=== PATIENT | male | born 1950 | race Caucasian/White ===

== ENCOUNTER 2017-05-09 08:28 | Day surgery (SDC) | payer MEDICARE, SELFPAY | END 2017-05-09 09:08 | disposition home or self-care (01) | PROVIDERS: Family Provider Family Medicine; Visit Provider Nurse Anesthetist, Certified Registered | DX: M51.16 Intervertebral disc disorders with radiculopathy, lumbar region (principal); M70.61 Trochanteric bursitis, right hip | CPT/HCPCS: 20610; 62323; J1040 ==

== ENCOUNTER → 2017-07-01 09:19 | Outpatient (POV) | payer MEDICARE, SELFPAY ==
[2017-07-01 09:31] VITALS: BP 148/84; PULSE 75; RESP 16; TEMP 36.5; O2SAT 97; BMI 28.5
--- NOTE | 2017-07-01 09:40 | HMH.PAINSOAP ---
[facility] Pain Management SOAP Note Subjective:: Pleasant 67-year-old white male who presents today to discuss his recent lumbar epidural steroid injection and a right trochanteric bursa injection. Patient is doing 60% better in regards to back pain for over 6 weeks. Patient is still having some right hip pain. 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 Patient has tried heat and ice is also tried muscle relaxants and anti-inflammatories. He has gotten the most relief from this lumbar epidural injection. Patient is also asking about potential medications to help with pain he only wants to take something as needed while he is at the [employer]. We discussed bracing he has tried this in the past with not a lot of success. ROS General: no recent weight change, no fever, no sleep disturbances Respiratory: no cough, no shortness of air, no recurring pulmonary infections Cardiovascular/Peripheral Vascular: No chest pain, No palpitations, no edema, no shortness of breath. Gastrointestinal: no incontinence, normal bowel movements reported Genitourinary: no incontinence Musculoskeletal: Back pain, right leg pain Psychiatric: normal mood/ affect Neurological: [denies weakness in extremities], [denies balance issues] Objective:: Physical Exam General: Alert and oriented x3, no acute distress, pleasant and cooperative, [on room air] Lungs: Resps E/U, Symmetrical chest expansion, Musculoskeletal: Flexion and extension of lumbar spine somewhat guarded secondary to pain, deep tendon reflexes normal, strength in upper and lower extremities [5/5], slightly antalgic gait Neurological: speech clear, welcome desk agent equal, no gross sensory deficits Assessment:: Degenerative disc disease lumbar spine with lumbar radiculopathy, right trochanteric bursitis Plan:: Patient and I had a long discussion about potential make pain medication. I discussed that we should probably do an additional 2 lumbar epidural steroid injection since he did so well with the last one. I also discussed starting tramadol with him 50 mg 1 p.o. twice daily. I spoke with Dr. Smith regarding this and he has reviewed the chart and agrees. Patient is also on gabapentin and meloxicam. Patient Kaspar #[id number] reviewed and appropriate. We will do a UDS on him at his next visit if he determines the tramadol works for him. It has tried and failed physical therapy, anti-inflammatories, chiropractic therapy. Note was dictated using voice recognition software and may contain errors or omissions
--- NOTE | 2017-07-01 09:43 | P.CONS_ITS ---
[facility] Pain Management SOAP Note Subjective:: Pleasant 67-year-old white male who presents today to discuss his recent lumbar epidural steroid injection and a right trochanteric bursa injection. Patient is doing 60% better in regards to back pain for over 6 weeks. Patient is still having some right hip pain. 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 Patient has tried heat and ice is also tried muscle relaxants and anti-inflammatories. He has gotten the most relief from this lumbar epidural injection. Patient is also asking about potential medications to help with pain he only wants to take something as needed while he is at the [employer]. We discussed bracing he has tried this in the past with not a lot of success. ROS General: no recent weight change, no fever, no sleep disturbances Respiratory: no cough, no shortness of air, no recurring pulmonary infections Cardiovascular/Peripheral Vascular: No chest pain, No palpitations, no edema, no shortness of breath. Gastrointestinal: no incontinence, normal bowel movements reported Genitourinary: no incontinence Musculoskeletal: Back pain, right leg pain Psychiatric: normal mood/ affect Neurological: [denies weakness in extremities], [denies balance issues] Objective:: Physical Exam General: Alert and oriented x3, no acute distress, pleasant and cooperative, [ on room air] Lungs: Resps E/U, Symmetrical chest expansion, Musculoskeletal: Flexion and extension of lumbar spine somewhat guarded secondary to pain, deep tendon reflexes normal, strength in upper and lower extremities [5/5], slightly antalgic gait Neurological: speech clear, lever miller equal, no gross sensory deficits Assessment:: Degenerative disc disease lumbar spine with lumbar radiculopathy, right trochanteric bursitis Plan:: Patient and I had a long discussion about potential make pain medication. I discussed that we should probably do an additional 2 lumbar epidural steroid injection since he did so well with the last one. I also discussed starting tramadol with him 50 mg 1 p.o. twice daily. I spoke with Dr. Smith regarding this and he has reviewed the chart and agrees. Patient is also on gabapentin and meloxicam. Patient Kaspar #[id number] reviewed and appropriate. We will do a UDS on him at his next visit if he determines the tramadol works for him. It has tried and failed physical therapy, anti-inflammatories, chiropractic therapy. Note was dictated using voice recognition software and may contain errors or omissions
--- NOTE | 2017-07-02 09:31 | PC.PHONENOTE ---
Called in Rx for Tramadol 50mg BID with 2 refills pt pharmacy per provider order
== END ==
PROVIDERS: Family Provider Family Medicine; PCP Family Medicine; Visit Provider Clinical Nurse Specialist Family Health
DX: M70.60 Trochanteric bursitis, unspecified hip (principal)
CPT/HCPCS: 99212

== ENCOUNTER 2017-08-15 14:50 | Day surgery (SDC) | payer MEDICARE, SELFPAY ==
[2017-08-15 14:56] VITALS: BP 156/81; PULSE 60; RESP 18; TEMP 36.7; O2SAT 95; BMI 41.3
[2017-08-15 15:15] VITALS: BP 142/72; PULSE 61; RESP 18; TEMP 36.6; O2SAT 96; BMI 29.8
--- NOTE | 2017-08-15 15:19 | PC.NURSE ---
PATIENT ALERT, ORIENTED AT ASSESSMENT. NO RESPIRATORY DISTRESS NOTED, RATE/RHYTHM/DEPTH NORMAL.
--- NOTE | 2017-08-15 15:21 | HMH.PMPROC ---
- Procedure Date: 08/15/17 Time: 15:21 Anesthesiologist:: Mingo Smith MD Complications:: None Pre-procedure Diagnosis:: Degenerative disc disease of lumbar spine with lumbar radiculopathy symptoms Post-procedure Diagnosis:: Same Indications for Procedure:: This patient is a pleasant 67-year-old white male who we are treating for low back pain and right hip pain. He did well after his last lumbar epidural steroid injection. He is having some increasing pain in his low back radiating down his leg. We will do repeat lumbar epidural steroid injection today. Procedure Details:: Lumbar epidural steroid injection under fluoroscopy Informed consent was obtained and the risk and benefits of the procedure was explained to the patient. The patient was taken to the procedure room. The patient was placed prone on the procedure table. The patient was prepped and draped in sterile fashion. C-arm fluoroscopy was used to view the lumbar spine. Skin and subcutaneous tissues were anesthetized using lidocaine. I placed an 18-gauge epidural needle and advanced into the L4-L5 interspace using fluoroscopic guidance and [id number] to air. After confirmation of needle placement in the epidural space with dye I injected 2 mL of lidocaine 1.5% with Depo-Medrol 80 mg. Patient tolerated the procedure well with no complications. Plan and Disposition:: We will follow-up with him in 2 weeks. We will reevaluate his symptoms at that time.
[2017-08-15 15:22] VITALS: BP 151/83; PULSE 69; RESP 18
[2017-08-15 15:24] VITALS: BP 156/84; PULSE 67; RESP 18
--- NOTE | 2017-08-15 15:26 | P.PCN_ITS ---
- Procedure Date: 08/15/17 Time: 15:21 Anesthesiologist:: Mingo Smith MD Complications:: None Pre-procedure Diagnosis:: Degenerative disc disease of lumbar spine with lumbar radiculopathy symptoms Post-procedure Diagnosis:: Same Indications for Procedure:: This patient is a pleasant 67-year-old white male who we are treating for low back pain and right hip pain. He did well after his last lumbar epidural steroid injection. He is having some increasing pain in his low back radiating down his leg. We will do repeat lumbar epidural steroid injection today. Procedure Details:: Lumbar epidural steroid injection under fluoroscopy Informed consent was obtained and the risk and benefits of the procedure was explained to the patient. The patient was taken to the procedure room. The patient was placed prone on the procedure table. The patient was prepped and draped in sterile fashion. C-arm fluoroscopy was used to view the lumbar spine. Skin and subcutaneous tissues were anesthetized using lidocaine. I placed an 18-gauge epidural needle and advanced into the L4-L5 interspace using fluoroscopic guidance and [id number] to air. After confirmation of needle placement in the epidural space with dye I injected 2 mL of lidocaine 1.5 % with Depo-Medrol 80 mg. Patient tolerated the procedure well with no complications. Plan and Disposition:: We will follow-up with him in 2 weeks. We will reevaluate his symptoms at that time.
[2017-08-15 15:30] VITALS: BP 117/96; PULSE 80; RESP 18; O2SAT 95
[2017-08-15 15:37] VITALS: BP 154/64; PULSE 66; RESP 18; TEMP 36.7; O2SAT 95
--- NOTE | 2017-08-18 08:37 | PC.PHONENOTE ---
08/15/17-called in Rx for Gabapentin 600mg TID with 2 refills to [facility] pharmacy in [place]
--- NOTE | 2017-08-19 13:57 | PC.PHONENOTE ---
08/15/17-called in Rx for Gabapentin 600mg TID with 2 refills to pt's pharmacy
== END 2017-08-15 15:39 | disposition home or self-care (01) ==
LOC: SC.PAINP 14:52
PROVIDERS: Family Provider Family Medicine; PCP Family Medicine; Visit Provider Anesthesiology
DX: M51.16 Intervertebral disc disorders with radiculopathy, lumbar region (principal)
CPT/HCPCS: 62323; J1040; Q9966

== ENCOUNTER → 2017-09-01 13:39 | Outpatient (POV) | payer MEDICARE, SELFPAY ==
[2017-09-01 13:49] VITALS: BP 112/67; PULSE 74; RESP 20; BMI 29.8
--- NOTE | 2017-09-01 14:09 | HMH.PAINSOAP ---
[facility] Pain Management SOAP Note Subjective:: Patient is a pleasant 67-year-old white male who presents today to discuss his second lumbar epidural steroid injection. Patient states he is doing extremely well. He states that all of the radicular leg symptoms have subsided. Patient only complaint today is hip pain and burning in his feet. Patient states that the burning in his feet is intermittent and only comes and goes. Patient states that he gets no relief from the lumbar epidural injections with the burning of his feet. Patient rates his pain a 3 out of 10 today. Patient states that most of it is in his bilateral hips. Patient does have imaging showing osteoarthritis of the hips. We will do an intra-articular injection of the bilateral hip, given the efficacy of his lumbar epidural steroid injections. Patient becomes more active during the summer. ROS General: no recent weight change, no fever, no sleep disturbances Respiratory: no cough, no shortness of air, no recurring pulmonary infections Cardiovascular/Peripheral Vascular: No chest pain, No palpitations, no edema, no shortness of breath. Gastrointestinal: no incontinence, normal bowel movements reported Genitourinary: no incontinence Musculoskeletal: Bilateral hip pain, bilateral foot pain Psychiatric: normal mood/ affect, Neurological: [denies weakness in extremities], [denies balance issues] Objective:: Physical Exam General: Alert and oriented x3, no acute distress, pleasant and cooperative, [on room air] Lungs: Resps E/U, Symmetrical chest expansion, Eyes: PERRL Musculoskeletal: Flexion and extension of lumbar spine somewhat guarded secondary to pain, deep tendon reflexes normal, strength in upper and lower extremities [5/5], [abnormal gait noted], extreme point tenderness over the posterior aspect of the hip laterally. Neurological: speech clear, power driven brush maker equal, no gross sensory deficits Assessment:: Osteoarthritis of bilateral hips, neuropathy, degenerative disc disease of the lumbar spine with lumbar radiculopathy Plan:: We will schedule bilateral intra-articular hip joint injections. Given the efficacy of his last lumbar epidural steroid injections will hold off on the third 1. Patient's tried and failed physical therapy, anti-inflammatories, medications. Patient continues to do home stretching regimen. Patient will continue gabapentin 600 mg p.o. twice daily. We will also order compounded cream to help with the burning in his feet. This note was dictated using voice recognition software and may contain errors or omissions
--- NOTE | 2017-09-01 14:13 | P.CONS_ITS ---
[facility] Pain Management SOAP Note Subjective:: Patient is a pleasant 67-year-old white male who presents today to discuss his second lumbar epidural steroid injection. Patient states he is doing extremely well. He states that all of the radicular leg symptoms have subsided. Patient only complaint today is hip pain and burning in his feet. Patient states that the burning in his feet is intermittent and only comes and goes. Patient states that he gets no relief from the lumbar epidural injections with the burning of his feet. Patient rates his pain a 3 out of 10 today. Patient states that most of it is in his bilateral hips. Patient does have imaging showing osteoarthritis of the hips. We will do an intra-articular injection of the bilateral hip, given the efficacy of his lumbar epidural steroid injections. Patient becomes more active during the summer. ROS General: no recent weight change, no fever, no sleep disturbances Respiratory: no cough, no shortness of air, no recurring pulmonary infections Cardiovascular/Peripheral Vascular: No chest pain, No palpitations, no edema, no shortness of breath. Gastrointestinal: no incontinence, normal bowel movements reported Genitourinary: no incontinence Musculoskeletal: Bilateral hip pain, bilateral foot pain Psychiatric: normal mood/ affect, Neurological: [denies weakness in extremities], [denies balance issues] Objective:: Physical Exam General: Alert and oriented x3, no acute distress, pleasant and cooperative, [ on room air] Lungs: Resps E/U, Symmetrical chest expansion, Eyes: PERRL Musculoskeletal: Flexion and extension of lumbar spine somewhat guarded secondary to pain, deep tendon reflexes normal, strength in upper and lower extremities [5/5], [abnormal gait noted], extreme point tenderness over the posterior aspect of the hip laterally. 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 Given the efficacy of his last lumbar epidural steroid injections will hold off on the third 1. Patient's tried and failed physical therapy, anti-inflammatories, medications. Patient continues to do home stretching regimen. Patient will continue gabapentin 600 mg p.o. twice daily. We will also order compounded cream to help with the burning in his feet. This note was dictated using voice recognition software and may contain errors or omissions
== END ==
PROVIDERS: Family Provider Family Medicine; PCP Family Medicine; Visit Provider Clinical Nurse Specialist Family Health
DX: M16.0 Bilateral primary osteoarthritis of hip (principal); M54.16 Radiculopathy, lumbar region
CPT/HCPCS: 99212

== ENCOUNTER → 2017-10-14 11:05 | Outpatient (POV) | payer MEDICARE, SELFPAY ==
[2017-10-14 11:26] VITALS: BP 109/71; PULSE 63; RESP 18; O2SAT 98; BMI 29.8
--- NOTE | 2017-10-14 12:09 | HMH.PAINSOAP ---
[facility] Pain Management SOAP Note Subjective:: Patient is a pleasant 59-year-old white male who presents today for follow-up after bilateral intra-articular hip injections. Patient states he is 100% better. He states that his pain today is a 0 out of 10. Patient states he is much more active and able to go to work every day. ROS General: no recent weight change, no fever, no sleep disturbances Respiratory: no cough, no shortness of air, no recurring pulmonary infections Cardiovascular/Peripheral Vascular: No chest pain, No palpitations, no edema, no shortness of breath. Gastrointestinal: no incontinence, normal bowel movements reported Genitourinary: no incontinence Musculoskeletal: Bilateral hip pain Psychiatric: normal mood/ affect Neurological: [denies weakness in extremities], [denies balance issues] Objective:: Physical Exam General: Alert and oriented x3, no acute distress, pleasant and cooperative, [on room air] Lungs: Resps E/U, Symmetrical chest expansion, Eyes: PERRL Musculoskeletal: Flexion and extension of lumbar spine somewhat guarded secondary to pain, deep tendon reflexes normal, strength in upper and lower extremities [5/5], slightly antalgic gait noted Neurological: speech clear, chainman equal, no gross sensory deficits Assessment:: Degenerative disc disease of lumbar spine with lumbar radiculopathy and osteoarthritis of bilateral hips Plan:: We will follow-up with this patient on an as-needed basis. Patient has done extremely well with injective therapies. This note was dictated using voice recognition software and may contain errors or omissions
--- NOTE | 2017-10-14 12:15 | P.CONS_ITS ---
[facility] Pain Management SOAP Note Subjective:: Patient is a pleasant 59-year-old white male who presents today for follow-up after bilateral intra-articular hip injections. Patient states he is 100% better. He states that his pain today is a 0 out of 10. Patient states he is much more active and able to go to work every day. ROS General: no recent weight change, no fever, no sleep disturbances Respiratory: no cough, no shortness of air, no recurring pulmonary infections Cardiovascular/Peripheral Vascular: No chest pain, No palpitations, no edema, no shortness of breath. Gastrointestinal: no incontinence, normal bowel movements reported Genitourinary: no incontinence Musculoskeletal: Bilateral hip pain Psychiatric: normal mood/ affect Neurological: [denies weakness in extremities], [denies balance issues] Objective:: Physical Exam General: Alert and oriented x3, no acute distress, pleasant and cooperative, [ on room air] Lungs: Resps E/U, Symmetrical chest expansion, Eyes: PERRL Musculoskeletal: Flexion and extension of lumbar spine somewhat guarded secondary to pain, deep tendon reflexes normal, strength in upper and lower extremities [5/5], slightly antalgic gait noted Neurological: speech clear, assessment rn equal, no gross sensory deficits Assessment:: Degenerative disc disease of lumbar spine with lumbar radiculopathy and osteoarthritis of bilateral hips Plan:: We will follow-up with this patient on an as-needed basis. Patient has done extremely well with injective therapies. This note was dictated using voice recognition software and may contain errors or omissions
== END ==
PROVIDERS: Family Provider Family Medicine; PCP Family Medicine; Visit Provider Clinical Nurse Specialist Family Health
DX: M16.0 Bilateral primary osteoarthritis of hip (principal); M54.16 Radiculopathy, lumbar region
CPT/HCPCS: 99212

== ENCOUNTER → 2017-11-05 14:49 | Outpatient (CLI) | payer MEDICARE, SELFPAY ==
[2017-11-05 17:20] LABS: Alanine Aminotransferase 47 U/L (12-78); Albumin Level 3.7 gm/dL (3.4-5.0); Albumin/Globulin Ratio 1.3 (1.1-1.8); Alkaline Phosphatase 83 U/L (46-116); Anion Gap 12.9 mEq/L (5-15); Aspartate Amino Transferase 25 U/L (15-37); Bilirubin,Total 1.3 mg/dL (0.2-1.0); Blood Urea Nitrogen 23 mg/dL (7-18); Calcium 8.7 mg/dL (8.5-10.1); Carbon Dioxide 27 mmol/L (21.0-32.0); Chloride 108 mmol/L (98-107); Chol/HDL Ratio 2.3 (1-3.5); Cholesterol 140 mg/dL (140-200); Creatinine,Serum 1.11 mg/dL (0.70-1.30); Estimated Glomerular Filt Rate 66 ml/min (>60); GFR (African American) 80 ML/MIN (>60); Globulin 2.8 gm/dl (1.3-3.2); Glucose 82 mg/dL (74-106); HDL Cholesterol 60 mg/dL (27-67); LDL Cholesterol 63 mg/dL (0-130); Potassium 4.9 mmoL/L (3.5-5.1); Sodium 143 mmol/L (136-145); Thyroid Stimulating Hormone 1.14 uIU/ml (0.358-3.740); Total Protein,Serum 6.5 gm/dL (6.4-8.2); Triglycerides 83 mg/dL (30-200); VLDL Cholesterol 17 mg/dL (0-40)
== END ==
PROVIDERS: Visit Provider Physician Assistant
DX: I25.10 Atherosclerotic heart disease of native coronary artery without angina pectoris (principal); I10 Essential (primary) hypertension; E78.5 Hyperlipidemia, unspecified
CPT/HCPCS: 36415; 80053; 80061; 84443; 93005

== ENCOUNTER → 2017-11-11 11:17 | Outpatient (CLI) | payer MEDICARE, SELFPAY ==
--- NOTE | 2017-11-11 11:22 | NM_ITS ---
History and Indications: Coronary artery disease, but possibility, hypertension, tobacco use, family history. Procedure: Patient received a 0.4 mg of Lexiscan, resting heart rate was 68 beats prominent, resting blood pressure 168/81, with Lexiscan maximum heart rate achieved is 81 bpm which is less than 85% of the maximum predicted heart rate and a blood pressure was 139/73. Electrocardiogram: Resting electrocardiogram shows sinus rhythm, first degree AV block, with Lexiscan there is less than 1.[address] segment depression noted from the baseline EKG. The EKG portion of the Lexiscan Myoview is nondiagnostic. Cardiac stress and resting SPECT images: Cardiac stress and rest SPECT images were obtained using technetium 99 Myoview 31.3 mCi at stress and 9.8 mCi at rest. Gated SPECT further analysis of segmental wall motion and calculation of the ejection fraction also done. Cardiac stress and the suspect images show decreased tracer activity in the inferior apical, apex and anteroseptal wall which improves on the resting images suggestive of reversible ischemia in that area. There are ejection fraction is 56% with no obvious regional wall motion abnormality, right ventricle is normal size and contractility. Conclusion: 1. The EKG portion of the Lexiscan Myoview is nondiagnostic. 2. Scintigraphic evidence of reversible ischemia involving the apex, anteroseptal and inferior apical wall, computer derived ejection fraction is 56% with no obvious regional wall motion abnormality, right ventricle is normal size and contractility. 3. Abnormal Lexiscan Myoview study.
--- NOTE | 2017-11-11 12:16 | HMH.ITSHM ---
METOPROLOL LOSARTAN TAMSULOSIN ATORVASTATIN GABAPENTIN MELOXICAM ASA
== END ==
PROVIDERS: Family Provider Family Medicine; PCP Family Medicine; Visit Provider Physician Assistant
DX: Z01.818 Encounter for other preprocedural examination (principal); I25.10 Atherosclerotic heart disease of native coronary artery without angina pectoris; I10 Essential (primary) hypertension
CPT/HCPCS: 78452; 93017; A9502; J2785

== ENCOUNTER → 2018-02-03 09:45 | Outpatient (CLI) | payer MEDICARE, SELFPAY ==
[2018-02-03 09:49] LABS: Microscopic, Urine URINE MICROSCOPIC (MICROSCOPIC)
[2018-02-03 10:17] LABS: Appearance,Urine CLEAR (Clear); Bilirubin,Urine Negative (Negative); Blood, Urine TRACE-L (Negative); Color,Urine YELLOW (Yellow); Glucose,Urine (UA) Negative (Negative); Ketones,Urine Negative (Negative); Leukocyte Esterase,Urine Negative (Negative); Nitrate,Urine Negative (Negative); PH,Urine 6.5 (5.0-8.5); Protein,Urine Negative (Negative); Specific Gravity, Urine <= 1.005 (1.005-1.030); Urobilinogen,Urine 0.2 EU/dl (0.2)
[2018-02-03 10:27] LABS: Bacteria,Urine 1+ /lpf; RBC,Urine Occasional #/hpf (0-3)
[2018-02-03 10:47] LABS: Basophils # 0.1 K/mm3 (0-0.2); Basophils % 0.8 % (0.1-2.0); Eosinophils # 0.2 K/mm3 (0.0-0.4); Eosinophils % 2.1 % (0.1-12.0); Hematocrit 49.2 % (42.0-52.0); Hemoglobin 16.3 g/dL (14.1-18.0); Lymphocytes # 1.7 K/mm3 (0.7-4.5); Lymphocytes % 21.4 K/mm3 (10-50); Mean Corpuscular HGB Conc 33.2 g/dL (31.8-35.4); Mean Corpuscular Volume 93.5 fl (80-94); Mean Platelet Volume 8.2 fl (7.4-10.4); Monocytes # 0.6 K/mm3 (0.1-1.0); Monocytes % 7.4 % (1.7-9.3); Neutrophils # 5.5 K/mm3 (1.8-7.8); Neutrophils % 68.4 % (37.0-80.0); Platelet Count 197 K/mm3 (142-424); Red Blood Count 5.26 M/mm3 (4.60-6.20); Red Cell Distribution Width 13.2 % (11.5-17.5)
[2018-02-03 13:20] LABS: Anion Gap 11.1 mEq/L (5-15); Blood Urea Nitrogen 18 mg/dL (7-18); Calcium 8.8 mg/dL (8.5-10.1); Carbon Dioxide 29 mmol/L (21.0-32.0); Chloride 106 mmol/L (98-107); Creatinine,Serum 1.14 mg/dL (0.70-1.30); Estimated Glomerular Filt Rate 64 ml/min (>60); GFR (African American) 77 ML/MIN (>60); Glucose 111 mg/dL (74-106); Potassium 4.1 mmoL/L (3.5-5.1); Sodium 142 mmol/L (136-145)
== END ==
PROVIDERS: Family Provider Family Medicine; PCP Family Medicine; Visit Provider Surgery
DX: K46.9 Unspecified abdominal hernia without obstruction or gangrene (principal)
CPT/HCPCS: 36415; 80048; 81001; 85025

== ENCOUNTER → 2020-03-22 08:48 | Outpatient (CLI) | payer MEDICARE, SELFPAY ==
--- NOTE | 2020-03-22 09:03 | US_ITS ---
APPROVED REPORT Exam Type: Lower Extremity Segmental Pressures Client Success Specialist: Esperanza Horn RVT Indications Claudication: Bilaterally Rest Pain: Bilaterally Numbness/Tingling Current Smoker CAD Claudication and burning top of bilateral feet Risk Factors Hypertension CAD Hyperlipidemia Cardiac Disease Current Smoker Pressures/Indices Right Indices Left Indices Brachial 131.00 mmHg Brachial 133.00 mmHg Low Thigh 131.00 mmHg 0.98 Low Thigh 145.00 mmHg 1.09 Calf 121.00 mmHg 0.91 Calf 160.00 mmHg 1.20 Ankle(PT) 127.00 mmHg 0.95 Ankle(PT) 156.00 mmHg 1.17 Ankle(DP) 119.00 mmHg 0.89 Ankle(DP) 149.00 mmHg 1.12 Digit 90.00 mmHg 0.68 Digit 88.00 mmHg 0.66 Findings RT MICHELLE:0.95 LT MICHELLE:1.17 RT TBI:0.68 LT TBI:0.66 NORMAL PULSES BILATERAL NOMAL WAVEFORMS BILATERAL Conclusion RT MICHELLE:0.95 LT MICHELLE:1.17 RT TBI:0.68 LT TBI:0.66 NORMAL PULSES BILATERAL NOMAL WAVEFORMS BILATERAL Normal appearing resting noninvasive lower extremity arterial study. Electronically signed by : Feliberto Murry MD 03/22/2020 16:52:43
== END ==
PROVIDERS: PCP Family Medicine; Visit Provider Family Medicine
DX: I70.211 Atherosclerosis of native arteries of extremities with intermittent claudication, right leg (principal); R22.43 Localized swelling, mass and lump, lower limb, bilateral
CPT/HCPCS: 93923

== ENCOUNTER → 2020-03-28 13:41 | Outpatient (CLI) | payer MEDICARE, SELFPAY | PROVIDERS: PCP Family Medicine; Visit Provider Family Medicine | DX: G47.33 Obstructive sleep apnea (adult) (pediatric) (principal); R06.83 Snoring | CPT/HCPCS: G0399 ==

== ENCOUNTER → 2020-08-28 11:07 | Outpatient (POV) | payer MEDICARE, SELFPAY ==
[2020-08-28 12:06] VITALS: BP 128/88; PULSE 74; RESP 18; TEMP 36.8; O2SAT 98; BMI 29.8
--- NOTE | 2020-08-28 12:16 | HMH.PAINSOAP ---
[facility] Pain Management SOAP Note Subjective:: Patient is a pleasant 70-year-old white male who presents today for follow-up. Patient has had epidural steroid injections in the past got over 80% relief of his symptomology for over a year. His pain is beginning to return. He rates his pain a 6 out of 10 mostly in his low back and down his left leg. Patient is interested in repeating his epidural injection. He is not on any anticoagulation therapy. ROS General: no recent weight change, no fever, no sleep disturbances Respiratory: no cough, no shortness of air, no recurring pulmonary infections Cardiovascular/Peripheral Vascular: No chest pain, No palpitations, no edema, no shortness of breath. Gastrointestinal: no new onset incontinence, normal bowel movements reported Genitourinary: no new onset incontinence Musculoskeletal: Back pain, leg pain Psychiatric: normal mood/ affect Neurological: [denies new onset weakness in extremities], [denies new onset balance issues] Objective:: Physical Exam General: Alert and oriented x3, no acute distress, pleasant and cooperative, [on room air] Lungs: Resps E/U, Symmetrical chest expansion, Eyes: PERRL Musculoskeletal: Flexion and extension of lumbar spine somewhat guarded secondary to pain, deep tendon reflexes normal, strength in upper and lower extremities [5/5], [abnormal gait noted] Neurological: speech clear, wood calker equal, no gross sensory deficits Assessment:: Degenerative disc disease lumbar spine lumbar radiculopathy, back pain Plan:: We will schedule patient for an L4-L5 lumbar epidural steroid injection we will also give him tramadol 50 mg 1 p.o. 3 times daily in the interim. Patient's been instructed to call the office if he has any issues prior to his next appointment. Dr. Smith has reviewed this note and agrees with this plan of care. This note was dictated using voice recognition software and may contain errors or omissions [facility] History I have reviewed the patient's past medical history: Yes Medical History: Reports:: Hyperlipidemia, Hypertension Denies:: Cancer, Diabetes Mellitus Type 1, Diabetes Mellitus Type 2, Internal Pacemaker, MRSA, Seizures *Have you ever received a pneumonia vaccine?: Yes *Have you received a flu vaccine this season?: Yes Other Medical History: Reports: Arthritis. Denies: Blood Transfusion Reaction Other Surgeries: Yes: Hernia Repair, Sinus Surgery. No: Pacemaker Amputation: No Fractures: No - *Social History Smoking Status: Current every day smoker Tobacco Type: cigarettes # Packs/Day (cigarettes): 1 Alcohol Intake: never Substance Use Type: denies use *Occupational Status:: other Housing: house Household Members: spouse *Travel in the last 8 weeks: None Family Hx:: Anemia, Cancer, Diabetes, Hyperlipidemia, Hypertension
== END ==
PROVIDERS: Visit Provider Clinical Nurse Specialist Family Health
DX: M51.16 Intervertebral disc disorders with radiculopathy, lumbar region (principal)
CPT/HCPCS: 99212; G0463

== ENCOUNTER 2020-09-08 10:19 | Day surgery (SDC) | payer MEDICARE, SELFPAY ==
[2020-09-08 10:33] VITALS: BP 141/79; PULSE 79; RESP 18; TEMP 36.6; O2SAT 18; BMI 29.8
--- NOTE | 2020-09-08 10:47 | HMH.PMPROC ---
- Procedure Date: 09/08/20 Time: 10:47 Anesthesiologist:: Mingo Smith MD Complications:: None Pre-procedure Diagnosis:: Degenerative disc disease of lumbar spine with lumbar radiculopathy symptoms Post-procedure Diagnosis:: Same Indications for Procedure:: Patient is a pleasant 70-year-old white male who we are treating for low back pain with lumbar radiculopathy symptoms. He is done well with previous epidural steroid injections. He was 80 to 90% better. His pain is now starting to come back. Will do repeat lumbar epidural steroid injection under fluoroscopy today. Procedure Details:: Lumbar epidural steroid injection under fluoroscopy Informed consent was obtained and the risk and benefits of the procedure was explained to the patient. The patient was taken to the procedure room. The patient was placed prone on the procedure table. The patient was prepped and draped in sterile fashion. C-arm fluoroscopy was used to view the lumbar spine. Skin and subcutaneous tissues were anesthetized using lidocaine. I placed an 18-gauge epidural needle and advanced into the L4-L5 interspace using fluoroscopic guidance and [id number] to air. After confirmation of needle placement in the epidural space with dye I injected 2 mL of lidocaine 1.5% with Depo-Medrol 80 mg. Patient tolerated the procedure well with no complications. Plan and Disposition:: We will follow-up with him in 2 weeks. Will reevaluate symptoms at that time.
[2020-09-08 10:49] VITALS: BP 138/82; PULSE 80; RESP 18
[2020-09-08 10:50] VITALS: BP 140/85; PULSE 82; RESP 18; O2SAT 98
[2020-09-08 11:00] VITALS: BP 147/85; PULSE 75; RESP 20; O2SAT 98
== END 2020-09-08 11:00 | disposition home or self-care (01) ==
LOC: SC.PAINP 10:21
PROVIDERS: PCP Family Medicine; Visit Provider Anesthesiology
DX: M51.16 Intervertebral disc disorders with radiculopathy, lumbar region (principal); I10 Essential (primary) hypertension; E78.5 Hyperlipidemia, unspecified; M19.90 Unspecified osteoarthritis, unspecified site; G47.33 Obstructive sleep apnea (adult) (pediatric)
CPT/HCPCS: 62323; J1040; Q9966

== ENCOUNTER → 2020-09-28 10:50 | Outpatient (CLI) | payer MEDICARE, SELFPAY ==
[2020-09-28 11:12] LABS: Basophils # 0.1 K/mm3 (0-0.2); Basophils % 0.6 % (0.1-2.0); Eosinophils # 0.2 K/mm3 (0.0-0.4); Eosinophils % 1.4 % (0.1-12.0); Hematocrit 48.4 % (42.0-52.0); Hemoglobin 16.7 g/dL (14.1-18.0); Lymphocytes # 1.7 K/mm3 (0.7-4.5); Lymphocytes % 15.6 % (10-50); Mean Corpuscular HGB Conc 34.4 g/dL (31.8-35.4); Mean Corpuscular Hemoglobin 31.6 pg (27.0-31.2); Mean Corpuscular Volume 91.7 fl (80-94); Mean Platelet Volume 8.2 fl (7.4-10.4); Monocytes # 0.6 K/mm3 (0.1-1.0); Monocytes % 5.4 % (1.7-9.3); Neutrophils # 8.3 K/mm3 (1.8-7.8); Platelet Count 196 K/mm3 (142-424); Red Blood Count 5.28 M/mm3 (4.60-6.20); Red Cell Distribution Width 13.8 % (11.5-17.5); White Blood Count 10.8 K/mm3 (4.8-10.8)
[2020-09-28 12:09] LABS: Chloride 103 mmol/L (98-107); Sodium 138 mmol/L (136-145)
[2020-09-28 12:10] LABS: Potassium 4.3 mmoL/L (3.5-5.1)
[2020-09-28 12:12] LABS: Anion Gap 11.3 mEq/L (5-15); Blood Urea Nitrogen 25 mg/dl (9-20); Carbon Dioxide 28 mmol/L (22.0-30.0); Estimated Glomerular Filt Rate 60 ml/min (>60); GFR (African American) 72 ML/MIN (>60)
[2020-09-28 12:13] LABS: Calcium 9.5 mg/dl (8.4-10.2); Glucose 120 mg/dl (74-100)
== END ==
PROVIDERS: Visit Provider Anesthesiology
DX: Z01.812 Encounter for preprocedural laboratory examination (principal); Z20.822 Contact with and (suspected) exposure to COVID-19; M51.36 Other intervertebral disc degeneration, lumbar region
CPT/HCPCS: 36415; 80048; 85025; U0003

== ENCOUNTER 2020-09-29 07:24 | Day surgery (SDC) | payer MEDICARE, SELFPAY ==
[2020-09-26 09:07] VITALS: BMI 29.1
[2020-09-29 07:52] VITALS: BP 104/63; PULSE 74; RESP 18; TEMP 36.2; O2SAT 96
--- NOTE | 2020-09-29 09:30 | P.PN_ITS ---
[facility] Anesthesia Checklist - Patient Identification Patient Identification: Arm Band - Structural Data Admitted From: Home Planned Operative Procedure/s: MILD Procedure at L3/4, L4/5 Consent for Planned Operative Procedure(s) Verified: Yes Verified Documents: Surgical Consent, History and Physical - NPO Status Verified Time NPO: 00:00 - Additional verifications Anesthesia Reactions: No Hx Blood Transfusions: No Blood Transfusion Reaction: No - Airway Assessment C-Spine Mobility Assessed: Yes (mp2) TMJ Mobility Assessed: Yes Dentition: Good Dentition - Neurological Assessment Level of Consciousness: Awake, Alert - Anesthesia Plan Anesthesia Risk discussed: Yes Anesthesia Plan: Verified ASA Class: III Anesthesia Type: MAC [facility] History I have reviewed the patient's past medical history: Yes Medical History: Reports:: Coronary Artery Disease, Heart Murmur, Hyperlipidemia, Hypertension Denies:: Cancer, Diabetes Mellitus Type 1, Diabetes Mellitus Type 2, Internal Pacemaker, MRSA, Seizures *Have you ever received a pneumonia vaccine?: Yes *Have you received a flu vaccine this season?: Yes Other Medical History: Reports: Arthritis. Denies: Blood Transfusion Reaction Anesthesia experience/problems:: nac Other Surgeries: Yes: CABG, Hernia Repair, Sinus Surgery. No: Pacemaker Amputation: No Fractures: No - *Social History Last grade of school completed: High school graduate Smoking Status: Current every day smoker Tobacco Type: cigarettes # Packs/Day (cigarettes): 1 Alcohol Intake: never Substance Use Type: denies use *Occupational Status:: retired Housing: house Household Members: other *Travel in the last 8 weeks: Inside the [facility] Family Hx:: Anemia, Cancer, Diabetes, Hyperlipidemia, Hypertension
[2020-09-29 10:20] VITALS: BP 109/64; PULSE 81; RESP 22; TEMP 36.1; O2SAT 96
[2020-09-29 10:35] VITALS: BP 109/52; PULSE 60; RESP 18; O2SAT 96
--- NOTE | 2020-09-29 10:41 | SUR.OPER ---
10:12 depo-medrol administered via lumbar decompression
[2020-09-29 10:50] VITALS: BP 97/50; PULSE 69; RESP 18; O2SAT 96
--- NOTE | 2020-09-29 10:50 | P.OP_ITS ---
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 MRI and epidurogram do indicate significant stenosis at L3-L4 and L4-L5. He has significant pain while standing and walking. He has significant neurogenic claudication symptoms when active. We will plan on minimally invasive lumbar decompression bilateral L3-L4 and L4-L5 today to help with his pain symptoms. Operative findings:: None Operative note:: Informed consent was obtained and the risk and benefits of the procedure was explained to the patient. The patient was taken to the operating room and placed prone on the procedure table. The patient was prepped and draped in sterile fashion. C-arm fluoroscopy was used to view the lumbar spine. The skin and subcutaneous tissues were anesthetized using lidocaine. A epidural needle was inserted and advanced into the L3-L4 interspace. After confirmation of needle placement in the epidural space, dye was injected in a contralateral oblique view. There was an epidurogram seen at L3-L4 and L4-L5. Significant stenosis was seen at L3-L4 and L4-L5. The skin and subcutaneous tissues again were anesthetized using lidocaine. An incision was made and a access trocar was inserted and advanced to contact at the superior aspect of the L4 lamina on the left side. And a contralateral oblique view the side was viewed. Using a bone rongeur and tissue sculptor we debulked bone from the L3-L4 and L4-L5 interspace on the left side. We then used the tissue sculptor to debulk ligament at the L3-L4 and L4-L5 interspace on the left side. We then moved over to the right side and debulked bone and ligament from L3-L4 and L4-L5 on the right side. There is opening of the stenosis at L3-L4 and L4-L5 bilaterally. The access trocar was removed. A total of 3 mL's of dye was used. There is good spread of dye above and below this level as well. We injected 80 mg Depo-Medrol through the epidural needle. The epidural needle was removed and dressings were placed. This encounter for exam is for normal comparison and control in a clinical research program Patient was taken to recovery in stable condition. Patient was discharged home neurologically intact and with good relief of pain symptoms. Plan and disposition: We will follow-up with this patient in 2 weeks. Will reevaluate symptoms at that time. Condition: stable Disposition: PACU Complications:: None
[2020-09-29 11:05] VITALS: BP 108/64; PULSE 69; RESP 16; O2SAT 96
[2020-09-29 11:20] VITALS: BP 110/68; PULSE 64; RESP 18; O2SAT 96
== END 2020-09-29 11:43 | disposition home or self-care (01) ==
PROVIDERS: PCP Family Medicine; Visit Provider Anesthesiology
DX: M48.062 Spinal stenosis, lumbar region with neurogenic claudication (principal); M51.36 Other intervertebral disc degeneration, lumbar region; Z00.6 Encounter for examination for normal comparison and control in clinical research program; I25.10 Atherosclerotic heart disease of native coronary artery without angina pectoris; R01.1 Cardiac murmur, unspecified; E78.5 Hyperlipidemia, unspecified; I10 Essential (primary) hypertension; M19.90 Unspecified osteoarthritis, unspecified site; Z95.1 Presence of aortocoronary bypass graft; Z72.0 Tobacco use; Z83.3 Family history of diabetes mellitus; Z83.438 Family history of other disorder of lipoprotein metabolism and other lipidemia
CPT/HCPCS: 0275T; 96374; C1889; J1040; J2704; J3370

== ENCOUNTER → 2020-10-19 11:36 | Outpatient (POV) | payer MEDICARE, SELFPAY ==
[2020-10-19 11:41] VITALS: BP 112/70; PULSE 68; RESP 18; O2SAT 96; BMI 29.8
--- NOTE | 2020-10-19 12:02 | HMH.PAINSOAP ---
[facility] Pain Management SOAP Note Subjective:: Patient is a 70-year-old white male who presents today for follow-up after a mild procedure. Patient is being treated for degenerative disc disease lumbar spine with lumbar radiculopathy symptoms with neurogenic claudication symptoms. Patient says that he does have relief of his bilateral lower extremity heaviness and weakness, however, he has continued to have significant. Patient rates his pain a 3 out of 10 today. He says his pain is worse with standing and walking and does not improve much with sitting. He is 2 weeks postoperative and is continuing to have pain in his low back. He does report that he has tried bilateral SI joint injections in the past and has gotten significant relief. He says he feels these injections gave him more relief than any other injections injections he has had in the past. Patient has been prescribed tramadol, however, due to his insurance he was not able to get the medication. We discussed attempting to order the medication once more for his chronic pain to his low back area. We also discussed possible muscle relaxer to give him some relief of his low back pain. He would like to try pain medication over the next 2 weeks to see if this helps. He reports to be having extreme fatigue and soreness to his low back. Review of Systems General: No recent weight changes, no fever, no sleep disturbances Respiratory: No cough, no shortness of air, no recurring pulmonary infections Cardiovascular/peripheral vascular: No chest pain, no palpitations, no edema, no shortness of breath Gastrointestinal: No new onset incontinence, normal bowel movements reported Genitourinary: No new onset incontinence Musculoskeletal: Low back pain Psychiatric: Normal mood/affect Neurological: [Denies weakness in extremities], [denies balance issues] Objective:: Physical exam General: Alert and oriented x3, no acute distress, pleasant and cooperative, [on room air] Lungs: Respirations even and unlabored, symmetrical chest expansion Eyes: PERRL Musculoskeletal: Flexion and extension of lumbar spine somewhat guarded secondary to pain, deep tendon reflexes normal, strength in upper and lower extremities [5/5], [abnormal gait noted] Neurological: Speech clear, bridge attacher equal, no gross sensory deficit Assessment:: Degenerative disc disease lumbar spine with lumbar radiculopathy symptoms, spinal stenosis Plan:: We will order the patient tramadol 50 mg 1 tablet p.o. 3 times daily for chronic pain to his low back. We will also order him baclofen 10 mg 1 tablet p.o. twice daily. He understands this can cause sedation. He will need to use caution. He has taken tramadol in the past that was prescribed by his primary care provider and has done well with medication in the past. If the patient is continuing to have low back pain at his 2-week follow-up, we will schedule him for bilateral SI joint injections. He is tender to bilateral SI joints and does have a positive Elissa's, compression, distraction test today. We will follow-up with him in 2 weeks. Risks and benefits of the medication have been explained in detail to the patient. The patient has been advised to consult with his/her primary care provider and pharmacist regarding drug-drug interaction of medications currently prescribed. Patient has been prescribed a controlled substance after being counseled on the medication, medication safety, and possible side effects. [place] report has been obtained and reviewed prior to prescription and found to be appropriate. Opioid contract was reviewed and signed by the patient, and that they have agreed to all of the terms set forth by our compliance program. Patient has been instructed to contact the clinic with any concerns before the next appointment. Dr. Smith has reviewed this note and agrees with this plan of care. This note was dictated using voice recognition software and make contain errors
== END ==
PROVIDERS: PCP Family Medicine; Visit Provider Clinical Nurse Specialist Family Health
DX: M51.16 Intervertebral disc disorders with radiculopathy, lumbar region (principal); M48.00 Spinal stenosis, site unspecified
CPT/HCPCS: 99212; G0463

== ENCOUNTER → 2020-11-09 14:47 | Outpatient (POV) | payer MEDICARE, SELFPAY ==
[2020-11-09 15:24] VITALS: BP 114/66; PULSE 78; RESP 18; O2SAT 97; BMI 29.8
--- NOTE | 2020-11-12 14:23 | HMH.PAINSOAP ---
[facility] Pain Management SOAP Note Subjective:: Patient is a 70-year-old white male who presents today for follow-up after mild procedure. He has been treated for degenerative disc disease lumbar spine with lumbar radiculopathy symptoms as well as spinal stenosis. Today, he is having low back pain with radiation into bilateral buttock, hips, and groin. Patient has had bilateral SI injections and did get close to 2 years of relief. He has had a mild procedure in the past as well which to has given him significant relief of his neurogenic claudication type symptoms. Patient says that sitting, he has no pain. He says he has soreness into his bilateral buttock, worse to the left. Standing and walking worsen his pain. Patient currently has swelling in his right lower extremity and is on Keflex. He does rate his pain a 5 out of 10 today. Review of Systems General: No recent weight changes, no fever, no sleep disturbances Respiratory: No cough, no shortness of air, no recurring pulmonary infections Cardiovascular/peripheral vascular: No chest pain, no palpitations, no edema, no shortness of breath Gastrointestinal: No new onset incontinence, normal bowel movements reported Genitourinary: No new onset incontinence Musculoskeletal: Low back pain with radiation into bilateral buttocks, hips, and left leg Psychiatric: Normal mood/affect Neurological: [Denies weakness in extremities], [denies balance issues] Objective:: Physical exam General: Alert and oriented x3, no acute distress, pleasant and cooperative, [on room air] Lungs: Respirations even and unlabored, symmetrical chest expansion Eyes: PERRL Musculoskeletal: Flexion and extension of lumbar spine somewhat guarded secondary to pain, deep tendon reflexes normal, strength in upper and lower extremities [5/5], [abnormal gait noted], positive Elissa's test, positive distraction test, positive compression test Neurological: Speech clear, bank advisor equal, no gross sensory deficit Plan:: We will schedule the patient for bilateral SI joint injections. He has had bilateral SI injections in the past and got 80% relief for up to 2 years. Patient is having acute onset pain in his low back and buttock as well as his hips and left leg. He has no pain when sitting and does have worsening pain with standing and walking. We will schedule him for the injections and see him back afterwards for reevaluation of symptoms. Risks and benefits of the procedure have been explained to the patient. Patient would like to proceed with the procedure. Possible side effects of corticosteroids have been discussed with the patient. Patient has been instructed to contact the clinic with any concerns before the next appointment. Dr. Smith has reviewed this note and agrees with this plan of care. This note was dictated using voice recognition software and make contain errors or omissions. [facility] History I have reviewed the patient's past medical history: Yes Medical History: Reports:: Coronary Artery Disease, Heart Murmur, Hyperlipidemia, Hypertension Denies:: Cancer, Diabetes Mellitus Type 1, Diabetes Mellitus Type 2, Internal Pacemaker, MRSA, Seizures *Have you ever received a pneumonia vaccine?: No *Have you received a flu vaccine this season?: No Other Medical History: Reports: Arthritis. Denies: Blood Transfusion Reaction Other Surgeries: Yes: CABG, Hernia Repair, Sinus Surgery. No: Pacemaker Amputation: No Fractures: No - *Social History Smoking Status: Current every day smoker Tobacco Type: cigarettes # Packs/Day (cigarettes): 1 Alcohol Intake: never Substance Use Type: denies use *Occupational Status:: unemployed Housing: house Household Members: other *Travel in the last 8 weeks: None Family Hx:: Anemia, Cancer, Diabetes, Hyperlipidemia, Hypertension
== END ==
PROVIDERS: PCP Family Medicine; Visit Provider Clinical Nurse Specialist Family Health
DX: M46.1 Sacroiliitis, not elsewhere classified (principal); M54.5 Low back pain
CPT/HCPCS: 99212; G0463

== ENCOUNTER 2020-11-17 09:13 | Day surgery (SDC) | payer MEDICARE, SELFPAY ==
[2020-11-17 09:21] VITALS: BP 112/62; PULSE 74; RESP 17; TEMP 36.4; O2SAT 98; BMI 29.8
[2020-11-17 09:48] VITALS: BP 124/77; PULSE 70; RESP 18; O2SAT 96
[2020-11-17 09:50] VITALS: BP 134/69; PULSE 80; RESP 18; O2SAT 97
[2020-11-17 10:10] VITALS: BP 113/63; PULSE 74; RESP 18; O2SAT 98
--- NOTE | 2020-11-17 10:11 | P.PCN_ITS ---
- Procedure Date: 11/17/20 Time: 10:11 Anesthesiologist:: Jacinta Watson MD Complications:: None Pre-procedure Diagnosis:: Bilateral sacroiliitis, chronic low back pain, chronic hip pain Post-procedure Diagnosis:: Same Indications for Procedure:: Patient is a very pleasant 70-year-old white male who presents today with chronic low back pain and chronic hip pain related to the above diagnosis. He has trialed and failed conservative treatment including oral pain medication as well as home stretching program for greater than 6 weeks. He has previously undergone bilateral SI joint injections in the past and notes significant pain relief approximately 80% for 2 years. Of note, he has undergone a mild procedure which has significantly helped his chronic low back pain radiating int o his legs. The plan for today is for the patient to undergo repeat bilateral SI joint injections. Procedure Details:: B/L SI joint injection under fluoroscopy Informed consent was obtained and the risks and benefits of the procedure was explained to the patient. The patient was taken to the procedure room and placed prone on the procedure table. The patient was prepped using ChloraPrep. The skin and subcutaneous tissues overlying the SI joints were anesthetized using lidocaine. I placed a 22-gauge needle first in the left SI joint and second in the right SI joint. Needle placement was confirmed with dye. After this we injected 5 mL bupivacaine 0.25% and Depo-Medrol 40 mg into each SI joint. Patient tolerated the procedure well with no complications. Plan and Disposition:: We will follow-up with this patient in 2 weeks. Will reevaluate pain symptoms at that time.
== END 2020-11-17 10:10 | disposition home or self-care (01) ==
LOC: SC.PAINP 09:15
PROVIDERS: PCP Family Medicine; Visit Provider Anesthesiology Pain Medicine
DX: M46.1 Sacroiliitis, not elsewhere classified (principal); M54.5 Low back pain; M25.559 Pain in unspecified hip; I25.10 Atherosclerotic heart disease of native coronary artery without angina pectoris; E78.5 Hyperlipidemia, unspecified; I10 Essential (primary) hypertension; G47.33 Obstructive sleep apnea (adult) (pediatric); M19.90 Unspecified osteoarthritis, unspecified site; R01.1 Cardiac murmur, unspecified; I25.2 Old myocardial infarction; K21.9 Gastro-esophageal reflux disease without esophagitis; Z95.1 Presence of aortocoronary bypass graft; Z72.0 Tobacco use
CPT/HCPCS: 27096; G0260; J1030; Q9966

== ENCOUNTER → 2020-12-11 10:34 | Outpatient (POV) | payer MEDICARE, SELFPAY ==
[2020-12-11 10:49] VITALS: BP 112/62; PULSE 77; RESP 18; O2SAT 96; BMI 29.8
--- NOTE | 2020-12-11 10:56 | HMH.PAINSOAP ---
[facility] Pain Management SOAP Note Subjective:: Patient is a pleasant white female who presents today for follow-up. He had bilateral sacroiliac joint injections on November 17, 2020. He is rating his pain today a 2 out of 10. He feels as though his pain was greatly improved with his injections. He is 80 to 90% relieved in his symptoms today. He does occasionally have twinges of discomfort in the low back especially on the left side. This is lessened since the injection. The patient has tried and failed conservative therapies in the past such as physical therapy, home stretching program for greater than 6 weeks as well as oral pain medications they were not providing lasting relief in his symptoms. He is interested in receiving a second bilateral SI joint injection today. The patient has been given tramadol 50 mg 3 times a day from our office in the past. He is not requesting refills on this medication today. His Kale number is [phone]. Review of Systems General: No recent weight changes, no fever, no sleep disturbances Respiratory: No cough, no shortness of air, no recurring pulmonary infections Cardiovascular/peripheral vascular: No chest pain, no palpitations, no edema, no shortness of breath Gastrointestinal: No new onset incontinence, normal bowel movements reported Genitourinary: No new onset incontinence Musculoskeletal: Low back pain Psychiatric: [Normal mood/affect] Neurological: [Denies weakness in extremities], [denies balance issues] Objective:: Physical exam General: Alert and oriented x3 no acute distress, pleasant and cooperative, [on room air] Lungs: Respirations even and unlabored, symmetrical chest expansion Eyes: PERRL Musculoskeletal: Flexion and extension of the lumbar spine nonguarded, deep tendon reflexes normal, strength in upper and lower extremities 5 out of 5 normal gait noted, positive Elissa's, compression instruction exam bilaterally left worse than right Neurological: Speech clear, landfill gas technician equal, no gross sensory deficit Assessment:: Bilateral sacroiliitis, chronic low back pain, chronic hip pain Plan:: The patient did receive adequate relief from his injections. We will schedule the patient for repeat bilateral SI joint injections. We did discuss corner lock procedure today in further detail. At this time he is unsure if he would like to proceed with any type of stabilization procedure. He is welcome to contact the clinic that he needs injection today if he has any questions or concerns. Dr. Smith has reviewed this note and agrees with this plan of care. This note was dictated using voice recognition software and make contain errors or omissions. [facility] History Medical History: Reports:: Coronary Artery Disease, Heart Murmur, Hyperlipidemia, Hypertension, Myocardial Infarction Denies:: Cancer, Diabetes Mellitus Type 1, Diabetes Mellitus Type 2, Internal Pacemaker, MRSA, Seizures *Have you ever received a pneumonia vaccine?: Yes *Have you received a flu vaccine this season?: Yes Other Medical History: Reports: Arthritis. Denies: Blood Transfusion Reaction Other Surgeries: Yes: CABG, Hernia Repair, Sinus Surgery. No: Pacemaker Amputation: No Fractures: No - *Social History Smoking Status: Current every day smoker Tobacco Type: cigarettes # Packs/Day (cigarettes): 1 Alcohol Intake: never Substance Use Type: denies use *Occupational Status:: employed Housing: house Household Members: significant other *Travel in the last 8 weeks: None Family Hx:: Anemia, Cancer, Diabetes, Hyperlipidemia, Hypertension
== END ==
PROVIDERS: PCP Family Medicine; Visit Provider Family Medicine
DX: M46.1 Sacroiliitis, not elsewhere classified (principal); M54.6 Pain in thoracic spine; M25.559 Pain in unspecified hip; G89.29 Other chronic pain
CPT/HCPCS: 99212; G0463

== ENCOUNTER 2020-12-22 13:31 | Day surgery (SDC) | payer MEDICARE, SELFPAY ==
[2020-12-22 13:33] VITALS: BP 96/60; PULSE 70; RESP 18; TEMP 36.6; O2SAT 97; BMI 29.8
[2020-12-22 14:34] VITALS: BP 120/69; PULSE 71; RESP 18; O2SAT 95
[2020-12-22 14:36] VITALS: BP 133/85; PULSE 67; RESP 18; O2SAT 96
--- NOTE | 2020-12-22 14:41 | P.PCN_ITS ---
- Procedure Date: 12/22/20 Time: 14:41 Anesthesiologist:: Mingo Smith MD Complications:: None Pre-procedure Diagnosis:: Sacroiliitis Post-procedure Diagnosis:: Same Indications for Procedure:: Patient is a pleasant 70-year-old white male who we are treating for bilateral hip pain. He has done very well with previous SI joint injections. He does return of his pain over both hips. He is tender over both SI joints. He has positive Elissa's test bilaterally. He has a positive Reyes test bilaterally. He has a positive SI joint compression test bilaterally. We will do bilateral S I joint injections under fluoroscopy today to help with his pain symptoms. Procedure Details:: B/L SI joint injection under fluoroscopy Informed consent was obtained and the risks and benefits of the procedure was explained to the patient. The patient was taken to the procedure room and placed prone on the procedure table. The patient was prepped using ChloraPrep. The skin and subcutaneous tissues overlying the SI joints were anesthetized using lidocaine. I placed a 22-gauge needle first in the left SI joint and second in the right SI joint. Needle placement was confirmed with dye. After this we injected 5 mL bupivacaine 0.25% and Depo-Medrol 40 mg into each SI joint. Patient tolerated the procedure well with no complication. Plan and Disposition:: We will follow-up with him in 2 weeks. Will reevaluate symptoms at that time.
[2020-12-22 14:48] VITALS: BP 116/62; PULSE 73; RESP 18; O2SAT 97
== END 2020-12-22 14:49 | disposition home or self-care (01) ==
LOC: SC.PAINP 13:33
PROVIDERS: PCP Family Medicine; Visit Provider Anesthesiology
DX: M46.1 Sacroiliitis, not elsewhere classified (principal); I25.2 Old myocardial infarction; I25.10 Atherosclerotic heart disease of native coronary artery without angina pectoris; E78.5 Hyperlipidemia, unspecified; I10 Essential (primary) hypertension; G47.33 Obstructive sleep apnea (adult) (pediatric); M19.90 Unspecified osteoarthritis, unspecified site; Z72.0 Tobacco use; N40.0 Benign prostatic hyperplasia without lower urinary tract symptoms
CPT/HCPCS: 27096; G0260; J1030; Q9966

== ENCOUNTER → 2021-02-06 13:20 | Outpatient (POV) | payer MEDICARE, SELFPAY ==
[2021-02-06 13:29] VITALS: BP 112/68; PULSE 84; RESP 18; O2SAT 96; BMI 29.8
--- NOTE | 2021-02-06 13:47 | HMH.PAINSOAP ---
[facility] Pain Management SOAP Note Subjective:: Patient is a 70-year-old white male who presents today for follow-up after bilateral SI joint injections. Patient rates his pain a 2 out of 10 at this time. Patient says he has significant pain when he is standing and is unable to walk. He does complain, however, also pain with sitting in a car for prolonged periods. The patient's pain is in his low back bilaterally, bilateral hips and left leg. He reports the pain to be dull ache in nature. The SI injections did not give him any relief. He does report he had a series of injections in our clinic, epidural steroid injections that gave him better relief. He did follow-up with the neurosurgeon in the past who did tell him he was a surgical candidate, however, he did not want to have 6 weeks of downtime. He did defer on surgery as result. Patient would like to undergo injective therapy. He is not on any anticoagulation therapy. He has tried and failed conservative therapies of physical therapy in the past along with continued home stretching. He has also tried anti-inflammatories. Ice and heat therapy do not give the patient relief. Review of Systems General: No recent weight changes, no fever, no sleep disturbances Respiratory: No cough, no shortness of air, no recurring pulmonary infections Cardiovascular/peripheral vascular: No chest pain, no palpitations, no edema, no shortness of breath Gastrointestinal: No new onset incontinence, normal bowel movements reported Genitourinary: No new onset incontinence Musculoskeletal: Low back pain with radiation into bilateral hips and left leg Psychiatric: [Normal mood/affect] Neurological: [Denies weakness in extremities], [denies balance issues] Objective:: Physical exam General: Alert and oriented x3, no acute distress, pleasant and cooperative, [on room air] Lungs: Respirations even and unlabored, symmetrical chest expansion Eyes: PERRL Musculoskeletal: Flexion and extension of [] lumbar [spine] somewhat guarded secondary to pain, strength in upper and lower extremities [5/5], [antalgic gait noted] Neurological: Speech clear, [broke handler equal], no gross sensory deficit Assessment:: Degenerative disc disease lumbar spine with lumbar radiculopathy symptoms Plan:: We will schedule the patient for lumbar epidural steroid injection at L4-L5. This will be the patient's # 1 Lesi this year. he is not on any anticoagulation therapy. We will see him back after his injection for reevaluation of symptoms. Possible side effects of corticosteroids have been discussed with the patient. Risks and benefits of the procedure have been explained to the patient. Patient would like to proceed with the procedure. Patient has been instructed to contact the clinic with any concerns before the next appointment. Dr. Smith has reviewed this note and agrees with this plan of care. This note was dictated using voice recognition software and make contain errors or omissions. [facility] History I have reviewed the patient's past medical history: Yes Medical History: Reports:: Coronary Artery Disease, Heart Murmur, Hyperlipidemia, Hypertension, Myocardial Infarction Denies:: Cancer, Diabetes Mellitus Type 1, Diabetes Mellitus Type 2, Internal Pacemaker, MRSA, Seizures *Have you ever received a pneumonia vaccine?: Yes *Have you received a flu vaccine this season?: No Other Medical History: Reports: Arthritis. Denies: Blood Transfusion Reaction Other Surgeries: Yes: CABG, Hernia Repair, Sinus Surgery. No: Pacemaker Amputation: No Fractures: No - *Social History Smoking Status: Current every day smoker Tobacco Type: cigarettes # Packs/Day (cigarettes): 1 Alcohol Intake: never Substance Use Type: denies use *Occupational Status:: unemployed Housing: house Household Members: spouse *Travel in the last 8 weeks: None Family Hx:: Anemia, Cancer, Diabetes, Hyperlipidemia, Hypertension
== END ==
PROVIDERS: PCP Family Medicine; Visit Provider Clinical Nurse Specialist Family Health
DX: M51.16 Intervertebral disc disorders with radiculopathy, lumbar region (principal)
CPT/HCPCS: 99212; G0463

== ENCOUNTER 2021-02-23 13:41 | Day surgery (SDC) | payer MEDICARE, SELFPAY ==
[2021-02-23 13:48] VITALS: BP 104/58; PULSE 81; RESP 20; TEMP 36.6; O2SAT 99; BMI 29.8
--- NOTE | 2021-02-23 14:05 | HMH.PMPROC ---
- Procedure Date: 02/23/21 Time: 14:10 Anesthesiologist:: Mingo Smith MD Complications:: None Pre-procedure Diagnosis:: Degenerative disc disease of lumbar spine with lumbar radiculopathy symptoms Post-procedure Diagnosis:: Same Indications for Procedure:: Patient is a pleasant 70-year-old white male who we are treating for low back pain with lumbar radiculopathy symptoms. He did have bilateral SI joint injections which did not give him any relief. He presents for a lumbar epidural steroid injection under fluoroscopy today. Procedure Details:: Informed consent was obtained and the risk and benefits of the procedure was explained to the patient. The patient was taken to the procedure room. The patient was placed prone on the procedure table. The patient was prepped and draped in sterile fashion. C-arm fluoroscopy was used to view the lumbar spine. Skin and subcutaneous tissues were anesthetized using lidocaine. I placed an 18-gauge epidural needle and advanced into the L4-L5 interspace using fluoroscopic guidance and [id number] to air. After confirmation of needle placement in the epidural space with dye I injected 2 mL of lidocaine 1.5% with Depo-Medrol 80 mg. Patient tolerated the procedure well with no complications. Plan and Disposition:: We will follow-up with him in 2 weeks. Will reevaluate symptoms at that time.
[2021-02-23 14:08] VITALS: BP 113/62; PULSE 83; RESP 18; O2SAT 95
[2021-02-23 14:10] VITALS: BP 115/64; PULSE 86; RESP 18; O2SAT 96
[2021-02-23 14:20] VITALS: BP 108/56; PULSE 78; RESP 18; O2SAT 97
== END 2021-02-23 14:20 | disposition home or self-care (01) ==
LOC: SC.PAINP 13:41
PROVIDERS: PCP Family Medicine; Visit Provider Anesthesiology
DX: M51.16 Intervertebral disc disorders with radiculopathy, lumbar region (principal); I25.2 Old myocardial infarction; I25.10 Atherosclerotic heart disease of native coronary artery without angina pectoris; E78.5 Hyperlipidemia, unspecified; I10 Essential (primary) hypertension; G47.33 Obstructive sleep apnea (adult) (pediatric); M19.90 Unspecified osteoarthritis, unspecified site; N40.0 Benign prostatic hyperplasia without lower urinary tract symptoms; Z95.5 Presence of coronary angioplasty implant and graft
CPT/HCPCS: 62323; J1040; Q9966

== ENCOUNTER → 2021-03-15 10:39 | Outpatient (POV) | payer MEDICARE, SELFPAY ==
[2021-03-15 10:57] VITALS: BP 95/48; PULSE 69; RESP 18; O2SAT 96; BMI 29.8
--- NOTE | 2021-03-15 12:26 | HMH.PAINSOAP ---
[facility] Pain Management SOAP Note Subjective:: Patient is a 70-year-old white male who presents today for follow-up after lumbar epidural steroid injection on 02/23/2021. He underwent a lumbar epidural steroid injection at L4-L5 area. This was the patient's number 2 injection to the area. Patient reports that he got significant relief with the injection. The patient's pain has returned. He has undergone 2 rounds of SI injections with limited relief. He feels the epidural steroid injections have given him the most relief. Patient initial epidural steroid injection was performed in August 2020. Patient says that he has had significant relief of numbness and tingling as well as burning in his bilateral feet since the injections. He also feels he can stand and walk with less pain since his last injection. He did get up to 80% relief for 1 week. Patient says that the back pain is much better as well. His pain at this time is worse to the left leg. He says that he did have [place] 7.5' milligrams from a previous prescription that he tried taking after the injection when the pain returned. He says it did help somewhat with his pain. We have ordered the patient tramadol which did not give the patient any significant relief. The patient says that he is having difficulty sleeping due to the pain in his left leg. It is a throbbing sensation along with achiness into the leg. It is worse with standing and walking as well as when lying down. Patient would like to undergo a third lumbar epidural steroid injection. Patient says he is not diabetic and is not on anticoagulation therapy. He continues with home stretching, ice and heat therapies as well as oral anti-inflammatories. Review of Systems General: No recent weight changes, no fever, no sleep disturbances Respiratory: No cough, no shortness of air, no recurring pulmonary infections Cardiovascular/peripheral vascular: No chest pain, no palpitations, no edema, no shortness of breath Gastrointestinal: No new onset incontinence, normal bowel movements reported Genitourinary: No new onset incontinence Musculoskeletal: Low back pain intermittent, left leg pain constant worse with standing walking and lying flat Psychiatric: [Normal mood/affect] Neurological: [Denies weakness in extremities], [denies balance issues] Objective:: Physical exam General: Alert and oriented x3, no acute distress, pleasant and cooperative Lungs: Respirations even and unlabored, symmetrical chest expansion Eyes: PERRL Musculoskeletal: Flexion and extension of lumbar [spine] and left lower extremity somewhat guarded secondary to pain, [antalgic gait noted] Neurological: Speech clear, no gross sensory deficit Assessment:: Degenerative disc disease lumbar spine with lumbar radiculopathy symptoms Plan:: Patient was given tramadol which did not give him any significant relief. He would like to continue injective therapy and is open to implanted devices as well. We discussed his options if the injection does not give him significant relief. He was also given educational information today regarding both devices. Patient has had 2 lumbar epidural steroid injections at the L4-L5 area we will proceed with 1/3 injection. We will order the patient [place] 5 mg 1 tablet p.o. twice daily 1 month only. Following the injection, if he does not get relief we will proceed with spinal cord stimulation versus intrathecal therapy. He understands we will only do 1 month of [place]. He has been advised not to take [place] with tramadol or with his leftover medication from previous prescriptions. He is in agreement. Dr. Smith will discuss intrathecal therapy versus spinal cord stimulation with the patient at the next visit. Patient does not have neck pain. His pain is primarily low back and left leg. He is not diabetic and is not on any anticoagulation therapy. We will see him back after his injection. Possible side effects of c
== END ==
PROVIDERS: Visit Provider Clinical Nurse Specialist Family Health
DX: M51.16 Intervertebral disc disorders with radiculopathy, lumbar region (principal)
CPT/HCPCS: 99212; G0463

== ENCOUNTER 2021-03-30 13:05 | Day surgery (SDC) | payer MEDICARE, SELFPAY ==
[2021-03-30 13:23] VITALS: BP 139/74; PULSE 74; RESP 18; TEMP 36.5; O2SAT 100; BMI 29.8
[2021-03-30 13:55] VITALS: BP 128/79; PULSE 75; RESP 18; O2SAT 99
[2021-03-30 13:57] VITALS: PULSE 71; RESP 18; O2SAT 100
--- NOTE | 2021-03-30 14:01 | P.PCN_ITS ---
- Procedure Date: 03/30/21 Time: 14:01 Anesthesiologist:: Jacinta Watson MD Complications:: None Pre-procedure Diagnosis:: Degenerative disc disease of the lumbar spine with lumbar radiculopathy Post-procedure Diagnosis:: Same Indications for Procedure:: This patient is a very pleasant 70-year-old white male who presents today with chronic low back pain radiating into his legs related to the above diagnosis. He has tried and failed conservative treatment including oral pain medications and home stretching program for greater than 6 weeks. He previously underwent a lumbar epidural steroid injection at L4-L5 to on February 23, 2021 and he notes significant pain relief, approximately 80% for 1 week but he states the pain has since returned. He also has previously undergone 2 rounds of SI joint injections with limited pain relief. He thinks that the epidural steroid injections have been the most helpful to relieve his pain. He was previously prescribed tramadol from our clinic but he states it did not provide much relief. The patient is requesting a repeat injection today. The plan for today is for the patient to undergo a lumbar epidural steroid injection under fluor oscopy at L5-S1 #30. Procedure Details:: Informed consent was obtained and the risk and benefits of the procedure was explained to the patient. The patient was taken to the procedure room. The patient was placed prone on the procedure table. The patient was prepped and draped in sterile fashion. C-arm fluoroscopy was used to view the lumbar spine. Skin and subcutaneous tissues were anesthetized using lidocaine. I placed an 18-gauge epidural needle and advanced into the L5-S1 interspace using fluoroscopic guidance and [id number] to air and saline. After confirmation of needle placement in the epidural space with dye I injected 1 mL of lidocaine 1.0% with Depo-Medrol 80 mg. Patient tolerated the procedure well with no complications. Plan and Disposition:: We will follow-up with this patient in 2 weeks. Will reevaluate pain symptoms at that time.
[2021-03-30 14:10] VITALS: BP 122/66; PULSE 70; RESP 20; O2SAT 97
== END 2021-03-30 14:10 | disposition home or self-care (01) ==
LOC: SC.PAINP 13:06
PROVIDERS: PCP Family Medicine; Visit Provider Anesthesiology Pain Medicine
DX: M51.16 Intervertebral disc disorders with radiculopathy, lumbar region (principal); I25.2 Old myocardial infarction; E78.5 Hyperlipidemia, unspecified; I10 Essential (primary) hypertension; G47.33 Obstructive sleep apnea (adult) (pediatric); M19.90 Unspecified osteoarthritis, unspecified site; R56.9 Unspecified convulsions; Z72.0 Tobacco use; F32.A Depression, unspecified; F41.9 Anxiety disorder, unspecified; N40.0 Benign prostatic hyperplasia without lower urinary tract symptoms; K21.9 Gastro-esophageal reflux disease without esophagitis; Z95.1 Presence of aortocoronary bypass graft
CPT/HCPCS: 62323; J1040; Q9966

== ENCOUNTER → 2021-04-19 13:47 | Outpatient (POV) | payer MEDICARE, SELFPAY ==
[2021-04-19 13:55] VITALS: BP 109/70; PULSE 85; RESP 18; O2SAT 97; BMI 31.1
--- NOTE | 2021-04-19 14:30 | HMH.PAINSOAP ---
[facility] Pain Management SOAP Note Subjective:: Patient is a pleasant 70-year-old male who comes in here today for follow-up after a lumbar epidural steroid injection under fluoroscopy at L5-S1 #3. Patient is currently being treated for degenerative disc disease of the lumbar spine with lumbar radiculopathy. After the procedure, patient says that he had tremendous relief of about 80%. He rates his pain today as 2 out of 10. Patient would like to get another lumbar epidural steroid injection. However, patient states that a couple of years ago he had a series of 3 injections that gave him relief for 1-1/2 years. I discussed with him that the practice has changed a little bit and it is not recommended to do a series of steroid injections. Patient denies any side effects from this procedure. Patient denies any changes to the location and type of pain. Patient is also taking [place] 5 mg / 325 mg twice a day. Patient says that he has been taking this as as needed. He would like some refills for this medication. His [facility] number is [id number] with an active morphine equivalent of 10. Review of Systems General: No recent weight changes, no fever, no sleep disturbances Respiratory: No cough, no shortness of air, no recurring pulmonary infections Cardiovascular/peripheral vascular: No chest pain, no palpitations, no edema, no shortness of breath Gastrointestinal: No new onset incontinence, normal bowel movements reported Genitourinary: No new onset incontinence Musculoskeletal: Low back pain Psychiatric: [Normal mood/affect] Neurological: [Denies weakness in extremities], [denies balance issues] Objective:: Physical exam General: Alert and oriented x3, no acute distress, pleasant and cooperative Lungs: Respirations even and unlabored, symmetrical chest expansion Eyes: PERRL Musculoskeletal: Flexion and extension of lumbar [spine] somewhat guarded secondary to pain, [antalgic gait noted] Neurological: Speech clear, no gross sensory deficit Assessment:: Degenerative disc disease of the lumbar spine with lumbar radiculopathy Plan:: We will schedule the patient for another lumbar epidural steroid injection. Patient has had these before would like to schedule it for in May. Risks and benefits of the procedure have been explained to the patient. Patient would like to proceed with the procedure. Patient is also taking [place] 5/325 mg twice a day. We will refill this medication for him today. We will give him 1 month order medication refill. Patient has been instructed to contact the clinic with any concerns before the next appointment. Dr. Smith has reviewed this note and agrees with this plan of care. This note was dictated using voice recognition software and make contain errors or omissions. [facility] History Medical History: Reports:: Coronary Artery Disease, Heart Murmur, Hyperlipidemia, Hypertension, Myocardial Infarction Denies:: Cancer, Diabetes Mellitus Type 1, Diabetes Mellitus Type 2, Internal Pacemaker, MRSA, Seizures *Have you ever received a pneumonia vaccine?: No *Have you received a flu vaccine this season?: Yes Other Medical History: Reports: Arthritis. Denies: Blood Transfusion Reaction Other Surgeries: Yes: CABG, Cardiac Catheterization, Hernia Repair, Sinus Surgery. No: Pacemaker Amputation: No Fractures: No - *Social History Smoking Status: Current every day smoker Tobacco Type: cigarettes # Packs/Day (cigarettes): 1 Alcohol Intake: never Substance Use Type: denies use *Occupational Status:: unemployed Housing: house Household Members: spouse *Travel in the last 8 weeks: None Family Hx:: Anemia, Cancer, Diabetes, Hyperlipidemia, Hypertension
== END ==
PROVIDERS: Visit Provider Clinical Nurse Specialist Family Health
DX: M51.16 Intervertebral disc disorders with radiculopathy, lumbar region (principal)
CPT/HCPCS: 99212; G0463

== ENCOUNTER 2021-05-16 10:22 | Day surgery (SDC) | payer MEDICARE, SELFPAY ==
[2021-05-16 10:34] VITALS: BP 123/80; PULSE 95; RESP 18; TEMP 36.4; O2SAT 97; BMI 35.5
[2021-05-16 11:05] VITALS: BP 135/76; PULSE 83; RESP 18; O2SAT 96
[2021-05-16 11:07] VITALS: PULSE 86; RESP 18; O2SAT 98
--- NOTE | 2021-05-16 11:09 | HMH.PMPROC ---
- Procedure Date: 05/16/21 Time: 11:09 Anesthesiologist:: Mingo Smith MD Complications:: None Pre-procedure Diagnosis:: Degenerative disc disease of lumbar spine with lumbar radiculopathy symptoms Post-procedure Diagnosis:: Same Indications for Procedure:: This patient is a pleasant 70-year-old white male who we are treating for low back pain with lumbar radiculopathy symptoms. He has increasing pain in his back rating down his legs. He is done well with 2 previous lumbar epidural steroid injections. He gets 80% relief with these injections. He presents for a third lumbar pleural steroid injection today for some residual pain. Procedure Details:: Informed consent was obtained and the risk and benefits of the procedure was explained to the patient. The patient was taken to the procedure room. The patient was placed prone on the procedure table. The patient was prepped and draped in sterile fashion. C-arm fluoroscopy was used to view the lumbar spine. Skin and subcutaneous tissues were anesthetized using lidocaine. I placed an 18-gauge epidural needle and advanced into the L4-L5 interspace using fluoroscopic guidance and [id number] to air. After confirmation of needle placement in the epidural space with dye I injected 2 mL of lidocaine 1.5% with Depo-Medrol 80 mg. Patient tolerated the procedure well with no complications. Plan and Disposition:: We will follow-up with him in 2 weeks. Will reevaluate his symptoms at that time.
[2021-05-16 11:15] VITALS: PULSE 77; RESP 18; O2SAT 99
[2021-05-16 11:17] VITALS: BP 110/68; PULSE 84; RESP 20; O2SAT 96
== END 2021-05-16 11:18 | disposition home or self-care (01) ==
LOC: SC.PAINP 10:24
PROVIDERS: PCP Family Medicine; Visit Provider Anesthesiology
DX: M51.16 Intervertebral disc disorders with radiculopathy, lumbar region (principal); I25.2 Old myocardial infarction; I25.10 Atherosclerotic heart disease of native coronary artery without angina pectoris; E78.5 Hyperlipidemia, unspecified; I10 Essential (primary) hypertension; G47.33 Obstructive sleep apnea (adult) (pediatric); M19.90 Unspecified osteoarthritis, unspecified site; Z72.0 Tobacco use; Z95.1 Presence of aortocoronary bypass graft
CPT/HCPCS: 62323; J1040; Q9966

== ENCOUNTER → 2021-06-07 11:05 | Outpatient (POV) | payer MEDICARE, SELFPAY ==
[2021-06-07 11:41] VITALS: BP 109/69; PULSE 91; RESP 18; O2SAT 95; BMI 29.8
--- NOTE | 2021-06-07 12:10 | HMH.PAINSOAP ---
[facility] Pain Management SOAP Note Subjective:: Patient is a 71-year-old white male who presents today for follow-up after a lumbar epidural steroid injection, third injection. He reports that his pain is a 1 out of 10 at this time. He got significant relief of his low back pain. He is also managed with [place] 5 mg 1 tablet p.o. twice daily and is doing well with the medication. He is having pain left inner knee area. He says that the pain is worse with movement. He does have a history of polio right leg. He says that his left leg has developed a knot-like sensation on the left medial aspect of knee. Review of Systems General: No recent weight changes, no fever, no sleep disturbances Respiratory: No cough, no shortness of air, no recurring pulmonary infections Cardiovascular/peripheral vascular: No chest pain, no palpitations, no edema, no shortness of breath Gastrointestinal: No new onset incontinence, normal bowel movements reported Genitourinary: No new onset incontinence Musculoskeletal: Intermittent low back pain, left inner knee pain Psychiatric: [Normal mood/affect] Neurological: [Denies weakness in extremities], [denies balance issues] Objective:: Physical exam General: Alert and oriented x3, no acute distress, pleasant and cooperative Lungs: Respirations even and unlabored, symmetrical chest expansion Eyes: PERRL Musculoskeletal: Flexion and extension of lumbar [spine] and left lower extremity somewhat guarded secondary to pain, [antalgic gait noted] Neurological: Speech clear, no gross sensory deficit Assessment:: Degenerative disc disease lumbar spine with lumbar radiculopathy symptoms, left knee pain Plan:: We will continue patient's [place] 5 mg 1 tablet p.o. twice daily. He will get a month medication. He will continue to follow up in the clinic for possible injective therapy. [facility] #[id number] has been reviewed and is appropriate. 0. ORT is minimal risk. Patient has signed and completed a pain management agreement/contract today. Risks and benefits of the medication have been explained in detail to the patient. The patient does understand the risk of dependence on the medication when given over a prolonged period. Patient has been advised of risks of oversedation with the prescribed medication. Narcan has been offered to the paitent in the event of oversedation. Patient has been advised that a family member should also be educated regarding administration of Narcan. The patient has been advised to consult with his/her primary care provider and pharmacist regarding drug-drug interaction of medications currently prescribed. Patient has been prescribed a controlled substance after being counseled on the medication, medication safety, and possible side effects. [place] report has been obtained and reviewed prior to prescription and found to be appropriate. Opioid contract was reviewed and signed by the patient, and that they have agreed to all of the terms set forth by our compliance program. Patient has been instructed to contact the clinic with any concerns before the next appointment. Dr. Smith has reviewed this note and agrees with this plan of care. This note was dictated using voice recognition software and make contain errors or omissions. [facility] History I have reviewed the patient's past medical history: Yes Medical History: Reports:: Coronary Artery Disease, Heart Murmur, Hyperlipidemia, Hypertension, Myocardial Infarction Denies:: Cancer, Diabetes Mellitus Type 1, Diabetes Mellitus Type 2, Internal Pacemaker, MRSA, Seizures *Have you ever received a pneumonia vaccine?: Yes *Have you received a flu vaccine this season?: Yes Other Medical History: Reports: Arthritis. Denies: Blood Transfusion Reaction Other Surgeries: Yes: CABG, Cardiac Catheterization, Hernia Repair, Sinus Surgery. No: Pacemaker Amputation: No Fractures: No - *Social History Smoking Status: Current every day smoke
== END ==
PROVIDERS: Visit Provider Clinical Nurse Specialist Family Health
DX: M51.16 Intervertebral disc disorders with radiculopathy, lumbar region (principal); M25.562 Pain in left knee
CPT/HCPCS: 99212; G0463

== ENCOUNTER → 2021-06-27 10:33 | Outpatient (CLI) | payer MEDICARE, SELFPAY ==
--- NOTE | 2021-06-27 10:39 | XR_ITS ---
FINAL REPORT CLINICAL HISTORY: LEFT MEDIAL KNEE PAIN, KNOT ON ANTERIOR SIDE OF LT KNEE FINDINGS: Three views of the left knee reveal no evidence of fracture or dislocation. The bony alignment is normal. There are mild to severe degenerative changes greatest in the medial compartment. There is mild prepatellar soft tissue swelling. There is postoperative change in the medial lower leg. Vascular calcifications are present. IMPRESSION: Degenerative changes ranging from mild to severe. Reviewed, Interpreted and Dictated by Duncan Aguilar III, MD Transcribed by Pedrito Sewell Authenticated by Duncan Aguilar III, MD on 06/27/2021 11:39:32 [facility]
== END ==
PROVIDERS: PCP Family Medicine; Visit Provider Clinical Nurse Specialist Family Health
DX: M25.562 Pain in left knee (principal)
CPT/HCPCS: 73562

== ENCOUNTER → 2021-07-05 13:28 | Outpatient (POV) | payer MEDICARE, SELFPAY ==
[2021-07-05 13:39] VITALS: BP 153/86; PULSE 96; RESP 18; O2SAT 96; BMI 29.8
--- NOTE | 2021-07-05 14:00 | P.CONS_ITS ---
[facility] Pain Management SOAP Note Subjective:: Patient is a very pleasant 71-year-old white male who presents today for follow- up and medication refills. 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 He is currently prescribed [place] 5 mg 1 tablet p.o. twice daily which she states helps with his chronic low back pain. He has also undergone injection therapy including epidural steroid injections with the last injection in May. He states that these injections along with the oral pain medications adequately manage his chronic low back pain symptoms. He also has been having left knee pain recently had x-rays which showed medial joint space narrowing in the left knee. He rates his pain as a 7 out of 10. Objective:: General: Alert and oriented x3, no acute distress, pleasant and cooperative Lungs: Resps E/U, symmetric chest expansion Eyes: PERRL Musculoskeletal: limited flexion and extension of the lumbar spine secondary to pain. Deep tendon reflexes were normal in bilateral lower extremities. Motor exam was grossly intact in the bilateral lower extremities, antalgic gait noted. 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 I will also refill [place] 5 mg 1 tablet p.o. twice daily #60 for 1 month supply. [facility] #[id number] and prior drug screens reviewed and appropriate. We will also follow-up with this patient in 1 month for reassessment of his chronic pain symptoms and medication refills. ORT was performed on this patient and the patient was deemed low risk. [facility] History Medical History: Reports:: Coronary Artery Disease, Heart Murmur, Hyperlipidemia, Hypertension, Myocardial Infarction Denies:: Cancer, Diabetes Mellitus Type 1, Diabetes Mellitus Type 2, Internal Pacemaker, MRSA, Seizures *Have you ever received a pneumonia vaccine?: Yes *Have you received a flu vaccine this season?: Yes Other Medical History: Reports: Arthritis. Denies: Blood Transfusion Reaction Other Surgeries: Yes: CABG, Cardiac Catheterization, Colonoscopy, Hernia Repair, Sinus Surgery. No: Pacemaker Amputation: No Fractures: No - *Social History Smoking Status: Current every day smoker Tobacco Type: cigarettes # Packs/Day (cigarettes): 1 Alcohol Intake: never Substance Use Type: denies use *Occupational Status:: unemployed Housing: house Household Members: spouse *Travel in the last 8 weeks: None Family Hx:: Other, Heart Attack, Hypertension, Hyperlipidemia
== END ==
PROVIDERS: Visit Provider Anesthesiology Pain Medicine
DX: M17.12 Unilateral primary osteoarthritis, left knee (principal); M51.16 Intervertebral disc disorders with radiculopathy, lumbar region
CPT/HCPCS: 99212; G0463

== ENCOUNTER 2021-07-20 13:22 | Day surgery (SDC) | payer MEDICARE, SELFPAY ==
[2021-07-20 13:32] VITALS: BP 128/76; BP 130/75; BP 132/74; PULSE 82; PULSE 84; PULSE 87; RESP 20; TEMP 36.8; O2SAT 97; BMI 29.8
--- NOTE | 2021-07-20 13:56 | HMH.PMPROC ---
- Procedure Date: 07/20/21 Time: 13:56 Anesthesiologist:: Mingo Smith MD Complications:: None Pre-procedure Diagnosis:: Left knee pain with degenerative osteoarthritis Post-procedure Diagnosis:: Same Indications for Procedure:: Patient is a pleasant 71-year-old white male who we are treating for low back pain and knee pain. He has increasing left-sided knee pain primarily on the medial aspect. We will plan a left knee intra-articular injection today to see if this helps with his pain symptoms. Procedure Details:: Left knee intra-articular injection Informed consent was obtained risk and benefits of the procedure were explained to the patient. Patient was taken the procedure room. Left knee was prepped using ChloraPrep. A 25-gauge needle was used to inject 10 mL bupivacaine 0.25% and Depo-Medrol milligrams into the left knee. Patient tolerated procedure well with no complications. Plan and Disposition:: We will follow-up with this patient in 2 weeks. Will reevaluate symptoms at that time.
[2021-07-20 14:05] VITALS: BP 117/78; PULSE 85; RESP 20; O2SAT 97
== END 2021-07-20 14:05 | disposition home or self-care (01) ==
LOC: SC.PAINP 13:23
PROVIDERS: PCP Family Medicine; Visit Provider Anesthesiology
DX: M17.12 Unilateral primary osteoarthritis, left knee (principal); E78.5 Hyperlipidemia, unspecified; I10 Essential (primary) hypertension; Z95.1 Presence of aortocoronary bypass graft
CPT/HCPCS: 20610; J1040

== ENCOUNTER → 2021-08-02 13:28 | Outpatient (POV) | payer MEDICARE, SELFPAY ==
[2021-08-02 13:52] VITALS: BP 120/72; PULSE 86; RESP 18; TEMP 36.7; O2SAT 97; BMI 29.8
--- NOTE | 2021-08-02 15:39 | HMH.PAINSOAP ---
[facility] Pain Management SOAP Note Subjective:: Patient is a pleasant 71-year-old male who is here for a follow up after left knee intra-articular injection on July 20, 2021. Patient is currently being treated for osteoarthritis of bilateral knees. After the procedure, patients reports 90 to 100% relief relief and rates pain today at 2 out of 10. Patient denies any issues after the procedure. Patient continues to have significant relief after the intra-articular knee injections. He states that he also had a genicular RFA on his right knee that is still working well. For pain management, he is also taking [place] 5 mg twice a day as needed. He states that he does not take this medication every day but only when he gets breakthrough pain. He does say that he sometimes has to take 2 5 mg tablets to help with the pain. Reports no side effects from these medications. [facility] number [id number] with an active morphine equivalent 10. Drug screens have been reviewed and appropriate. Review of Systems: General: No recent weight changes, no fever, no sleep disturbances Respiratory: No cough, no shortness of air, no recurring pulmonary infections Cardiovascular/peripheral vascular: No chest pain, no palpitations, no edema, no shortness of breath Gastrointestinal: No new onset incontinence, normal bowel movements reported Genitourinary: No new onset incontinence Musculoskeletal: Bilateral knee pain Psychiatric: [Normal mood/affect] Neurological: [Denies weakness in extremities], [denies balance issues] Objective:: Physical Exam: General: Alert and oriented x3, no acute distress, pleasant and cooperative, [on room air] Lungs: Respirations even and unlabored, symmetrical chest expansion Eyes: PERRL Musculoskeletal: Increased range of motion of bilateral knees Neurological: Speech clear, no gross sensory deficit Assessment:: Osteoarthritis of bilateral knees Degenerative disc disease of the lumbar spine Plan:: Patient continues to have relief after his left knee intra-articular injection. I will also start the patient on diclofenac 75 mg twice a day to help with some of his breakthrough pain so he does not have to double up on his [place] medication. Patient is currently not on any blood thinners. Patient has no history of GERD. Follow-up in 2 months Patient has been instructed to contact the clinic with any concerns before the next appointment. Dr. Smith has reviewed this note and agrees with this plan of care. This note was dictated using voice recognition software and make contain errors or omissions. [facility] History Medical History: Reports:: Coronary Artery Disease, Heart Murmur, Hyperlipidemia, Hypertension, Myocardial Infarction Denies:: Cancer, Diabetes Mellitus Type 1, Diabetes Mellitus Type 2, Internal Pacemaker, MRSA, Seizures *Have you ever received a pneumonia vaccine?: Yes *Have you received a flu vaccine this season?: Yes Other Medical History: Reports: Arthritis. Denies: Blood Transfusion Reaction Other Surgeries: Yes: CABG, Cardiac Catheterization, Colonoscopy, Hernia Repair, Sinus Surgery. No: Pacemaker Amputation: No Fractures: No - *Social History Smoking Status: Never smoker Tobacco Type: cigarettes # Packs/Day (cigarettes): 1 Alcohol Intake: never Substance Use Type: denies use *Occupational Status:: other Housing: house Household Members: spouse *Travel in the last 8 weeks: None Family Hx:: No significant family history
[2021-08-02 22:00] LABS: Amphetamine/Metha Screen,Urine Negative ng/ml (<1000)
[2021-08-02 22:01] LABS: Barbiturates Screen,Urine Negative ng/ml (<200); Benzodiazepines Screen,Urine Negative ng/ml (<200)
[2021-08-02 22:02] LABS: Cannabinoid Screen,Urine Negative ng/ml (<50); Cocaine Screen,Urine Negative ng/ml (<300)
[2021-08-02 22:03] LABS: Methadone Screen,Urine Negative ng/ml (<300)
[2021-08-02 22:04] LABS: Opiate Screen,Urine Positive ng/ml (<300); Phencyclidine Screen,Urine Negative ng/ml (<25)
[2021-08-11 16:17] LABS: Codeine Negative (Cutoff=100); Hydrocodone Positive (.); Hydromorphone Negative (Cutoff=100); Morphine Negative (Cutoff=100); Opiates Positive (.)
== END ==
PROVIDERS: Visit Provider Student in an Organized Health Care Education/Training Program
DX: M17.0 Bilateral primary osteoarthritis of knee (principal); M51.16 Intervertebral disc disorders with radiculopathy, lumbar region; Z79.891 Long term (current) use of opiate analgesic
CPT/HCPCS: 80305; 80361; 80365; 99212; G0463; G0480

== ENCOUNTER → 2021-09-27 13:00 | Outpatient (POV) | payer MEDICARE, SELFPAY ==
[2021-09-27 13:22] VITALS: BP 97/56; PULSE 94; RESP 18; TEMP 36.9; O2SAT 95; BMI 29.8
--- NOTE | 2021-09-27 15:04 | HMH.PAINSOAP ---
[facility] Pain Management SOAP Note Subjective:: Patient is a pleasant 71-year-old male who is here for medication refill and follow-up. Patient is currently being treated for degenerative disc disease lumbar spine with lumbar radiculopathy symptoms, sacroiliitis, osteoarthritis of bilateral knees. Patient is being managed with [place] 5 mg twice a day as needed. We have also been managing this patient with injective therapy. We have done lumbar epidural steroid injections and bilateral SI injections that significantly helped the patient. Patient denies any side effects from the medications. Patient denies any changes to the location and type of pain. Patient states that this is adequately helping manage their pain. Rates pain as 4 out of 10. [facility] number [id number] with an active morphine equivalent 0. Drug screens have been reviewed and appropriate. When we last saw this patient in July 2021, we did a left knee intra-articular injection that significantly helped the patient. Today, patient is complaining of worsening left knee pain. He is wanting to schedule a repeat injection today. Review of Systems: General: No recent weight changes, no fever, no sleep disturbances Respiratory: No cough, no shortness of air, no recurring pulmonary infections Cardiovascular/peripheral vascular: No chest pain, no palpitations, no edema, no shortness of breath Gastrointestinal: No new onset incontinence, normal bowel movements reported Genitourinary: No new onset incontinence Musculoskeletal: Low back pain, bilateral hip pain, bilateral knee pain Psychiatric: [Normal mood/affect] Neurological: [Denies weakness in extremities], [denies balance issues] Objective:: Physical Exam: General: Alert and oriented x3, no acute distress, pleasant and cooperative Lungs: Respirations even and unlabored, symmetrical chest expansion Eyes: PERRL Musculoskeletal: Flexion and extension of lumbar [spine] somewhat guarded secondary to pain, [antalgic gait noted]; limited range of motion bilateral knees secondary to pain Skin: Bilateral lower extremities have some redness, R > L Neurological: Speech clear, no gross sensory deficit Assessment:: Degenerative disc disease of the lumbar spine with lumbar radiculopathy symptoms, sacroiliitis, bilateral knee osteoarthritis Hx of polio on right leg Plan:: Patient presents today with worsening left knee pain. We previously did a left knee intra-articular injection that significantly helped the patient. We will schedule the patient for a repeat left knee intra-articular injection. Patient presents today with some redness on bilateral lower extremities. Patient says that he does get this from time to time. When he was seeing Dr. Cerrato, they did circulation study and found that it was normal. 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 He says that Dr. Cerrato moved to [place] so is looking for another provider. I am referring this patient to Dr. Rob to establish care. Patient has been instructed to contact the clinic with any concerns before the next appointment. Dr. Smith has reviewed this note and agrees with this plan of care. This note was dictated using voice recognition software and make contain errors or omissions. [facility] History Medical History: Reports:: Coronary Artery Disease, Heart Murmur, Hyperlipidemia, Hypertension, Myocardial Infarction Denies:: Cancer, Diabetes Mellitus Type 1, Diabetes Mellitus Type 2, Internal Pacemaker, MRSA, Seizures *Have you ever received a pneumonia vaccine?: Yes *Have you received a flu vaccine this season?: Yes Other Medical History: Reports: Arthritis. Denies: Blood Transfusion Reaction Other Surgeries: Yes: CABG, Cardiac Catheterization, Colonoscopy, Hernia Repair, Sinus Surgery. No: Pacemaker Amputation: No Fractures: No - *Social History Smoking Status: Never smoker Tobacco Type: cigarettes # Packs/Day (cigarettes): 1 Alcohol Intake: never Substance Us
== END ==
PROVIDERS: Visit Provider Student in an Organized Health Care Education/Training Program
DX: M51.16 Intervertebral disc disorders with radiculopathy, lumbar region (principal); M46.1 Sacroiliitis, not elsewhere classified; M17.0 Bilateral primary osteoarthritis of knee; G14 Postpolio syndrome
CPT/HCPCS: 99212; G0463

== ENCOUNTER → 2021-10-04 10:12 | Outpatient (CLI) | payer MEDICARE, SELFPAY ==
[2021-10-04 11:29] LABS: Chloride 105 mmol/L (98-107); Sodium 139 mmol/L (136-145)
[2021-10-04 11:30] LABS: Potassium 3.9 mmoL/L (3.5-5.1)
[2021-10-04 11:32] LABS: Alanine Aminotransferase 49 U/L (12-78); Albumin/Globulin Ratio 1.7 (1.1-1.8); Alkaline Phosphatase 84 U/L (38-126); Anion Gap 11.9 mEq/L (5-15); Aspartate Amino Transferase 44 U/L (17-59); Bilirubin,Total 1.6 mg/dl (0.2-1.3); Blood Urea Nitrogen 29 mg/dl (9-20); Calcium 9.2 mg/dl (8.4-10.2); Carbon Dioxide 26 mmol/L (22.0-30.0); Cholesterol 123 mg/dl (140-200); Estimated Glomerular Filt Rate 73 ml/min (>60); GFR (African American) 89 ML/MIN (>60); Globulin 2.3 g/dL (1.3-3.2); Glucose 125 mg/dl (74-100); Total Protein,Serum 6.3 g/dl (6.3-8.2); Triglycerides 79 mg/dl (30-150); VLDL Cholesterol 16 mg/dL (0-40)
[2021-10-04 11:33] LABS: Chol/HDL Ratio 2.9 (1-3.5); HDL Cholesterol 42 mg/dl (40-60)
[2021-10-04 11:43] LABS: Direct LDL Cholesterol 64.36 mg/dL (100-129)
[2021-10-04 11:53] LABS: Hemoglobin A1C 5.9 % (4.0-6.0)
== END ==
PROVIDERS: Nurse Practitioner Family; PCP Internal Medicine Adolescent Medicine; Visit Provider Internal Medicine Adolescent Medicine
DX: Z00.00 Encounter for general adult medical examination without abnormal findings (principal); I25.10 Atherosclerotic heart disease of native coronary artery without angina pectoris; R73.9 Hyperglycemia, unspecified; I73.9 Peripheral vascular disease, unspecified
CPT/HCPCS: 36415; 80053; 80061; 83036

== ENCOUNTER → 2021-10-11 13:22 | Outpatient (CLI) | payer MEDICARE, SELFPAY ==
--- NOTE | 2021-10-11 13:35 | CT_ITS ---
FINAL REPORT CLINICAL HISTORY: DECREASED PEDAL PULSES, LEG DISCOLORATION FINDINGS: Thin section axial CT images of the abdomen, pelvis and lower extremities were obtained with contrast. Multiplanar reformatted images were also obtained and reviewed. ABDOMEN AND PELVIS: There is no abdominal aortic aneurysm or dissection. The celiac axis and proximal superior mesenteric artery are unremarkable. There is no renal artery stenosis. The inferior mesenteric artery is patent. Moderate vascular calcification is identified. There is mild plaque. There is moderate calcification of the iliac arteries without evidence of stenosis. The internal iliac arteries are patent. RIGHT LOWER EXTREMITY: There is moderate vascular calcification. There is multiple, mild stenoses of the superficial femoral artery. There is moderate stenosis of the distal superficial femoral artery measuring approximately 50%. The right deep femoral artery is patent. There is mild stenosis of the popliteal artery. There is occlusion of the distal anterior tibial and peroneal arteries. The posterior tibial artery is patent to the foot. LEFT LOWER EXTREMITY: There is moderate calcified plaque. There is multiple mild stenoses of the superficial femoral artery. The left deep femoral artery is patent. There is mild stenosis of the popliteal artery. There is occlusion of the distal anterior tibial and peroneal arteries. The posterior tibial arteries patent to the foot. OTHER FINDINGS: There is probable small sludge or stones in the gallbladder. There is descending and sigmoid diverticulosis without evidence of diverticulitis. There is a small left periumbilical hernia containing fat. The appendix is normal. There is a 38 mm fluid collection in the medial knee which is nonspecific, may represent hematoma, seroma, abscess, or ganglion. IMPRESSION: Distal disease bilaterally with single-vessel runoff bilaterally to the ankle. Probable small stones or sludge in the gallbladder. Gallbladder ultrasound may be helpful. Fluid collection in the medial knee with differential diagnosis as detailed above. Reviewed, Interpreted and Dictated by Duncan Aguilar III, MD Transcribed by Abril Tovar Authenticated and [facility]
== END ==
PROVIDERS: PCP Internal Medicine Adolescent Medicine; Visit Provider Nurse Practitioner Family
DX: R09.89 Other specified symptoms and signs involving the circulatory and respiratory systems (principal)
CPT/HCPCS: 75635; Q9967

== ENCOUNTER 2021-10-12 11:21 | Day surgery (SDC) | payer MEDICARE, SELFPAY ==
[2021-10-12 11:35] VITALS: BP 113/72; PULSE 74; RESP 20; TEMP 36.8; O2SAT 98; BMI 29.8
[2021-10-12 11:42] VITALS: BP 124/85; PULSE 71; RESP 20; O2SAT 97
--- NOTE | 2021-10-12 11:49 | HMH.PMPROC ---
- Procedure Date: 10/12/21 Time: 11:50 Anesthesiologist:: Mingo Smith MD Complications:: None Pre-procedure Diagnosis:: Degenerative osteoarthritis left knee with chronic left knee pain Post-procedure Diagnosis:: Same Indications for Procedure:: This patient is a pleasant 71-year-old white male who we are treating for low back pain and bilateral knee pain. He has increasing pain over the left knee. He has done well with previous left knee intra-articular injections. These give him approximately 2 to 3 months relief of his pain symptoms. Pain is now returned. He presents for repeat left knee intra-articular injection today. Procedure Details:: Left knee intra-articular injection Informed consent was obtained the risk and benefits of the procedure were explained to the patient. Patient was taken the procedure room. Left knee was prepped using ChloraPrep. A 25-gauge needle was used first medially then laterally to inject 10 mL bupivacaine 0.25% and Depo-Medrol 40 mg into the left knee joint. Patient tolerated procedure well with no complications. Plan and Disposition:: We will follow-up with this patient in 6 weeks. Will reevaluate symptoms at that time.
[2021-10-12 11:59] VITALS: BP 124/85; PULSE 74; RESP 20; TEMP 37.1; O2SAT 97
== END 2021-10-12 12:00 | disposition home or self-care (01) ==
PROVIDERS: PCP Internal Medicine Adolescent Medicine; Visit Provider Anesthesiology
DX: M17.12 Unilateral primary osteoarthritis, left knee (principal); G89.29 Other chronic pain; M46.1 Sacroiliitis, not elsewhere classified; I25.10 Atherosclerotic heart disease of native coronary artery without angina pectoris; I10 Essential (primary) hypertension; E78.5 Hyperlipidemia, unspecified; I25.2 Old myocardial infarction
CPT/HCPCS: 20610; J1040

== ENCOUNTER → 2021-10-29 10:37 | Outpatient (POV) | payer MEDICARE, SELFPAY ==
[2021-10-29 11:03] VITALS: BP 119/68; PULSE 72; RESP 18; TEMP 36.9; O2SAT 98; BMI 29.8
--- NOTE | 2021-10-29 11:37 | HMH.PAINSOAP ---
[facility] Pain Management SOAP Note Subjective:: Patient is a pleasant 71-year-old white male who is here for medication refill and follow-up. He is currently being treated for degenerative disc disease of lumbar spine with lumbar radiculopathy symptoms, sacroiliitis, osteoarthritis of bilateral knees. His last intra-articular left knee injection was October 12. Patient states the that injection gave 0 relief. Previous injections did help relieve pain for 2 to 3 months. He has had increasing pain over his left knee that is worse with walking and/or activities. Mild swelling and tenderness noted at upper medial left side of knee. Pain is only relieved when sitting and feet are at a 90 degree angle. His pain is being managed with [place] 5 mg twice daily as needed. Patient is requesting refill today. Patient denies any side effects from this medication. Patient denies any changes to the location or type of pain. Patient is rating his pain a 5 out of 10 today. [facility] number is [id number]. It has been reviewed and is appropriate. Review of Systems: General: No recent weight changes, no fever, no sleep disturbances Respiratory: No cough, no shortness of air, no recurring pulmonary infections Cardiovascular/peripheral vascular: No chest pain, no palpitations, no edema, no shortness of breath Gastrointestinal: No new onset incontinence, normal bowel movements reported Genitourinary: No new onset incontinence Musculoskeletal: Low back pain and left knee pain Psychiatric: [Normal mood/affect] Neurological: [Denies weakness in extremities], [denies balance issues] Objective:: Physical Exam: General: Alert and oriented x3, no acute distress, pleasant and cooperative Lungs: Respirations even and unlabored, symmetrical chest expansion Eyes: PERRL Musculoskeletal: Flexion and extension of left knee somewhat guarded secondary to pain, [antalgic gait noted]. Mild swelling and tenderness noted at medial upper side of left knee. No erythema. Neurological: Speech clear, no gross sensory deficit Assessment:: Degenerative disc disease of the lumbar spine with lumbar radiculopathy symptoms, sacroiliitis, bilateral knee osteoarthritis. History of polio on right leg Plan:: Patient had significant relief after intra-articular left knee injection initially but no relief on last injection. Patient has tried other conservative therapies such as oral medication, injective therapy, physical therapy, and home exercises for greater than 6 weeks. We will schedule the patient for a genicular nerve block on the left knee. Risks and benefits of this procedure have been discussed with the patient. Patient would like to proceed with the procedure. If the patient gets significant but temporary relief from this diagnostic block we will will proceed forward with a second genicular block. We will refill patient's [place] 325 mg / 5 mg twice daily for a 30-day supply. 0 refills. Patient is not interested in surgical intervention on his knee at this time. Patient has been instructed to contact the clinic with any concerns before the next appointment. Dr. Smith has reviewed this note and agrees with this plan of care. This note was dictated using voice recognition software and make contain errors or omissions. [facility] History I have reviewed the patient's past medical history: Yes Medical History: Reports:: Coronary Artery Disease, Heart Murmur, Hyperlipidemia, Hypertension, Myocardial Infarction Denies:: Cancer, Diabetes Mellitus Type 1, Diabetes Mellitus Type 2, Internal Pacemaker, MRSA, Seizures *Have you ever received a pneumonia vaccine?: Yes *Have you received a flu vaccine this season?: Yes Other Medical History: Reports: Arthritis. Denies: Blood Transfusion Reaction Other Surgeries: Yes: CABG, Cardiac Catheterization, Colonoscopy, Hernia Repair, Sinus Surgery. No: Pacemaker Amputation: No Fractures: No - *Social History Smoking Status: Current every day smoker Tobacco Type: cigaret
== END ==
PROVIDERS: Visit Provider Student in an Organized Health Care Education/Training Program
DX: M51.16 Intervertebral disc disorders with radiculopathy, lumbar region (principal); M46.1 Sacroiliitis, not elsewhere classified; M17.0 Bilateral primary osteoarthritis of knee
CPT/HCPCS: 99212; G0463

== ENCOUNTER → 2021-11-13 11:53 | Outpatient (CLI) | payer MEDICARE, SELFPAY ==
--- NOTE | 2021-11-13 13:29 | HMH.ITSHM ---
Current Home Medications as stated by this patient Giovanny Tovar or financial representative. []METOPROLOL HCTZ TAMSULOSIN LOSARTAN HYDROCODONE DICLOFENAC ATORVASTATIN ASA
== END ==
PROVIDERS: PCP Internal Medicine Adolescent Medicine; Visit Provider Nurse Practitioner Family
DX: F17.200 Nicotine dependence, unspecified, uncomplicated (principal); I25.10 Atherosclerotic heart disease of native coronary artery without angina pectoris; I73.9 Peripheral vascular disease, unspecified; M54.9 Dorsalgia, unspecified; M79.605 Pain in left leg; R93.5 Abnormal findings on diagnostic imaging of other abdominal regions, including retroperitoneum; R94.31 Abnormal electrocardiogram [ECG] [EKG]; Z95.1 Presence of aortocoronary bypass graft
CPT/HCPCS: 78452; 93017; 93306; A9502; J2785

== ENCOUNTER 2021-11-16 11:13 | Day surgery (SDC) | payer MEDICARE, SELFPAY ==
[2021-11-16 11:17] VITALS: BP 136/69; PULSE 84; RESP 20; TEMP 36.8; O2SAT 97; BMI 29.8
[2021-11-16 11:32] VITALS: BP 127/69; PULSE 75; RESP 20
--- NOTE | 2021-11-16 11:39 | HMH.PMPROC ---
- Procedure Date: 11/16/21 Time: 11:39 Anesthesiologist:: Corey Lei CRNA Complications:: None Pre-procedure Diagnosis:: Osteoarthritis left knee Post-procedure Diagnosis:: Same Indications for Procedure:: Very pleasant 71-year-old male who comes today for genicular nerve block left knee. Patient has chronic pain in the left knee. He describes the pain as constant, dull, aching. Walking any distance is difficult. He rates the pain 8/10. Procedure Details:: Pre-procedure Diagnosis:: Left knee pain with degenerative osteoarthritis Post-procedure Diagnosis: Same Indications for Procedure: This patient is a pleasant 57-year-old white female who we are treating for degenerative arthritis of the right knee with increasing Left knee pain. She has had intra-articular injections which have not given her much relief. We will do a right knee genicular nerve block today to see if this helps with her pain symptoms. She also has low back pain and lumbar radicular symptoms Procedure Details: Right knee genicular block Informed consent was obtained and the risk and benefits of the procedure was explained to the patient. The patient was taken to the procedure room. The left knee was prepped using ChloraPrep. I placed 22-gauge needles into the area of the left superior medial genicular nerve, left superior lateral genicular nerve and left inferior medial genicular nerve. Needle placement was confirmed in AP and lateral views with dye. We then injected bupivacaine 0.25% 3 mL's and Depo-Medrol 25 mg into each area of the right superior medial genicular nerve, left superior lateral genicular nerve and left inferior medial genicular nerve. Patient tolerated the procedure well with no complications. Plan and Disposition:: We will follow-up with her in 2 weeks. Will reevaluate symptoms at that time. Plan and Disposition:: Patient was discharged without incident.
[2021-11-16 11:50] VITALS: BP 127/69; PULSE 84; RESP 18; TEMP 36.8; O2SAT 95
[2021-11-16 15:32] LABS: Basophils # 0.1 K/mm3 (0-0.2); Basophils % 1.1 % (0.1-2.0); Eosinophils % 0.4 % (0.1-12.0); Hematocrit 49.6 % (42.0-52.0); Hemoglobin 16.5 g/dL (14.1-18.0); Lymphocytes % 9.3 % (10-50); Mean Corpuscular HGB Conc 33.3 g/dL (31.8-35.4); Mean Corpuscular Hemoglobin 32.2 pg (27.0-31.2); Mean Corpuscular Volume 96.7 fl (80-94); Mean Platelet Volume 8.5 fl (7.4-10.4); Monocytes # 0.7 K/mm3 (0.1-1.0); Monocytes % 6.2 % (1.7-9.3); Neutrophils # 9.1 K/mm3 (1.8-7.8); Platelet Count 220 K/mm3 (142-424); Red Blood Count 5.13 M/mm3 (4.60-6.20); Red Cell Distribution Width 13.6 % (11.5-17.5); White Blood Count 10.9 K/mm3 (4.8-10.8)
[2021-11-16 16:19] LABS: Chloride 105 mmol/L (98-107); Potassium 3.9 mmoL/L (3.5-5.1); Sodium 138 mmol/L (136-145)
[2021-11-16 16:22] LABS: Anion Gap 8.9 mEq/L (5-15); Blood Urea Nitrogen 25 mg/dl (9-20); Calcium 9.8 mg/dl (8.4-10.2); Carbon Dioxide 28 mmol/L (22.0-30.0); Creatinine Clearance Estimated 79 mL/min (50-200); Estimated Glomerular Filt Rate 60 ml/min (>60); GFR (African American) 72 ML/MIN (>60); Glucose 77 mg/dl (74-100)
== END 2021-11-16 11:51 | disposition home or self-care (01) ==
LOC: SC.PAINP 11:14
PROVIDERS: Internal Medicine; PCP Internal Medicine Adolescent Medicine; Visit Provider Nurse Anesthetist, Certified Registered
DX: M17.12 Unilateral primary osteoarthritis, left knee (principal); I25.10 Atherosclerotic heart disease of native coronary artery without angina pectoris; E78.5 Hyperlipidemia, unspecified; I10 Essential (primary) hypertension; I25.2 Old myocardial infarction; Z72.0 Tobacco use
CPT/HCPCS: 36415; 64454; 80048; 85025; C9803; J1040; U0003; U0005

== ENCOUNTER 2021-11-19 08:55 | Day surgery (SDC) | payer MEDICARE, SELFPAY ==
[2021-11-19] VITALS (18 sets, daily range): BP systolic 99–139; BP diastolic 53–84; PULSE 60–83; RESP 17–20; O2SAT 91–97; BMI 31.1
--- NOTE | 2021-11-19 07:07 | IR_ITS ---
APPROVED REPORT Patient Location: Outpatient PROCEDURES Catheter placed in the dominant aorta Distal abdominal aortography Repositioning of the catheter in the abdominal aorta Bilateral iliofemoral runoff INDICATION Abnormal MICHELLE, [place] claudication class III Informed consent was obtained prior to the procedure. COMPLICATIONS NONE Estimated Blood Loss: LESS THAN 10 ML TECHNIQUE 1% lidocaine used anesthetize right groin the right femoral artery was accessed via the S[place]er technique and a 5 [place] sheath was placed in the right femoral artery. A pigtail catheter was advanced to the abdominal aorta where abdominal aortography was performed followed by bilateral iliofemoral runoff. At the end the procedure the apparatus was removed the patient was transferred to the postop putting in stable condition for sheath removal ANGIOGRAPHIC RESULTS Suprarenal abdominal aorta is widely patent as is the infrarenal abdominal aorta Mesenteric arteries appear widely patent Bilateral renal arteries are singular and widely patent Bilateral common internal and external iliac arteries are patent Bilateral common femoral arteries are patent while the right common femoral artery has a concentric 30% calcified stenosis Bilateral profunda femoris arteries are patent Bilateral superficial femoral arteries have diffuse 30 to 40% calcifications. Right popliteal artery has diffuse 30 to 40% calcifications with three-vessel runoff below the knee on the right Left popliteal artery has diffuse 50% calcifications with three-vessel runoff below the knee IMPRESSION Peripheral artery disease as described above PLAN 1. Medical management Electronically signed by : Don Swain MD 11/30/2021 13:11:19
== END 2021-11-19 14:12 | disposition home or self-care (01) ==
LOC: CATHLAB 08:58
PROVIDERS: PCP Internal Medicine Adolescent Medicine; Visit Provider Internal Medicine
DX: F17.210 Nicotine dependence, cigarettes, uncomplicated (principal); I25.10 Atherosclerotic heart disease of native coronary artery without angina pectoris; I70.213 Atherosclerosis of native arteries of extremities with intermittent claudication, bilateral legs; M54.9 Dorsalgia, unspecified; M79.604 Pain in right leg; R93.5 Abnormal findings on diagnostic imaging of other abdominal regions, including retroperitoneum; R94.31 Abnormal electrocardiogram [ECG] [EKG]; Z95.1 Presence of aortocoronary bypass graft; M79.605 Pain in left leg; Z79.899 Other long term (current) drug therapy; I10 Essential (primary) hypertension
CPT/HCPCS: 36247; 75630; 99152; C1769; C1894; J1644; Q9966

== ENCOUNTER → 2021-12-10 13:40 | Outpatient (POV) | payer MEDICARE, SELFPAY ==
[2021-12-10 14:18] VITALS: BP 112/71; PULSE 78; RESP 20; TEMP 36.6; O2SAT 98; BMI 29.8
--- NOTE | 2021-12-10 14:35 | HMH.PAINSOAP ---
[facility] Pain Management SOAP Note Subjective:: Patient is a pleasant 71-year-old male who comes in today for follow-up from a genicular nerve block on his left knee from 11/16/2021. We are currently treating the patient for degenerative disc disease of lumbar spine with lumbar radiculopathy symptoms, sacroiliitis, osteoarthritis of bilateral knees. Patient states that this injection has helped significantly. He states he has gotten 60 to 70% relief of his radiating pain in his upper left thigh and down his left leg and feels like this is still continuing to help. Today he rates his pain a 3 out of 10 he states that this is a throbbing ache sensation. Patient states the pain is on the inside of his left knee. Patient denies any new trauma or injury to the site. Patient denies any change to the location or type of Pain he experiences. Patient feels like this pain is more pronounced since his radiating symptoms have improved. We have done injective therapy for him in the past including intra-articular knee injections. Patient states that his pain is relieved with sitting and feet are at a 90 degree angle. He is currently managing his pain with [place] 5 mg twice a day as needed. He denies any side effects from this medication. He is requesting a refill at today's visit. Patient's Kale is [id number]. It has been reviewed and appropriate. Review of Systems: General: No recent weight changes, no fever, no sleep disturbances Respiratory: No cough, no shortness of air, no recurring pulmonary infections Cardiovascular/peripheral vascular: No chest pain, no palpitations, no edema, no shortness of breath Gastrointestinal: No new onset incontinence, normal bowel movements reported Genitourinary: No new onset incontinence Musculoskeletal: Left knee pain Psychiatric: [Normal mood/affect] Neurological: [Denies weakness in extremities], [denies balance issues] Objective:: Physical Exam: General: Alert and oriented x3, no acute distress, pleasant and cooperative Lungs: Respirations even and unlabored, symmetrical chest expansion Eyes: PERRL Musculoskeletal: Flexion and extension of left knee somewhat guarded secondary to pain, [antalgic gait noted]. Positive point tenderness left knee medial aspect Neurological: Speech clear, no gross sensory deficit Assessment:: Degenerative disc disease of lumbar spine with lumbar radiculopathy symptoms, sacroiliitis, osteoarthritis of bilateral knees, myofascial pain Plan:: Patient has had worsening left knee pain on the medial aspect. Patient had significant improvement in his radiating pain symptoms along his left leg since his genicular nerve block. I have discussed with the patient regarding trigger point injections of the medial aspect of his left knee. Risk and benefits were discussed with the patient. He would like to proceed forward with this injection at this time. I will also refill the patient's [place] 5 mg twice a day. I will give a 1 month supply of this medication. We will schedule the patient for a TPI of his left medial knee. Patient has been instructed to contact the clinic with any concerns before the next appointment. Dr. Smith has reviewed this note and agrees with this plan of care. This note was dictated using voice recognition software and make contain errors or omissions. [facility] History I have reviewed the patient's past medical history: Yes Medical History: Reports:: Coronary Artery Disease, Heart Murmur, Hyperlipidemia, Hypertension, Myocardial Infarction Denies:: Cancer, Diabetes Mellitus Type 1, Diabetes Mellitus Type 2, Internal Pacemaker, MRSA, Seizures *Have you ever received a pneumonia vaccine?: Yes *Have you received a flu vaccine this season?: Yes Other Medical History: Reports: Arthritis. Denies: Blood Transfusion Reaction Other Surgeries: Yes: CABG, Cardiac Catheterization, Colonoscopy, Hernia Repair, Sinus Surgery. No: Pacemaker Amputation: No Fractures: No - *Social History Smo
== END ==
PROVIDERS: PCP Internal Medicine Adolescent Medicine; Visit Provider Student in an Organized Health Care Education/Training Program
DX: M51.16 Intervertebral disc disorders with radiculopathy, lumbar region (principal); M46.1 Sacroiliitis, not elsewhere classified; M17.0 Bilateral primary osteoarthritis of knee; M79.18 Myalgia, other site
CPT/HCPCS: 99212; G0463

== ENCOUNTER → 2021-12-21 13:42 | Outpatient (POV) | payer MEDICARE, SELFPAY ==
[2021-12-21 13:53] VITALS: BP 129/78; PULSE 83; TEMP 36.8; O2SAT 97; BMI 29.8
[2021-12-21 14:00] VITALS: BP 128/77; PULSE 80; RESP 18; TEMP 36.8; O2SAT 98; BMI 29.7
--- NOTE | 2021-12-21 14:13 | HMH.PAINSOAP ---
[facility] Pain Management SOAP Note Subjective:: This patient is a pleasant 71-year-old male that comes our clinic today for left intra-articular knee injection. After a quick examination of the left knee it is obvious he has some swelling on the medial anterior aspect at the top of the tibia. He said this is new today. We have treated the patient's left knee for quite some time with genicular nerve block which the patient reports has helped about 50%. Also, he has had intra-articular injections in the past with minimal relief. I discussed in detail with the patient regarding the left knee. I advised patient he should receive a orthopedic consultation. Patient has not been to orthopedists regarding chronic left knee pain. Patient describes the left knee pain as constant, dull, aching. Also, sharp stabbing at times when ambulation is required for distance. Objective:: Patient is awake alert [place] x3. No acute distress. Flexion-extension lumbar spine normal. Flexion-extension cervical spine normal. Deep tendon reflexes upper lower extremities normal. Motor strength upper and lower extremities normal. There is no gross sensory deficit. Gait is normal. Assessment:: Osteoarthritis left knee. Plan:: I discussed in detail with the patient regarding a plan of action for his left knee. We will send him to Dr. Florian for orthopedic consultation. Also, he requested ibuprofen 800 mg 1 p.o. twice daily. I think this is reasonable for short term use. We will call this in for him. [facility] History I have reviewed the patient's past medical history: Yes Medical History: Reports:: Coronary Artery Disease, Heart Murmur, Hyperlipidemia, Hypertension, Myocardial Infarction Denies:: Cancer, Diabetes Mellitus Type 1, Diabetes Mellitus Type 2, Internal Pacemaker, MRSA, Seizures *Have you ever received a pneumonia vaccine?: Yes *Have you received a flu vaccine this season?: Yes Other Medical History: Reports: Arthritis. Denies: Blood Transfusion Reaction Other Surgeries: Yes: CABG, Cardiac Catheterization, Colonoscopy, Hernia Repair, Sinus Surgery. No: Pacemaker Amputation: No Fractures: No - *Social History Smoking Status: Current every day smoker Tobacco Type: cigarettes # Packs/Day (cigarettes): 1 Alcohol Intake: never Substance Use Type: denies use *Occupational Status:: other Housing: house Household Members: other *Travel in the last 8 weeks: None Family Hx:: No significant family history
== END ==
PROVIDERS: PCP Internal Medicine Adolescent Medicine; Visit Provider Nurse Anesthetist, Certified Registered
DX: M17.12 Unilateral primary osteoarthritis, left knee (principal); M79.18 Myalgia, other site
CPT/HCPCS: 99212; G0463; J1040

== ENCOUNTER → 2022-01-03 12:47 | Outpatient (POV) | payer MEDICARE, SELFPAY ==
[2022-01-03 12:59] VITALS: BP 115/73; PULSE 70; RESP 20; BMI 29.8
--- NOTE | 2022-01-03 13:03 | EXP.PAIN.SOA ---
[facility] Pain Management SOAP Note Subjective:: Patient is a pleasant 71-year-old male that presents today for follow-up. We are currently treating the patient for osteoarthritis of his left knee. Patient rates his pain today a 3 out of 10. He states it is still primarily in and around the medial aspect of his left knee. Patient states his knee does feel better with decreased pain. He denies any new trauma or injury. At our last visit on 12/21/2021 he was scheduled to have a left intra-articular knee injection however on arrival he had moderate swelling on the medial anterior aspect at the top of the tibia so we chose to postpone the injection. Patient states he is scheduled to see the orthopedic physician on January 16. We are currently managing the patient with [place] 5 mg twice a day. Patient denies any side effects from this medication. He states he takes Metamucil every day. Patient states this medication is adequately managing his pain. His Kale is [id number]. It has been reviewed and appropriate. Review of Systems: General: No recent weight changes, no fever, no sleep disturbances Respiratory: No cough, no shortness of air, no recurring pulmonary infections Cardiovascular/peripheral vascular: No chest pain, no palpitations, no edema, no shortness of breath Gastrointestinal: No new onset incontinence, normal bowel movements reported Genitourinary: No new onset incontinence Musculoskeletal: Left knee pain Psychiatric: [Normal mood/affect] Neurological: [Denies weakness in extremities], [denies balance issues] Objective:: Physical Exam: General: Alert and oriented x3, no acute distress, pleasant and cooperative Lungs: Respirations even and unlabored, symmetrical chest expansion Eyes: PERRL Musculoskeletal: Flexion and extension of left knee somewhat guarded secondary to pain, [antalgic gait noted] Neurological: Speech clear, no gross sensory deficit Skin: Left knee medial anterior aspect no swelling noted Assessment:: Osteoarthritis left knee Plan:: Patient's previous left knee medial swelling has resolved from his previous visit. Patient stated that he has had improvement in his pain around his left knee. I will reorder the patient's [place] 5 mg twice a day and provide a 1 month supply of this medication. We will do a 1 month follow-up following his Ortho consult. At the next visit we will discuss whether or not if he would like to do the left intra-articular knee injection. Patient will return to clinic in 1 month for follow-up and reevaluation of symptoms along with medication refill. Patient has been instructed to contact the clinic with any concerns before the next appointment. Dr. Smith has reviewed this note and agrees with this plan of care. This note was dictated using voice recognition software and make contain errors or omissions. [facility] Medical History (Updated 10/31/21 @ 13:40 by Cristina Bobby APRN) Abnormal computed tomography angiography (CTA) of abdomen Abnormal electrocardiography Back pain CAD (coronary artery disease) Claudication Left leg pain Tobacco dependence syndrome Surgical History (Updated 10/31/21 @ 11:48 by Cate Sepulveda RN) Hx of CABG Social History Smoking Status: Current every day smoker tobacco type: cigarettes packs per day: 1 second hand exposure: No alcohol intake: never counseling provided: none substance use type: denies use current occupational status: retired Travel in the last 8 weeks: None household members: other housing: house current occupational exposures/hazards: No caffeine: Yes
== END | disposition home or self-care (01) ==
PROVIDERS: PCP Internal Medicine Adolescent Medicine; Visit Provider Nurse Practitioner Family
DX: M51.16 Intervertebral disc disorders with radiculopathy, lumbar region (principal); M46.1 Sacroiliitis, not elsewhere classified; M17.12 Unilateral primary osteoarthritis, left knee
CPT/HCPCS: 99212; G0463

== ENCOUNTER → 2022-01-31 13:50 | Outpatient (POV) | payer MEDICARE, SELFPAY ==
[2022-01-31 14:03] VITALS: BP 103/55; PULSE 72; RESP 18; TEMP 36.7; O2SAT 95; BMI 29.8
--- NOTE | 2022-01-31 14:13 | EXP.PAIN.SOA ---
[facility] Pain Management SOAP Note Subjective:: Patient is a pleasant 71-year-old male that comes today for follow-up and medication refill. We are currently treating the patient for osteoarthritis left knee, degenerative disc disease of lumbar spine with lumbar radiculopathy symptoms, sacroiliitis. Today the patient rates his pain a 3 out of 10. He states the pain is primarily in his left knee. Patient states this is a dull achy sensation. Patient denies any new trauma or injury. Patient denies any change to the location or type of pain he experiences. We did refer the patient to Dr. Kwong for his left knee pain. Patient states that Dr. Gutierrez did do a left knee injection however he did not really notice significant difference at that time. He is scheduled for a follow-up in March and stated that Dr. Ga did mention that he will most likely need a total left knee replacement. Previously we did a genicular nerve block of his left knee that provided significant improvement of his symptoms. Patient is currently managed with [place] 5 mg twice a day. Patient denies any side effects from this medication. He states this medication does adequately help manage his pain. His Kale is [id number]. It has been reviewed and appropriate. Review of Systems: General: No recent weight changes, no fever, no sleep disturbances Respiratory: No cough, no shortness of air, no recurring pulmonary infections Cardiovascular/peripheral vascular: No chest pain, no palpitations, no edema, no shortness of breath Gastrointestinal: No new onset incontinence, normal bowel movements reported Genitourinary: No new onset incontinence Musculoskeletal: Left knee pain Psychiatric: [Normal mood/affect] Neurological: [Denies weakness in extremities], [denies balance issues] Objective:: Physical Exam: General: Alert and oriented x3, no acute distress, pleasant and cooperative Lungs: Respirations even and unlabored, symmetrical chest expansion Eyes: PERRL Musculoskeletal: Flexion and extension of left knee somewhat guarded secondary to pain, [antalgic gait noted] Neurological: Speech clear, no gross sensory deficit Assessment:: Degenerative disc disease of lumbar spine with lumbar radiculopathy symptoms, osteoarthritis left knee, sacroiliitis Plan:: Patient continues to have moderate pain in his left knee. Dr. Florian, orthopedic physician has told the patient that he will need a total left knee replacement in the future however at this time the patient would like to continue with minimally invasive treatment such as injective therapy. Patient did have limited range of motion of his left knee during today's visit. I have discussed with the patient that he may benefit from a second genicular nerve block followed by RFA genicular nerve block. Risk and benefits were discussed with the patient. At this time the patient does not need additional injective therapy. I will reorder the patient's [place] 5 mg twice daily and provide a 1 month supply of this medication. Patient will return to clinic in 1 month for reevaluation of symptoms, medication refill and follow-up. Patient has been advised of risks of oversedation with the prescribed medication. Narcan has been offered to the patient in the event of oversedation. Patient has been advised that a family member should also be educated regarding administration of Narcan. Patient has been instructed to contact the clinic with any concerns before the next appointment. Dr. Smith has reviewed this note and agrees with this plan of care. This note was dictated using voice recognition software and make contain errors or omissions. [facility] Medical History Abnormal computed tomography angiography (CTA) of abdomen Abnormal electrocardiography Back pain CAD (coronary artery disease) Claudication Left leg pain Tobacco dependence syndrome Surgical History (Reviewed 01/16/22 @ 14:21 by Garrett
[2022-01-31 14:37] LABS: Benzodiazepines Screen,Urine Negative ng/ml (<200)
[2022-01-31 14:38] LABS: Amphetamine/Metha Screen,Urine Negative ng/ml (<1000)
[2022-01-31 14:39] LABS: Barbiturates Screen,Urine Negative ng/ml (<200)
[2022-01-31 14:40] LABS: Cannabinoid Screen,Urine Negative ng/ml (<50); Cocaine Screen,Urine Negative ng/ml (<300)
[2022-01-31 14:41] LABS: Methadone Screen,Urine Negative ng/ml (<300); Opiate Screen,Urine Positive ng/ml (<300)
[2022-01-31 14:42] LABS: Phencyclidine Screen,Urine Negative ng/ml (<25)
[2022-02-13 19:09] LABS: Codeine Negative (Cutoff=100); Hydrocodone Negative (Cutoff=100); Hydromorphone Positive (.); Morphine Negative (Cutoff=100); Opiates Positive (.)
== END | disposition home or self-care (01) ==
PROVIDERS: Visit Provider Nurse Practitioner Family
DX: M51.16 Intervertebral disc disorders with radiculopathy, lumbar region (principal); Z79.891 Long term (current) use of opiate analgesic; M46.1 Sacroiliitis, not elsewhere classified; M17.12 Unilateral primary osteoarthritis, left knee
CPT/HCPCS: 80305; 80361; 80365; 99212; G0463; G0480

== ENCOUNTER → 2022-02-25 14:39 | Outpatient (POV) | payer MEDICARE, SELFPAY ==
[2022-02-25 14:51] VITALS: BP 93/55; PULSE 88; RESP 18; TEMP 37.1; O2SAT 95; BMI 29.8
--- NOTE | 2022-02-25 15:03 | EXP.PAIN.SOA ---
[facility] Pain Management SOAP Note Subjective:: Patient is a pleasant 71-year-old male who presents today for medication refill and follow-up. We are currently treating the patient for osteoarthritis left knee, degenerative disc disease of lumbar spine with lumbar radiculopathy symptoms, sacroiliitis. Today the patient rates his pain a 3 out of 10. He states the pain is mainly in his left knee. This is a dull achy sensation that is worse with increased activity. Patient denies any new trauma or injury. He denies any change location or type of pain he experiences. He is seen an outside provider for his left knee pain and has recently had a injection by Dr. Ga. Patient has mentioned that he will need a total left knee replacement in the future. Previously we have done genicular nerve blocks that did provide significant improvement of his symptoms. He is currently managed with [place] 5 mg twice a day. Patient does take a daily Citrucel to help with constipation related issues. Patient states this medication does adequately help manage his pain symptoms. His Kale is [id number]. It has been reviewed and appropriate. Review of Systems: General: No recent weight changes, no fever, no sleep disturbances Respiratory: No cough, no shortness of air, no recurring pulmonary infections Cardiovascular/peripheral vascular: No chest pain, no palpitations, no edema, no shortness of breath Gastrointestinal: No new onset incontinence, normal bowel movements reported Genitourinary: No new onset incontinence Musculoskeletal: Left knee pain, low back pain Psychiatric: [Normal mood/affect] Neurological: [Denies weakness in extremities], [denies balance issues] Objective:: Physical Exam: General: Alert and oriented x3, no acute distress, pleasant and cooperative Lungs: Respirations even and unlabored, symmetrical chest expansion Eyes: PERRL Musculoskeletal: Flexion and extension of lumbar [spine] somewhat guarded secondary to pain, [antalgic gait noted] Neurological: Speech clear, no gross sensory deficit Assessment:: Degenerative disc disease of lumbar spine with lumbar radiculopathy symptoms, sacroiliitis, osteoarthritis left knee Plan:: Patient continues to have significant pain in his low back and left knee however it is managed well with his current medication regimen. I will refill the patient's [place] 5 mg twice a day and provide a 1 month supply of this medication. I will also refill the patient's ibuprofen 800 mg. We will follow-up with the patient in 1 month for reevaluation of symptoms, medication refill. Patient has been advised of risks of oversedation with the prescribed medication. Narcan has been offered to the patient in the event of oversedation. Patient has been advised that a family member should also be educated regarding administration of Narcan. Patient has been instructed to contact the clinic with any concerns before the next appointment. Dr. Smith has reviewed this note and agrees with this plan of care. This note was dictated using voice recognition software and make contain errors or omissions. PFSH PFSH Medical History Abnormal computed tomography angiography (CTA) of abdomen Abnormal electrocardiography Back pain CAD (coronary artery disease) Claudication Left leg pain Tobacco dependence syndrome Surgical History Hx of CABG Social History Smoking Status: Current every day smoker tobacco type: cigarettes packs per day: 1 second hand exposure: No alcohol intake: never counseling provided: none substance use type: denies use current occupational status: retired Travel in the last 8 weeks: None household members: other housing: house current occupational exposures/hazards: No caffeine: Yes
== END | disposition home or self-care (01) ==
PROVIDERS: PCP Internal Medicine Adolescent Medicine; Visit Provider Nurse Practitioner Family
DX: M51.16 Intervertebral disc disorders with radiculopathy, lumbar region (principal); M46.1 Sacroiliitis, not elsewhere classified; M17.12 Unilateral primary osteoarthritis, left knee; Z72.0 Tobacco use
CPT/HCPCS: 99212; G0463

== ENCOUNTER → 2022-03-28 14:24 | Outpatient (POV) | payer MEDICARE, SELFPAY ==
[2022-03-28 14:28] VITALS: BP 122/72; PULSE 91; RESP 20; BMI 29.8
--- NOTE | 2022-03-28 14:56 | EXP.PAIN.SOA ---
[facility] Pain Management SOAP Note Subjective:: Patient is a pleasant 71-year-old male who presents today for medication refill and follow-up. We are currently treating the patient for osteoarthritis left knee, degenerative disc disease of lumbar spine with lumbar radiculopathy symptoms, sacroiliitis. Today the patient rates his pain a 2 out of 10. Patient denies any new trauma or injury. Patient denies any change location or type of pain he experiences. Patient does state the pain continues to be along the medial aspect of his left knee. Patient does state he occasionally will have increased swelling or and a knot at this site. Patient is scheduled to see Dr. Ga tomorrow for his left knee pain. Patient is currently managed with [place] 5 mg twice a day. Patient denies any issues with this medication. He does take daily Citrucel to help with any constipation related issues he may have. He states that his pain medication does manage his pain symptoms well. He is requesting a refill at today's visit. Patient is also prescribed ibuprofen 800 mg and states he only takes this medication as needed. He is requesting a refill on this medication as well. His Kale is [id number]. It is been reviewed and appropriate. Review of Systems: General: No recent weight changes, no fever, no sleep disturbances Respiratory: No cough, no shortness of air, no recurring pulmonary infections Cardiovascular/peripheral vascular: No chest pain, no palpitations, no edema, no shortness of breath Gastrointestinal: No new onset incontinence, normal bowel movements reported Genitourinary: No new onset incontinence Musculoskeletal: Left knee pain Psychiatric: [Normal mood/affect] Neurological: [Denies weakness in extremities], [denies balance issues] Objective:: Physical Exam: General: Alert and oriented x3, no acute distress, pleasant and cooperative Lungs: Respirations even and unlabored, symmetrical chest expansion Eyes: PERRL Musculoskeletal: Flexion and extension of left knee somewhat guarded secondary to pain, [antalgic gait noted] Neurological: Speech clear, no gross sensory deficit Assessment:: Osteoarthritis left knee, degenerative disc disease of lumbar spine with lumbar radiculopathy symptoms, sacroiliitis Plan:: Patient continues to have moderate pain along his left knee. I will refill the patient's [place] 5 mg twice a day and provide a 1 month supply of this medication. I will also send in a refill on his ibuprofen 800 mg twice daily and order him a compounding cream at today's visit. Patient will return to clinic in 1 month for reevaluation of symptoms, medication refill and follow-up. Patient has been instructed to contact the clinic with any concerns before the next appointment. Dr. Smith has reviewed this note and agrees with this plan of care. This note was dictated using voice recognition software and make contain errors or omissions. [facility] Medical History Abnormal computed tomography angiography (CTA) of abdomen Abnormal electrocardiography Back pain CAD (coronary artery disease) Claudication Left leg pain Tobacco dependence syndrome Surgical History Hx of CABG Social History Smoking Status: Current every day smoker tobacco type: cigarettes packs per day: 1 second hand exposure: No alcohol intake: never counseling provided: none substance use type: denies use current occupational status: retired Travel in the last 8 weeks: None household members: other housing: house current occupational exposures/hazards: No caffeine: Yes
== END | disposition home or self-care (01) ==
PROVIDERS: PCP Internal Medicine Adolescent Medicine; Visit Provider Nurse Practitioner Family
DX: M51.16 Intervertebral disc disorders with radiculopathy, lumbar region (principal); M46.1 Sacroiliitis, not elsewhere classified; M17.12 Unilateral primary osteoarthritis, left knee; Z72.0 Tobacco use
CPT/HCPCS: 99212; G0463

== ENCOUNTER → 2022-04-29 11:42 | Outpatient (POV) | payer MEDICARE, SELFPAY ==
[2022-04-29 12:20] VITALS: BP 124/71; PULSE 91; RESP 18; O2SAT 96; BMI 29.8
--- NOTE | 2022-04-29 14:52 | EXP.PAIN.SOA ---
[facility] Pain Management SOAP Note Subjective:: Patient is a pleasant 71-year-old male who is here for medication refill and follow-up. Patient is currently being treated for osteoarthritis of the left knee, degenerative disc disease of lumbar spine with lumbar radiculopathy symptoms, sacroiliitis. Patient is being managed with Burna 5 mg twice a day. Patient denies any side effects from the medications. Patient denies any changes to the location and type of pain. Patient states that this is adequately helping manage their pain. Rates pain as 2 out of 10. [facility] number [id number] with an active morphine equivalent 10. Drug screens have been reviewed and appropriate. Patient is also being followed by Dr. Ga for his left knee pain. He recently had a left intra-articular steroid injection that is providing some relief. Review of Systems: General: No recent weight changes, no fever, no sleep disturbances Respiratory: No cough, no shortness of air, no recurring pulmonary infections Cardiovascular/peripheral vascular: No chest pain, no palpitations, no edema, no shortness of breath Gastrointestinal: No new onset incontinence, normal bowel movements reported Genitourinary: No new onset incontinence Musculoskeletal: Left knee pain, low back pain Psychiatric: [Normal mood/affect] Neurological: [Denies weakness in extremities], [denies balance issues] Objective:: Physical Exam: General: Alert and oriented x3, no acute distress, pleasant and cooperative Lungs: Respirations even and unlabored, symmetrical chest expansion Eyes: PERRL Musculoskeletal: Flexion and extension of lumbar [spine] somewhat guarded secondary to pain, [antalgic gait noted]; limited range of motion of the left knee secondary to pain Neurological: Speech clear, no gross sensory deficit Assessment:: Osteoarthritis of the left knee, degenerative disc disease of lumbar spine with lumbar radiculopathy symptoms, sacroiliitis Plan:: We will continue the patient's Burna 5 mg twice a day. We will provide the patient with 1 month of refills. We would like to see the patient back in 1 month for follow-up and reevaluation of chronic pain syndrome. Patient has been advised of risks of oversedation with the prescribed medication. Narcan has been offered to the patient in the event of oversedation. Patient has been advised that a family member should also be educated regarding administration of Narcan. Patient has been instructed to contact the clinic with any concerns before the next appointment. Dr. Smith has reviewed this note and agrees with this plan of care. This note was dictated using voice recognition software and make contain errors or omissions. [facility] Disclaimer: The information contained in this section may have been updated after the patient was seen, as this information can be updated by other users. Medical History Abnormal computed tomography angiography (CTA) of abdomen Abnormal electrocardiography Back pain CAD (coronary artery disease) Claudication Left leg pain Tobacco dependence syndrome Surgical History Hx of CABG Social History Smoking Status: Current every day smoker tobacco type: cigarettes packs per day: 1 second hand exposure: No alcohol intake: never counseling provided: none substance use type: denies use current occupational status: retired Travel in the last 8 weeks: None household members: other housing: house current occupational exposures/hazards: No caffeine: Yes
== END ==
PROVIDERS: PCP Internal Medicine Adolescent Medicine; Visit Provider Nurse Practitioner Family
DX: M51.16 Intervertebral disc disorders with radiculopathy, lumbar region (principal); M46.1 Sacroiliitis, not elsewhere classified; M17.12 Unilateral primary osteoarthritis, left knee
CPT/HCPCS: 99212; G0463

== ENCOUNTER → 2022-05-29 11:25 | Outpatient (POV) | payer MEDICARE, SELFPAY ==
--- NOTE | 2022-05-29 12:08 | EXP.PAIN.SOA ---
[facility] Pain Management SOAP Note Subjective:: Patient is a pleasant 71-year-old male who presents today for medication refill and follow-up. We are currently treating the patient for osteoarthritis of his left knee, degenerative disc disease of lumbar spine with lumbar radiculopathy symptoms, sacroiliitis. Today he rates his pain a 2 out of 10. Patient denies any new trauma or injury. Patient denies any change to location or type of pain he experiences. Patient does state that today he is doing better than he normally is. Patient is currently managed with Whitewater 5 mg twice a day. Patient denies any side effects from this medication. He states this medication does help manage his pain symptoms. He was taking ibuprofen 800 mg as needed however he has not gotten this medication for the last month or so because it was not refilled. Patient is requesting a refill of both of these at today's visit. Patient is continuing to see Dr. Florian for his left knee and has been getting injections that he states has provided some improvement. Patient states that he does believe he will have to have a total knee replacement in the future. His drug screen is [id number]. Its been reviewed and appropriate. Review of Systems: General: No recent weight changes, no fever, no sleep disturbances Respiratory: No cough, no shortness of air, no recurring pulmonary infections Cardiovascular/peripheral vascular: No chest pain, no palpitations, no edema, no shortness of breath Gastrointestinal: No new onset incontinence, normal bowel movements reported Genitourinary: No new onset incontinence Musculoskeletal: Low back pain Psychiatric: [Normal mood/affect] Neurological: [Denies weakness in extremities], [denies balance issues] Objective:: Physical Exam: General: Alert and oriented x3, no acute distress, pleasant and cooperative Lungs: Respirations even and unlabored, symmetrical chest expansion Eyes: PERRL Musculoskeletal: Flexion and extension of lumbar [spine] somewhat guarded secondary to pain, [antalgic gait noted] Neurological: Speech clear, no gross sensory deficit ORT score updated with low risk Assessment:: Degenerative disc disease of lumbar spine with lumbar radiculopathy symptoms, sacroiliitis, osteoarthritis left knee Plan:: Patient continues to experience some low back pain with radicular symptoms however he is doing well with his current medication regimen. I will refill his Whitewater 5 mg twice a day and provide a 1 month supply of this medication. I have counseled the patient that due to his significant cardiac history I will not refill his ibuprofen 800 mg. Patient is scheduled to have a follow-up appointment with his candy separator hard next month and I have explained that if his candy separator hard signed off on the ibuprofen then we can refill this. Patient will return to clinic in 1 month for reevaluation of symptoms, medication refill and follow-up. Patient has been advised of risks of oversedation with the prescribed medication. Narcan has been offered to the patient in the event of oversedation. Patient has been advised that a family member should also be educated regarding administration of Narcan. Patient has been instructed to contact the clinic with any concerns before the next appointment. Dr. Smith has reviewed this note and agrees with this plan of care. This note was dictated using voice recognition software and make contain errors or omissions. [facility] Disclaimer: The information contained in this section may have been updated after the patient was seen, as this information can be updated by other users. Medical History Abnormal computed tomography angiography (CTA) of abdomen Abnormal electrocardiography Back pain CAD (coronary artery disease) Claudication Left leg pain Tobacco dependence syndrome Surgical History Hx of CABG Social
[2022-05-29 12:32] VITALS: BP 112/73; PULSE 97; RESP 19; O2SAT 97; BMI 29.8
== END | disposition home or self-care (01) ==
PROVIDERS: PCP Internal Medicine Adolescent Medicine; Visit Provider Nurse Practitioner Family
DX: M51.16 Intervertebral disc disorders with radiculopathy, lumbar region (principal); M46.1 Sacroiliitis, not elsewhere classified; M17.12 Unilateral primary osteoarthritis, left knee
CPT/HCPCS: 99212; G0463

== ENCOUNTER → 2022-07-01 14:08 | Outpatient (POV) | payer MEDICARE, SELFPAY ==
--- NOTE | 2022-07-01 14:58 | EXP.PAIN.SOA ---
[facility] Pain Management SOAP Note Subjective:: Patient is a pleasant 72-year-old male who presents today for medication refill and follow-up. We are currently treating the patient for osteoarthritis left knee, degenerative disc disease of lumbar spine with lumbar radiculopathy symptoms, sacroiliitis. Today the patient rates his pain a 2 out of 10. Patient denies any new trauma or injury. Patient denies any change in location or type of pain he experiences. Patient does state he continues to have some pain in his left knee that radiates down his leg. Patient states he is still seeing Dr. Florian who does knee injections and has discussed with him regarding potential knee replacement in the future. Patient has been prescribed in the past ibuprofen 800 mg however he does see a grain combiner on a regular basis. At our last visit we did not refill this medication and discussed with him to confirm with cardiology that it was okay to continue to take this medication. Patient states that he did forget to mention it at his last visit however he is requesting a refill of it at today's visit. Patient is also prescribed Mancos 5 mg twice a day. Patient denies any side effects from this medication. He states it does help. His Kale is [id number]. Its been reviewed and appropriate. Review of Systems: General: No recent weight changes, no fever, no sleep disturbances Respiratory: No cough, no shortness of air, no recurring pulmonary infections Cardiovascular/peripheral vascular: No chest pain, no palpitations, no edema, no shortness of breath Gastrointestinal: No new onset incontinence, normal bowel movements reported Genitourinary: No new onset incontinence Musculoskeletal: Low back pain, knee pain Psychiatric: [Normal mood/affect] Neurological: [Denies weakness in extremities], [denies balance issues] Objective:: Physical Exam: General: Alert and oriented x3, no acute distress, pleasant and cooperative Lungs: Respirations even and unlabored, symmetrical chest expansion Eyes: PERRL Musculoskeletal: Flexion and extension of lumbar [spine] somewhat guarded secondary to pain, [antalgic gait noted] Neurological: Speech clear, no gross sensory deficit Assessment:: Degenerative disc disease of lumbar spine with lumbar radiculopathy symptoms, sacroiliitis, osteoarthritis left knee Plan:: Patient continues to experience significant pain in his low back and left knee. I will refill the patient's Mancos 5 mg twice a day and provide a 1 month supply of this medication. I will also give the patient ibuprofen 800 mg 3 times daily and provide a 7-day dose of this medication. I have counseled the patient that I will only send in this temporary dose of ibuprofen and that he can call his grain combiner to confirm if he is able to continue the ibuprofen outside of the 7-day dose. Patient will return to clinic in 1 month for reevaluation of symptoms, medication refill and follow-up. Patient has been advised of risks of oversedation with the prescribed medication. Narcan has been offered to the patient in the event of oversedation. Patient has been advised that a family member should also be educated regarding administration of Narcan. Patient has been instructed to contact the clinic with any concerns before the next appointment. Dr. Smith has reviewed this note and agrees with this plan of care. This note was dictated using voice recognition software and make contain errors or omissions. [facility] Disclaimer: The information contained in this section may have been updated after the patient was seen, as this information can be updated by other users. Medical History Abnormal computed tomography angiography (CTA) of abdomen Abnormal electrocardiography Back pain CAD (coronary artery disease) Claudication Left leg pain Tobacco dependence syndrome Surgical History (Updated 06/28/22 @ 11:51 by Kailey Pozo, SR
[2022-07-01 16:01] VITALS: BP 117/67; PULSE 91; RESP 18; O2SAT 97
== END | disposition home or self-care (01) ==
PROVIDERS: PCP Internal Medicine Adolescent Medicine; Visit Provider Nurse Practitioner Family
DX: M51.16 Intervertebral disc disorders with radiculopathy, lumbar region (principal); M46.1 Sacroiliitis, not elsewhere classified; M17.12 Unilateral primary osteoarthritis, left knee; F17.210 Nicotine dependence, cigarettes, uncomplicated; Z79.899 Other long term (current) drug therapy
CPT/HCPCS: 99212; G0463

== ENCOUNTER → 2022-07-29 13:24 | Outpatient (POV) | payer MEDICARE, SELFPAY ==
[2022-07-29 13:30] VITALS: BP 109/63; PULSE 98; RESP 19; O2SAT 97; BMI 29.8
--- NOTE | 2022-07-29 13:47 | EXP.PAIN.SOA ---
[facility] Pain Management SOAP Note Subjective:: Patient is a pleasant 72-year-old male who presents today for medication refill and follow-up. We are currently treating the patient for degenerative disc disease of lumbar spine with lumbar radiculopathy symptoms, sacroiliitis., Osteoarthritis left knee, left knee pain. Today he rates his pain a 3 out of 10. Patient denies any new trauma or injury. Patient denies any change to the location or type of pain he experiences. Patient states he continues to have significant low back pain that is more prominent with standing or walking. He states it is relieved when he sits down or frequently leans over with his posture such as when he is grocery shopping. Patient states this has been going on for some time and has progressively worsened over time. He is currently seeing Dr. Florian for his left knee and has been doing injections. Patient states this has seemed to do well for him and he is scheduled to see him next month for his next injection. Patient does use ibuprofen 800 mg as needed however he does have a cardiac history. At our last visit we did not refill this medication until his plasticator could confirm that this was okay to refill however at this time he is still not been back to see them. Patient is currently prescribed Saxe 5 mg twice a day. Patient denies any side effects from this medication. His Kale is [id number]. Its been reviewed and appropriate. Review of Systems: General: No recent weight changes, no fever, no sleep disturbances Respiratory: No cough, no shortness of air, no recurring pulmonary infections Cardiovascular/peripheral vascular: No chest pain, no palpitations, no edema, no shortness of breath Gastrointestinal: No new onset incontinence, normal bowel movements reported Genitourinary: No new onset incontinence Musculoskeletal: Low back pain Psychiatric: [Normal mood/affect] Neurological: [Denies weakness in extremities], [denies balance issues] Objective:: Physical Exam: General: Alert and oriented x3, no acute distress, pleasant and cooperative Lungs: Respirations even and unlabored, symmetrical chest expansion Eyes: PERRL Musculoskeletal: Flexion and extension of lumbar [spine] somewhat guarded secondary to pain, [antalgic gait noted] shopping cart sign Neurological: Speech clear, no gross sensory deficit Assessment:: Degenerative disc disease of lumbar spine with lumbar radiculopathy symptoms, sacroiliitis, osteoarthritis left knee, left knee pain Plan:: Patient continues to experience significant pain in his low back with limited range of motion. Patient did have a positive shopping cart sign along with symptoms of spinal stenosis with neurogenic claudication. I have discussed with the patient that he may benefit from a minimally invasive lumbar decompression in the future. Risk and benefits were discussed with the patient and at this time he would like to review it at next month's follow-up. Patient's previous MRI from 2016 did show degenerative disc disease multilevel with multilevel disc bulges, canal stenosis, ligamentum flavum hypertrophy throughout L3-S1 and neuroforaminal narrowing. At our next visit we will discuss lumbar epidural with epidurogram. I will refill the patient's Saxe 5 mg twice a day and provide a 1 month supply of this medication. Patient will return to clinic in 1 month for reevaluation of symptoms and plan of care. Patient has been advised of risks of oversedation with the prescribed medication. Narcan has been offered to the patient in the event of oversedation. Patient has been advised that a family member should also be educated regarding administration of Narcan. Patient has been instructed to contact the clinic with any concerns before the next appointment. Dr. Smith has reviewed this note and agrees with this plan of care. This note was dictated using voice recognition software and make contain errors or omissions. [facility] Disclaimer:
== END | disposition home or self-care (01) ==
PROVIDERS: PCP Internal Medicine Adolescent Medicine; Visit Provider Nurse Practitioner Family
DX: M51.16 Intervertebral disc disorders with radiculopathy, lumbar region (principal); M46.1 Sacroiliitis, not elsewhere classified; M17.12 Unilateral primary osteoarthritis, left knee; M25.562 Pain in left knee; M48.062 Spinal stenosis, lumbar region with neurogenic claudication
CPT/HCPCS: 99212; G0463

== ENCOUNTER → 2022-08-29 14:26 | Outpatient (POV) | payer MEDICARE, SELFPAY ==
--- NOTE | 2022-08-29 14:58 | EXP.PAIN.SOA ---
[facility] Pain Management SOAP Note Subjective:: Patient is a pleasant 72-year-old male who presents today for medication refill and follow-up. We are currently treating the patient for degenerative disc disease of lumbar spine with lumbar radiculopathy symptoms, sacroiliitis, osteoarthritis left knee, left knee pain, ligamentum flavum hypertrophy spinal stenosis with neurogenic claudication. Today he rates his pain a 3 out of 10. Patient denies any new trauma or injury. He does state that the pain in his back and left leg continues to be more bothersome and worsening in degree. He does state it interferes with his ability to perform activities of daily living such as cooking and cleaning. He does state that he has significant pain with ambulation or activity however when he sits his pain goes away. Patient has had multiple lumbar epidural injections in the past that did provide significant relief. Patient does go to Dr. Florian for his left knee pain and he has gotten injections that have provided significant improvement. Patient was prescribed ibuprofen 800 mg in the past however he does have a cardiac history and has been counseled regarding this medication. Patient is currently managed with Cavalier 5 mg twice a day. His Kale is [id number]. Its been reviewed and appropriate. Review of Systems: General: No recent weight changes, no fever, no sleep disturbances Respiratory: No cough, no shortness of air, no recurring pulmonary infections Cardiovascular/peripheral vascular: No chest pain, no palpitations, no edema, no shortness of breath Gastrointestinal: No new onset incontinence, normal bowel movements reported Genitourinary: No new onset incontinence Musculoskeletal: Low back pain, left leg pain, left knee pain Psychiatric: [Normal mood/affect] Neurological: [Denies weakness in extremities], [denies balance issues] Objective:: Physical Exam: General: Alert and oriented x3, no acute distress, pleasant and cooperative Lungs: Respirations even and unlabored, symmetrical chest expansion Eyes: PERRL Musculoskeletal: Flexion and extension of lumbar [spine] somewhat guarded secondary to pain, [antalgic gait noted] point tenderness noted at left lumbar paraspinous muscles; positive shopping cart sign Neurological: Speech clear, no gross sensory deficit Assessment:: degenerative disc disease of lumbar spine with lumbar radiculopathy symptoms, sacroiliitis, osteoarthritis left knee, left knee pain, ligamentum flavum hypertrophy spinal stenosis with neurogenic claudication Plan:: Patient is experiencing significant pain in his low back and left leg. Patient did have limited range of motion of his lumbar spine along with a positive shopping cart sign and point tenderness at his left lumbar paraspinous muscles. I will order a lumbar x-ray with the plan to order more advanced imaging in the future. I have discussed with the patient that he may benefit from a lumbar epidural steroid injection with epidurogram. His previous MRI of his lumbar spine from 2016 did show multilevel ligamentum flavum hypertrophy. Patient agrees with this plan of care. Patient was given the mild handout during exam. I have also discussed with the patient that he may benefit from trigger point injections in the future at his left lumbar paraspinous muscles. I will refill his Cavalier 5 mg twice a day and provide a 1 month supply of this medication. I will also order the patient methocarbamol 500 mg at bedtime and provide a 14-day supply of this medication. Patient will be scheduled for a LESI L4-L5 with epidurogram. Patient has been advised of risks of oversedation with the prescribed medication. Narcan has been offered to the patient in the event of oversedation. Patient has been advised that a family member should also be educated regarding administration of Narcan. Patient has been instructed to contact the clinic with any concerns before the next appointment. Dr. Smith has reviewed this note
[2022-08-29 15:02] VITALS: BP 137/73; PULSE 95; RESP 18; O2SAT 97; BMI 29.8
== END | disposition home or self-care (01) ==
PROVIDERS: PCP Internal Medicine Adolescent Medicine; Visit Provider Nurse Practitioner Family
DX: M51.16 Intervertebral disc disorders with radiculopathy, lumbar region (principal); M46.1 Sacroiliitis, not elsewhere classified; M17.12 Unilateral primary osteoarthritis, left knee; M48.062 Spinal stenosis, lumbar region with neurogenic claudication; M25.562 Pain in left knee
CPT/HCPCS: 99212; G0463

== ENCOUNTER → 2022-08-29 15:14 | Outpatient (CLI) | payer MEDICARE, SELFPAY ==
--- NOTE | 2022-08-29 15:25 | XR_ITS ---
FINAL REPORT CLINICAL HISTORY: BACK PAIN COMPARISON: February 08, 2017 FINDINGS: LUMBAR SPINE 5 views of the lumbar spine were obtained. There is no evidence of fracture or dislocation. The vertebral alignment is normal. There is mild leftward curvature. There are moderate and severe degenerative changes with multilevel osteophytes. There is vacuum disc phenomenon at L5-S1. No paraspinous soft tissue abnormalities identified. IMPRESSION: Moderate and severe degenerative changes with no acute bony abnormality. Reviewed, Interpreted and Dictated by Duncan Aguilar III, MD Transcribed by Yasmine Platt Authenticated and [facility]
== END ==
PROVIDERS: PCP Internal Medicine Adolescent Medicine; Referring Provider Anesthesiology; Visit Provider Nurse Practitioner Family
DX: M54.50 Low back pain, unspecified (principal)
CPT/HCPCS: 72110; 99212; G0463

== ENCOUNTER 2022-10-18 12:57 | Day surgery (SDC) | payer MEDICARE, SELFPAY ==
[2022-10-18 14:18] VITALS: BP 109/66; PULSE 63; RESP 20; O2SAT 98; BMI 29.8
[2022-10-18 14:57] VITALS: BP 122/67; PULSE 67; RESP 18; O2SAT 99
[2022-10-18 14:58] VITALS: BP 122/67; PULSE 70; RESP 18; O2SAT 97
[2022-10-18 15:15] VITALS: BP 109/66; PULSE 64; RESP 18; O2SAT 98
--- NOTE | 2022-10-18 16:53 | EXP.PAIN.PRO ---
Procedure Date: 10/18/22 Time: 16:53 Anesthesiologist:: Mingo Smith MD Complications:: None Pre-procedure Diagnosis:: Degenerative disc disease of lumbar spine with lumbar spinal stenosis and neurogenic claudication symptoms Post-procedure Diagnosis:: Same Indications for Procedure:: This patient is a pleasant 72-year-old white male who we are treating for low back pain with lumbar spinal stenosis and neurogenic claudication symptoms. He has increasing pain while standing and walking. This is relieved by rest and sitting. On MRI does have significant ligamentum flavum hypertrophy at L3-L4 and L4-L5. I do believe he would be a good candidate for minimally invasive lumbar decompression. We will do a lumbar pleural steroid injection with epidurogram to assess levels of stenosis and candidacy for minimally invasive lumbar decompression. Procedure Details:: Informed consent was obtained and the risk and benefits of the procedure was explained to the patient. The patient was taken to the procedure room. The patient was placed prone on the procedure table. The patient was prepped and draped in sterile fashion. C-arm fluoroscopy was used to view the lumbar spine. Skin and subcutaneous tissues were anesthetized using lidocaine. I placed an 18-gauge epidural needle and advanced into the L4-L5 interspace using fluoroscopic guidance and [id number] to air. After confirmation of needle placement in the epidural space with dye I injected 2 mL of lidocaine 1.5% with Depo-Medrol 80 mg. Patient tolerated the procedure well with no complications. Plan and Disposition:: Based on epidurogram patient does have significant stenosis at L3-4 and L4-L5. I do believe he would be a good candidate for minimally invasive lumbar decompression bilateral L3-L4 and L4-L5.
== END 2022-10-18 15:15 | disposition home or self-care (01) ==
LOC: SC.PAINP 12:58
PROVIDERS: PCP Internal Medicine Adolescent Medicine; Visit Provider Anesthesiology
DX: M51.16 Intervertebral disc disorders with radiculopathy, lumbar region (principal); M48.062 Spinal stenosis, lumbar region with neurogenic claudication
CPT/HCPCS: 62323; J1040

== ENCOUNTER → 2022-10-31 13:19 | Outpatient (POV) | payer MEDICARE, SELFPAY ==
[2022-10-31 13:29] VITALS: BP 113/58; PULSE 74; RESP 18; O2SAT 97; BMI 29.8
--- NOTE | 2022-10-31 13:51 | EXP.PAIN.SOA ---
[facility] Pain Management SOAP Note Subjective:: Patient is a pleasant 72-year-old male who presents today for follow-up of lumbar epidural steroid injection with epidurogram of L3-L4 and L4-L5 on 10/18/2022. We are currently treating the patient for degenerative disc disease of lumbar spine with lumbar radiculopathy symptoms, sacroiliitis, osteoarthritis left knee, left knee pain, ligamentum flavum hypertrophy, spinal stenosis with neurogenic claudication symptoms. Today he rates his pain a 1 out of 10. Patient states he has had improvement following this injection of at least 50% and feels like it is still providing continued relief. Patient states he has been able to increase his activity and even had improvement of his knee pain. At our last visit patient was submitted for the minimally invasive lumbar decompression. Patient does have significant ligamentum flavum hypertrophy and was found to be a beneficial candidate for this procedure. At this current time we are still waiting on approval from insurance. Patient is currently managed with Sauquoit 5 mg twice a day. His Kale is [id number]. Its been reviewed and appropriate. Review of Systems: General: No recent weight changes, no fever, no sleep disturbances Respiratory: No cough, no shortness of air, no recurring pulmonary infections Cardiovascular/peripheral vascular: No chest pain, no palpitations, no edema, no shortness of breath Gastrointestinal: No new onset incontinence, normal bowel movements reported Genitourinary: No new onset incontinence Musculoskeletal: Low back pain Psychiatric: [Normal mood/affect] Neurological: [Denies weakness in extremities], [denies balance issues] Objective:: Physical Exam: General: Alert and oriented x3, no acute distress, pleasant and cooperative Lungs: Respirations even and unlabored, symmetrical chest expansion Eyes: PERRL Musculoskeletal: Flexion and extension of lumbar [spine] somewhat guarded secondary to pain, [antalgic gait noted] Neurological: Speech clear, no gross sensory deficit Assessment:: Degenerative disc disease of lumbar spine with lumbar radiculopathy symptoms, sacroiliitis, osteoarthritis left knee, left knee pain, ligamentum flavum hypertrophy, spinal stenosis with neurogenic claudication symptoms Plan:: Patient has had at least 50% improvement following his lumbar epidural steroid injection. I will refill the patient's Sauquoit 5 mg twice a day and provide a 1 month supply of this medication. We will contact the patient once we officially have approval for the minimally invasive lumbar decompression procedure. Patient will follow-up in clinic in 1 month for reevaluation of symptoms and medication refill. Patient has been advised of risks of oversedation with the prescribed medication. Narcan has been offered to the patient in the event of oversedation. Patient has been advised that a family member should also be educated regarding administration of Narcan. Patient has been instructed to contact the clinic with any concerns before the next appointment. Dr. Smith has reviewed this note and agrees with this plan of care. This note was dictated using voice recognition software and make contain errors or omissions. [facility] Disclaimer: The information contained in this section may have been updated after the patient was seen, as this information can be updated by other users. Medical History Abnormal computed tomography angiography (CTA) of abdomen Abnormal electrocardiography Back pain CAD (coronary artery disease) Claudication Left leg pain Tobacco dependence syndrome Surgical History History of colonoscopy Hx of CABG Family History (Updated 10/18/22 @ 14:19 by Vika Li RN) Other No significant family history Social History (Updated 10/18/22 @ 14:19 by Vika Li RN) Smoking Status: Current every day s
== END | disposition home or self-care (01) ==
PROVIDERS: PCP Internal Medicine Adolescent Medicine; Visit Provider Nurse Practitioner Family
DX: M51.16 Intervertebral disc disorders with radiculopathy, lumbar region (principal); M46.1 Sacroiliitis, not elsewhere classified; M17.12 Unilateral primary osteoarthritis, left knee; M25.562 Pain in left knee; M48.00 Spinal stenosis, site unspecified
CPT/HCPCS: 99212; G0463

== ENCOUNTER → 2022-11-27 13:20 | Outpatient (POV) | payer MEDICARE, SELFPAY ==
--- NOTE | 2022-11-27 13:56 | EXP.PAIN.SOA ---
[facility] Pain Management SOAP Note Subjective:: Patient is a pleasant 72-year-old male who presents today for follow-up and medication refill. We are currently treating the patient for degenerative disc disease of lumbar spine with lumbar radiculopathy symptoms, sacroiliitis, osteoarthritis left knee, left knee pain, ligamentum flavum hypertrophy, spinal stenosis with neurogenic claudication symptoms. today he rates his pain a 3 out of 10. Patient denies any new trauma or injury. He denies any change location or type of pain he experiences. He does state that he is still currently having a lot of pain in his left knee and his low back and legs. He does state that he is scheduled to go back to the orthopedic doctor for his left knee injection. He states that they did mention possibly replacing that joint however it was not discussed for anytime soon. Patient was recently denied by insurance for a minimally invasive lumbar decompression. Patient did have significant ligamentum flavum hypertrophy that was seen through a lumbar epidural steroid injection with epidurogram. Patient is currently managed with Bryant 5 mg twice a day. He denies any side effects from this medication. His Akle is [id number]. Its been reviewed and appropriate. Review of Systems: General: No recent weight changes, no fever, no sleep disturbances Respiratory: No cough, no shortness of air, no recurring pulmonary infections Cardiovascular/peripheral vascular: No chest pain, no palpitations, no edema, no shortness of breath Gastrointestinal: No new onset incontinence, normal bowel movements reported Genitourinary: No new onset incontinence Musculoskeletal: Low back pain, left knee pain, bilateral leg pain Psychiatric: [Normal mood/affect] Neurological: [Denies weakness in extremities], [denies balance issues] Objective:: Physical Exam: General: Alert and oriented x3, no acute distress, pleasant and cooperative Lungs: Respirations even and unlabored, symmetrical chest expansion Eyes: PERRL Musculoskeletal: Flexion and extension of lumbar [spine] somewhat guarded secondary to pain, [antalgic gait noted] Neurological: Speech clear, no gross sensory deficit Assessment:: degenerative disc disease of lumbar spine with lumbar radiculopathy symptoms, sacroiliitis, osteoarthritis left knee, left knee pain, ligamentum flavum hypertrophy, spinal stenosis with neurogenic claudication symptoms Plan:: I will refill the patient's Bryant 5 mg twice a day and provide a 1 month supply of this medication. Patient was denied the lumbar decompression due to lack of imaging. This imaging has been sent back and and we are waiting to hear on approval. We will contact the patient once we have approval. Patient will return to clinic in 1 month for reevaluation of symptoms and plan of care. Patient has been advised of risks of oversedation with the prescribed medication. Narcan has been offered to the patient in the event of oversedation. Patient has been advised that a family member should also be educated regarding administration of Narcan. Patient has been instructed to contact the clinic with any concerns before the next appointment. Dr. Smith has reviewed this note and agrees with this plan of care. This note was dictated using voice recognition software and make contain errors or omissions. [facility] Disclaimer: The information contained in this section may have been updated after the patient was seen, as this information can be updated by other users. Medical History Abnormal computed tomography angiography (CTA) of abdomen Abnormal electrocardiography Back pain CAD (coronary artery disease) Claudication Left leg pain Tobacco dependence syndrome Surgical History History of colonoscopy Hx of CABG Family History (Updated 10/18/22 @ 14:19 by Vika Li RN) Other No significa
[2022-11-27 14:41] VITALS: BP 100/63; PULSE 80; RESP 18; O2SAT 97; BMI 29.8
== END | disposition home or self-care (01) ==
PROVIDERS: PCP Internal Medicine Adolescent Medicine; Visit Provider Nurse Practitioner Family
DX: M51.16 Intervertebral disc disorders with radiculopathy, lumbar region (principal); M46.1 Sacroiliitis, not elsewhere classified; M17.12 Unilateral primary osteoarthritis, left knee; M25.562 Pain in left knee; M48.00 Spinal stenosis, site unspecified
CPT/HCPCS: 99212; G0463

== ENCOUNTER → 2022-12-17 11:53 | Outpatient (CLI) | payer MEDICARE, SELFPAY ==
[2022-12-17 12:46] LABS: Basophils # 0.1 K/mm3 (0-0.2); Basophils % 0.7 % (0.1-2.0); Eosinophils # 0.2 K/mm3 (0.0-0.4); Eosinophils % 1.9 % (0.1-12.0); Hematocrit 47.8 % (42.0-52.0); Hemoglobin 15.7 g/dL (14.1-18.0); Lymphocytes # 1.6 K/mm3 (0.7-4.5); Lymphocytes % 18.9 % (10-50); Mean Corpuscular HGB Conc 32.9 g/dL (31.8-35.4); Mean Corpuscular Hemoglobin 30.6 pg (27.0-31.2); Mean Corpuscular Volume 92.9 fl (80-94); Mean Platelet Volume 8.3 fl (7.4-10.4); Monocytes # 0.5 K/mm3 (0.1-1.0); Monocytes % 5.4 % (1.7-9.3); Neutrophils # 6.1 K/mm3 (1.8-7.8); Neutrophils % 73.1 % (37.0-80.0); Platelet Count 208 K/mm3 (142-424); Red Blood Count 5.15 M/mm3 (4.60-6.20); Red Cell Distribution Width 13.6 % (11.5-17.5); White Blood Count 8.3 K/mm3 (4.8-10.8)
--- NOTE | 2022-12-17 12:53 | CT_ITS ---
FINAL REPORT TECHNIQUE: Axial images were obtained from the lung apex to the mid abdomen by computed tomography. This study was performed with techniques to keep radiation doses as low as reasonably achievable (ALARA). Individualized dose reduction techniques using automated exposure control or adjustment of mA and/or kV according to the patient's size were employed. CLINICAL HISTORY: H/O TOBACCO USE CURRENT SMOKER 1PPD X50 YEARS FINDINGS: CHEST CT LOW DOSE CTDI vol (mGy): 2.90 DLP (mGy-cm): 107.59 Patient is status post median sternotomy. There is no axillary adenopathy. There is no hilar or mediastinal adenopathy. The heart is normal in size. There is no pericardial or pleural effusion. There is mild bronchial wall thickening consistent with bronchitis. There is a 3 mm left lower lobe nodule well seen on image 56. Multiple calcified granulomas are identified. Limited images of the upper abdomen are unremarkable. IMPRESSION: Left lower lobe nodule. Lung RADS category 2. Recommend 12 month follow-up low-dose chest CT. Reviewed, Interpreted and Dictated by Duncan Aguilar III, MD Transcribed by Abril Tovar Authenticated and [facility]
[2022-12-17 13:00] LABS: Prothrombin Time 10.8 seconds (10.1-12.5)
[2022-12-17 13:22] LABS: Alanine Aminotransferase 34 U/L (12-78); Albumin Level 3.7 g/dl (3.5-5.0); Alkaline Phosphatase 104 U/L (38-126); Anion Gap 8.3 mEq/L (5-15); Aspartate Amino Transferase 27 U/L (17-59); Bilirubin,Indirect 1.2 mg/dL (0.0-0.9); Bilirubin,Total 1.2 mg/dl (0.2-1.3); Bilirubin,Unconjugated 1.2 mg/dL (0.0-1.1); Blood Urea Nitrogen 20 mg/dl (9-20); Calcium 9.1 mg/dl (8.4-10.2); Carbon Dioxide 27 mmol/L (22.0-30.0); Chloride 110 mmol/L (98-107); Chol/HDL Ratio 2.4 (1-3.5); Cholesterol 105 mg/dl (140-200); Estimated Glomerular Filt Rate 59 ml/min (>60); GFR (African American) 72 ML/MIN (>60); Glucose 103 mg/dl (74-100); HDL Cholesterol 44 mg/dl (40-60); Magnesium 2.1 mg/dl (1.6-2.3); Potassium 4.3 mmoL/L (3.5-5.1); Sodium 141 mmol/L (136-145); Triglycerides 66 mg/dl (30-150); VLDL Cholesterol 13 mg/dL (0-40)
[2022-12-17 13:33] LABS: Direct LDL Cholesterol 48.18 mg/dL (100-129)
[2022-12-17 14:03] LABS: Prostate Specific Ag Screen 3.1 ng/ml (0.0-4.0); Thyroid Stimulating Hormone 0.56 uIU/mL (0.465-4.68)
== END ==
PROVIDERS: PCP Internal Medicine Adolescent Medicine; Visit Provider Internal Medicine
DX: E78.5 Hyperlipidemia, unspecified (principal); I10 Essential (primary) hypertension; I25.10 Atherosclerotic heart disease of native coronary artery without angina pectoris; I73.9 Peripheral vascular disease, unspecified; R39.198 Other difficulties with micturition; R60.0 Localized edema; Z95.1 Presence of aortocoronary bypass graft; Z12.5 Encounter for screening for malignant neoplasm of prostate; Z87.891 Personal history of nicotine dependence; Z12.2 Encounter for screening for malignant neoplasm of respiratory organs
CPT/HCPCS: 36415; 71271; 80048; 80061; 80076; 83735; 84439; 84443; 85025; 85610; G0103

== ENCOUNTER → 2022-12-26 14:08 | Outpatient (POV) | payer MEDICARE, SELFPAY ==
[2022-12-26 14:34] VITALS: BP 108/69; PULSE 76; RESP 20; O2SAT 96; BMI 29.8
--- NOTE | 2022-12-26 14:41 | EXP.PAIN.SOA ---
[facility] Pain Management SOAP Note Subjective:: Patient is a pleasant 72-year-old male who presents today for follow-up and medication refill. We are currently treating the patient for degenerative disc disease of lumbar spine with lumbar radiculopathy symptoms, spinal stenosis with neurogenic claudication symptoms, sacroiliitis, osteoarthritis left knee, left knee pain, ligamentum flavum hypertrophy. Today he rates his pain a 2 out of 10. Patient denies any new trauma or injury. He states he continues to have the same pain that is made worse by standing or walking. Patient states he does get relief when he leans or when he sits down. Patient was previously submitted for a lumbar decompression procedure however this was denied by insurance and we are currently in appeal. Patient did have a lumbar epidural with epidurogram that did show significant stenosis at L3-L4 and L4-L5. Patient is currently managed with Portland 5 mg twice a day. He denies any side effects from this medication. His Kale is [id number]. Its been reviewed and appropriate. Review of Systems: General: No recent weight changes, no fever, no sleep disturbances Respiratory: No cough, no shortness of air, no recurring pulmonary infections Cardiovascular/peripheral vascular: No chest pain, no palpitations, no edema, no shortness of breath Gastrointestinal: No new onset incontinence, normal bowel movements reported Genitourinary: No new onset incontinence Musculoskeletal: Low back pain, bilateral leg pain Psychiatric: [Normal mood/affect] Neurological: [Denies weakness in extremities], [denies balance issues] Objective:: Physical Exam: General: Alert and oriented x3, no acute distress, pleasant and cooperative Lungs: Respirations even and unlabored, symmetrical chest expansion Eyes: PERRL Musculoskeletal: Flexion and extension of lumbar [spine] somewhat guarded secondary to pain, [antalgic gait noted] Neurological: Speech clear, no gross sensory deficit Assessment:: Degenerative disc disease of lumbar spine with lumbar radiculopathy symptoms, spinal stenosis with neurogenic claudication symptoms, sacroiliitis, osteoarthritis left knee, left knee pain, ligamentum flavum hypertrophy Plan:: I will refill the patient's Portland 5 mg twice a day and provide a 1 month supply of this medication. We will continue to appeal his lumbar decompression procedure and contact him if we have any additional updates on this. Patient will return to clinic in 1 month for reevaluation of symptoms and plan of care. Patient has been advised of risks of oversedation with the prescribed medication. Narcan has been offered to the patient in the event of oversedation. Patient has been advised that a family member should also be educated regarding administration of Narcan. Patient has been instructed to contact the clinic with any concerns before the next appointment. Dr. Smith has reviewed this note and agrees with this plan of care. This note was dictated using voice recognition software and make contain errors or omissions. [facility] Disclaimer: The information contained in this section may have been updated after the patient was seen, as this information can be updated by other users. Medical History Abnormal computed tomography angiography (CTA) of abdomen Abnormal electrocardiography Back pain CAD (coronary artery disease) Claudication Left leg pain Tobacco dependence syndrome Surgical History History of colonoscopy Hx of CABG Family History Other No significant family history Social History Smoking Status: Current every day smoker tobacco type: cigarettes packs per day: 1 second hand exposure: No alcohol intake: never counseling provided: none substance use type: denies use narinder
== END | disposition home or self-care (01) ==
PROVIDERS: PCP Internal Medicine Adolescent Medicine; Visit Provider Nurse Practitioner Family
DX: M51.16 Intervertebral disc disorders with radiculopathy, lumbar region (principal); M48.062 Spinal stenosis, lumbar region with neurogenic claudication; M46.1 Sacroiliitis, not elsewhere classified; M17.12 Unilateral primary osteoarthritis, left knee; M25.562 Pain in left knee
CPT/HCPCS: 99212; G0463

== ENCOUNTER → 2023-01-27 10:54 | Outpatient (CLI) | payer MEDICARE, SELFPAY ==
--- NOTE | 2023-01-27 11:02 | CA_ITS ---
APPROVED REPORT EXAM: Comprehensive 2D, Doppler, and color-flow Echocardiogram Arabic Teacher: Susana Worley RT(R) Ht: 6 ft 0 in Wt: 215lbs BSA: 2.20 BP: 122/73 mmHg Indications: edema, smoker, HTN, hyperlipidemia, CABG, CAD, PAF 2D Dimensions LVOT 2.31 cm (M/F) 1.5-2.5 LA Volume 26.60 mL LA Volume Index 12.09 mL/m2 (M/F) 16-34 M-Mode Dimensions RVDd 2.76 cm (0.9-2.6) LA Diam 3.71 cm (1.9-4.0) LVDd 5.27 cm (3.5-5.7) Ao Diam 4.09 cm (2.0-3.7) LVDs 4.12 cm (3.5-5.7) IVSd 1.02 cm (0.6-1.1) PWd 1.15 cm (0.6-1.1) EF (Teich) 43.80% FS 21.80% EDV (Teich) 133.60 mL ESV (Teich) 75.10 mL LV Diastology E Decel Time 180.00 (160-240 msec) E/A Ratio 0.8 MED E' 7.80 (< 7 cm/sec) E'/MED E' Ratio 10.40 (>14) LAT E' 7.60 (<10 cm/sec) E/LAT E' Ratio 10.67 (>14) Mitral Valve MV E Max Sukhwinder. 81.00 (40-130 cm/s) MV A Velocity 101.00 (40-130 cm/s) E/A Ratio 0.80 MV Decel. Time 180.00 (160-240 ms) MV PHT 53.00 ms Left Ventricle The left ventricle is normal size. The left ventricular systolic function is normal. The left ventricular ejection fraction is within the normal range. There is normal left ventricular wall thickness. There is normal LV segmental wall motion. The left ventricular diastolic function is normal. LVEF is 60%. Right Ventricle The right ventricle is mildly dilated The right ventricular systolic function is normal. Atria The left atrium size is normal. The right atrium size is normal. There is no Doppler evidence of interatrial shunt. Aortic Valve The aortic valve is mildly thickened. There is no aortic valvular stenosis. Mild aortic regurgitation. Mitral Valve The mitral valve is mildly thickened. No evidence of mitral valve stenosis. Trace mitral regurgitation. Tricuspid Valve The tricuspid valve leaflets are thin and pliable. Trace tricuspid regurgitation. There is insufficient TR jet to estimate RVSP. Pulmonic Valve The pulmonary valve is normal in structure. Trace pulmonic regurgitation. Great Vessels The aortic root is normal in size. The ascending aorta is not well visualized. The IVC is not well visualized. Pericardium There is no pericardial effusion. Other Information Study Quality: Fair Conclusion Normal biventricular systolic function. Mildly dilated right ventricle. Mild AI. Electronically signed by : Kiarra Carrasco MD 01/31/2023 22:14:27
== END ==
PROVIDERS: PCP Internal Medicine Adolescent Medicine; Visit Provider Internal Medicine
DX: E78.5 Hyperlipidemia, unspecified (principal); F17.200 Nicotine dependence, unspecified, uncomplicated; I10 Essential (primary) hypertension; I25.10 Atherosclerotic heart disease of native coronary artery without angina pectoris; I73.9 Peripheral vascular disease, unspecified; R39.198 Other difficulties with micturition; R60.0 Localized edema; Z95.1 Presence of aortocoronary bypass graft
CPT/HCPCS: 93306

== ENCOUNTER → 2023-01-27 13:06 | Outpatient (POV) | payer MEDICARE, SELFPAY ==
[2023-01-27 13:34] VITALS: BP 97/66; PULSE 87; RESP 18; O2SAT 97; BMI 29.5
--- NOTE | 2023-01-27 13:41 | EXP.PAIN.SOA ---
[facility] Pain Management SOAP Note Subjective:: Patient is a pleasant 72-year-old male who presents today for medication refill. We are currently treating the patient for degenerative disc disease of lumbar spine with lumbar radiculopathy symptoms, lumbar spinal stenosis with neurogenic claudication symptoms, sacroiliitis, osteoarthritis left knee, left knee pain, ligamentum flavum hypertrophy. Today he rates his pain a 2 out of 10. Patient denies any new trauma or injury. He states he continues to have low back pain on a daily basis that is constant and worse with increased standing or walking. Patient does state he continues to have to sit and take multiple breaks. Patient did have a lumbar epidural with epidurogram that did show significant stenosis at L3-L4 and L4-L5 bilaterally. Patient was submitted for a lumbar decompression but had is still waiting on approval from insurance. Patient is currently managed with Maspeth 5 mg twice a day. He denies any side effects from this medication. His Kale is [id number]. Its been reviewed and appropriate. Review of Systems: General: No recent weight changes, no fever, no sleep disturbances Respiratory: No cough, no shortness of air, no recurring pulmonary infections Cardiovascular/peripheral vascular: No chest pain, no palpitations, no edema, no shortness of breath Gastrointestinal: No new onset incontinence, normal bowel movements reported Genitourinary: No new onset incontinence Musculoskeletal: Low back pain, bilateral leg pain Psychiatric: [Normal mood/affect] Neurological: [Denies weakness in extremities], [denies balance issues] Objective:: Physical Exam: General: Alert and oriented x3, no acute distress, pleasant and cooperative Lungs: Respirations even and unlabored, symmetrical chest expansion Eyes: PERRL Musculoskeletal: Flexion and extension of lumbar [spine] somewhat guarded secondary to pain, [antalgic gait noted] Neurological: Speech clear, no gross sensory deficit Assessment:: Degenerative disc disease of lumbar spine with lumbar radiculopathy symptoms, lumbar spinal stenosis with neurogenic claudication symptoms, ligamentum flavum hypertrophy, sacroiliitis, osteoarthritis left knee, left knee pain Plan:: Patient is doing well with his current medication regimen. I will refill his Maspeth 5 mg twice a day and provide a 1 month supply of this medication. We will contact the patient once we have official approval for the minimally invasive lumbar decompression. This will be done bilaterally L3-L4 and L4-L5. Patient will return to clinic in 1 month for reevaluation of symptoms and medication refill. Patient has been advised of risks of oversedation with the prescribed medication. Narcan has been offered to the patient in the event of oversedation. Patient has been advised that a family member should also be educated regarding administration of Narcan. Patient has been instructed to contact the clinic with any concerns before the next appointment. Dr. Smith has reviewed this note and agrees with this plan of care. This note was dictated using voice recognition software and make contain errors or omissions. [facility] Disclaimer: The information contained in this section may have been updated after the patient was seen, as this information can be updated by other users. Medical History Abnormal computed tomography angiography (CTA) of abdomen Abnormal electrocardiography Back pain CAD (coronary artery disease) Claudication Left leg pain Tobacco dependence syndrome Surgical History History of colonoscopy Hx of CABG Family History Other No significant family history Social History Smoking Status: Current every day smoker tobacco type: cigarettes packs per day: 1 second hand exposure: No alcoh
== END | disposition home or self-care (01) ==
PROVIDERS: PCP Internal Medicine Adolescent Medicine; Visit Provider Nurse Practitioner Family
DX: M51.16 Intervertebral disc disorders with radiculopathy, lumbar region (principal); M48.062 Spinal stenosis, lumbar region with neurogenic claudication; M46.1 Sacroiliitis, not elsewhere classified; M17.12 Unilateral primary osteoarthritis, left knee; M25.562 Pain in left knee
CPT/HCPCS: 93306; 99212; G0463

== ENCOUNTER → 2023-02-18 08:34 | Outpatient (CLI) | payer MEDICARE, SELFPAY ==
--- OUTSIDE RECORDS SUMMARY | 2023-02-18 08:37 | XMS_ITS | Patient Health Record ---
Author Name Unknown Organization [facility] Address [address] [place] [address] Care Team Providers Care Ticket Writer Name Role Phone Angelita Reynolds Primary Care Provider ANGELITA Reynolds APRN Unavailable Unavailable Gibran Rob Unavailable [phone] ALLERGIES No Known Allergies RESULTS Component Value Reference Range Notes CT Scan : Chest, Lung Cancer Screening Reviewed date:12/23/2022 09:44:32 AM Interpretation: Performing Lab: Notes/Report: PSA, TOTAL ([id number]) Reviewed date:11/29/2022 02:38:27 PM Interpretation: Performing Lab:[facility] [id number] [id number] Zachary Servin Notes/Report: FASTING: YES FASTING:YES NON-FASTING; NON-FASTING; NON-FASTING; NON-FASTING; NON-FAST PSA, TOTAL 2.22 < OR = 4.00 ng/mL The total PSA value from this assay system is standardized against the WHO standard. The test result will be approximately 20% lower when compared to the equimolar-standardized total PSA ([place]ally [place]). Comparison of serial PSA results should be interpreted with this fact in mind. This test was performed using the Siemens chemiluminescent method. Values obtained from different assay methods cannot be used interchangeably. PSA levels, regardless of value, should not be interpreted as absolute evidence of the presence or absence of disease. HEMOGLOBIN A1c (496) Reviewed date:11/29/2022 02:38:52 PM Interpretation: Performing Lab:[facility] [id number] [id number] Zachary Servin Notes/Report: NON-FASTING; NON-FASTING; NON-FASTING; NON-FASTING; NON-FAST
[2023-02-18 09:44] LABS: INR 1.02 (0.9-1.1)
[2023-02-18 09:56] LABS: Bilirubin,Total 1.1 mg/dl (0.2-1.3)
[2023-02-18 15:29] LABS: Iron 59 ug/dL (49-181)
[2023-02-18 15:39] LABS: Total Iron Binding Capacity 395 ug/dL (261-462)
[2023-02-18 16:05] LABS: Ferritin 18.3 ng/ml (17.9-464)
[2023-02-21 12:03] LABS: Bilirubin,Direct 0.3 mg/dl (0.0-0.4)
[2023-02-21 15:06] LABS: Bilirubin,Indirect 0.7 mg/dL (0.0-0.9)
[2023-02-24 08:47] LABS: Fibrosis Score 0.28; Fibrosis Stage F1; Steatosis Grade S1; Steatosis Score 0.46
[2023-02-24 08:48] LABS: Alpha 2-Macroglobulins, Qn 212; Haptoglobin 162; NASH Grade N2; NASH Score 0.74
[2023-02-24 08:49] LABS: ALT (SGPT) P5P 41; Apolipoprotein A-1 143; Bilirubin, Total 0.7; GGT 7
[2023-02-24 08:50] LABS: AST (SGOT) P5P 25; Cholesterol, Total 149; Glucose 108; Triglycerides 222
== END ==
PROVIDERS: PCP Internal Medicine Adolescent Medicine; Visit Provider Internal Medicine Gastroenterology
DX: K76.0 Fatty (change of) liver, not elsewhere classified (principal); R23.3 Spontaneous ecchymoses
CPT/HCPCS: 36415; 82247; 82248; 82728; 83540; 83550; 85610

== ENCOUNTER → 2023-02-18 11:29 | Outpatient (CLI) | payer MEDICARE, SELFPAY ==
--- NOTE | 2023-02-18 11:38 | XR_ITS ---
FINAL REPORT CLINICAL HISTORY: LEFT LEG PAIN FINDINGS: Two views of the left tibia-fibula demonstrate no acute fracture or dislocation. The joint spaces appear normal. There is moderate degenerative change of the knee with medial compartment narrowing. Vascular calcifications are present. IMPRESSION: No acute process. Reviewed, Interpreted and Dictated by Duncan Aguilar III, MD Transcribed by Pedrito Sewell Authenticated and [facility]
== END ==
PROVIDERS: PCP Internal Medicine Adolescent Medicine; Visit Provider Nurse Practitioner Family
DX: M79.605 Pain in left leg (principal)
CPT/HCPCS: 73590

== ENCOUNTER → 2023-02-25 15:18 | Outpatient (CLI) | payer MEDICARE, SELFPAY ==
[2023-02-25 16:03] LABS: Basophils # 0.1 K/mm3 (0-0.2); Basophils % 0.5 % (0.1-2.0); Eosinophils # 0.2 K/mm3 (0.0-0.4); Eosinophils % 1.7 % (0.1-12.0); Hematocrit 45.9 % (42.0-52.0); Hemoglobin 16.1 g/dL (14.1-18.0); Lymphocytes # 1.9 K/mm3 (0.7-4.5); Lymphocytes % 19.3 % (10-50); Mean Corpuscular HGB Conc 35.1 g/dL (31.8-35.4); Mean Corpuscular Hemoglobin 32.9 pg (27.0-31.2); Mean Corpuscular Volume 93.6 fl (80-94); Mean Platelet Volume 8.7 fl (7.4-10.4); Monocytes # 0.7 K/mm3 (0.1-1.0); Monocytes % 7.1 % (1.7-9.3); Neutrophils % 71.4 % (37.0-80.0); Platelet Count 217 K/mm3 (142-424); Red Cell Distribution Width 13.7 % (11.5-17.5); White Blood Count 9.7 K/mm3 (4.8-10.8)
[2023-02-25 16:30] LABS: Chloride 104 mmol/L (98-107); Potassium 3.8 mmoL/L (3.5-5.1); Sodium 139 mmol/L (136-145)
[2023-02-25 16:33] LABS: Anion Gap 10.8 mEq/L (5-15); Blood Urea Nitrogen 20 mg/dl (9-20); Carbon Dioxide 28 mmol/L (22.0-30.0); Estimated Glomerular Filt Rate 66 ml/min (>60); GFR (African American) 79 ML/MIN (>60)
[2023-02-25 16:34] LABS: Calcium 8.9 mg/dl (8.4-10.2); Glucose 96 mg/dl (74-100)
[2023-02-25 16:37] LABS: Hemoglobin A1C 5.5 % (4.0-6.0)
== END ==
PROVIDERS: PCP Internal Medicine Adolescent Medicine; Visit Provider Anesthesiology
DX: Z01.818 Encounter for other preprocedural examination (principal); R73.9 Hyperglycemia, unspecified; M48.062 Spinal stenosis, lumbar region with neurogenic claudication
CPT/HCPCS: 36415; 80048; 83036; 85025

== ENCOUNTER 2023-02-28 06:01 | Day surgery (SDC) | payer MEDICARE, SELFPAY ==
[2023-02-25 16:37] VITALS: BMI 29.8
[2023-02-28 06:31] VITALS: BP 160/77; PULSE 88; RESP 18; TEMP 36.8; O2SAT 98
--- NOTE | 2023-02-28 07:41 | P.PNANES_ITS ---
[facility] Disclaimer: The information contained in this section may have been updated after the patient was seen, as this information can be updated by other users. Medical History Abnormal computed tomography angiography (CTA) of abdomen Abnormal electrocardiography Back pain CAD (coronary artery disease) Claudication Diabetes Hyperlipidemia Hypertension Left leg pain Tobacco dependence syndrome Surgical History History of colonoscopy Hx of CABG Family History Other No significant family history Social History Smoking Status: Current every day smoker tobacco type: cigarettes packs per day: 1 second hand exposure: No alcohol intake: never counseling provided: none substance use type: denies use current occupational status: other Travel in the last 8 weeks: None household members: other housing: house current occupational exposures/hazards: No caffeine: Yes [facility] Anesthesia Checklist Patient Identification Patient Identification: Arm Band, Family and Verbal (Name & ) Structural Data Admitted From: Home Planned Operative Procedure/s: MANNIE L3-5 LMD Consent for Planned Operative Procedure(s) Verified: Yes Verified Documents: Surgical Consent and History and Physical NPO Status Verified Time NPO: 04:30 Chart Verification Results Verified: CBC, BMP, PT, PTT, INR, ECG and Chest Xray (Chest CT) Additional verifications Patient : No Anesthesia Reactions: No Hx Blood Transfusions: No Blood Transfusion Reaction: No Cephalosporin Allergy: No Previous Colonoscopy: No Cardiovascular Assessment Heart Sounds: S1 & S2 Pulse Rhythm: Irregular Peripheral Edema: Yes (2+ MANNIE) Airway Assessment Mallampati Score:: Class II C-Spine Mobility Assessed: Yes TMJ Mobility Assessed: Yes Dentition: Poor Dentition (Nothing loose per pt.) Neurological Assessment Level of Consciousness: Awake, Alert, Appropriate and Follows Commands Hx Seizures: No Numbness or tingling in extremities: No Anesthesia Plan Anesthesia Risk discussed: Yes Anesthesia Plan: Verified ASA Class: III Anesthesia Type: MAC
--- NOTE | 2023-02-28 16:34 | P.OP_ITS ---
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 MRI and epidurogram do show significant lumbar stenosis at L3-4 and L4-L5 with ligamentum flavum hypertrophy. We will plan on minimally invasive lumbar decompression bilateral L3-4 and L4-5 today. Operative findings:: None Operative note:: Informed consent was obtained and the risk and benefits of the procedure was explained to the patient. The patient was taken to the operating room and placed prone on the procedure table. The patient was prepped and draped in sterile fashion. C-arm fluoroscopy was used to view the lumbar spine. The skin and subcutaneous tissues were anesthetized using lidocaine. A epidural needle was inserted and advanced into the L3-L4 interspace. After confirmation of needle placement in the epidural space, dye was injected in a contralateral oblique view. There was an epidurogram seen at L3-L4 and L4-L5. Significant stenosis was seen at L3-L4 and L4-L5. The skin and subcutaneous tissues again were anesthetized using lidocaine. An incision was made and a access trocar was inserted and advanced to contact at the superior aspect of the L4 lamina on the left side. And a contralateral oblique view the side was viewed. Using a bone rongeur and tissue sculptor we debulked bone from the L3-L4 and L4-L5 interspace on the left side. We then used the tissue sculptor to debulk ligament at the L3-L4 and L4-L5 interspace on the left side. We then moved over to the right side and debulked bone and ligament from L3-L4 and L4-L5 on the right side. There is opening of the stenosis at L3-L4 and L4-L5 bilaterally. The access trocar was removed. A total of 3 mL's of dye was used. There is good spread of dye above and below this level as well. We injected 80 mg Depo-Medrol through the epidural needle. The epidural needle was removed and dressings were placed. This encounter for exam is for normal comparison and control in a clinical research program Patient was taken to recovery in stable condition. Patient was discharged home neurologically intact and with good relief of pain symptoms. Plan and disposition: We will follow-up with this patient in 2 weeks. Will reevaluate symptoms at that time. Condition: stable Disposition: PACU Complications:: None
[2023-02-28 16:40] VITALS: BP 123/54; PULSE 100; RESP 18; TEMP 36.4; O2SAT 97
[2023-02-28 16:50] VITALS: BP 118/66; PULSE 94; RESP 16; O2SAT 98
[2023-02-28 17:00] VITALS: BP 114/61; PULSE 87; RESP 16; O2SAT 98
[2023-02-28 17:10] VITALS: BP 118/67; PULSE 79; RESP 16; O2SAT 96
[2023-02-28 17:30] VITALS: BP 116/71; PULSE 74; RESP 17; O2SAT 99
== END 2023-02-28 17:31 | disposition home or self-care (01) ==
PROVIDERS: PCP Internal Medicine Adolescent Medicine; Visit Provider Anesthesiology
PROC: (CPT 0275T; principal; 2023-02-28 07:30)
DX: M48.062 Spinal stenosis, lumbar region with neurogenic claudication (principal); Z00.6 Encounter for examination for normal comparison and control in clinical research program
CPT/HCPCS: 0275T; 96374; C1889; J1040; J3370; Q9966

== ENCOUNTER → 2023-03-13 10:24 | Outpatient (POV) | payer MEDICARE, SELFPAY ==
--- NOTE | 2023-03-13 10:57 | EXP.PAIN.SOA ---
[facility] Pain Management SOAP Note Subjective:: Patient is a pleasant 72-year-old male who presents today for follow-up of minimally invasive lumbar decompression bilaterally L3-L4 and L4-L5 on 02/28/2023. We are currently treating the patient for degenerative disc disease of lumbar spine, lumbar spinal stenosis with neurogenic claudication symptoms, sacroiliitis, osteoarthritis left knee, left knee pain, ligamentum flavum hypertrophy. Today he rates his pain a 3 out of 10. Patient denies any new trauma or injury. He does state that he has not really noticed significant improvement in pain following this procedure. He does state he has been able to increase his activity and does not have to take as many breaks or as frequently. He also states that he has had people tell him that his posture and how he walks has improved. Patient denies any problems following this procedure. He is currently managed with [place] 5 mg twice a day. He denies any side effects from this medication. He does state that he does not need refills at this time. His Kale has been reviewed and is appropriate. Review of Systems: General: No recent weight changes, no fever, no sleep disturbances Respiratory: No cough, no shortness of air, no recurring pulmonary infections Cardiovascular/peripheral vascular: No chest pain, no palpitations, no edema, no shortness of breath Gastrointestinal: No new onset incontinence, normal bowel movements reported Genitourinary: No new onset incontinence Musculoskeletal: Low back pain Psychiatric: [Normal mood/affect] Neurological: [Denies weakness in extremities], [denies balance issues] Objective:: Physical Exam: General: Alert and oriented x3, no acute distress, pleasant and cooperative Lungs: Respirations even and unlabored, symmetrical chest expansion Eyes: PERRL Musculoskeletal: Flexion and extension of lumbar [spine] somewhat guarded secondary to pain, [antalgic gait noted] Neurological: Speech clear, no gross sensory deficit Skin: Incision site is clean, dry with skin glue intact Assessment:: Degenerative disc disease of lumbar spine with lumbar radiculopathy symptoms, lumbar spinal stenosis with neurogenic claudication symptoms, sacroiliitis, osteoarthritis left knee, left knee pain, ligamentum flavum hypertrophy Plan:: I have counseled the patient to continue his postop restrictions of no submerging in water until his incisions are fully healed. I have also counseled the patient to pay more attention to his improved overall function of how much further he is able to ambulate before having to take breaks. I have counseled the patient that his pain still may improve over the next couple of weeks. Patient will return to clinic in 1 month for reevaluation of symptoms and plan of care. Patient has been instructed to contact the clinic with any concerns before the next appointment. Dr. Smith has reviewed this note and agrees with this plan of care. This note was dictated using voice recognition software and make contain errors or omissions. [facility] Disclaimer: The information contained in this section may have been updated after the patient was seen, as this information can be updated by other users. Medical History Abnormal computed tomography angiography (CTA) of abdomen Abnormal electrocardiography Back pain CAD (coronary artery disease) Claudication Diabetes Hyperlipidemia Hypertension Left leg pain Tobacco dependence syndrome Surgical History History of colonoscopy Hx of CABG Family History Other No significant family history Social History Smoking Status: Current every day smoker tobacco type: cigarettes packs per day: 1 second hand exposure: No alcohol intake: never counseling provided: none substance use ty
[2023-03-13 10:58] VITALS: BP 127/61; PULSE 81; RESP 20; O2SAT 95; BMI 29.8
== END ==
PROVIDERS: PCP Internal Medicine Adolescent Medicine; Visit Provider Nurse Practitioner Family
DX: M51.16 Intervertebral disc disorders with radiculopathy, lumbar region (principal); M48.062 Spinal stenosis, lumbar region with neurogenic claudication; M46.1 Sacroiliitis, not elsewhere classified; M17.12 Unilateral primary osteoarthritis, left knee; M25.562 Pain in left knee; M24.28 Disorder of ligament, vertebrae
CPT/HCPCS: 99212; G0463

== ENCOUNTER → 2023-04-09 11:23 | Outpatient (POV) | payer MEDICARE, SELFPAY ==
--- NOTE | 2023-04-09 11:44 | EXP.PAIN.SOA ---
[facility] Pain Management SOAP Note Subjective:: Patient is a pleasant 72-year-old male who presents today for follow-up. We are currently treating the patient for degenerative disc disease of lumbar spine with lumbar radiculopathy symptoms, lumbar spinal stenosis, status post minimally invasive lumbar decompression, sacroiliitis, knee pain ligamentum flavum hypertrophy. Today he rates his pain a 3 out of 10. Patient denies any new trauma or injury. Patient does state he feels like he has had some improvement following his mild procedure and that is able to walk longer distances without having to stop and take breaks. Patient is currently managed with [place] 5 mg twice a day. He denies any side effects from this medication. His Kale has been reviewed and is appropriate. Review of Systems: General: No recent weight changes, no fever, no sleep disturbances Respiratory: No cough, no shortness of air, no recurring pulmonary infections Cardiovascular/peripheral vascular: No chest pain, no palpitations, no edema, no shortness of breath Gastrointestinal: No new onset incontinence, normal bowel movements reported Genitourinary: No new onset incontinence Musculoskeletal: Low back pain Psychiatric: [Normal mood/affect] Neurological: [Denies weakness in extremities], [denies balance issues] Objective:: Physical Exam: General: Alert and oriented x3, no acute distress, pleasant and cooperative Lungs: Respirations even and unlabored, symmetrical chest expansion Eyes: PERRL Musculoskeletal: Flexion and extension of lumbar [spine] somewhat guarded secondary to pain, [antalgic gait noted] Neurological: Speech clear, no gross sensory deficit Assessment:: Degenerative disc disease of lumbar spine with lumbar radiculopathy symptoms, lumbar spinal stenosis, status post minimally invasive lumbar decompression, sacroiliitis, knee pain, ligamentum flavum hypertrophy Plan:: I will refill the patient's [place] 5 mg twice a day and provide a 1 month supply of this medication. Patient will return to clinic in 1 month for reevaluation of symptoms and plan of care. Patient has been advised of risks of oversedation with the prescribed medication. Narcan has been offered to the patient in the event of oversedation. Patient has been advised that a family member should also be educated regarding administration of Narcan. Patient has been instructed to contact the clinic with any concerns before the next appointment. Dr. Smith has reviewed this note and agrees with this plan of care. This note was dictated using voice recognition software and make contain errors or omissions. [facility] Disclaimer: The information contained in this section may have been updated after the patient was seen, as this information can be updated by other users. Medical History Abnormal computed tomography angiography (CTA) of abdomen Abnormal electrocardiography Aortic insufficiency Back pain CAD (coronary artery disease) Claudication Diabetes Hyperlipidemia Hypertension Left leg pain Tobacco dependence syndrome Surgical History History of colonoscopy Hx of CABG Family History Other No significant family history Social History Smoking Status: Current every day smoker tobacco type: cigarettes packs per day: 1 second hand exposure: No alcohol intake: never counseling provided: none substance use type: denies use current occupational status: other Travel in the last 8 weeks: None household members: other housing: house current occupational exposures/hazards: No caffeine: Yes
[2023-04-09 12:47] VITALS: BP 114/75; PULSE 86; RESP 18; O2SAT 98; BMI 29.8
== END | disposition home or self-care (01) ==
PROVIDERS: PCP Internal Medicine Adolescent Medicine; Visit Provider Nurse Practitioner Family
DX: M51.16 Intervertebral disc disorders with radiculopathy, lumbar region (principal); M48.061 Spinal stenosis, lumbar region without neurogenic claudication; M46.1 Sacroiliitis, not elsewhere classified; M25.569 Pain in unspecified knee
CPT/HCPCS: 99212; G0463

== ENCOUNTER → 2023-05-06 11:13 | Outpatient (POV) | payer MEDICARE, SELFPAY ==
--- NOTE | 2023-05-06 11:34 | A.OFFVIS_ITS ---
[facility] Pain Management SOAP Note Subjective:: This patient is a very pleasant 72-year-old male comes our clinic today for follow-up visit regarding medication refills. We currently manage him with hydrocodone 5 mg 1 p.o. twice daily. Patient reports medications do decrease his pain in terms of his low back as an left knee. Patient had a recent intra- articular cortisone injection in the left knee. He reports Dr. Florian suggested total knee replacement on the left. Also, upon examination the patient has extreme point tenderness over the left sacroiliac joint. We discussed left sacroiliac joint injection if his pain became worse. He describes low back pain off the midline to the left as well as left leg radicular symptoms at times. He rates his pain 4/10. Patient is status post MILD procedure several months ago. He reports minimal relief after the procedure. Objective:: Patient is awake alert [place] x 3. No acute distress. Flexion-extension lumbar spine somewhat guarded secondary to pain. Deep tendon reflexes upper and lower extremities normal. Motor strength upper and lower extremities normal. There is no gross sensory deficit. Gait is normal. Assessment:: Degenerative disc lumbar spine multilevels. Lumbar radiculopathy. Lumbar spinal stenosis. Bilateral sacroiliitis. Chronic left knee pain. DJD left knee. Plan:: Patient's Kale #[id number] has been reviewed and appropriate. Patient will return to see us in 1 month. [facility] Disclaimer: The information contained in this section may have been updated after the patient was seen, as this information can be updated by other users. Medical History Abnormal computed tomography angiography (CTA) of abdomen Abnormal electrocardiography Aortic insufficiency Back pain CAD (coronary artery disease) Claudication Diabetes Hyperlipidemia Hypertension Left leg pain Tobacco dependence syndrome Surgical History History of colonoscopy Hx of CABG Family History Other No significant family history Social History Smoking Status: Current every day smoker tobacco type: cigarettes packs per day: 1 second hand exposure: No alcohol intake: never counseling provided: none substance use type: denies use current occupational status: retired Travel in the last 8 weeks: None household members: other housing: house current occupational exposures/hazards: No caffeine: Yes
[2023-05-06 11:38] VITALS: BP 125/76; PULSE 78; RESP 18; O2SAT 97; BMI 29.8
== END | disposition home or self-care (01) ==
PROVIDERS: PCP Internal Medicine Adolescent Medicine; Visit Provider Nurse Anesthetist, Certified Registered
DX: M51.16 Intervertebral disc disorders with radiculopathy, lumbar region (principal); M48.061 Spinal stenosis, lumbar region without neurogenic claudication; M46.1 Sacroiliitis, not elsewhere classified; M25.562 Pain in left knee; G89.29 Other chronic pain; M17.12 Unilateral primary osteoarthritis, left knee
CPT/HCPCS: 99212; G0463

== ENCOUNTER → 2023-06-05 11:10 | Outpatient (POV) | payer MEDICARE, SELFPAY ==
--- NOTE | 2023-06-05 12:05 | EXP.PAIN.SOA ---
[facility] Pain Management SOAP Note Subjective:: Patient is a pleasant 73-year-old male who presents today for medication refill and follow-up. We are currently treating the patient for degenerative disc disease of lumbar spine with lumbar radiculopathy symptoms, bilateral sacroiliitis, chronic left knee pain. Today he rates his pain a 2 out of 10. Patient denies any new trauma or injury. Patient states that he is doing well overall today. He is currently managed with [place] 5 mg twice a day. He denies any side effects from this medication. His Kale has been reviewed and is appropriate. Review of Systems: General: No recent weight changes, no fever, no sleep disturbances Respiratory: No cough, no shortness of air, no recurring pulmonary infections Cardiovascular/peripheral vascular: No chest pain, no palpitations, no edema, no shortness of breath Gastrointestinal: No new onset incontinence, normal bowel movements reported Genitourinary: No new onset incontinence Musculoskeletal: Low back pain Psychiatric: [Normal mood/affect] Neurological: [Denies weakness in extremities], [denies balance issues] Objective:: Physical Exam: General: Alert and oriented x3, no acute distress, pleasant and cooperative Lungs: Respirations even and unlabored, symmetrical chest expansion Eyes: PERRL Musculoskeletal: Flexion and extension of lumbar [spine] somewhat guarded secondary to pain, [antalgic gait noted] Neurological: Speech clear, no gross sensory deficit Assessment:: Degenerative disc disease of lumbar spine with lumbar radiculopathy symptoms, chronic left knee pain, bilateral sacroiliitis Plan:: I will refill the patient's [place] 5 mg twice a day and provide a 1 month supply of this medication. Patient will return to clinic in 1 month for reevaluation of symptoms and plan of care. Risks and benefits of the medication have been explained in detail to the patient. The patient does understand the risk of dependence on the medication when given over a prolonged period. Patient has been advised of risks of oversedation with the prescribed medication. Narcan has been offered to the paitent in the event of oversedation. Patient has been advised that a family member should also be educated regarding administration of Narcan. The patient has been advised to consult with his/her primary care provider and pharmacist regarding drug-drug interaction of medications currently prescribed. Patient has been prescribed a controlled substance after being counseled on the medication, medication safety, and possible side effects. Opioid contract was reviewed and signed by the patient, and that they have agreed to all of the terms set forth by our compliance program. Patient has been instructed to contact the clinic with any concerns before the next appointment. Dr. Smith has reviewed this note and agrees with this plan of care. This note was dictated using voice recognition software and make contain errors or omissions. [facility] Disclaimer: The information contained in this section may have been updated after the patient was seen, as this information can be updated by other users. Medical History Abnormal computed tomography angiography (CTA) of abdomen Abnormal electrocardiography Aortic insufficiency Back pain CAD (coronary artery disease) Claudication Diabetes Hyperlipidemia Hypertension Left leg pain Tobacco dependence syndrome Surgical History History of colonoscopy Hx of CABG Family History Other No significant family history Social History Smoking Status: Current every day smoker tobacco type: cigarettes packs per day: 1 second hand exposure: No alcohol intake: never counseling provided: none substance use type: denies use current occupational status: retired Travel in the last 8 weeks: None household members: other housing: house current occupational exposures/hazards: No caffeine: Yes
[2023-06-05 12:30] VITALS: BP 106/67; PULSE 85; RESP 18; O2SAT 97; BMI 29.8
== END | disposition home or self-care (01) ==
PROVIDERS: PCP Internal Medicine Adolescent Medicine; Visit Provider Nurse Practitioner Family
DX: M51.16 Intervertebral disc disorders with radiculopathy, lumbar region (principal); M25.562 Pain in left knee; G89.29 Other chronic pain; M46.1 Sacroiliitis, not elsewhere classified
CPT/HCPCS: 99212; G0463

== ENCOUNTER 2023-06-12 09:33 | Outpatient (CLI) | payer MEDICARE, SELFPAY ==
[2023-06-13 14:16] LABS: Occult Blood,Stool Positive (Negative)
== END 2023-06-12 23:59 ==
LOC: LAB.DROPOF 06-13 09:34
PROVIDERS: PCP Internal Medicine Adolescent Medicine; Visit Provider Internal Medicine Gastroenterology
DX: D64.9 Anemia, unspecified (principal); K92.1 Melena
CPT/HCPCS: 82272; G0328

== ENCOUNTER 2023-06-13 09:27 | Outpatient (CLI) | payer MEDICARE, SELFPAY ==
[2023-06-13 10:34] LABS: Basophils # 0.1 K/mm3 (0-0.2); Eosinophils # 0.3 K/mm3 (0.0-0.4); Eosinophils % 2.6 % (0.1-12.0); Hematocrit 48.2 % (42.0-52.0); Hemoglobin 16.7 g/dL (14.1-18.0); Lymphocytes # 2.1 K/mm3 (0.7-4.5); Lymphocytes % 22.3 % (10-50); Mean Corpuscular HGB Conc 34.6 g/dL (31.8-35.4); Mean Corpuscular Hemoglobin 32.2 pg (27.0-31.2); Mean Platelet Volume 8.7 fl (7.4-10.4); Monocytes # 0.5 K/mm3 (0.1-1.0); Monocytes % 5.8 % (1.7-9.3); Neutrophils # 6.4 K/mm3 (1.8-7.8); Neutrophils % 68.3 % (37.0-80.0); Platelet Count 201 K/mm3 (142-424); Red Blood Count 5.18 M/mm3 (4.60-6.20); Red Cell Distribution Width 13.8 % (11.5-17.5); White Blood Count 9.3 K/mm3 (4.8-10.8)
[2023-06-13 10:35] LABS: Iron 85 ug/dL (49-181)
[2023-06-13 10:45] LABS: Total Iron Binding Capacity 388 ug/dL (261-462)
[2023-06-13 11:11] LABS: Ferritin 15.9 ng/ml (17.9-464)
[2023-06-13 14:13] LABS: Occult Blood,Stool Negative (Negative)
[2023-06-13 14:13] LABS: Occult Blood,Stool Positive (Negative)
== END 2023-06-13 23:59 ==
LOC: LAB 09:28
PROVIDERS: PCP Internal Medicine Adolescent Medicine; Visit Provider Internal Medicine Gastroenterology
DX: D64.9 Anemia, unspecified (principal); R23.3 Spontaneous ecchymoses; R19.5 Other fecal abnormalities
CPT/HCPCS: 82272; 82728; 83540; 83550; 85025; G0328

== ENCOUNTER 2023-07-03 11:18 | Outpatient (POV) | payer MEDICARE, SELFPAY ==
--- NOTE | 2023-07-03 11:44 | A.OFFVIS_ITS ---
[facility] Pain Management SOAP Note Subjective:: Patient is a pleasant 73-year-old male who presents today for medication refill and follow-up. We are currently treating the patient for degenerative disc disease of lumbar spine with lumbar radiculopathy symptoms, bilateral sacroiliitis, chronic knee pain, lumbar spinal stenosis with neurogenic claudication symptoms, status post lumbar decompression. Today he rates his pain a 2 out of 10 however states that it will go up to a 5 out of 10 in and around his right hip. He stated that he has noticed over the last several days that he has a high and along the outer aspect of his right heel that is tender to touch. Patient does state that it comes and goes but does produce significant numbness and frequently feels like his leg will give out. He states he frequently is stumbling due to this. Patient does state the pain is worse with going to perform activities of daily living such as cooking and cleaning. He is prescribed [place] 5 mg twice a day. Patient denies any side effects from this medication. Patient does also state last year he booked a cruise on [place] and fully paid for this coming September however where he did end up having the minimally invasive lumbar decompression he still continues to have pain where he did not think he was be able to go on this trip. Patient did submit for a refund however they are requesting additional information and medical records. Patient does present today with a 4 for our office to fill out if possible. His Kale has been reviewed and is appropriate. Review of Systems: General: No recent weight changes, no fever, no sleep disturbances Respiratory: No cough, no shortness of air, no recurring pulmonary infections Cardiovascular/peripheral vascular: No chest pain, no palpitations, no edema, no shortness of breath Gastrointestinal: No new onset incontinence, normal bowel movements reported Genitourinary: No new onset incontinence Musculoskeletal: Low back pain, right hip pain Psychiatric: [Normal mood/affect] Neurological: [Denies weakness in extremities], [denies balance issues] Objective:: Physical Exam: General: Alert and oriented x3, no acute distress, pleasant and cooperative Lungs: Respirations even and unlabored, symmetrical chest expansion Eyes: PERRL Musculoskeletal: Flexion and extension of lumbar [spine] somewhat guarded secondary to pain, [antalgic gait noted] point tenderness along right piriformis muscle Neurological: Speech clear, no gross sensory deficit Assessment:: Degenerative disc disease of lumbar spine with lumbar radiculopathy symptoms, bilateral sacroiliitis, lumbar spinal stenosis with neurogenic claudication symptoms, chronic left knee pain, myofascial pain of right piriformis muscle, status post minimally invasive lumbar decompression Plan:: Patient is experiencing worsening pain in and around his right hip and did have point tenderness on his right piriformis muscle. I have discussed with patient that he may benefit from trigger point injections into this muscle. Risk and benefits were discussed with patient and he would like to proceed forward with this plan of care. I will also refill the patient's [place] 5 mg twice a day and provide a 1 month supply of this medication. I have counseled the patient that I will do my best to fill out the paperwork and get back to him on the day he comes for his injection. Patient will be scheduled for a trigger point injection of his right piriformis muscle. Risks and benefits of the medication have been explained in detail to the patient. The patient does understand the risk of dependence on the medication when given over a prolonged period. Patient has been advised of risks of oversedation with the prescribed medication. Narcan has been offered to the paitent in the event of oversedation. Patient has been advised that a family member should also be educated regarding administration of Narcan. The patient has been advised to consult with his/her primary care provider and pharmacist regarding drug-drug interaction of medications currently prescribed. Patient has been prescribed a controlled substance after being counseled on the medication, medication safety, and possible side effects. Opioid contract was reviewed and signed by the patient, and that they have agreed to all of the terms set forth by our compliance program. Patient has been instructed to contact the clinic with any concerns before the next appointment. Dr. Smith has reviewed this note and agrees with this plan of care. This note was dictated using voice recognition software and make contain errors or omissions. [facility] Disclaimer: The information contained in this section may have been updated after the patient was seen, as this information can be updated by other users. Medical History Abnormal computed tomography angiography (CTA) of abdomen Abnormal electrocardiography Aortic insufficiency Back pain CAD (coronary artery disease) Claudication Diabetes Hyperlipidemia Hypertension Left leg pain Tobacco dependence syndrome Surgical History History of colonoscopy Hx of CABG Family History Other No significant family history Social History Smoking Status: Current every day smoker tobacco type: cigarettes packs per day: 1 second hand exposure: No alcohol intake: never counseling provided: none substance use type: denies use current occupational status: retired Travel in the last 8 weeks: None household members: other housing: house current occupational exposures/hazards: No caffeine: Yes
[2023-07-03 12:37] LABS: Barbiturates Screen,Urine Negative ng/ml (<200)
[2023-07-03 12:38] LABS: Benzodiazepines Screen,Urine Negative ng/ml (<200)
[2023-07-03 12:40] LABS: Cocaine Screen,Urine Negative ng/ml (<300); Methadone Screen,Urine Negative ng/ml (<300)
[2023-07-03 12:41] LABS: Opiate Screen,Urine Positive ng/ml (<300)
[2023-07-03 12:42] LABS: Phencyclidine Screen,Urine Negative ng/ml (<25)
[2023-07-03 12:44] LABS: Amphetamine/Metha Screen,Urine Negative ng/ml (<1000)
[2023-07-03 12:47] VITALS: BP 113/74; PULSE 93; RESP 18; O2SAT 97; BMI 29.5
[2023-07-03 12:51] LABS: Cannabinoid Screen,Urine Negative ng/ml (<50)
[2023-07-07 15:11] LABS: Codeine Negative (Cutoff=100); Hydrocodone Positive (.); Hydromorphone Negative (Cutoff=100); Morphine Negative (Cutoff=100); Opiates Positive (.)
== END 2023-07-03 23:59 | disposition home or self-care (01) ==
PROVIDERS: PCP Internal Medicine Adolescent Medicine; Visit Provider Nurse Practitioner Family
DX: Z79.891 Long term (current) use of opiate analgesic (principal); M51.16 Intervertebral disc disorders with radiculopathy, lumbar region; M46.1 Sacroiliitis, not elsewhere classified; M48.062 Spinal stenosis, lumbar region with neurogenic claudication; M25.562 Pain in left knee; G89.29 Other chronic pain; M79.18 Myalgia, other site
CPT/HCPCS: 80307; 80361; 80365; 99212; G0463; G0480

== ENCOUNTER 2023-07-29 09:16 | Day surgery (SDC) | payer MEDICARE, SELFPAY ==
[2023-07-29 09:31] VITALS: BP 130/69; PULSE 90; RESP 18; TEMP 36.3; O2SAT 96; BMI 29.8
[2023-07-29] MEDS: LIDOCAINE 1% 5ML PF VIAL 5 ML (09:43)
[2023-07-29] MEDS: methylPREDNISolone ACETATE 80MG/ML VIAL 80 MG (09:43)
[2023-07-29 09:44] VITALS: BP 120/71; PULSE 77; RESP 18; O2SAT 96
[2023-07-29] MEDS: BUPIVACAINE 0.25% 10ML INJ 25 MG IJ (09:44)
[2023-07-29 09:45] VITALS: BP 120/71; PULSE 80; RESP 18; O2SAT 97
--- NOTE | 2023-07-29 09:51 | EXP.PAIN.PRO ---
Procedure Date: 07/29/23 Time: 09:30 Anesthesiologist:: Corey Lei CRNA Complications:: None Pre-procedure Diagnosis:: Degenerative disc lumbar spine multilevels. Lumbar radiculopathy. Lumbar postlaminectomy syndrome. Right sacroiliitis Post-procedure Diagnosis:: Same. Indications for Procedure:: Patient is a very pleasant 73-year-old male comes our clinic today for scheduled right piriformis muscle injection. However, upon further evaluation patient's main pain source is low right lumbar off the midline to the right. He has point tenderness over the right sacroiliac joint. Patient does not think he has ever had a right sacroiliac joint injection. We discussed the right sacroiliac joint injection versus the piriformis injection. He wishes to proceed. He rates his pain 8/10. Patient reports difficulty transitioning from sitting to standing. Flexion increases pain over the right sacroiliac joint. Procedure Details:: Procedure: Right sacroliliac joint injection under fluoroscopy Informed consent was obtained and the risk and benefits of the procedure were explained to the patient.~ The patient was taken to the procedure room and noninvasive monitors were placed including noninvasive blood pressure cuff and pulse oximeter.~ The patient was placed prone on the procedure table.~ The~ right hip was cleansed using Betadine as a cleansing solution.~ C-arm fluorosocpy was used to view the right SI joint.~ The skin and subcutaneous tissues were anesthetized using Lidocaine 1.5% and a 25-gauge needle.~ After this, a 22-gauge spinal needle was inserted under fluoroscopic guidance into the inferior aspect of the right SI joint.~ Omnipaque dye was injected and a good spread was seen throughout the joint.~ After this, approximately 5 mL of bupivacaine 0.25% and Depo-Medrol 40 mg was incrementally injected into the sacroiliac joint.~ The patient tolerated the procedure well with no complications.~ The patient was observed in the Pain Clinic, then discharged home neurologically intact.~ Plan and Disposition:: Patient was discharged without incident.
[2023-07-29 09:56] VITALS: BP 117/70; PULSE 86; RESP 20; O2SAT 96
== END 2023-07-29 09:57 | disposition home or self-care (01) ==
PROVIDERS: PCP Nurse Practitioner Family; Visit Provider Nurse Anesthetist, Certified Registered
DX: M46.1 Sacroiliitis, not elsewhere classified (principal); M51.16 Intervertebral disc disorders with radiculopathy, lumbar region; M96.1 Postlaminectomy syndrome, not elsewhere classified
CPT/HCPCS: 27096; 77002; G0260; J1040

== ENCOUNTER 2023-08-20 11:10 | Outpatient (POV) | payer MEDICARE, SELFPAY ==
[2023-08-20 11:15] VITALS: BP 114/73; PULSE 78; RESP 18; TEMP 36.8; O2SAT 97; BMI 29.8
--- NOTE | 2023-08-20 11:47 | EXP.PAIN.SOA ---
[facility] Pain Management SOAP Note Subjective:: Patient is a pleasant 73-year-old male who presents today for follow-up of right SI injection on 07/29/2023. Today he rates his pain a 4 out of 10. He states he has had at least 80% improvement following this injection and feels like it still helping. He rates his pain today based off of his left knee pain and low back. Patient does state that he is scheduled to meet with Dr. Gutierrez next month for another injection into his left knee. He states that they have talked about being a candidate for the gel injection or a knee replacement in the future. Patient is prescribed [place] 5 mg twice a day and he denies any side effects from this medication. He states that he does have a refill still at the pharmacy and does not need any currently. His Kale has been reviewed. Review of Systems: General: No recent weight changes, no fever, no sleep disturbances Respiratory: No cough, no shortness of air, no recurring pulmonary infections Cardiovascular/peripheral vascular: No chest pain, no palpitations, no edema, no shortness of breath Gastrointestinal: No new onset incontinence, normal bowel movements reported Genitourinary: No new onset incontinence Musculoskeletal: Low back pain, left knee pain Psychiatric: [Normal mood/affect] Neurological: [Denies weakness in extremities], [denies balance issues] Objective:: Physical Exam: General: Alert and oriented x3, no acute distress, pleasant and cooperative Lungs: Respirations even and unlabored, symmetrical chest expansion Eyes: PERRL Musculoskeletal: Flexion and extension of lumbar [spine] somewhat guarded secondary to pain, [antalgic gait noted] Neurological: Speech clear, no gross sensory deficit Assessment:: Degenerative disc disease of lumbar spine with lumbar radiculopathy symptoms, bilateral sacroiliitis, lumbar spinal stenosis with neurogenic claudication symptoms, chronic left knee pain, myofascial pain, right piriformis pain, status post minimally invasive lumbar decompression Plan:: Patient has had significant improvement following his SI injection and does not require any additional injection therapy at this time. Patient does not require any refills on his current medication. He will return to clinic in 1 month for reevaluation of symptoms and plan of care. Patient has been instructed to contact the clinic with any concerns before the next appointment. Dr. mSith has reviewed this note and agrees with this plan of care. This note was dictated using voice recognition software and make contain errors or omissions. [facility] Disclaimer: The information contained in this section may have been updated after the patient was seen, as this information can be updated by other users. Medical History Aortic insufficiency Hyperlipidemia Hypertension Diabetes Claudication Abnormal computed tomography angiography (CTA) of abdomen Tobacco dependence syndrome Back pain Left leg pain Abnormal electrocardiography CAD (coronary artery disease) Surgical History History of colonoscopy Hx of CABG Family History Other No significant family history Social History Smoking Status: Current every day smoker tobacco type: cigarettes packs per day: 1 second hand exposure: No alcohol intake: never counseling provided: none substance use type: denies use current occupational status: retired Travel in the last 8 weeks: None household members: other housing: house current occupational exposures/hazards: No caffeine: Yes
== END 2023-08-20 23:59 ==
LOC: SC.PAIN 11:10
PROVIDERS: Visit Provider Nurse Practitioner Family
DX: M51.16 Intervertebral disc disorders with radiculopathy, lumbar region (principal); M46.1 Sacroiliitis, not elsewhere classified; M48.062 Spinal stenosis, lumbar region with neurogenic claudication; M25.562 Pain in left knee; G89.29 Other chronic pain; M79.10 Myalgia, unspecified site; G57.01 Lesion of sciatic nerve, right lower limb
CPT/HCPCS: 99212; G0463

== ENCOUNTER 2023-09-18 11:11 | Outpatient (POV) | payer MEDICARE, SELFPAY ==
--- NOTE | 2023-09-18 11:22 | A.OFFVIS_ITS ---
[facility] Pain Management SOAP Note Subjective:: Patient is a pleasant 73-year-old male who presents today for 1 month follow-up and medication refill. Today he rates his pain a 4 out of 10. Patient states today is going fine overall for his pain. He states he is not doing a whole lot so the pain has not been bad. He states the pain medicine does help take the edge off. He is prescribed [place] 5 mg twice a day and he denies any side effects from this medication. His Kale has been reviewed. Review of Systems: General: No recent weight changes, no fever, no sleep disturbances Respiratory: No cough, no shortness of air, no recurring pulmonary infections Cardiovascular/peripheral vascular: No chest pain, no palpitations, no edema, no shortness of breath Gastrointestinal: No new onset incontinence, normal bowel movements reported Genitourinary: No new onset incontinence Musculoskeletal: Low back pain, left knee pain Psychiatric: [Normal mood/affect] Neurological: [Denies weakness in extremities], [denies balance issues] Objective:: Physical Exam: General: Alert and oriented x3, no acute distress, pleasant and cooperative Lungs: Respirations even and unlabored, symmetrical chest expansion Eyes: PERRL Musculoskeletal: Flexion and extension of lumbar [spine] somewhat guarded secondary to pain, [antalgic gait noted] Neurological: Speech clear, no gross sensory deficit Assessment:: Degenerative disc disease of lumbar spine with lumbar radiculopathy symptoms, bilateral sacroiliitis, lumbar spinal stenosis with neurogenic claudication symptoms, left knee pain, myofascial pain, right piriformis syndrome, status post minimally invasive lumbar decompression Plan:: I will refill his [place] and provide a 1 month supply of this medication. Patient will return to clinic in 1 month for reevaluation of symptoms and plan of care. Risks and benefits of the medication have been explained in detail to the patient. The patient does understand the risk of dependence on the medication when given over a prolonged period. Patient has been advised of risks of oversedation with the prescribed medication. Narcan has been offered to the paitent in the event of oversedation. Patient has been advised that a family member should also be educated regarding administration of Narcan. The patient has been advised to consult with his/her primary care provider and pharmacist regarding drug-drug interaction of medications currently prescribed. Patient has been prescribed a controlled substance after being counseled on the medication, medication safety, and possible side effects. Opioid contract was reviewed and signed by the patient, and that they have agreed to all of the terms set forth by our compliance program. Patient has been instructed to contact the clinic with any concerns before the next appointment. Dr. Smith has reviewed this note and agrees with this plan of care. This note was dictated using voice recognition software and make contain errors or omissions. [facility] Disclaimer: The information contained in this section may have been updated after the patient was seen, as this information can be updated by other users. Medical History Aortic insufficiency Hyperlipidemia Hypertension Diabetes Claudication Abnormal computed tomography angiography (CTA) of abdomen Tobacco dependence syndrome Back pain Left leg pain Abnormal electrocardiography CAD (coronary artery disease) Surgical History History of colonoscopy Hx of CABG Family History Other No significant family history Social History Smoking Status: Current every day smoker tobacco type: cigarettes packs per day: 1 second hand exposure: No alcohol intake: never counseling provided: none substance use type: denies use current occupational status: retired Travel in the last 8 weeks: None household members: other housing: house current occupational exposures/hazards: No caffeine: Yes
[2023-09-18 11:25] VITALS: BP 110/68; PULSE 83; RESP 18; O2SAT 98; BMI 29.8
== END 2023-09-18 23:59 | disposition home or self-care (01) ==
PROVIDERS: PCP Internal Medicine Adolescent Medicine; Visit Provider Nurse Practitioner Family
DX: M51.16 Intervertebral disc disorders with radiculopathy, lumbar region (principal); M46.1 Sacroiliitis, not elsewhere classified; M48.062 Spinal stenosis, lumbar region with neurogenic claudication; M25.562 Pain in left knee; M79.10 Myalgia, unspecified site; G57.01 Lesion of sciatic nerve, right lower limb
CPT/HCPCS: 99212; G0463

== ENCOUNTER 2023-10-15 12:48 | Outpatient (POV) | payer MEDICARE, SELFPAY ==
[2023-10-15 12:57] VITALS: BP 116/56; PULSE 94; RESP 16; O2SAT 96; BMI 29.8
--- NOTE | 2023-10-15 13:16 | A.OFFVIS_ITS ---
[facility] Pain Management SOAP Note Subjective:: Patient is a pleasant 73-year-old male who presents today for medication refill and follow-up. Today he rates his pain a 2 out of 10. Patient denies any new trauma or injury. He does state that he is starting to have a little bit more low back and leg pain that goes down the left side. He does feel like it might be time to do an injection here in the next couple of months. Patient states overall his left knee is doing pretty good currently. He does state that Dr. vasquez is leaving here at [facility] and he had been the one doing some of his knee injections. He states that the doctor was going to see about getting him set up with a different provider to continue these injections. Patient does also state that he is going to be having a scope coming up in the near future that its time. He states that Dr. Paulino is however currently going to retire and that he will have to find another GI doctor. Patient is currently prescribed [place] 5 mg twice a day. He denies any side effects from this medication. His Kale has been reviewed and is appropriate. Review of Systems: General: No recent weight changes, no fever, no sleep disturbances Respiratory: No cough, no shortness of air, no recurring pulmonary infections Cardiovascular/peripheral vascular: No chest pain, no palpitations, no edema, no shortness of breath Gastrointestinal: No new onset incontinence, normal bowel movements reported Genitourinary: No new onset incontinence Musculoskeletal: Low back pain, left leg pain Psychiatric: [Normal mood/affect] Neurological: [Denies weakness in extremities], [denies balance issues] Objective:: Physical Exam: General: Alert and oriented x3, no acute distress, pleasant and cooperative Lungs: Respirations even and unlabored, symmetrical chest expansion Eyes: PERRL Musculoskeletal: Flexion and extension of lumbar [spine] somewhat guarded secondary to pain, [antalgic gait noted] Neurological: Speech clear, no gross sensory deficit Assessment:: Degenerative disc disease of lumbar spine with lumbar radiculopathy symptoms, bilateral sacroiliitis, lumbar spinal stenosis with neurogenic claudication symptoms, left knee pain, myofascial pain, right piriformis syndrome, status post minimally invasive lumbar decompression Plan:: Patient is still doing well with his current medication regimen. I will refill his [place] and provide a 1 month supply of this medication. Patient has been counseled that I can always send a referral for a new GI specialist in the future if he would like me to. Patient states he will let me know. Patient will return to clinic in 1 month for reevaluation of symptoms and plan of care. Risks and benefits of the medication have been explained in detail to the patient. The patient does understand the risk of dependence on the medication when given over a prolonged period. Patient has been advised of risks of oversedation with the prescribed medication. Narcan has been offered to the paitent in the event of oversedation. Patient has been advised that a family member should also be educated regarding administration of Narcan. The patient has been advised to consult with his/her primary care provider and pharmacist regarding drug-drug interaction of medications currently prescribed. Patient has been prescribed a controlled substance after being counseled on the medication, medication safety, and possible side effects. Opioid contract was reviewed and signed by the patient, and that they have agreed to all of the terms set forth by our compliance program. Patient has been instructed to contact the clinic with any concerns before the next appointment. Dr. Smith has reviewed this note and agrees with this plan of care. This note was dictated using voice recognition software and make contain errors or omissions. [facility] Disclaimer: The information contained in this section may have been updated after the patient was seen, as this information can be updated by other users. Medical History Aortic insufficiency Hyperlipidemia Hypertension Diabetes Claudication Abnormal computed tomography angiography (CTA) of abdomen Tobacco dependence syndrome Back pain Left leg pain Abnormal electrocardiography CAD (coronary artery disease) Surgical History History of colonoscopy Hx of CABG Family History Other No significant family history Social History Smoking Status: Current every day smoker tobacco type: cigarettes packs per day: 1 second hand exposure: No alcohol intake: never counseling provided: none substance use type: denies use current occupational status: retired Travel in the last 8 weeks: None household members: other housing: house current occupational exposures/hazards: No caffeine: Yes
== END 2023-10-15 23:59 | disposition home or self-care (01) ==
PROVIDERS: PCP Internal Medicine Adolescent Medicine; Visit Provider Nurse Practitioner Family
DX: M51.16 Intervertebral disc disorders with radiculopathy, lumbar region (principal); M46.1 Sacroiliitis, not elsewhere classified; M48.062 Spinal stenosis, lumbar region with neurogenic claudication; M25.562 Pain in left knee; M79.10 Myalgia, unspecified site; G57.01 Lesion of sciatic nerve, right lower limb
CPT/HCPCS: 99212; G0463

== ENCOUNTER 2023-11-19 13:21 | Outpatient (POV) | payer MEDICARE, SELFPAY ==
--- NOTE | 2023-11-19 13:42 | EXP.PAIN.SOA ---
[facility] Disclaimer: The information contained in this section may have been updated after the patient was seen, as this information can be updated by other users. Medical History Aortic insufficiency Hyperlipidemia Hypertension Diabetes Claudication Abnormal computed tomography angiography (CTA) of abdomen Tobacco dependence syndrome Back pain Left leg pain Abnormal electrocardiography CAD (coronary artery disease) Surgical History History of colonoscopy Hx of CABG Family History Other No significant family history Social History Smoking Status: Current every day smoker tobacco type: cigarettes packs per day: 1 second hand exposure: No alcohol intake: never counseling provided: none substance use type: denies use current occupational status: other Travel in the last 8 weeks: None household members: other housing: house current occupational exposures/hazards: No caffeine: Yes PM Subjective & Objective Subjective Subjective:: Patient is a pleasant 73-year-old male who presents today for follow-up. Today he rates his pain a 2 out of 10 overall however states that he has been having more pain up and around his low back with the left side being the worst side. He does state that this pain will go to a 5 or 6 out of 10. He does describe it as an aching sensation that is constant when he is up walking. He states it does get better when he sits down or is in a leaning position. Patient does state the pain interferes with his ability perform activities of daily living such as cooking and cleaning. Patient is currently managed with [place] 5 mg twice a day. He denies any side effects from this medication. His Kale has been reviewed and is appropriate. Review of Systems: General: No recent weight changes, no fever, no sleep disturbances Respiratory: No cough, no shortness of air, no recurring pulmonary infections Cardiovascular/peripheral vascular: No chest pain, no palpitations, no edema, no shortness of breath Gastrointestinal: No new onset incontinence, normal bowel movements reported Genitourinary: No new onset incontinence Musculoskeletal: Low back pain Psychiatric: [Normal mood/affect] Neurological: [Denies weakness in extremities], [denies balance issues] Pain at rest (0-10 scale): 5 Objective Objective:: Physical Exam: General: Alert and oriented x3, no acute distress, pleasant and cooperative Lungs: Respirations even and unlabored, symmetrical chest expansion Eyes: PERRL Musculoskeletal: Flexion and extension of lumbar [spine] somewhat guarded secondary to pain, [antalgic gait noted] point tenderness along bilateral lumbar paraspinous muscles Neurological: Speech clear, no gross sensory deficit Has patient had previous pain injection?: No Conservative treatment options previously tried: NSAIDS Length of treatment: Longer than 6 weeks, Home exercise plan Length of treatment: Longer than 6 weeks and Prescription medications Length of treatment: Longer than 6 weeks Meds Home Medications and Allergies Home Medications Medication Instructions Recorded Confirmed Type atorvastatin 40 mg tablet 40 mg PO DAILY High cholesterol 08/15/17 10/29/23 History tamsulosin 0.4 mg capsule 0.4 mg PO DAILY URINATION ISSUES 08/15/17 10/29/23 History aspirin 81 mg chewable tablet 81 mg PO DAILY heart health 09/08/20 10/29/23 History metoprolol succinate 25 mg 25 mg PO DAILY High blood pressure 06/21/21 10/29/23 History tablet,extended release 24 hr ferric maltol 30 mg capsule 30 mg PO BID 03/18/23 10/29/23 History (Accrufer) pantoprazole 40 mg tablet,delayed 40 mg PO DAILY GERD #90 tabs 03/18/23 10/29/23 Rx release rivaroxaban 2.5 mg tablet (Xarelto) 2.5 mg PO BID Blood Thinner #180 03/18/23 10/29/23 Rx tabs hydrochlorothiazide 25 mg tablet 25 mg PO DAILY 07/16/23 10/29/23 History losartan 100 mg tablet 100 mg PO DAILY 07/16/23 10/29/23 History hydrocodone 5 mg-acetaminophen 325 1 tab PO BID PRN pain #60 tabs 10/15/23 10/29/23 Rx mg tablet New Prescriptions to Start Prescriptions: Allergies Allergy/AdvReac Type Severity Reaction Status Date / Time No Known Allergies Allergy Verified 10/29/23 13:07 Assessment and Plan *Assessment and plan (1) Degenerative disc disease, lumbar: Status: Acute Category: Medical Code(s): M51.36 - Other intervertebral disc degeneration, lumbar region (2) Lumbar radiculopathy: Status: Acute Category: Medical Code(s): M54.16 - Radiculopathy, lumbar region (3) Myofascial pain: Status: Acute Category: Medical Code(s): M79.18 - Myalgia, other site (4) Left knee pain: Status: Acute Qualifiers: Chronicity: chronic Qualified Code(s): M25.562 - Pain in left knee; G89.29 - Other chronic pain Category: Medical Code(s): M25.562 - Pain in left knee Plan Patient is experiencing significant pain in his low back with point tenderness along his bilateral lumbar paraspinous muscles. I did discuss with patient that he may benefit from trigger point injections at this location. Risk and benefits were discussed with the patient and he would like to proceed forward with this plan of care. I will also refill the patient's [place] and provide a 1 month supply of this medication. Patient will be scheduled for trigger point injections of his bilateral lumbar paraspinous muscles. These injections will be done without fluoroscopy or ultrasound. Risks and benefits of the medication have been explained in detail to the patient. The patient does understand the risk of dependence on the medication when given over a prolonged period. Patient has been advised of risks of oversedation with the prescribed medication. Narcan has been offered to the paitent in the event of oversedation. Patient has been advised that a family member should also be educated regarding administration of Narcan. The patient has been advised to consult with his/her primary care provider and pharmacist regarding drug-drug interaction of medications currently prescribed. Patient has been prescribed a controlled substance after being counseled on the medication, medication safety, and possible side effects. Opioid contract was reviewed and signed by the patient, and that they have agreed to all of the terms set forth by our compliance program. Patient has been instructed to contact the clinic with any concerns before the next appointment. Dr. Smith has reviewed this note and agrees with this plan of care. This note was dictated using voice recognition software and make contain errors or omissions.
[2023-11-19 13:43] VITALS: BP 115/70; PULSE 93; RESP 16; O2SAT 95; BMI 29.8
== END 2023-11-19 23:59 | disposition home or self-care (01) ==
PROVIDERS: PCP Internal Medicine Adolescent Medicine; Visit Provider Nurse Practitioner Family
DX: M51.36 Other intervertebral disc degeneration, lumbar region (principal); M54.16 Radiculopathy, lumbar region; G89.29 Other chronic pain
CPT/HCPCS: 99212; G0463

== ENCOUNTER 2023-11-25 15:00 | Outpatient (CLI) | payer MEDICARE, SELFPAY ==
--- NOTE | 2023-11-25 15:04 | CA_ITS ---
FINAL REPORT CLINICAL HISTORY: EDEMA AND PAIN RLE,NKI,HX POLIO,PT ON XARELTO FINDINGS: DUPLEX VENOUS SONOGRAPHY OF THE RIGHT LOWER EXTREMITY Multiple transverse and longitudinal scans were performed of the femoropopliteal deep venous system, with augmentation and compression maneuvers. Normal phasic flow was noted in the visualized deep venous system. No intraluminal increased echogenicity is noted to suggest thrombus. There is normal compression and augmentation of the venous structures. No abnormal venous collaterals are seen. IMPRESSION: No evidence of deep venous thrombosis of the right lower extremity. Reviewed, Interpreted and Dictated by Vani Magallon MD Transcribed by Abril Tovar Authenticated and [facility]
== END 2023-11-25 23:59 | disposition home or self-care (01) ==
LOC: RT 15:01
PROVIDERS: PCP Internal Medicine Adolescent Medicine; Visit Provider Nurse Practitioner Family
DX: M79.604 Pain in right leg (principal); M79.89 Other specified soft tissue disorders
CPT/HCPCS: 93971

== ENCOUNTER 2023-12-02 13:31 | Day surgery (SDC) | payer MEDICARE, SELFPAY ==
[2023-12-02 13:48] VITALS: BP 111/63; PULSE 84; RESP 18; TEMP 36.8; O2SAT 92; BMI 29.8
[2023-12-02] MEDS: methylPREDNISolone ACETATE 80MG/ML VIAL 80 MG (13:51)
[2023-12-02] MEDS: LIDOCAINE 1% 5ML PF VIAL 5 ML (13:52)
[2023-12-02] MEDS: BUPIVACAINE 0.25% 10ML INJ 25 MG IJ (13:52)
[2023-12-02 13:54] VITALS: BP 113/61; PULSE 95; RESP 18; O2SAT 98
--- NOTE | 2023-12-02 13:57 | EXP.PAIN.PRO ---
Procedure Date: 12/02/23 Time: 13:50 Anesthesiologist:: Corey Lei CRNA Complications:: None Pre-procedure Diagnosis:: Myofascial pain lumbar paraspinous muscle bilateral. Post-procedure Diagnosis:: Same. Indications for Procedure:: Patient is a very pleasant 73-year-old male comes our clinic today for bilateral lumbar paraspinous muscle trigger point injections of cortisone and local anesthesia. He reports low back pain intensifies significantly with standing. Sitting brings relief. He rates his pain today 7/10 while standing. 2/10 while sitting. Procedure Details:: Details of the procedure explained to the patient. The patient taken procedure room placed in the sitting position. The area over the lumbar spine was cleansed using chlorhexidine as a cleansing solution. Using a 25-gauge inch and half needle the right lumbar paraspinous muscle was accessed with 3 separate areas. Each area was injected with 3 cc of a solution containing 6 cc of 1% lidocaine +60 cc of 0.25% Marcaine +40 mg of Depo-Medrol. The same procedure was carried out over the left lumbar paraspinous muscle. Patient tolerated procedure without difficulty. There are no complications. Plan and Disposition:: Patient was discharged without incident.
== END 2023-12-02 13:55 | disposition home or self-care (01) ==
PROVIDERS: PCP Internal Medicine Adolescent Medicine; Visit Provider Nurse Anesthetist, Certified Registered
DX: M79.18 Myalgia, other site (principal)
CPT/HCPCS: 20552; J1010

== ENCOUNTER 2023-12-03 15:28 | Outpatient (CLI) | payer MEDICARE, SELFPAY ==
--- NOTE | 2023-12-03 15:35 | CT_ITS ---
FINAL REPORT TECHNIQUE: Axial CT images of the chest were obtained without contrast. Low-dose protocol was utilized. This study was performed with techniques to keep radiation doses as low as reasonably achievable (ALARA). Individualized dose reduction techniques using automated exposure control or adjustment of mA and/or kV according to the patient's size were employed. CLINICAL HISTORY: TOBACCO USE current smoker, less than 1 pack per day x 50years COMPARISON: 12/17/2022 FINDINGS: CT CHEST WITHOUT, LOW DOSE SCREENING CT Di Vol: 2.90 mGy DLP: 119.59 mGy*cm There is no axillary, mediastinal, or hilar adenopathy. Left thyroid 14 mm nodule is unchanged. The heart size is normal. There is no pleural or pericardial effusion. The lung windows show a faint 2 mm nodule in the left lower lobe best seen on image 64. Lesion is not as well-seen as on the prior exam but stable in appearance. Limited images of the upper abdomen demonstrate no acute finding. IMPRESSION: Stable left lower lobe nodule. LR Category 2: 12 month follow-up low-dose chest CT is recommended. Reviewed, Interpreted and Dictated by Esther Madrid MD Transcribed by Matilda Rios Authenticated and . [facility]
== END 2023-12-03 23:59 | disposition home or self-care (01) ==
LOC: RAD 15:29
PROVIDERS: PCP Internal Medicine Adolescent Medicine; Visit Provider Nurse Practitioner Family
DX: F17.210 Nicotine dependence, cigarettes, uncomplicated (principal)
CPT/HCPCS: 71271

== ENCOUNTER 2023-12-17 13:18 | Outpatient (POV) | payer MEDICARE, SELFPAY ==
[2023-12-17 13:36] VITALS: BP 121/64; PULSE 102; RESP 18; O2SAT 94; BMI 29.8
--- NOTE | 2023-12-17 14:12 | EXP.PAIN.SOA ---
[facility] Disclaimer: The information contained in this section may have been updated after the patient was seen, as this information can be updated by other users. Medical History Aortic insufficiency Hyperlipidemia Hypertension Diabetes Claudication Abnormal computed tomography angiography (CTA) of abdomen Tobacco dependence syndrome Back pain Left leg pain Abnormal electrocardiography CAD (coronary artery disease) Surgical History History of colonoscopy Hx of CABG Family History Other No significant family history Social History Smoking Status: Current every day smoker tobacco type: cigarettes packs per day: 1 second hand exposure: No alcohol intake: never counseling provided: none substance use type: denies use current occupational status: other Travel in the last 8 weeks: None household members: other housing: house current occupational exposures/hazards: No caffeine: Yes PM Subjective & Objective Subjective Subjective:: Patient is a pleasant 73-year-old male who presents today for follow-up of trigger point injections of his bilateral lumbar paraspinous muscles on 12/02/2023. He does rate his pain today a 2 out of 10. He states initially he did have about 70 to 80% relief and would still say that it is helping however more around a 30% better now. He does state that it is not as severe like what it was in the past. Patient is currently managed with [place] 5 mg twice a day. He denies any side effects from this medication. His Kale has been reviewed and is appropriate. Review of Systems: General: No recent weight changes, no fever, no sleep disturbances Respiratory: No cough, no shortness of air, no recurring pulmonary infections Cardiovascular/peripheral vascular: No chest pain, no palpitations, no edema, no shortness of breath Gastrointestinal: No new onset incontinence, normal bowel movements reported Genitourinary: No new onset incontinence Musculoskeletal: Low back pain Psychiatric: [Normal mood/affect] Neurological: [Denies weakness in extremities], [denies balance issues] Pain at rest (0-10 scale): 2 Objective Objective:: Physical Exam: General: Alert and oriented x3, no acute distress, pleasant and cooperative Lungs: Respirations even and unlabored, symmetrical chest expansion Eyes: PERRL Musculoskeletal: Flexion and extension of lumbar [spine] somewhat guarded secondary to pain, [antalgic gait noted] Neurological: Speech clear, no gross sensory deficit Has patient had previous pain injection?: Yes Percent improvement in pain since last injection: 70 to 80% Conservative treatment options previously tried: Home exercise plan Length of treatment: Longer than 6 weeks Meds Home Medications and Allergies Home Medications ?Medication ?Instructions ?Recorded ?Confirmed ?Type atorvastatin 40 mg tablet 40 mg PO DAILY High cholesterol 08/15/17 12/17/23 History tamsulosin 0.4 mg capsule 0.4 mg PO DAILY URINATION ISSUES 08/15/17 12/17/23 History aspirin 81 mg chewable tablet 81 mg PO DAILY heart health 09/08/20 12/17/23 History metoprolol succinate 25 mg 25 mg PO DAILY High blood pressure 06/21/21 12/17/23 History tablet,extended release 24 hr ferric maltol 30 mg capsule 30 mg PO BID 03/18/23 12/17/23 History (Accrufer) pantoprazole 40 mg tablet,delayed 40 mg PO DAILY GERD #90 tabs 03/18/23 12/17/23 Rx release rivaroxaban 2.5 mg tablet (Xarelto) 2.5 mg PO BID Blood Thinner #180 03/18/23 12/17/23 Rx tabs hydrochlorothiazide 25 mg tablet 25 mg PO DAILY 07/16/23 12/17/23 History losartan 100 mg tablet 100 mg PO DAILY 07/16/23 12/17/23 History hydrocodone 5 mg-acetaminophen 325 1 tab PO BID PRN pain #60 tabs 11/19/23 12/17/23 Rx mg tablet New Prescriptions to Start Prescriptions: Allergies Allergy/AdvReac Type Severity Reaction Status Date / Time No Known Allergies Allergy Verified 10/29/23 13:07 Assessment and Plan *Assessment and plan (1) Lumbar radiculopathy: Status: Acute Category: Medical Code(s): M54.16 - Radiculopathy, lumbar region (2) Myofascial pain: Status: Acute Category: Medical Code(s): M79.18 - Myalgia, other site Plan Patient has had significant improvement with his trigger point injections and does not require any additional injection therapy at this time. I will refill the patient's [place] and provide a 1 month supply of this medication. Patient will return to clinic in 1 month for reevaluation of symptoms and plan of care. Risks and benefits of the medication have been explained in detail to the patient. The patient does understand the risk of dependence on the medication when given over a prolonged period. Patient has been advised of risks of oversedation with the prescribed medication. Narcan has been offered to the paitent in the event of oversedation. Patient has been advised that a family member should also be educated regarding administration of Narcan. The patient has been advised to consult with his/her primary care provider and pharmacist regarding drug-drug interaction of medications currently prescribed. Patient has been prescribed a controlled substance after being counseled on the medication, medication safety, and possible side effects. Opioid contract was reviewed and signed by the patient, and that they have agreed to all of the terms set forth by our compliance program. Patient has been instructed to contact the clinic with any concerns before the next appointment. Dr. Smith has reviewed this note and agrees with this plan of care. This note was dictated using voice recognition software and make contain errors or omissions.
== END 2023-12-17 23:59 | disposition home or self-care (01) ==
PROVIDERS: PCP Internal Medicine Adolescent Medicine; Visit Provider Nurse Practitioner Family
DX: M54.16 Radiculopathy, lumbar region (principal); M79.18 Myalgia, other site; F17.210 Nicotine dependence, cigarettes, uncomplicated; I25.10 Atherosclerotic heart disease of native coronary artery without angina pectoris; I10 Essential (primary) hypertension; Z79.01 Long term (current) use of anticoagulants
CPT/HCPCS: 99212; G0463

== ENCOUNTER 2024-01-28 13:38 | Outpatient (POV) | payer MEDICARE, SELFPAY ==
[2024-01-28 14:02] VITALS: BP 140/76; PULSE 96; RESP 16; O2SAT 97; BMI 29.8
--- NOTE | 2024-01-28 14:03 | EXP.PAIN.SOA ---
[facility] Disclaimer: The information contained in this section may have been updated after the patient was seen, as this information can be updated by other users. Medical History Aortic insufficiency Hyperlipidemia Hypertension Diabetes Claudication Abnormal computed tomography angiography (CTA) of abdomen Tobacco dependence syndrome Back pain Left leg pain Abnormal electrocardiography CAD (coronary artery disease) Surgical History History of colonoscopy Hx of CABG Family History Other No significant family history Social History Smoking Status: Current every day smoker tobacco type: cigarettes packs per day: 1 second hand exposure: No alcohol intake: never counseling provided: none substance use type: denies use current occupational status: other Travel in the last 8 weeks: None household members: other housing: house current occupational exposures/hazards: No caffeine: Yes PM Subjective & Objective Subjective Subjective:: Patient is a pleasant 73-year-old male who presents today for medication refill and follow-up. Today he rates his pain a 2 out of 10. He denies any new trauma or injury. He does state overall he still having the chronic low back pain that is more into his muscles and does get better with increased pressure. Patient also has chronic pain in his left knee that he did just recently get another injection about a month ago and states this is working well. Patient is currently managed with [place] 5 mg twice a day. He denies any side effects from this medication. His Kale reviewed and is appropriate. Review of Systems: General: No recent weight changes, no fever, no sleep disturbances Respiratory: No cough, no shortness of air, no recurring pulmonary infections Cardiovascular/peripheral vascular: No chest pain, no palpitations, no edema, no shortness of breath Gastrointestinal: No new onset incontinence, normal bowel movements reported Genitourinary: No new onset incontinence Musculoskeletal: Low back pain Psychiatric: [Normal mood/affect] Neurological: [Denies weakness in extremities], [denies balance issues] Pain at rest (0-10 scale): 2 Objective Objective:: Physical Exam: General: Alert and oriented x3, no acute distress, pleasant and cooperative Lungs: Respirations even and unlabored, symmetrical chest expansion Eyes: PERRL Musculoskeletal: Flexion and extension of [] [spine] somewhat guarded secondary to pain, [antalgic gait noted] Neurological: Speech clear, no gross sensory deficit Has patient had previous pain injection?: No Conservative treatment options previously tried: Home exercise plan Length of treatment: Longer than 6 weeks Meds Home Medications and Allergies Home Medications ?Medication ?Instructions ?Recorded ?Confirmed ?Type atorvastatin 40 mg tablet 40 mg PO DAILY High cholesterol 08/15/17 01/28/24 History tamsulosin 0.4 mg capsule 0.4 mg PO DAILY URINATION ISSUES 08/15/17 01/28/24 History aspirin 81 mg chewable tablet 81 mg PO DAILY heart health 09/08/20 01/28/24 History metoprolol succinate 25 mg 25 mg PO DAILY High blood pressure 06/21/21 01/28/24 History tablet,extended release 24 hr ferric maltol 30 mg capsule 30 mg PO BID 03/18/23 01/28/24 History (Accrufer) pantoprazole 40 mg tablet,delayed 40 mg PO DAILY GERD #90 tabs 03/18/23 01/28/24 Rx release rivaroxaban 2.5 mg tablet (Xarelto) 2.5 mg PO BID Blood Thinner #180 03/18/23 01/28/24 Rx tabs hydrochlorothiazide 25 mg tablet 25 mg PO DAILY 07/16/23 01/28/24 History losartan 100 mg tablet 100 mg PO DAILY 07/16/23 01/28/24 History hydrocodone 5 mg-acetaminophen 325 1 tab PO BID PRN pain #60 tabs 12/17/23 01/28/24 Rx mg tablet hydrocodone 5 mg-acetaminophen 325 1 tab PO BID #8 tabs 12/31/23 01/28/24 Rx mg tablet hydrocodone 5 mg-acetaminophen 325 1 tab PO BID #8 tabs 12/31/23 01/28/24 Rx mg tablet New Prescriptions to Start Prescriptions: Allergies Allergy/AdvReac Type Severity Reaction Status Date / Time No Known Allergies Allergy Verified 01/28/24 13:00 Assessment and Plan *Assessment and plan (1) Degenerative disc disease, lumbar: Status: Acute Category: Medical Code(s): M51.36 - Other intervertebral disc degeneration, lumbar region (2) Lumbar radiculopathy: Status: Acute Category: Medical Code(s): M54.16 - Radiculopathy, lumbar region Plan I will refill the patient's [place] and provide a 1 month supply of this medication. Patient will return to clinic in 1 month for reevaluation of symptoms and plan of care. Risks and benefits of the medication have been explained in detail to the patient. The patient does understand the risk of dependence on the medication when given over a prolonged period. Patient has been advised of risks of oversedation with the prescribed medication. Narcan has been offered to the paitent in the event of oversedation. Patient has been advised that a family member should also be educated regarding administration of Narcan. The patient has been advised to consult with his/her primary care provider and pharmacist regarding drug-drug interaction of medications currently prescribed. Patient has been prescribed a controlled substance after being counseled on the medication, medication safety, and possible side effects. Opioid contract was reviewed and signed by the patient, and that they have agreed to all of the terms set forth by our compliance program. Patient has been instructed to contact the clinic with any concerns before the next appointment. Dr. Smith has reviewed this note and agrees with this plan of care. This note was dictated using voice recognition software and make contain errors or omissions.
== END 2024-01-28 23:59 | disposition home or self-care (01) ==
PROVIDERS: PCP Internal Medicine Adolescent Medicine; Visit Provider Nurse Practitioner Family
DX: M51.16 Intervertebral disc disorders with radiculopathy, lumbar region (principal); F17.210 Nicotine dependence, cigarettes, uncomplicated; Z79.01 Long term (current) use of anticoagulants
CPT/HCPCS: 99212; G0463

== ENCOUNTER 2024-03-08 16:00 | Outpatient (RCR) | payer MEDICARE, SELFPAY ==
--- NOTE | 2024-01-27 16:35 | HMH.PTOPWND ---
Rehab Outpt Wound Evaluation Rehab OP Wound Evaluation Start: 01/27/24 16:10 Freq: Status: Active Protocol: Document 01/27/24 16:12 NIRAV (Rec: 01/27/24 16:35 PHORYISSEL [id number]) E-signed By Vinicio Huynh, PT Subjective/History History History This is the initial PT eval for Giovanny Tovar, 73 yowm who presents with c/o B LE swelling and wounds x ~ 2 mos with insidious onset of symptoms. He reports the L LE began first and then the R LE shortly afterwards. He reports he was prescribed 2 rounds of oral abx. He reports his blisters on the L LE have healed, but he continues to have weeping open sores from blisters on the R lower leg. He reports minimal pain at this time, but significant redness to B lower legs. 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 Subjective Subjective Currently he has no pain, at worst pain is 3/10. 1+ pitting edema noted to B lower legs. Severe blanchable erythema to B lower legs. 2/4 TTP to B lower legs in the gaiter area. New diagnosis of cancer in past 12 No months? Lymphedema Eval Classification of Lymphedema Secondary Lymphedema Yes: PAD and CVI Stemmer's sign Stemmer's Sign no Stage of Lymphedema Lymphedema stages Stage II (Pitting edema, increased fibrosis w/ decreased pitting) Skin Changes Dry Skin Yes Redness Yes Wounds Yes Discoloration of Skin Yes Other Changes Yes Pain Scale Pain Scale (0-10) 3 Affected Extremities Areas Affected by Lymphedema/Edema Right Lower Extremity,Left Lower Extremity Manual Lymphatic Drainage Treatment Area MLD Treatment Area Right Lower Extremity,Left Lower Extremity Wound Problems/Impairments Impairments Problems/Impairmments Palpation Tenderness,Impaired Walking,Impaired Standing, Impaired Household Care, Increased Edema,Lymphedema Present,Wound Care Needs, Subjective C/O Pain,Impaired Self Care/Self Management Prognosis Rehab Potential Good Comment Skilled therapy is necessary to reduce overall edema burden and improve wound healing to return pt to PLOF. Clinical Impression Consistent with Diagnosis Yes Short Term Goals Number of Weeks 2 Decreased Palpation Tenderness Yes: 1/4 B lower legs Decrease Edema Yes: no pitting edema B lower legs Decrease Subjective C/O Pain Yes: 2/10 at worst B lower legs Patient to Understand Lymphedema Yes Treatment and Exercises Decrease Girth Measurments by (cm) Yes: B LE total by 5 cm ea Spring Forger Goals Number of Weeks 4 Decreased Palpation Tenderness Yes: 0/4 B lower legs Decrease Lymphedema Yes: No fibrotic edema B lower legs Decrease Subjective C/O Pain Yes: 0/10 B lwoer legs Patient to be Ind w/ HEP Yes Patient to be Ind w/ Donning/Kief Yes Compression Garments Patient to Adhere Lymphedema Precautions Yes Decrease Girth Measurments by (cm) Yes: B LE total by 10 cm ea Outpatient Therapy Plan of Care Treatment Plan May Include Therapeutic Exercise Including Home Yes Exercise Program Manual Therapy Techniques Yes Neuromuscular Re-education Yes Therapeutic Activities to Return to Yes Previous Functional/Work Level ADL/Self Care Education Yes Orthotics/Bracing/Splinting Yes Manual Lymphatic Drainage Yes Wound Care Yes Eval/Re-Eval Yes Frequency Times per week 2 Duration Number of Weeks 4 Addendums This patient is a candidate for social No or vocational rehab? Patient/Guardian verbally acknowledges Yes understanding of treatment program and consents to further treatment? Patient/Guardian verbally acknowledges Yes understanding of diagnosis, prognosis and goals for treatment? Eval Complexity PT Charges 45624 - High Complexity PHYSICIAN CERTIFICATION: I certify the specified therapy services for Giovanny Tovar are required, authorized, and reviewed every 30 days.
--- NOTE | 2024-03-03 15:39 | HMH.RHREAS ---
Rehab Reassessment Rehab OP Re-assessment Start: 01/27/24 16:10 Freq: Status: Active Protocol: Document 03/03/24 15:30 NIRAV (Rec: 03/03/24 15:39 PHORYISSEL [id number]) E-signed By Vinicio Huynh, PT Rehab Re-assessment Subjective Subjective Pt reports he feels considerably better with his edema, but continues to have some worse in his L LE than his R. He reports no pain or tenderness to palpation this date. Objective Objective Notes Circumferential Measurements: R LE total 174.8 cm which is + 0.9 cm since IE L LE total is 192.8 cm which is -2.2 cm since IE Pain: 0/10 B lower legs TTP: 0/4 B lower legs Edema: No pitting edema, mild fibrotic edema to B lower legs with Mild blanchable erythema noted. Assessment Progress Assessment Progressing as Expected Assessment Notes Pt has shown significant reduction of B lower leg pain and tenderness, but not significant reduction of overall B lower leg edema. Skilled therapy remains indicated to reduce overall edema burden and return pt to PLOF. Patient goals met ST/5 LT/7 Plan Plan Continue per initial POC. In the process of obtaining compression garments for patient for home use. Frequency of Therapy 1-2 x/wk Duration of therapy 4 wks Time and Billing Re-Eval Time 11 Re-Eval Billing Units 0 PHYSICIAN CERTIFICATION: I certify the specified therapy services for Giovanny Tovar are required, authorized, and reviewed every 30 days.
== END 2024-03-08 23:59 | disposition home or self-care (01) ==
LOC: PT 16:00
PROVIDERS: Visit Provider Nurse Practitioner Family
DX: I89.0 Lymphedema, not elsewhere classified (principal); L03.116 Cellulitis of left lower limb
CPT/HCPCS: 97140; 97163; 97760

== ENCOUNTER 2024-03-10 14:26 | Outpatient (POV) | payer MEDICARE, SELFPAY ==
[2024-03-10 14:45] VITALS: BP 126/66; PULSE 78; RESP 16; O2SAT 96; BMI 29.8
--- NOTE | 2024-03-10 14:58 | EXP.PAIN.SOA ---
[facility] Disclaimer: The information contained in this section may have been updated after the patient was seen, as this information can be updated by other users. Medical History Aortic insufficiency Hyperlipidemia Hypertension Diabetes Claudication Abnormal computed tomography angiography (CTA) of abdomen Tobacco dependence syndrome Back pain Left leg pain Abnormal electrocardiography CAD (coronary artery disease) Surgical History History of colonoscopy Hx of CABG Family History Other No significant family history Social History Smoking Status: Current every day smoker tobacco type: cigarettes packs per day: 1 second hand exposure: No alcohol intake: never counseling provided: none substance use type: denies use current occupational status: other Travel in the last 8 weeks: None household members: other housing: house current occupational exposures/hazards: No caffeine: Yes PM Subjective & Objective Subjective Subjective:: Patient is a pleasant 73-year-old male who presents today for medication refill and follow-up. Today he rates his pain a 2 out of 10. He denies any new trauma or injury. He does state that he is scheduled for his left knee injection coming up next month. Patient is prescribed [place] 5 mg twice a day. He denies any side effects from this medication. He does state it still helps take the edge off. His Kale has been reviewed and is appropriate. Review of Systems: General: No recent weight changes, no fever, no sleep disturbances Respiratory: No cough, no shortness of air, no recurring pulmonary infections Cardiovascular/peripheral vascular: No chest pain, no palpitations, no edema, no shortness of breath Gastrointestinal: No new onset incontinence, normal bowel movements reported Genitourinary: No new onset incontinence Musculoskeletal: Low back pain, left knee pain Psychiatric: [Normal mood/affect] Neurological: [Denies weakness in extremities], [denies balance issues] Pain at rest (0-10 scale): 2 Objective Objective:: Physical Exam: General: Alert and oriented x3, no acute distress, pleasant and cooperative Lungs: Respirations even and unlabored, symmetrical chest expansion Eyes: PERRL Musculoskeletal: Flexion and extension of lumbar [spine] somewhat guarded secondary to pain, [antalgic gait noted] Neurological: Speech clear, no gross sensory deficit Has patient had previous pain injection?: No Conservative treatment options previously tried: Home exercise plan Length of treatment: Longer than 12 weeks Meds Home Medications and Allergies Home Medications ?Medication ?Instructions ?Recorded ?Confirmed ?Type atorvastatin 40 mg tablet 40 mg PO DAILY High cholesterol 08/15/17 01/28/24 History tamsulosin 0.4 mg capsule 0.4 mg PO DAILY URINATION ISSUES 08/15/17 01/28/24 History aspirin 81 mg chewable tablet 81 mg PO DAILY heart health 09/08/20 01/28/24 History metoprolol succinate 25 mg 25 mg PO DAILY High blood pressure 06/21/21 01/28/24 History tablet,extended release 24 hr ferric maltol 30 mg capsule 30 mg PO BID 03/18/23 01/28/24 History (Accrufer) pantoprazole 40 mg tablet,delayed 40 mg PO DAILY GERD #90 tabs 03/18/23 01/28/24 Rx release rivaroxaban 2.5 mg tablet (Xarelto) 2.5 mg PO BID Blood Thinner #180 03/18/23 01/28/24 Rx tabs hydrochlorothiazide 25 mg tablet 25 mg PO DAILY 07/16/23 01/28/24 History losartan 100 mg tablet 100 mg PO DAILY 07/16/23 01/28/24 History hydrocodone 5 mg-acetaminophen 325 1 tab PO BID #8 tabs 12/31/23 01/28/24 Rx mg tablet hydrocodone 5 mg-acetaminophen 325 1 tab PO BID #8 tabs 12/31/23 01/28/24 Rx mg tablet hydrocodone 5 mg-acetaminophen 325 1 tab PO BID PRN pain #60 tabs 01/28/24 Rx mg tablet hydrocodone 5 mg-acetaminophen 325 1 tab PO BID #14 tabs 02/26/24 Rx mg tablet New Prescriptions to Start Prescriptions: Allergies Allergy/AdvReac Type Severity Reaction Status Date / Time No Known Allergies Allergy Verified 01/28/24 13:00 Assessment and Plan *Assessment and plan (1) Left knee pain: Status: Acute Qualifiers: Chronicity: chronic Qualified Code(s): M25.562 - Pain in left knee; G89.29 - Other chronic pain Category: Medical Code(s): M25.562 - Pain in left knee (2) Degenerative disc disease, lumbar: Status: Acute Category: Medical Code(s): M51.36 - Other intervertebral disc degeneration, lumbar region Plan I will refill the patient's [place] and provide a 1 month supply of this medication. Patient will return to clinic in 1 month for reevaluation of symptoms and plan of care. Risks and benefits of the medication have been explained in detail to the patient. The patient does understand the risk of dependence on the medication when given over a prolonged period. Patient has been advised of risks of oversedation with the prescribed medication. Narcan has been offered to the paitent in the event of oversedation. Patient has been advised that a family member should also be educated regarding administration of Narcan. The patient has been advised to consult with his/her primary care provider and pharmacist regarding drug-drug interaction of medications currently prescribed. Patient has been prescribed a controlled substance after being counseled on the medication, medication safety, and possible side effects. Opioid contract was reviewed and signed by the patient, and that they have agreed to all of the terms set forth by our compliance program. Patient has been instructed to contact the clinic with any concerns before the next appointment. Dr. Smith has reviewed this note and agrees with this plan of care. This note was dictated using voice recognition software and make contain errors or omissions.
== END 2024-03-10 23:59 | disposition home or self-care (01) ==
PROVIDERS: PCP Internal Medicine Adolescent Medicine; Visit Provider Nurse Practitioner Family
DX: M25.562 Pain in left knee (principal); G89.29 Other chronic pain; M51.369 Other intervertebral disc degeneration, lumbar region without mention of lumbar back pain or lower extremity pain; F17.210 Nicotine dependence, cigarettes, uncomplicated; Z79.01 Long term (current) use of anticoagulants; Z95.1 Presence of aortocoronary bypass graft
CPT/HCPCS: 99212; G0463

== ENCOUNTER 2024-03-31 08:55 | Outpatient (CLI) | payer MEDICARE, SELFPAY ==
--- NOTE | 2024-03-31 08:59 | XR_ITS ---
FINAL REPORT CLINICAL HISTORY: knee pain COMPARISON: 06/27/2021 FINDINGS: LEFT KNEE Three views demonstrate no acute fracture or dislocation. There are advanced hypertrophic changes of osteoarthritis at the medial joint margin, which have significantly progressed compared to the previous. There are moderate osteophytes along the undersurface of the patella. There is dense vascular calcification of the distal SFA and popliteal arteries. No acute soft tissue abnormality is seen. IMPRESSION: Significantly progressing osteoarthritis Reviewed, Interpreted and Dictated by Andi Knox MD Transcribed by Alea Vega Authenticated and [facility]
== END 2024-03-31 23:59 | disposition home or self-care (01) ==
LOC: RAD 08:57
PROVIDERS: PCP Internal Medicine Adolescent Medicine; Visit Provider Physician Assistant
DX: M25.562 Pain in left knee (principal)
CPT/HCPCS: 73562

== ENCOUNTER 2024-04-12 11:18 | Outpatient (POV) | payer MEDICARE, SELFPAY ==
--- NOTE | 2024-04-12 11:54 | A.OFFVIS_ITS ---
[facility] Disclaimer: The information contained in this section may have been updated after the patient was seen, as this information can be updated by other users. Medical History Aortic insufficiency Hyperlipidemia Hypertension Diabetes Claudication Abnormal computed tomography angiography (CTA) of abdomen Tobacco dependence syndrome Back pain Left leg pain Abnormal electrocardiography CAD (coronary artery disease) Surgical History History of colonoscopy Hx of CABG Family History Other No significant family history Social History Smoking Status: Current every day smoker tobacco type: cigarettes packs per day: 1 second hand exposure: No alcohol intake: never counseling provided: none substance use type: denies use current occupational status: other Travel in the last 8 weeks: None household members: other housing: house current occupational exposures/hazards: No caffeine: Yes PM Subjective & Objective Subjective Subjective:: Patient is a pleasant 73-year-old male who presents today for medication refill and follow-up. Today he rates his pain a 2 out of 10. He denies any new trauma or injury. He does state that he did have his left knee injection last week and that it is helping. Patient is currently managed with Spavinaw 5 mg twice a day. He denies any side effects from this medication. His Kale has been reviewed and is appropriate. Review of Systems: General: No recent weight changes, no fever, no sleep disturbances Respiratory: No cough, no shortness of air, no recurring pulmonary infections Cardiovascular/peripheral vascular: No chest pain, no palpitations, no edema, no shortness of breath Gastrointestinal: No new onset incontinence, normal bowel movements reported Genitourinary: No new onset incontinence Musculoskeletal: Low back pain Psychiatric: [Normal mood/affect] Neurological: [Denies weakness in extremities], [denies balance issues] Pain at rest (0-10 scale): 2 Objective Objective:: Physical Exam: General: Alert and oriented x3, no acute distress, pleasant and cooperative Lungs: Respirations even and unlabored, symmetrical chest expansion Eyes: PERRL Musculoskeletal: Flexion and extension of lumbar [spine] somewhat guarded secondary to pain, [antalgic gait noted] Neurological: Speech clear, no gross sensory deficit Has patient had previous pain injection?: No Conservative treatment options previously tried: Home exercise plan Length of treatment: Longer than 12-week Meds Home Medications and Allergies Home Medications ?Medication ?Instructions ?Recorded ?Confirmed ?Type atorvastatin 40 mg tablet 40 mg PO DAILY High cholesterol 08/15/17 03/31/24 History tamsulosin 0.4 mg capsule 0.4 mg PO DAILY URINATION ISSUES 08/15/17 03/31/24 History aspirin 81 mg chewable tablet 81 mg PO DAILY heart health 09/08/20 03/31/24 History metoprolol succinate 25 mg 25 mg PO DAILY High blood pressure 06/21/21 03/31/24 History tablet,extended release 24 hr ferric maltol 30 mg capsule 30 mg PO BID 03/18/23 03/31/24 History (Accrufer) rivaroxaban 2.5 mg tablet (Xarelto) 2.5 mg PO BID Blood Thinner #180 03/18/23 03/31/24 Rx tabs losartan 100 mg tablet 100 mg PO DAILY 07/16/23 03/31/24 History hydrocodone 5 mg-acetaminophen 325 1 tab PO BID PRN pain #60 tabs 03/10/24 03/31/24 Rx mg tablet pantoprazole 40 mg tablet,delayed 40 mg PO DAILY GERD #90 tabs 03/11/24 03/31/24 Rx release New Prescriptions to Start Prescriptions: Allergies Allergy/AdvReac Type Severity Reaction Status Date / Time No Known Allergies Allergy Verified 03/31/24 09:58 Assessment and Plan *Assessment and plan (1) Lumbar radiculopathy: Status: Acute Category: Medical Code(s): M54.16 - Radiculopathy, lumbar region (2) Degenerative disc disease, lumbar: Status: Acute Category: Medical Code(s): M51.36 - Other intervertebral disc degeneration, lumbar region Plan I will refill his Spavinaw and provide a 1 month supply of this medication. Patient will return to clinic in 1 month for reevaluation of symptoms and plan of care. Risks and benefits of the medication have been explained in detail to the patient. The patient does understand the risk of dependence on the medication when given over a prolonged period. Patient has been advised of risks of oversedation with the prescribed medication. Narcan has been offered to the paitent in the event of oversedation. Patient has been advised that a family member should also be ed ucated regarding administration of Narcan. The patient has been advised to consult with his/her primary care provider and pharmacist regarding drug-drug interaction of medications currently prescribed. Patient has been prescribed a controlled substance after being counseled on the medication, medication safety, and possible side effects. Opioid contract was reviewed and signed by the patient, and that they have agreed to all of the terms set forth by our compliance program. Patient has been instructed to contact the clinic with any concerns before the next appointment. Dr. Smith has reviewed this note and agrees with this plan of care. This note was dictated using voice recognition software and make contain errors or omissions.
[2024-04-12 12:54] VITALS: BP 127/78; PULSE 85; RESP 14; O2SAT 91; BMI 29.8
== END 2024-04-12 23:59 | disposition home or self-care (01) ==
PROVIDERS: PCP Internal Medicine Adolescent Medicine; Visit Provider Nurse Practitioner Family
DX: M51.16 Intervertebral disc disorders with radiculopathy, lumbar region (principal); F17.210 Nicotine dependence, cigarettes, uncomplicated; Z79.01 Long term (current) use of anticoagulants; Z95.1 Presence of aortocoronary bypass graft
CPT/HCPCS: 99212; G0463

== ENCOUNTER 2024-05-13 13:09 | Outpatient (POV) | payer MEDICARE, SELFPAY ==
--- NOTE | 2024-05-13 13:40 | EXP.PAIN.SOA ---
[facility] Disclaimer: The information contained in this section may have been updated after the patient was seen, as this information can be updated by other users. Medical History Aortic insufficiency Hyperlipidemia Hypertension Diabetes Claudication Abnormal computed tomography angiography (CTA) of abdomen Tobacco dependence syndrome Back pain Left leg pain Abnormal electrocardiography CAD (coronary artery disease) Surgical History History of colonoscopy Hx of CABG Family History Other No significant family history Social History Smoking Status: Current every day smoker tobacco type: cigarettes packs per day: 1 second hand exposure: No alcohol intake: never counseling provided: none substance use type: denies use current occupational status: other Travel in the last 8 weeks: None household members: other housing: house current occupational exposures/hazards: No caffeine: Yes PM Subjective & Objective Subjective Subjective:: Patient is a pleasant 73-year-old male who presents today for monthly refill. Today he rates his pain a 2 out of 10. He denies any new trauma or injury. He does state he still doing well with his Dilliner 5 mg twice a day. He denies any side effects. Patient states overall his knee is still maintaining and that the plan is for them to continue injections as long as they provide improvement. His Kale has been reviewed and is appropriate. Review of Systems: General: No recent weight changes, no fever, no sleep disturbances Respiratory: No cough, no shortness of air, no recurring pulmonary infections Cardiovascular/peripheral vascular: No chest pain, no palpitations, no edema, no shortness of breath Gastrointestinal: No new onset incontinence, normal bowel movements reported Genitourinary: No new onset incontinence Musculoskeletal: Low back pain Psychiatric: [Normal mood/affect] Neurological: [Denies weakness in extremities], [denies balance issues] Pain at rest (0-10 scale): 2 Objective Objective:: Physical Exam: General: Alert and oriented x3, no acute distress, pleasant and cooperative Lungs: Respirations even and unlabored, symmetrical chest expansion Eyes: PERRL Musculoskeletal: Flexion and extension of lumbar [spine] somewhat guarded secondary to pain, [antalgic gait noted] Neurological: Speech clear, no gross sensory deficit Has patient had previous pain injection?: No Conservative treatment options previously tried: Prescription medications Length of treatment: Longer than 12 weeks Meds Home Medications and Allergies Home Medications ?Medication ?Instructions ?Recorded ?Confirmed ?Type atorvastatin 40 mg tablet 40 mg PO DAILY High cholesterol 08/15/17 04/28/24 History tamsulosin 0.4 mg capsule 0.4 mg PO DAILY URINATION ISSUES 08/15/17 04/28/24 History aspirin 81 mg chewable tablet 81 mg PO DAILY heart health 09/08/20 04/28/24 History metoprolol succinate 25 mg 25 mg PO DAILY High blood pressure 06/21/21 04/28/24 History tablet,extended release 24 hr ferric maltol 30 mg capsule 30 mg PO BID 03/18/23 04/28/24 History (Accrufer) rivaroxaban 2.5 mg tablet (Xarelto) 2.5 mg PO BID Blood Thinner #180 03/18/23 04/28/24 Rx tabs losartan 100 mg tablet 100 mg PO DAILY 07/16/23 04/28/24 History pantoprazole 40 mg tablet,delayed 40 mg PO DAILY GERD #90 tabs 03/11/24 04/28/24 Rx release hydrocodone 5 mg-acetaminophen 325 1 tab PO BID PRN pain #60 tabs 04/12/24 04/28/24 Rx mg tablet New Prescriptions to Start Prescriptions: Allergies Allergy/AdvReac Type Severity Reaction Status Date / Time No Known Allergies Allergy Verified 04/28/24 13:02 Assessment and Plan *Assessment and plan (1) Left knee pain: Status: Acute Qualifiers: Chronicity: chronic Qualified Code(s): M25.562 - Pain in left knee; G89.29 - Other chronic pain Category: Medical Code(s): M25.562 - Pain in left knee (2) Lumbar radiculopathy: Status: Acute Category: Medical Code(s): M54.16 - Radiculopathy, lumbar region (3) Degenerative disc disease, lumbar: Status: Acute Category: Medical Code(s): M51.369 - Other intervertebral disc degeneration, lumbar region without mention of lumbar back pain or lower extremity pain Plan We will refill the patient's Dilliner and provide a 1 month supply of this medication. Patient will return to clinic in 1 month for reevaluation of symptoms and plan of care. Risks and benefits of the medication have been explained in detail to the patient. The patient does understand the risk of dependence on the medication when given over a prolonged period. Patient has been advised of risks of oversedation with the prescribed medication. Narcan has been offered to the paitent in the event of oversedation. Patient has been advised that a family member should also be educated regarding administration of Narcan. The patient has been advised to consult with his/her primary care provider and pharmacist regarding drug-drug interaction of medications currently prescribed. Patient has been prescribed a controlled substance after being counseled on the medication, medication safety, and possible side effects. Opioid contract was reviewed and signed by the patient, and that they have agreed to all of the terms set forth by our compliance program. A UDS is needed to verify patient's compliance with our office pain contract. This is ordered based off specific treatments related to chronic pain with the potential to abuse certain medications. Patient has been instructed to contact the clinic with any concerns before the next appointment. Dr. Smith has reviewed this note and agrees with this plan of care. This note was dictated using voice recognition software and make contain errors or omissions.
--- NOTE | 2024-05-13 13:50 | XR_ITS ---
FINAL REPORT CLINICAL HISTORY: LBP FINDINGS: AP, lateral, and oblique views of the lumbar spine were obtained. There is no acute fracture. There is retrolisthesis of L2 on 3. There is multilevel degenerative disc disease, most pronounced at L5-S1. Vertebral body height is preserved. No acute paraspinal abnormality is identified. IMPRESSION: Degenerative changes without acute osseous abnormality. Reviewed, Interpreted and Dictated by Vani Magallon MD Transcribed by Abril Tovar Authenticated and . [facility]
[2024-05-13 14:16] VITALS: BP 112/68; PULSE 85; RESP 16; O2SAT 99; BMI 29.8
== END 2024-05-13 23:59 | disposition home or self-care (01) ==
PROVIDERS: PCP Internal Medicine Adolescent Medicine; Visit Provider Nurse Practitioner Family
DX: M25.562 Pain in left knee (principal); G89.29 Other chronic pain; M51.16 Intervertebral disc disorders with radiculopathy, lumbar region; F17.210 Nicotine dependence, cigarettes, uncomplicated; Z79.01 Long term (current) use of anticoagulants
CPT/HCPCS: 72110; 99212; G0463

== ENCOUNTER 2024-05-31 13:52 | Outpatient (CLI) | payer MEDICARE, SELFPAY ==
--- NOTE | 2024-05-31 13:55 | MR_ITS ---
FINAL REPORT CLINICAL HISTORY: LOW BACK PAIN FINDINGS: Multiplanar MR imaging of the lumbar spine was performed without contrast. On the sagittal T2-weighted images, there is abnormal decreased signal throughout the lumbar discs. There is disc space narrowing most evident at L3-4 and L4-5. The vertebrae are of normal height. The vertebral alignment is normal. L1-2: There is a mild diffuse disc bulge with mild to moderate bilateral neuroforaminal narrowing. L2-3: There is no significant canal stenosis or neural foraminal narrowing. L3-4: There is a mild diffuse disc bulge. There is a right posterior lateral disc protrusion. There is moderate to high-grade right neuroforaminal narrowing. There is asymmetric right facet hypertrophy. L4-5: There is a moderate diffuse disc bulge. There is moderate facet hypertrophy. There is moderate spinal canal and bilateral neuroforaminal compromise. L5-S1: There is a moderate diffuse disc bulge. There is facet hypertrophy. There is moderate right and moderate to high-grade left neuroforaminal narrowing. IMPRESSION: Multilevel changes of degenerative disc disease particularly evident on the right at L1-2 and L3-4 and bilaterally at L5-S1. Reviewed, Interpreted and Dictated by Andi Knox MD Transcribed by Kailey Valerio Authenticated and [facility]
== END 2024-05-31 23:59 | disposition home or self-care (01) ==
LOC: RAD 13:53
PROVIDERS: PCP Internal Medicine Adolescent Medicine; Visit Provider Anesthesiology
DX: M51.369 Other intervertebral disc degeneration, lumbar region without mention of lumbar back pain or lower extremity pain (principal); M54.50 Low back pain, unspecified
CPT/HCPCS: 72148

== ENCOUNTER 2024-06-14 14:18 | Outpatient (POV) | payer MEDICARE, SELFPAY ==
[2024-06-14 14:29] VITALS: BP 135/74; PULSE 86; RESP 14; O2SAT 98; BMI 29.8
--- NOTE | 2024-06-14 14:45 | A.OFFVIS_ITS ---
[facility] Disclaimer: The information contained in this section may have been updated after the patient was seen, as this information can be updated by other users. Medical History Aortic insufficiency Hyperlipidemia Hypertension Diabetes Claudication Abnormal computed tomography angiography (CTA) of abdomen Tobacco dependence syndrome Back pain Left leg pain Abnormal electrocardiography CAD (coronary artery disease) Surgical History History of colonoscopy Hx of CABG Family History Other No significant family history Social History Smoking Status: Current every day smoker tobacco type: cigarettes packs per day: 1 second hand exposure: No alcohol intake: never counseling provided: none substance use type: denies use current occupational status: other Travel in the last 8 weeks: None household members: other housing: house current occupational exposures/hazards: No caffeine: Yes PM Subjective & Objective Subjective Subjective:: Patient is a pleasant 74-year-old male who presents today for follow-up of x-ray and MRI lumbar imaging. Today he rates his pain a 3 out of 10. He denies any new trauma or injury. He does state overall he is doing well with no additional changes. Patient is scheduled for a left knee injection coming up with his orthopedic provider. Patient is currently managed with Cheshire 5 mg twice a day from our office. He denies any side effects from this medication. His Kale has been reviewed and is appropriate. Review of Systems: General: No recent weight changes, no fever, no sleep disturbances Respiratory: No cough, no shortness of air, no recurring pulmonary infections Cardiovascular/peripheral vascular: No chest pain, no palpitations, no edema, no shortness of breath Gastrointestinal: No new onset incontinence, normal bowel movements reported Genitourinary: No new onset incontinence Musculoskeletal: Low back pain, left knee pain Psychiatric: [Normal mood/affect] Neurological: [Denies weakness in extremities], [denies balance issues] Pain at rest (0-10 scale): 3 Objective Objective:: Physical Exam: General: Alert and oriented x3, no acute distress, pleasant and cooperative Lungs: Respirations even and unlabored, symmetrical chest expansion Eyes: PERRL Musculoskeletal: Flexion and extension of lumbar [spine] somewhat guarded secondary to pain, [antalgic gait noted] Neurological: Speech clear, no gross sensory deficit FINDINGS: Multiplanar MR imaging of the lumbar spine was performed without contrast. On the sagittal T2-weighted images, there is abnormal decreased signal throughout the lumbar discs. There is disc space narrowing most evident at L3-4 and L4-5. The vertebrae are of normal height. The vertebral alignment is normal. L1-2: There is a mild diffuse disc bulge with mild to moderate bilateral neuroforaminal narrowing. L2-3: There is no significant canal stenosis or neural foraminal narrowing. L3-4: There is a mild diffuse disc bulge. There is a right posterior lateral disc protrusion. There is moderate to high-grade right neuroforaminal narrowing. There is asymmetric right facet hypertrophy. L4-5: There is a moderate diffuse disc bulge. There is moderate facet hypertrophy. There is moderate spinal canal and bilateral neuroforaminal compromise. L5-S1: There is a moderate diffuse disc bulge. There is facet hypertrophy. There is moderate right and moderate to high-grade left neuroforaminal narrowing. IMPRESSION: Multilevel changes of degenerative disc disease particularly evident on the right at L1-2 and L3-4 and bilaterally at L5-S1. Reviewed, Interpreted and Dictated by Andi Knox MD Transcribed by Kailey Valerio Authenticated and . [facility] Has patient had previous pain injection?: No Conservative treatment options previously tried: Prescription medications Length of treatment: Longer than 12 weeks Meds Home Medications and Allergies Home Medications ?Medication ?Instructions ?Recorded ?Confirmed ?Type atorvastatin 40 mg tablet 40 mg PO DAILY High cholesterol 08/15/17 06/14/24 History tamsulosin 0.4 mg capsule 0.4 mg PO DAILY URINATION ISSUES 08/15/17 06/14/24 History aspirin 81 mg chewable tablet 81 mg PO DAILY heart health 09/08/20 06/14/24 History ferric maltol 30 mg capsule 30 mg PO BID 03/18/23 06/14/24 History (Accrufer) rivaroxaban 2.5 mg tablet (Xarelto) 2.5 mg PO BID Blood Thinner #180 03/18/23 06/14/24 Rx tabs losartan 100 mg tablet 100 mg PO DAILY 07/16/23 06/14/24 History pantoprazole 40 mg tablet,delayed 40 mg PO DAILY GERD #90 tabs 03/11/24 06/14/24 Rx release hydrocodone 5 mg-acetaminophen 325 1 tab PO BID PRN pain #60 tabs 05/13/24 06/14/24 Rx mg tablet hydrocortisone acetate 25 mg 25 mg OR HS PRN hemorrhoids 1 06/08/24 06/14/24 Rx rectal suppository (Anusol-HC) month #12 ea methylcellulose (with sugar) oral 1 tbsp PO DAILY 06/08/24 06/14/24 History powder (Citrucel (sucrose) oral powder) metoprolol succinate 50 mg 50 mg PO ONCE 06/08/24 06/14/24 History tablet,extended release 24 hr New Prescriptions to Start Prescriptions: Allergies Allergy/AdvReac Type Severity Reaction Status Date / Time No Known Allergies Allergy Verified 06/08/24 13:32 Assessment and Plan *Assessment and plan (1) Lumbar radiculopathy: Status: Acute Category: Medical Code(s): M54.16 - Radiculopathy, lumbar region (2) Degenerative disc disease, lumbar: Status: Acute Category: Medical Code(s): M51.369 - Other intervertebral disc degeneration, lumbar region without mention of lumbar back pain or lower extremity pain (3) Left knee pain: Status: Acute Qualifiers: Chronicity: chronic Qualified Code(s): M25.562 - Pain in left knee; G89.29 - Other chronic pain Category: Medical Code(s): M25.562 - Pain in left knee Plan I will refill the patient's Cheshire and provide a 1 month supply of this medication. I did review over his x-ray and lumbar MRI findings. I did also discuss at length with the patient regarding a intrathecal pain pump trial and give educational handouts. Patient stated that he was very interested. We will follow-up with this in future. Patient will return to clinic in 1 month for reevaluation of symptoms and plan of care. Risks and benefits of the medication have been explained in detail to the patient. The patient does understand the risk of dependence on the medication when given over a prolonged period. Patient has been advised of risks of oversedation with the prescribed medication. Narcan has been offered to the paitent in the event of oversedation. Patient has been advised that a family member should also be educated regarding administration of Narcan. The patient has been advised to consult with his/her primary care provider and pharmacist regarding drug-drug interaction of medications currently prescribed. Patient has been prescribed a controlled substance after being counseled on the medication, medication safety, and possible side effects. Opioid contract was reviewed and signed by the patient, and that they have agreed to all of the terms set forth by our compliance program. A UDS is needed to verify patient's compliance with our office pain contract. This is ordered based off specific treatments related to chronic pain with the potential to abuse certain medications. Patient has been instructed to contact the clinic with any concerns before the next appointment. Dr. Smith has reviewed this note and agrees with this plan of care. This note was dictated using voice recognition software and make contain errors or omissions.
== END 2024-06-14 23:59 | disposition home or self-care (01) ==
PROVIDERS: PCP Internal Medicine Adolescent Medicine; Visit Provider Nurse Practitioner Family
DX: M51.16 Intervertebral disc disorders with radiculopathy, lumbar region (principal); M25.562 Pain in left knee; G89.29 Other chronic pain; F17.210 Nicotine dependence, cigarettes, uncomplicated; Z79.01 Long term (current) use of anticoagulants
CPT/HCPCS: 99212; G0463

== ENCOUNTER 2024-07-12 13:45 | Outpatient (POV) | payer MEDICARE, SELFPAY ==
--- NOTE | 2024-07-12 14:16 | A.OFFVIS_ITS ---
[facility] Disclaimer: The information contained in this section may have been updated after the patient was seen, as this information can be updated by other users. Medical History Aortic insufficiency Hyperlipidemia Hypertension Diabetes Claudication Abnormal computed tomography angiography (CTA) of abdomen Tobacco dependence syndrome Back pain Left leg pain Abnormal electrocardiography CAD (coronary artery disease) Surgical History History of colonoscopy Hx of CABG Family History Other No significant family history Social History Smoking Status: Current every day smoker tobacco type: cigarettes packs per day: 1 second hand exposure: No alcohol intake: never counseling provided: none substance use type: denies use current occupational status: other Travel in the last 8 weeks: None household members: other housing: house current occupational exposures/hazards: No caffeine: Yes PM Subjective & Objective Subjective Subjective:: Patient is a pleasant 74-year-old male who presents today for medication refill. Today he rates his pain a 1 out of 10. He denies any new trauma or injury. He states overall he is doing well with his current medication. Patient is prescribed [place] 5 mg twice a day from our office. He denies any side effects. Patient does state that he also had a knee injection about 2 weeks ago and this is helping as well. His Kale has been reviewed and is appropriate. Review of Systems: General: No recent weight changes, no fever, no sleep disturbances Respiratory: No cough, no shortness of air, no recurring pulmonary infections Cardiovascular/peripheral vascular: No chest pain, no palpitations, no edema, no shortness of breath Gastrointestinal: No new onset incontinence, normal bowel movements reported Genitourinary: No new onset incontinence Musculoskeletal: Low back pain Psychiatric: [Normal mood/affect] Neurological: [Denies weakness in extremities], [denies balance issues] Pain at rest (0-10 scale): 1 Objective Objective:: Physical Exam: General: Alert and oriented x3, no acute distress, pleasant and cooperative Lungs: Respirations even and unlabored, symmetrical chest expansion Eyes: PERRL Musculoskeletal: Flexion and extension of lumbar [spine] somewhat guarded secondary to pain, [antalgic gait noted] Neurological: Speech clear, no gross sensory deficit Has patient had previous pain injection?: No Conservative treatment options previously tried: Prescription medications Length of treatment: Longer than 12 weeks Meds Home Medications and Allergies Home Medications ?Medication ?Instructions ?Recorded ?Confirmed ?Type atorvastatin 40 mg tablet 40 mg PO DAILY High cholesterol 08/15/17 07/01/24 History tamsulosin 0.4 mg capsule 0.4 mg PO DAILY URINATION ISSUES 08/15/17 07/01/24 History aspirin 81 mg chewable tablet 81 mg PO DAILY heart health 09/08/20 07/01/24 History ferric maltol 30 mg capsule 30 mg PO BID 03/18/23 07/01/24 History (Accrufer) rivaroxaban 2.5 mg tablet (Xarelto) 2.5 mg PO BID Blood Thinner #180 03/18/23 07/01/24 Rx tabs losartan 100 mg tablet 100 mg PO DAILY 07/16/23 07/01/24 History pantoprazole 40 mg tablet,delayed 40 mg PO DAILY GERD #90 tabs 03/11/24 07/01/24 Rx release hydrocortisone acetate 25 mg 25 mg [place] HS PRN hemorrhoids 1 06/08/24 07/01/24 Rx rectal suppository (Anusol-HC) month #12 ea methylcellulose (with sugar) oral 1 tbsp PO DAILY 06/08/24 07/01/24 History powder (Citrucel (sucrose) oral powder) metoprolol succinate 50 mg 50 mg PO ONCE 06/08/24 07/01/24 History tablet,extended release 24 hr hydrocodone 5 mg-acetaminophen 325 1 tab PO BID PRN pain #60 tabs 06/14/24 07/01/24 Rx mg tablet New Prescriptions to Start Prescriptions: Allergies Allergy/AdvReac Type Severity Reaction Status Date / Time No Known Allergies Allergy Verified 07/01/24 13:00 Assessment and Plan *Assessment and plan (1) Lumbar radiculopathy: Status: Acute Category: Medical Code(s): M54.16 - Radiculopathy, lumbar region (2) Degenerative disc disease, lumbar: Status: Acute Category: Medical Code(s): M51.369 - Other intervertebral disc degeneration, lumbar region without mention of lumbar back pain or lower extremity pain Plan I will refill his Calhoun and provide a 1 month supply of this medication. Patient will return to clinic in 1 month for reevaluation of symptoms and plan of care. Risks and benefits of the medication have been explained in detail to the patient. The patient does understand the risk of dependence on the medication when given over a prolonged period. Patient has been advised of risks of oversedation with the prescribed medication. Narcan has been offered to the paitent in the event of oversedation. Patient has been advised that a family member should also be educated regarding administration of Narcan. The patient has been advised to consult with his/her primary care provider and pharmacist regarding drug-drug interaction of medications currently prescribed. Patient has been prescribed a controlled substance after being counseled on the medication, medication safety, and possible side effects. Opioid contract was reviewed and signed by the patient, and that they have agreed to all of the terms set forth by our compliance program. A UDS is needed to verify patient's compliance with our office pain contract. This is ordered based off specific treatments related to chronic pain with the potential to abuse certain medications. Patient has been instructed to contact the clinic with any concerns before the next appointment. Dr. Smith has reviewed this note and agrees with this plan of care. This note was dictated using voice recognition software and make contain errors or omissions.
[2024-07-12 14:21] VITALS: BP 138/64; PULSE 88; RESP 14; O2SAT 99; BMI 29.8
== END 2024-07-12 23:59 | disposition home or self-care (01) ==
PROVIDERS: PCP Internal Medicine Adolescent Medicine; Visit Provider Nurse Practitioner Family
DX: M51.16 Intervertebral disc disorders with radiculopathy, lumbar region (principal); F17.210 Nicotine dependence, cigarettes, uncomplicated; Z79.01 Long term (current) use of anticoagulants
CPT/HCPCS: 99212; G0463

== ENCOUNTER 2024-08-12 13:09 | Outpatient (POV) | payer MEDICARE, SELFPAY ==
[2024-08-12 13:31] VITALS: BP 122/70; PULSE 84; RESP 16; O2SAT 97; BMI 29.8
--- NOTE | 2024-08-12 14:29 | EXP.PAIN.SOA ---
[facility] Disclaimer: The information contained in this section may have been updated after the patient was seen, as this information can be updated by other users. Medical History Aortic insufficiency Hyperlipidemia Hypertension Diabetes Claudication Abnormal computed tomography angiography (CTA) of abdomen Tobacco dependence syndrome Back pain Left leg pain Abnormal electrocardiography CAD (coronary artery disease) Surgical History History of colonoscopy Hx of CABG Family History Other No significant family history Social History Smoking Status: Current every day smoker tobacco type: cigarettes packs per day: 1 second hand exposure: No alcohol intake: never counseling provided: none substance use type: denies use current occupational status: other Travel in the last 8 weeks: None household members: other housing: house current occupational exposures/hazards: No caffeine: Yes PM Subjective & Objective Subjective Subjective:: Patient is a pleasant 74-year-old male who presents today for medication refill and follow-up. Today he rates his pain a 5 out of 10. He denies any new trauma or injury. He states he still has the chronic low back pain, hip pain and knee pain. Patient is currently managed with [place] 5 mg twice a day from our office. Patient is asking if there is a possibility that we can make some adjustments with this medication. He feels like over time it is just not working as well. His Kale has been reviewed and is appropriate. Review of Systems: General: No recent weight changes, no fever, no sleep disturbances Respiratory: No cough, no shortness of air, no recurring pulmonary infections Cardiovascular/peripheral vascular: No chest pain, no palpitations, no edema, no shortness of breath Gastrointestinal: No new onset incontinence, normal bowel movements reported Genitourinary: No new onset incontinence Musculoskeletal: Low back pain, bilateral hip pain, left knee pain Psychiatric: [Normal mood/affect] Neurological: [Denies weakness in extremities], [denies balance issues] Pain at rest (0-10 scale): 5 Objective Objective:: Physical Exam: General: Alert and oriented x3, no acute distress, pleasant and cooperative Lungs: Respirations even and unlabored, symmetrical chest expansion Eyes: PERRL Musculoskeletal: Flexion and extension of lumbar [spine] somewhat guarded secondary to pain, [antalgic gait noted] Neurological: Speech clear, no gross sensory deficit Has patient had previous pain injection?: No Conservative treatment options previously tried: Prescription medications Length of treatment: Longer than 12 weeks Meds Home Medications and Allergies Home Medications ?Medication ?Instructions ?Recorded ?Confirmed ?Type atorvastatin 40 mg tablet 40 mg PO DAILY High cholesterol 08/15/17 08/12/24 History tamsulosin 0.4 mg capsule 0.4 mg PO DAILY URINATION ISSUES 08/15/17 08/12/24 History aspirin 81 mg chewable tablet 81 mg PO DAILY heart health 09/08/20 08/12/24 History ferric maltol 30 mg capsule 30 mg PO BID 03/18/23 08/12/24 History (Accrufer) rivaroxaban 2.5 mg tablet (Xarelto) 2.5 mg PO BID Blood Thinner #180 03/18/23 08/12/24 Rx tabs losartan 100 mg tablet 100 mg PO DAILY 07/16/23 08/12/24 History pantoprazole 40 mg tablet,delayed 40 mg PO DAILY GERD #90 tabs 03/11/24 08/12/24 Rx release hydrocortisone acetate 25 mg 25 mg [place] HS PRN hemorrhoids 1 06/08/24 08/12/24 Rx rectal suppository (Anusol-HC) month #12 ea methylcellulose (with sugar) oral 1 tbsp PO DAILY 06/08/24 08/12/24 History powder (Citrucel (sucrose) oral powder) metoprolol succinate 50 mg 50 mg PO ONCE 06/08/24 08/12/24 History tablet,extended release 24 hr hydrocodone 5 mg-acetaminophen 325 1 tab PO BID PRN pain #60 tabs 07/12/24 08/12/24 Rx mg tablet New Prescriptions to Start Prescriptions: Allergies Allergy/AdvReac Type Severity Reaction Status Date / Time No Known Allergies Allergy Verified 07/29/24 13:06 Assessment and Plan *Assessment and plan (1) Lumbar radiculopathy: Status: Acute Category: Medical Code(s): M54.16 - Radiculopathy, lumbar region (2) Degenerative disc disease, lumbar: Status: Acute Category: Medical Code(s): M51.369 - Other intervertebral disc degeneration, lumbar region without mention of lumbar back pain or lower extremity pain (3) Left knee pain: Status: Acute Qualifiers: Chronicity: chronic Qualified Code(s): M25.562 - Pain in left knee; G89.29 - Other chronic pain Category: Medical Code(s): M25.562 - Pain in left knee Plan I will change his [place] to 3 times a day and provide a 1 month supply of this medication. Patient will return to clinic in 1 month for reevaluation of symptoms and plan of care. Risks and benefits of the medication have been explained in detail to the patient. The patient does understand the risk of dependence on the medication when given over a prolonged period. Patient has been advised of risks of oversedation with the prescribed medication. Narcan has been offered to the paitent in the event of oversedation. Patient has been advised that a family member should also be educated regarding administration of Narcan. The patient has been advised to consult with his/her primary care provider and pharmacist regarding drug-drug interaction of medications currently prescribed. Patient has been prescribed a controlled substance after being counseled on the medication, medication safety, and possible side effects. Opioid contract was reviewed and signed by the patient, and that they have agreed to all of the terms set forth by our compliance program. A UDS is needed to verify patient's compliance with our office pain contract. This is ordered based off specific treatments related to chronic pain with the potential to abuse certain medications. Patient has been instructed to contact the clinic with any concerns before the next appointment. Dr. Smith has reviewed this note and agrees with this plan of care. This note was dictated using voice recognition software and make contain errors or omissions.
== END 2024-08-12 23:59 | disposition home or self-care (01) ==
PROVIDERS: PCP Internal Medicine Adolescent Medicine; Visit Provider Nurse Practitioner Family
DX: M25.562 Pain in left knee (principal); G89.29 Other chronic pain; M51.16 Intervertebral disc disorders with radiculopathy, lumbar region; F17.210 Nicotine dependence, cigarettes, uncomplicated; Z79.01 Long term (current) use of anticoagulants
CPT/HCPCS: 99212; G0463

== ENCOUNTER 2024-09-10 13:43 | Outpatient (POV) | payer MEDICARE, SELFPAY ==
--- OUTSIDE RECORDS SUMMARY | 2024-09-10 13:45 | XMS_ITS | Data Portability ---
Author Organization [facility] Address [address] [facility] [address] [place] [address] Assessment Encounter Date Assessment Date Assessment LastModified by Organization Details LastModified Time 07/01/2016 07/01/2016 Mr. Tovar now has new right-sided pain. We will proceed with updating the MRI of his lumbar spine without contrast. The last MRI of his lumbar spine was performed September 01, 2015. I'll also obtain updated standing flexion/extensi on x-rays. He may need an orthopedic evaluation depending on the results of his lumbar MRI. His right hip MRI does state he may have tendinitis, consistent with greater trochanteric pain syndrome. I'll be in touch with Mr. Tovar after the MRI has been reviewed. 25 minutes spent discussing diagnosis and coordinating care. [email or web address] Not available 07/01/2016 11:04:43 Plan of Treatment Reminders Order Date Submit Date Provider Last Modified By Organization Details Last Modified Time Details Appointments None record ed. Lab None record ed. Referral None record ed. Procedures None record ed. Surgeries None record ed. Imaging None record ed. Medication Orders None record ed. Patient TargetsNo targets recorded. Patient InstructionsNo instructions recorded. Reason for Referral None Reported. Results Created Date Observation Date Name Description Value Unit Range Abnormal Flag Note LastModifiedBy Organization Detail LastModifiedTime 06/28/19 17 06/26/2016 exter nal recor ds No observ ation record ed. Psychiatric (Scheduling) [address], [place], [address], 07/01/2016 15:36:33 07/01/19 17 07/01/2016 MRI, lumba r spine , w/o contr ast [place] [facility] [address] [facility] [place] [address] Matt t Name: SUDARSHAN davis : [address] Matt davis 9 Orderi ng Provid er: CHRISTO Lezama LISA EXAM DATE: 2016 EXAM: MR LUMBAR W/O CONTRA ST HISTOR Y: 66-yea r-old male with low back pain radiat ing into the right hip and leg. COMPAR PIPER: Radiog raph of the same date FINDIN GS: The lumbar spine is normal in alignm ent. There is no sublux ation. There is no eviden ce of fractu re. There is modera te anteri or margin al osteop hytic spurri ng. No pathol ogic lesion is identi fied in the lumbar spine. There are multip le small Schmor l's nodes. The conus medull azam is normal in appear ance at the L1-L2 level. T10-T1 1 and T11-T1 2: There are minima l disc bulges . There is no centra l canal stenos is or neural forami nal stenos is. T12-L1 : This interv ertebr al disc is essent ially normal in appear ance. L1-L2: There is a mild disc bulge. There is [no centra l canal stenos is. There is no neural forami nal stenos is. L2-L3: There is mild endpla te spurri ng and promin ence of the disc adjace nt to the neural forami na. There is no centra l canal stenos is. There is mild left and minima l right neural forami nal stenos is. L3-L4: There is a broad- based disc protru yoav extend ing into the right neural forame n, and mild endpla te spurri ng. There is mild facet arthro osvaldo. There is minima l centra l canal stenos is. There is mild to modera te right and mild left neural forami nal stenos is. L4-L5: There is a broad- based disc protru yoav, mild endpla te spurri ng, and mild facet arthro osvaldo. There is no centra l canal stenos is. There is mild bilate ral neural forami nal stenos is. L5-S1: There is a broad- based disc protru yoav, mild endpla te spurri ng, and mild facet arthro osvaldo. There is no centra l canal stenos is. There is modera te left and mild right neural forami nal stenos is. IMPRES YOAV: 1. There are mild degene rative change s in the lumbar spine with modera te left and mild right neural forami nal narrow ing at L5-S1, mild/m oderat e right and mild left neural forami nal narrow ing at L3-L4, and mild neural forami nal narrow ing at L2-L3 and L4-L5. Interp reted By: Uziel jack MD Electr onical ly Signed By: Uziel jack MD on 017 2:[address] Radiology [address], [place], [address], 07/03/2016 13:37:08 07/01/19 17 07/01/2016 XR, lumbo sacra l spine , 2 or 3 view, bendi ng only [place] [address] [place] [address] Matt davis Name: SUDARSHAN davis : [address] davis 9 Orderi ng Provid er: CHRISTO GONZALEZ EXAM DATE: 2016 EXAM: XR LUMBAR SPINE FLEX/E XT ONLY CLINIC AL INFORM ATION: Back pain. IMAGES PROVID ED: Latera l views of the lumbar spine in flexio n and extens ion. COMPAR PIPER: None. FINDIN GS: Verteb ral body height s are normal . Multil evel disc space reduct ion is seen with anteri or and latera l osteop hytes. No abnorm ality of alignm ent is seen. No instab ility is seen on flexio n or extens ion. Degene rative change s are seen in the facet joints . No radiog raphic eviden ce of injury is noted. IMPRES YOAV: Degene rative change s of the lumbar spine. No instab ility. Interp reted By: Alberto Watson MD Electr onical ly Signed By: Alberto Watson MD on 017 2:41 PM [email or web address] [facility] [address], [address], 07/01/2016 17:00:44 Result Notes None recorded. Problems Name Problem SNOMED Code Status Onset Date Resolution Date Notes Provider Name and Address Organization Details Recorded Time Lumbosacr al radiculop athy 4323809 Active 2015 Provider: Som Smyth;Sta tus: Active Not Available [facility] 6 09:05:47 Intervert ebral disc prolapse 36563507 Active 2015 From Automated Load;Provi barry: Barbara Gonzalez;St atus: Active Not Available [facility] 6 09:05:47 Lumbar spondylos is 281130512 Active 2015 Provider: Som Smyth;Sta tus: Active Not Available [facility] 6 09:05:47 Spinal stenosis of lumbosacr al region 792973217 Active 2015 From Automated Load;Provi barry: Gibran Cortes;St atus: Active Not Available [facility] 7 02:34:38 Problem Notes None recorded. Procedures Surgical History Date Name Laterality Status Provider Name and Address Organization Details Recorded Time 07/25/19 17 Lumbar Transforaminal Epidural Steroid Injection completed SOM SMYTH MD [address] [place] [address], [address], [facility] 07/24/2016 08:41:03 Imaging Results Imaging Date Name Status LastModified by Organiz ation Details LastModified Time 06/26/2016 external records completed Psychiatric ([facility]) [address], [place], [address], 07/01/2016 15:36:33 07/01/2016 MRI, lumbar spine, w/o contrast completed [address], [address], 07/03/2016 13:37:08 07/01/2016 XR, lumbosacral spine, 2 or 3 view, bending only completed [email or web address] [facility] Radiology [facility] [address] [place], [address], 07/01/2016 17:00:44 Procedure Notes None recorded. Medical Equipment None Reported. Medications Name Sig Start Date Stop Date Status Note LastModified by Organization Details LastModified Time Flomax 0.4 mg capsule Daily active Duration: 30 days;Freq uency: daily;Med ication Descripti on: tamsulosi n; Dosage:1; Route:ora l; refills:0 Not Available Not Available Not Available Neurontin 300 mg capsule Three times a day 2015 active Instructi ons: 1TID;Freq uency: tid;Medic ation Descripti on: gabapenti n; Dosage:1; Route:ora l; refills:5 ; Quantity: 90 capsule Not Available Not Available Not Available Mobic 7.5 mg tablet Two times a day active Not Available Not Available No t Available Neurontin 600 mg tablet Three times a day 2015 active Duration: 30 days;Inst ructions: 1po tid;Frequ ency: tid;Medic ation Descripti on: gabapenti n; Dosage:1; Route:ora l; refills:5 ; Quantity: 90 tablet Not Available Not Available Not Available aspirin 81 mg tablet,del ayed release Daily active Duration: 30 days;Freq uency: daily;Med ication Descripti on: aspirin; Dosage:1; Route:ora l; refills:0 ; Quantity: 30 delayed release tablet Not Available Not Available Not Available Percocet 10 mg-325 mg tablet Every six hours active Duration: 10 days;Freq uency: q6h;Alt Frequency : prn;Medic ation Descripti on: acetamino phen-oxyc odone; Dosage:1; Route:ora l; refills:0 Not Available Not Available Not Available Neurontin 100 mg capsule As Directed 2015 active Instructi ons: Slow dose escalatio n calculato r given in office;Fr equency: as direct.;M edication Descripti on: gabapenti n; Dosage:1; Route:ora l; refills:2 ; Quantity: 159 capsule Not Available Not Available Not Available Cozaar 100 mg tablet Daily active Frequency : daily;Med ication Descripti on: losartan; Dosage:1; Route:ora l; refills:0 Not Available Not Available Not Available Capay 10 mg-325 mg tablet Take 1 tablet 4 times a day by oral route. 2016 active Not Available Not Available Not Avai lable metoprolol succinate ER 25 mg tablet,ext ended release 24 hr Two times a day active Frequency : bid;Medic ation Descripti on: metoprolo l; Dosage:1; Route:ora l; refills:0 Not Available Not Available Not Available Vitals Date Recorded Body height Body weight Body mass index (BMI) Systolic blood pressure Diastolic blood pressure Provider Name and Address Organization Details Last Updated DateTime 07/01/2016 182.88 cm 846433.2 1 g 31.9 kg/m2 132 mm[Hg] 80 mm[Hg] [facility] 7 10:01:01 Social History None recorded. Functional Status None recorded. Mental Status None recorded. Family History Nothing Reported. Medical History No medical history recorded. Past Encounters Encounter ID Performer Location Encounter Start Date Encounter Closed Date Diagnosis/Indication Diagnosis SNOMED-CT Code Diagnosis ICD10 Code Diagnosis Note [id number] BARBARA GONZALEZ MD [facility] [address] [place] [address] 07/01/2016 09:19:53 07/01/2016 10:33:13 Lumbar radiculopathy 561483612 M54.16 [id number] SOM SMYTH MD SURGERY SCHEDULE [address] [place] [address] 07/24/2016 07:31:26 07/24/2016 10:15:52 [id number] [facility] [place] [address] 08/15/2016 06:13:14 08/15/2016 06:13:14 Health Concerns Section Related Observation LastModified by Organization Detai ls LastModified Time None Recorded Concern Status LastModified by Organization Details LastModified Time None Recorded Advance Directives Directive None Recorded Payers Encounter Date Sequence Insurance Name Policy Number Policy Romeo Covered Member ID Romeo Member ID Guarantor Name 07/01/2016 1 [employer] (MEDICARE REPLACEMENT/A DVANTAGE - PPO) Giovanny Tovar [id number] Giovanny Tovar 07/24/2016 1 [employer] (MEDICARE REPLACEMENT/A DVANTAGE - PPO) Giovanny Tovar [id number] Giovanny Tovar Notes Date Note Type Note Provider Name and Address Organization Details Recorded Time 07/01/2016 text/html Mr. Tovar was s een in the past for a left L5 radiculopathy. He was able to get over this conservatively with a left L5-S1 injection with Dr. Smyth. Over the past 2 weeks he has begun having severe right-sided hip and leg pain down to the knee. The pain appears to be in an L4/5 distribution. He presents today with an MRI of his right hip which describes possible tendinitis. He denies any weakness. No loss of bowel or bladder control. BARBARA GONZALEZ MD [address] [place], [address], [facility] 07/01/2016 11:04:53
[2024-09-10 13:50] VITALS: BP 143/76; PULSE 70; RESP 16; O2SAT 99; BMI 29.8
--- NOTE | 2024-09-10 14:20 | A.OFFVIS_ITS ---
[facility] Disclaimer: The information contained in this section may have been updated after the patient was seen, as this information can be updated by other users. Medical History Aortic insufficiency Hyperlipidemia Hypertension Diabetes Claudication Abnormal computed tomography angiography (CTA) of abdomen Tobacco dependence syndrome Back pain Left leg pain Abnormal electrocardiography CAD (coronary artery disease) Surgical History History of colonoscopy Hx of CABG Family History Other No significant family history Social History Smoking Status: Current every day smoker tobacco type: cigarettes packs per day: 1 second hand exposure: No alcohol intake: never counseling provided: none substance use type: denies use current occupational status: other Travel in the last 8 weeks?: None household members: other housing: house current occupational exposures/hazards: No caffeine: Yes PM Subjective & Objective Subjective Subjective:: Patient is a pleasant 74-year-old male who presents today for medication refill. Today he rates his pain a 2 out of 10. He denies any new trauma or injury. He does state that he still has the chronic low back pain and left knee pain. Patient is currently managed with [place] 5 mg twice a day from our office. His Kale has been reviewed and is appropriate. Review of Systems: General: No recent weight changes, no fever, no sleep disturbances Respiratory: No cough, no shortness of air, no recurring pulmonary infections Cardiovascular/peripheral vascular: No chest pain, no palpitations, no edema, no shortness of breath Gastrointestinal: No new onset incontinence, normal bowel movements reported Genitourinary: No new onset incontinence Musculoskeletal: Low back pain, left knee pain Psychiatric: [Normal mood/affect] Neurological: [Denies weakness in extremities], [denies balance issues] Pain at rest (0-10 scale): 2 Objective Objective:: Physical Exam: General: Alert and oriented x3, no acute distress, pleasant and cooperative Lungs: Respirations even and unlabored, symmetrical chest expansion Eyes: PERRL Musculoskeletal: Flexion and extension of lumbar [spine] somewhat guarded secondary to pain, [antalgic gait noted] Neurological: Speech clear, no gross sensory deficit Has patient had previous pain injection?: No Conservative treatment options previously tried: Prescription medications Length of treatment: Longer than 12 weeks Meds Home Medications and Allergies Home Medications ?Medication ?Instructions ?Recorded ?Confirmed ?Type atorvastatin 40 mg tablet 40 mg PO DAILY High cholesterol 08/15/17 09/10/24 History tamsulosin 0.4 mg capsule 0.4 mg PO DAILY URINATION ISSUES 08/15/17 09/10/24 History aspirin 81 mg chewable tablet 81 mg PO DAILY heart health 09/08/20 09/10/24 History ferric maltol 30 mg capsule 30 mg PO BID 03/18/23 09/10/24 History (Accrufer) rivaroxaban 2.5 mg tablet (Xarelto) 2.5 mg PO BID Blood Thinner #180 03/18/23 09/10/24 Rx tabs losartan 100 mg tablet 100 mg PO DAILY 07/16/23 09/10/24 History pantoprazole 40 mg tablet,delayed 40 mg PO DAILY GERD #90 tabs 03/11/24 09/10/24 Rx release hydrocortisone acetate 25 mg 25 mg OR HS PRN hemorrhoids 1 06/08/24 09/10/24 Rx rectal suppository (Anusol-HC) month #12 ea methylcellulose (with sugar) oral 1 tbsp PO DAILY 06/08/24 09/10/24 History powder (Citrucel (sucrose) oral powder) metoprolol succinate 50 mg 50 mg PO ONCE 06/08/24 09/10/24 History tablet,extended release 24 hr hydrocodone 5 mg-acetaminophen 325 1 tab PO TID PRN pain #90 tabs 08/12/24 09/10/24 Rx mg tablet New Prescriptions to Start Prescriptions: Allergies Allergy/AdvReac Type Severity Reaction Status Date / Time No Known Allergies Allergy Verified 07/29/24 13:06 Assessment and Plan *Assessment and plan (1) Degenerative joint disease of left knee: Status: Acute Category: Medical Code(s): M17.12 - Unilateral primary osteoarthritis, left knee (2) Degenerative disc disease, lumbar: Status: Acute Category: Medical Code(s): M51.369 - Other intervertebral disc degeneration, lumbar region without mention of lumbar back pain or lower extremity pain Plan I will refill his [place] and provide a 1 month supply of this medication. Patient will return to clinic in 1 month. Risks and benefits of the medication have been explained in detail to the patient. The patient does understand the risk of dependence on the medication when given over a prolonged period. Patient has been advised of risks of oversedation with the prescribed medication. Narcan has been offered to the paitent in the event of oversedation. Patient has been advised that a family member should also be educated regarding administration of Narcan. The patient has been advised to consult with his/her primary care provider and pharmacist regarding drug-drug interaction of medications currently prescribed. Patient has been prescribed a controlled substance after being counseled on the medication, medication safety, and possible side effects. Opioid contract was reviewed and signed by the patient, and that they have agreed to all of the terms set forth by our compliance program. A UDS is needed to verify patient's compliance with our office pain contract. This is ordered based off specific treatments related to chronic pain with the potential to abuse certain medications. Patient has been instructed to contact the clinic with any concerns before the next appointment. Dr. Smith has reviewed this note and agrees with this plan of care. This note was dictated using voice recognition software and make contain errors or omissions.
== END 2024-09-10 23:59 | disposition home or self-care (01) ==
PROVIDERS: PCP Internal Medicine Adolescent Medicine; Visit Provider Nurse Practitioner Family
DX: Z79.891 Long term (current) use of opiate analgesic (principal); M17.12 Unilateral primary osteoarthritis, left knee; M51.369 Other intervertebral disc degeneration, lumbar region without mention of lumbar back pain or lower extremity pain; F17.210 Nicotine dependence, cigarettes, uncomplicated; Z79.01 Long term (current) use of anticoagulants
CPT/HCPCS: 99212; G0463

== ENCOUNTER 2024-10-12 14:11 | Outpatient (POV) | payer MEDICARE, SELFPAY ==
[2024-10-12 14:25] VITALS: BP 129/72; PULSE 68; RESP 14; O2SAT 97; BMI 29.8
--- NOTE | 2024-10-12 14:31 | EXP.PAIN.SOA ---
[facility] Disclaimer: The information contained in this section may have been updated after the patient was seen, as this information can be updated by other users. Medical History Aortic insufficiency Hyperlipidemia Hypertension Diabetes Claudication Abnormal computed tomography angiography (CTA) of abdomen Tobacco dependence syndrome Back pain Left leg pain Abnormal electrocardiography CAD (coronary artery disease) Surgical History History of colonoscopy Hx of CABG Family History Other No significant family history Social History Smoking Status: Current every day smoker tobacco type: cigarettes packs per day: 1 second hand exposure: No alcohol intake: never counseling provided: none substance use type: denies use current occupational status: other Travel in the last 8 weeks?: None household members: other housing: house current occupational exposures/hazards: No caffeine: Yes PM Subjective & Objective Subjective Subjective:: Patient is a pleasant 74-year-old male who presents today for medication refill and follow-up. Today he rates his pain a 4 out of 10. He denies any new injuries from our last appointment. He states he is just having still the chronic low back pain and his left knee. He does state it has been a little worse here lately and he did get an injection recently however felt like this when they have not done as well. Patient is prescribed [place] 5 mg 3 times a day from our office. He denies any side effects. His Kale has been reviewed and is appropriate. Review of Systems: General: No recent weight changes, no fever, no sleep disturbances Respiratory: No cough, no shortness of air, no recurring pulmonary infections Cardiovascular/peripheral vascular: No chest pain, no palpitations, no edema, no shortness of breath Gastrointestinal: No new onset incontinence, normal bowel movements reported Genitourinary: No new onset incontinence Musculoskeletal: Low back pain, left knee pain Psychiatric: [Normal mood/affect] Neurological: [Denies weakness in extremities], [denies balance issues] Pain at rest (0-10 scale): 4 Objective Objective:: Physical Exam: General: Alert and oriented x3, no acute distress, pleasant and cooperative Lungs: Respirations even and unlabored, symmetrical chest expansion Eyes: PERRL Musculoskeletal: Flexion and extension of lumbar [spine] somewhat guarded secondary to pain, [antalgic gait noted] Neurological: Speech clear, no gross sensory deficit Has patient had previous pain injection?: No Conservative treatment options previously tried: Prescription medications Length of treatment: Longer than 12 weeks Meds Home Medications and Allergies Home Medications ?Medication ?Instructions ?Recorded ?Confirmed ?Type atorvastatin 40 mg tablet 40 mg PO DAILY High cholesterol 08/15/17 09/30/24 History tamsulosin 0.4 mg capsule 0.4 mg PO DAILY URINATION ISSUES 08/15/17 09/30/24 History aspirin 81 mg chewable tablet 81 mg PO DAILY heart health 09/08/20 09/30/24 History ferric maltol 30 mg capsule 30 mg PO BID 03/18/23 09/30/24 History (Accrufer) rivaroxaban 2.5 mg tablet (Xarelto) 2.5 mg PO BID Blood Thinner #180 03/18/23 09/30/24 Rx tabs losartan 100 mg tablet 100 mg PO DAILY 07/16/23 09/30/24 History pantoprazole 40 mg tablet,delayed 40 mg PO DAILY GERD #90 tabs 03/11/24 09/30/24 Rx release hydrocortisone acetate 25 mg 25 mg FL HS PRN hemorrhoids 1 06/08/24 09/30/24 Rx rectal suppository (Anusol-HC) month #12 ea methylcellulose (with sugar) oral 1 tbsp PO DAILY 06/08/24 09/30/24 History powder (Citrucel (sucrose) oral powder) metoprolol succinate 50 mg 50 mg PO ONCE 06/08/24 09/30/24 History tablet,extended release 24 hr hydrocodone 5 mg-acetaminophen 325 1 tab PO TID PRN pain #90 tabs 10/12/24 Rx mg tablet methocarbamol 750 mg tablet 750 mg PO TID #42 tabs 10/12/24 Rx New Prescriptions to Start Prescriptions: hydrocodone-acetaminophen Gomez,Fabiola A methocarbamol Gomez,Fabiola A Allergies Allergy/AdvReac Type Severity Reaction Status Date / Time No Known Allergies Allergy Verified 09/30/24 13:13 Assessment and Plan *Assessment and plan (1) Degenerative joint disease of left knee: Status: Acute Category: Medical Code(s): M17.12 - Unilateral primary osteoarthritis, left knee (2) Lumbar radiculopathy: Status: Acute Category: Medical Code(s): M54.16 - Radiculopathy, lumbar region (3) Degenerative disc disease, lumbar: Status: Acute Category: Medical Code(s): M51.369 - Other intervertebral disc degeneration, lumbar region without mention of lumbar back pain or lower extremity pain Plan I will refill the patient's [place] and provide a 1 month supply of this medication. I will also send in a prescription of methocarbamol 750 mg 3 times daily as needed. Patient will return to clinic in 1 month for reevaluation of symptoms and plan of care. Risks and benefits of the medication have been explained in detail to the patient. The patient does understand the risk of dependence on the medication when given over a prolonged period. Patient has been advised of risks of oversedation with the prescribed medication. Narcan has been offered to the paitent in the event of oversedation. Patient has been advised that a family member should also be educated regarding administration of Narcan. The patient has been advised to consult with his/her primary care provider and pharmacist regarding drug-drug interaction of medications currently prescribed. Patient has been prescribed a controlled substance after being counseled on the medication, medication safety, and possible side effects. Opioid contract was reviewed and signed by the patient, and that they have agreed to all of the terms set forth by our compliance program. A UDS is needed to verify patient's compliance with our office pain contract. This is ordered based off specific treatments related to chronic pain with the potential to abuse certain medications. Patient has been instructed to contact the clinic with any concerns before the next appointment. Dr. Smith has reviewed this note and agrees with this plan of care. This note was dictated using voice recognition software and make contain errors or omissions.
== END 2024-10-12 23:59 | disposition home or self-care (01) ==
PROVIDERS: PCP Internal Medicine Adolescent Medicine; Visit Provider Nurse Practitioner Family
DX: M17.12 Unilateral primary osteoarthritis, left knee (principal); M51.16 Intervertebral disc disorders with radiculopathy, lumbar region; Z79.891 Long term (current) use of opiate analgesic
CPT/HCPCS: 99212; G0463

== ENCOUNTER 2024-11-15 14:12 | Outpatient (POV) | payer MEDICARE, SELFPAY ==
--- OUTSIDE RECORDS SUMMARY | 2024-08-14 17:30 | XMS_ITS ---
Author Organization [facility] Address [address] [facility] [address] [facility] [address] [place] [address] Care Team Providers Care Mobile Home Installer Name Role Phone Angelita Reynolds Primary Care Provider [phone] ANGELITA Reynolds APRN Unavailable Unavailable Migration, Provider Unavailable Unavailable REASON FOR VISIT [facility] Conversion Encounter Medications Medication SIG (Take, Route, Frequency, Duration) Notes Start Date End Date Status Xarelto 2.5 MG 1 tab(s) orally 2 times a day Active Furosemide 20 MG 1 tab(s) orally once a day; Duration: 90 days 11/25/2023 Active Losartan Potassium 100 MG 1 tab(s) orally once a day; Duration: 90 days Active Atorvastatin Calcium 40 MG 1 tab(s) orally once a day; Duration: 90 days Active Pantoprazole Sodium 40 MG 1 tab(s) orally once a day; Duration: 90 days 01/16/2023 Active Ferrous Sulfate ( ELEMENTAL IRON) 45 MG 1 TAB(S) ORALLY ONCE A DAY 65 mg *Please review and pick correct strength-formulatio n from Voxify options. If intended option is not shown, discontinue and re-order from Quick Search* Active HYDROcodone-Acetamino phen 5-325 MG 1 tab(s) orally twice a day per pain management Active Metoprolol Succinate ER 50 MG 1 TAB ORALLY ONCE A DAY; Duration: 90 DAYS *Please review and pick correct strength-formulatio n from MailPixan options. If intended option is not shown, discontinue and re-order from Quick Search* Active Tamsulosin HCl 0.4 MG 2 cap(s) orally once a day at bedtime; Duration: 90 days Active Encounters Encounter Location Date Provider Diagnosis [facility] [address] [place] [address] 08/14/2024 Provider Migration Essential hypertension I10 Assessments Encounter Date Diagnosis (ICD Code) Assessment Notes Treatment Notes Treatment Clinical Notes Section Notes 08/14/2024 Essential hypertension (ICD-10 - I10) Plan Of Treatment Medication Medication Name Sig Start Date Stop Date Notes Losartan Potassium 100 MG 1 tab(s) orally once a day; Duration: 90 days Metoprolol Succinate ER 50 MG 1 TAB ORALLY ONCE A DAY; Duration: 90 DAYS *Please review and p ick correct strength-formulation from Medispan options. If intended option is not shown, discontinue and re-order from Quick Search* Tamsulosin HCl 0.4 MG 2 cap(s) orally once a day at bedtime; Duration: 90 days Next Appt Details Provider Name:Shaunna Ernesto Delarosa , 04/04/2025 02:00:00 PM, [address], [address], [place], [address], Progress Notes * Giovanny EASLEYDOB: 0 (74 yo M)Acc No.[id number]:08/14/2024 Patient: Giovanny WHEATLEY Provider: Leno Clark :1950 A ge:74 Y S ex:Male Date:08/14/2024 Address:[address] [place], [place] [id number] Pcp:Angelita Reynolds Subjective: * Chief Complaints: * 1 . Multum To Medispan Conversion Encounter. * Medical History: * Medications: T aking Ferrous Sulfate ( ELEMENTAL IRON) 45 MG TABLET, EXTENDED RELEASE 1 TAB(S) ORALLY ONCE A DAY , Notes to Pharmacist: 65 mg *Please review and pick correct strength-formulation from Medispan options. If intended option is not shown, discontinue and re-order from Quick Search*, Taking HYDROcodone-Acetaminophen 5- 325 MG Tablet 1 tab(s) orally twice a day per pain management , Taking Xarelto 2.5 MG Tablet 1 tab(s) orally 2 times a day , Taking Atorvastatin Calcium 40 MG Tablet 1 tab(s) orally once a day , Taking Furosemide 20 MG Tablet 1 tab(s) orally once a day , Taking Pantoprazole Sodium 40 MG Tablet Delayed Release 1 tab(s) orally once a day Objective: * Vitals: Assessment: * Assessment: 1. E ssential hypertension - I10 Plan: * Treatment: 2. O thers Refill Losartan Potassium Tablet, 100 MG, 1 tab(s), orally, once a day, 90 days, 90 Tablet, Refills 1; R efill Tamsulosin HCl Capsule, 0.4 MG, 2 cap(s), orally, once a day at bedtime, 90 days, 180, Refills 1. * * Electronic signature of Prov ider Migration on 11/15/2024 at 02:16 PM EDT Sign off status: Pending * Provider: Leno sprague Migration Date: 0 08/14/2024 Generated for Viridiana fox/Joey/Radha on: 0 11/15/2024 02:16 PM EDT
--- OUTSIDE RECORDS SUMMARY | 2024-09-30 10:00 | XMS_ITS ---
Author Organization [facility] Address [address] [facility] [address] [facility] [address] [place] [address] Care Team Providers Care Operating Room Manager Name Role Phone Elizabeth Reynolds Primary Care Provider ELIZABETH Reynolds APRN Unavailable Unavailable Shaunna Antoine Unavailable [phone] Allergies No Known Allergies Results Component Value Reference Range Notes LIPID PANEL, STANDARD (7600) Reviewed date:10/06/2024 09:58:52 AM Interpretation: Performing Lab:CB, [facility] [id number] [facility]teB[facility], [facility] CenterToowSV[address] Zachary Servin Notes/Report: NON-FASTING; NON-FASTING; NON-FASTING; NON-FASTING; NON-FAST CHOLESTEROL, TOTAL 115 <200 mg/dL HDL CHOLESTEROL 43 > OR = 40 mg/dL TRIGLYCERIDES 140 <150 mg/dL LDL-CHOLESTEROL 50 Reference range: <100 Desirable range <100 mg/dL for primary prevention; <70 mg/dL for patients with CHD or diabetic patients with > or = 2 CHD risk factors. LDL-C is now calculated using the Milagro calculation, which is a validated novel method providing better accuracy than the Friedewald equation in the estimation of LDL-C. Kenny READ et al. ALEJANDRA. 2013;310(19): 1004-0304 (http://education.AllDigital.com/faq/KBS596) CHOL/HDLC RATIO 2.7 <5.0 (calc) NON HDL CHOLESTEROL 72 <130 mg/dL (calc) For patients with diabetes plus 1 major ASCVD risk factor, treating to a non-HDL-C goal of <100 mg/dL (LDL-C of <70 mg/dL) is considered a therapeutic option. COMPREHENSIVE METABOLIC PANDamien Orozco ([id number]) Reviewed date:10/06/2024 09:58:52 AM Interpretation: Performing Lab:[facility] [id number] [employer]el [facility], [facility] CenterCtabNE[address] Zachary Servin Notes/Report: NON-FASTING; NON-FASTING; NON-FASTING; NON-FASTING; NON-FAST GLUCOSE 72 65-99 mg/dL Fasting reference interval UREA NITROGEN (BUN) 18 7-25 mg/dL CREATININE 1.04 0.70-1.28 mg/dL EGFR 75 > OR = 60 mL/min/1.73m2 BUN/CREATININE RATIO SEE NOTE: 6-22 (calc) Not Reported: BUN and Creatinine are within reference range. SODIUM 142 135-146 mmol/L POTASSIUM 4.4 3.5-5.3 mmol/L CHLORIDE 108 98-110 mmol/L CARBON DIOXIDE 29 20-32 mmol/L CALCIUM 9.2 8.6-10.3 mg/dL PROTEIN, TOTAL 6.3 6.1-8.1 g/dL ALBUMIN 4.1 3.6-5.1 g/dL GLOBULIN 2.2 1.9-3.7 g/dL (calc) ALBUMIN/GLOBULIN RATIO 1.9 1.0-2.5 (calc) BILIRUBIN, TOTAL 1.6 0.2-1.2 mg/dL ALKALINE PHOSPHATASE 110 35-144 U/L AST 28 10-35 U/L ALT 40 9-46 U/L CBC (INCLUDES DIFF/PLT) (639 9) Reviewed date:10/06/2024 09:58:53 AM Interpretation: Performing Lab:[facility] [id number] [employer] [facility], [facility] CenterXtzfOV[address] Zachary Servin Notes/Report: NON-FASTING; NON-FASTING; NON-FASTING; NON-FASTING; NON-FAST WHITE BLOOD CELL COUNT 8.2 3.8-10.8 Thousand/ uL RED BLOOD CELL COUNT 5.21 4.20-5.80 Million/uL HEMOGLOBIN 16.2 13.2-17.1 g/dL HEMATOCRIT 49.4 38.5-50.0 % MCV 94.8 80.0-100.0 fL MCH 31.1 27.0-33.0 pg MCHC 32.8 32.0-36.0 g/dL For adults, a slight decrease in the calculated MCHC value (in the range of 30 to 32 g/dL) is most likely not clinically significant; however, it should be interpreted with caution in correlation with other red cell parameters and the patient's clinical condition. RDW 13.4 11.0-15.0 % PLATELET COUNT 209 140-400 Thousand/uL MPV 11.4 7.5-12.5 fL ABSOLUTE NEUTROPHILS 6027 [id number] cells/uL ABSOLUTE LYMPHOCYTES [phone] cells/uL ABSOLUTE MONOCYTES 656 200-950 cells/uL ABSOLUTE EOSINOPHILS 90 15-500 cells/uL ABSOLUTE BASOPHILS 57 0-200 cells/uL NEUTROPHILS 73.5 LYMPHOCYTES 16.7 MONOCYTES 8.0 EOSINOPHILS 1.1 BASOPHILS 0.7 HEMOGLOBIN A1c (496) Reviewed date:10/06/2024 09:58:53 AM Interpretation: Performing Lab:[facility] [id number] [facility], [place] TpmnSV[address] Zachary Servin Notes/Report: NON-FASTING; NON-FASTING; NON-FASTING; NON-FASTING; NON-FAST HEMOGLOBIN A1c 6.4 <5.7 % For someone without known diabetes, a hemoglobin A1c value between 5.7% and 6.4% is consistent with prediabetes and should be confirmed with a follow-up test. For someone with known diabetes, a value <7% indicates that their diabetes is well controlled. A1c targets should be individualized based on duration of diabetes, age, comorbid conditions, and other considerations. This assay result is consistent with an increased risk of diabetes. Currently, no consensus exists regarding use of hemoglobin A1c for diagnosis of diabetes for children. FERRITIN (457) Reviewed date:10/06/2024 09:58:53 AM Interpretation: Performing Lab:[facility] Systemse[address] [facility] [place] [id number] Zachary Servin Notes/Report: NON-FASTING; NON-FASTING; NON-FASTING; NON-FASTING; NON-FAST FERRITIN 93 24-380 ng/mL REASON FOR VISIT 3 Month follow up Medications Medication SIG (Take, Route, Frequency, Duration) Notes Start Date End Date Status Aspirin 81 MG 1 tablet Orally Once a day Active Ferrous Sulfate ( ELEMENTAL IRON) 45 MG 1 TAB(S) ORALLY ONCE A DAY 65 mg *Please review and pick correct strength-formulatio n from [employer] options. If intended option is not shown, discontinue and re-order from Quick Search* Active Metoprolol Succinate ER 50 MG 1 tablet Orally Once a day; Duration: 90 days 09/30/2024 Active HYDROcodone-Acetamino phen 5-325 MG 1 tab(s) orally twice a day per pain management Active Atorvastatin Calcium 40 MG 1 tab(s) orally once a day; Duration: 90 days Active Losartan Potassium 100 MG 1 tab(s) orally once a day; Duration: 90 days Active Tamsulosin HCl 0.4 MG 2 cap(s) orally once a day at bedtime; Duration: 90 days Active Pantoprazole Sodium 40 MG 1 tab(s) orally once a day; Duration: 90 days 01/16/2023 Active Furosemide 20 MG 1 tab(s) orally once a day; Duration: 90 days 11/25/2023 Active Social History Tobacco Use: Social History Observation Description Date Details (start date - stop date) Current Smoker NA - NA Smoking: Question Answer Notes Are you a: current smoker How often do you smoke cigarettes? every day How many cigarettes a day do you smoke? 11-20 How soon after you wake up d o you smoke your first cigarette? after 60 min Are you interested in quitting? Ready to quit Additional Findings: Tobacco User Heavy cigarett e smoker (20-39 cigs/day) Problems Problem Type SNOMED Code ICD Code Onset Dates Problem Status W/U Status Risk Notes Problem Iron deficiency anemia due to chronic blood loss (439932860) Iron deficiency anemia due to chronic blood loss (D50.0) Active confirmed Vital Signs Temperature 97.7 degrees Fahrenheit 10/01/19 25 Blood pressure systolic 130 mm Hg 10/01/19 25 Blood pressure diastolic 78 mm Hg 025 Heart Rate 80 /min 09/30/2024 Height 6 ft 0 in in 09/30/2024 Weight 244.4 lbs 09/30/2024 BMI 33.14 kg/m2 09/30/2024 Encounters Encounter Location Date Provider Diagnosis [facility] [address] [place] [address] 09/30/2024 Shaunna Elina PVD (peripheral vascular disease) I73.9 ; Coronary artery disease involving klawock coronary artery of klawock heart without angina pectoris I25.10 ; Tobacco use disorder F17.200 ; Prediabetes R73.03 ; Essential hypertension I10 ; Mixed hyperlipidemia E78.2 ; Lymphedema I89.0 ; Degeneration of intervertebral disc of lumbar region with discogenic back pain M51.360 and Iron deficiency anemia due to chronic blood loss D50.0 Assessments Encounter Date Diagnosis (ICD Code) Assessment Notes Treatment Notes Treatment Clinical Notes Section Notes 09/30/2024 PVD (peripheral vascular disease) (ICD-10 - I73.9) Stable. Risk factor modification- stop smoking. Maximize blood pressure, glucose and LDL control can use betadine topically for denuded blisters and aquaphor otherwise to help protect the skin 09/30/2024 Coronary artery disease involving klawock coronary artery of klawock heart without angina pectoris (ICD-10 - I25.10) Stable, no acute angina. Blood pressure at goal today. Keep FU with Dr. Plunkett 09/30/2024 Tobacco use disorder (ICD-10 - F17.200) Smoking cessation counseling provided. 09/30/2024 Prediabetes (ICD-10 - R73.03) Diabetic diet, weight loss 09/30/2024 Essential hypertension (ICD-10 - I10) Blood pressure at goal 09/30/2024 Mixed hyperlipidemia (ICD-10 - E78.2) Tolerating statin well. LDL with good control 09/30/2024 Lymphedema (ICD-10 - I89.0) Continue lymphedema pumps at home. 09/30/2024 Degeneration of intervertebral disc of lumbar region with discogenic back pain (ICD-10 - M51.360) At baseline on [place]. Keep FU with pain management 09/30/2024 Iron deficiency anemia due to chronic blood loss (ICD-10 - D50.0) Plan Of Treatment Medication Medication Name Sig Start Date Stop Date Notes Metoprolol Succinate ER 50 MG 1 tablet Orally Once a day; Duration: 90 days 09/30/2024 Metoprolol Succinate ER 50 MG 1 TAB ORALLY ONCE A DAY; Duration: 90 days *Please review and p ick correct strength-formulation from [employer] options. If intended option is not shown, discontinue and re-order from Quick Search* Treatment Notes Assessment Notes PVD (peripheral vascular disease) Stable. Risk factor modification- stop smoking. Maximize blood pressure, glucose and LDL control can use betadine topically for denuded blisters and aquaphor otherwise to help protect the skin Coronary artery disease invo lving klawock coronary artery of klawock heart without angina pectoris Stable, no acute angina. Blood pressure at goal today. Keep FU with Dr. Plunkett Tobacco use disorder Smoking cessation c ounseling provided. Prediabetes Diabetic diet, weigh t loss Essential hypertension Blood pressure at goal Mixed hyperlipidemia Tolerating statin w ell. LDL with good control Lymphedema Continue lymphedema pumps at home. Degeneration of intervertebr al disc of lumbar region with discogenic back pain At baseline on [place]. Keep FU with pain management Next Appt Details Follow Up: 6 Months, Reason: Provider Name:Shaunna Delarosa ce, 04/04/2025 02:00:00 PM, [address] [facility] [address], [address], [place], [address], Progress Notes * Giovanny TOVARDOB: 0 (74 yo M)Acc No.[id number]:09/30/2024 Progress Notes Patient: Giovanny WHEATLEY Provider: TORITO Sorensen :1950 A ge:74 Y S ex:Male Date:09/30/2024 Address:[address] [place], [place] [id number] Pcp:Elizabeth Reynolds Subjective: * Chief Complaints: * 1 . 3 Month follow up. * HPI: g en: 74-year-old male presents for follow-up on chronic conditions. Tolerating medications well. Reports blood pressure home log mostly 120-140/80's. Denies chest pain, shortness of breath or dizziness. Tolerating statin well with no myalgias. Lower extremity l ymphedema continues to be improved with use of compression and intermittently with use of pumps at home. He have a small blister recently on the anterior aspect right lower leg, ruptued now, questioning how to try this... He also reports that he stopped xarelto due to cost - was taking this for PAD. Has routine FU with cardiology and plans to discuss this with them. * ROS: F UNCTIONAL STATUS: ADLS I ndependent for all ADL/IADL. R ESPIRATORY: Reviewed, No Symptoms Reported: Y ellen. C ARDIOLOGY: Reviewed, No Symptoms Reported: Y ellen. C ONSTITUTIONAL: Reviewed, No Symptoms Reported: Y ellen. E NT: Reviewed, No Symptoms Reported: Y ellen. G ASTROENTEROLOGY: no V omiting. n o D iarrhea. n o C onstipation. M USCULOSKELETAL: back pain y es, a t baseline, follows with pain management. N EUROLOGY: no H eadache. n o T ingling numbness. ? P SYCHOLOGY: no D epression. n o A nxiety. U ROLOGY: Reviewed, No Symptoms Reported: Shay hughes. * Medical History: H [place], Hyperlipidemia, Prostate issues, PVD/PAD, Tobacco use, Lymphedema, Iron Def. Anemia. * Surgical History: t riple bypass surgery 2012, sinus surgery 1992, decompression on nerve in back 02/2023. * Hospitalization/Major Diagno stic Procedure: t riple bypass surgery 2012. * Family History: F ather: , diagnosed with Heart Disease. M other: . P aternal Grand Father: . P aternal Grand Mother: . M aternal Grand Father: . M aternal Grand Mother: . P aternal uncle: . P aternal aunt: . M aternal uncle: . M aternal aunt: . S iblings: alive. C hildren: alive. 1 brother(s) - healthy. 1 daughter(s) - healthy. . * Social History: S moking A re you a: c urrent smoker, H ow often do you smoke cigarettes? e very day, H ow many cigarettes a day do you smoke? 1 1-20, H ow soon after you wake up do you smoke your first cigarette? a fter 60 min, A re you interested in quitting? R moncho to quit, A dditional Findings: Tobacco User H eavy cigarette smoker (20-39 cigs/day). R ecreational drug use: no. Exercise: no. Home smoke detector use: yes. Caffeine: yes, frequency: coffee daily. Living Will: No. Alcohol: no. Sexually active: no. Travel outside [place]: no. Occupation: Retired. * Medications: T aking Aspirin 81 MG Tablet Delayed Release 1 tablet Orally Once a day , Taking Ferrous Sulfate ( ELEMENTAL IRON) 45 MG TABLET, EXTENDED RELEASE 1 TAB(S) ORALLY ONCE A DAY , Notes to Pharmacist: 65 mg *Please review and pick correct strength-formulation from [employer] options. If intended option is not shown, discontinue and re-order from Quick Search*, Taking HYDROcodone-Acetaminophen 5- 325 MG Tablet 1 tab(s) orally twice a day per pain management , Taking Atorvastatin Calcium 40 MG Tablet 1 tab(s) orally once a day , Taking Furosemide 20 MG Tablet 1 tab(s) orally once a day , Taking Pantoprazole Sodium 40 MG Tablet Delayed Release 1 tab(s) orally once a day , Taking Losartan Potassium 100 MG Tablet 1 tab(s) orally once a day , Taking Metoprolol Succinate ER 50 MG CAPSULE, EXTENDED RELEASE 1 TAB ORALLY ONCE A DAY , Notes to Pharmacist: *Please review and pick correct strength-formulation from [employer] options. If intended option is not shown, discontinue and re-order from Quick Search*, Taking Tamsulosin HCl 0.4 MG Capsule 2 cap(s) orally once a day at bedtime , Discontinued Xarelto 2.5 MG Tablet 1 tab(s) orally 2 times a day , Medication List reviewed and reconciled with the patient * Allergies: N .K.D.A. Objective: * Vitals: N urse: KJ, Pain: 2, Temp: 97.7, RR: 20, HR: 80, BP: 130/78, Ht: 6 ft 0 in, Wt: 244.4, BMI:33.14. * Examination: G eneral Examination: General P leasant and Cooperative, NAD on RA,. Chest: n ormal shape and expansion. Heart: R egular Rate and Rhythm,. Lungs: c lear to auscultation, . Abdomen: S oft, NTND, BSNA, No organomegaly or peritoneal signs.. Skin: w ithout acute rashes but chronic erythema of his lower extremities with a denuded blister, serous drainage. Extremities: c hronic discoloration of lower legs, 1+ BLE edema, left foot exam unremarkable. neck s upple,, no thyromegaly,, no lymphadenopathy,. Psych N ormal Mood/Affect. Assessment: * Assessment: 1. P VD (peripheral vascular disease) - I73.9 (Primary) 2 . C oronary artery disease involving klawock coronary artery of klawock heart without angina pectoris - I25.10 ? 3 . T obacco use disorder - F17.200 4 . P rediabetes - R73.03 & #160; 5 . E ssential hypertension - I10 6 . M ixed hyperlipidemia - E78.2 7 . L ymphedema - I89.0 8 . D egeneration of intervertebral disc of lumbar region with discogenic back pain - M51.360 9 . I sejal deficiency anemia due to chronic blood loss - D50.0 Plan: * Treatment: Value Reference Range T RIGLYCERIDES 140 <150 - mg/dL * C HOLESTEROL, TOTAL 115 <200 - mg/dL * H DL CHOLESTEROL 43 > OR = 40 - mg/dL * L DL-CHOLESTEROL 50 - mg/dL (calc) * C HOL/HDLC RATIO 2.7 <5.0 - (calc) * N ON HDL CHOLESTEROL 72 <130 - mg/dL (calc) * Preethi Watkins 10/06/2024 09:58:44 AM EDT > Patient awareThis lab was reviewed by Preethi Watkins on 10/06/2024 at 09:58 AM EDT ?LAB: COMPREHENSIVE METABOLIC PANEL (64890) (Collection Date & Time - 09/30/2024 02:27 PM)* Value Reference Range G LUCOSE 72 65-99 - mg/dL * U BRUNO NITROGEN (BUN) 18 7-25 - mg/dL * C REATININE 1.04 0.70-1.28 - mg/dL * B UN/CREATININE RATIO SEE NOTE: 6 - (calc) * S ODIUM 142 135-146 - mmol/L * P OTASSIUM 4.4 3.5-5.3 - mmol/L * C HLORIDE 108 98-110 - mmol/L * C ARBON DIOXIDE 29 20-32 - mmol/L * C ALCIUM 9.2 8.6-10.3 - mg/dL * P ROTEIN, TOTAL 6.3 6.1-8.1 - g/dL * A LBUMIN 4.1 3.6-5.1 - g/dL * G LOBULIN 2.2 1.9-3.7 - g/dL (calc ) * A LBUMIN/GLOBULIN RATIO 1.9 1.0-2.5 - (calc) * B ILIRUBIN, TOTAL 1.6 H 0.2-1.2 - mg/dL * A LKALINE PHOSPHATASE 110 35-144 - U/L * A ST 28 10-35 - U/L * A LT 40 9-46 - U/L * E GFR 75 > OR = 60 - mL/min/1 .73m2 * Preethi Watkins 10/06/2024 09:58:44 AM EDT > Patient awareThis lab was reviewed by Preethi Watkins on 10/06/2024 at 09:58 AM EDT ?LAB: CBC (INCLUDES DIFF/PLT) (8127) (Collection Date & Time - 09/30/2024 02:27 PM)* Value Reference Range W ANTONIO BLOOD CELL COUNT 8.2 3.8-10.8 - Thousan d/uL * R ED BLOOD CELL COUNT 5.21 4.20-5.80 - Million/ uL * H EMOGLOBIN 16.2 13.2-17.1 - g/dL * H EMATOCRIT 49.4 38.5-50.0 - % * M CV 94.8 80.0-100.0 - fL * M CH 31.1 27.0-33.0 - pg * M CHC 32.8 32.0-36.0 - g/dL * R DW 13.4 11.0-15.0 - % * P LATELET COUNT 209 140-400 - Thousand/u L * N EUTROPHILS 73.5 - % * A BSOLUTE NEUTROPHILS [id number] - cells/uL * L YMPHOCYTES 16.7 - % * A BSOLUTE LYMPHOCYTES [phone] - cells/uL * M ONOCYTES 8.0 - % * A BSOLUTE MONOCYTES 656 200-950 - cells/uL * E OSINOPHILS 1.1 - % * A BSOLUTE EOSINOPHILS 90 15-500 - cells/uL * B ASOPHILS 0.7 - % * A BSOLUTE BASOPHILS 57 0-200 - cells/uL * M PV 11.4 7.5-12.5 - fL * Preethi Watkins 10/06/2024 09:58:44 AM EDT > Patient awareThis lab was reviewed by Preethi Watkins on 10/06/2024 at 09:58 AM EDT ?LAB: HEMOGLOBIN A1c (496) (Collection Date & Time - 09/30/2024 02:27 PM)* Value Reference Range H EMOGLOBIN A1c 6.4 H <5.7 - % * Preethi Watkins 10/06/2024 09:58:44 AM EDT > Patient awareThis lab was reviewed by Preethi Watkins on 10/06/2024 at 09:58 AM EDT Notes: Stable. Risk factor modification- stop smoking. Maximize blood pressure, glucose and LDL control can use betadine topically for denuded blisters and aquaphor otherwise to help protect the skin ?2.?Coronary artery disease involving klawock coronary artery of klawock heart without angina pectoris? Notes: Stable, no acute angina. Blood pressure at goal today. Keep FU with Dr. Plunkett??3.?Tobacco use disorder? Notes: Smoking cessation counseling provided. ??4.?Prediabetes?LAB: LIPID PANEL, STANDARD (7600) (Collection Date & Time - 09/30/2024 02:27 PM)* Value Reference Range T RIGLYCERIDES 140 <150 - mg/dL * C HOLESTEROL, TOTAL 115 <200 - mg/dL * H DL CHOLESTEROL 43 > OR = 40 - mg/dL * L DL-CHOLESTEROL 50 - mg/dL (calc) * C HOL/HDLC RATIO 2.7 <5.0 - (calc) * N ON HDL CHOLESTEROL 72 <130 - mg/dL (calc) * Preethi Watkins 10/06/2024 09:58:44 AM EDT > Patient awareThis lab was reviewed by Preethi Watkins on 10/06/2024 at 09:58 AM EDT ?LAB: COMPREHENSIVE METABOLIC PANEL (28973) (Collection Date & Time - 09/30/2024 02:27 PM)* Value Reference Range G LUCOSE 72 65-99 - mg/dL * U BRUNO NITROGEN (BUN) 18 7-25 - mg/dL * C REATININE 1.04 0.70-1.28 - mg/dL * B UN/CREATININE RATIO SEE NOTE: 10-31 - (calc) * S ODIUM 142 135-146 - mmol/L * P OTASSIUM 4.4 3.5-5.3 - mmol/L * C HLORIDE 108 98-110 - mmol/L * C ARBON DIOXIDE 29 20-32 - mmol/L * C ALCIUM 9.2 8.6-10.3 - mg/dL * P ROTEIN, TOTAL 6.3 6.1-8.1 - g/dL * A LBUMIN 4.1 3.6-5.1 - g/dL * G LOBULIN 2.2 1.9-3.7 - g/dL (calc ) * A LBUMIN/GLOBULIN RATIO 1.9 1.0-2.5 - (calc) * B ILIRUBIN, TOTAL 1.6 H 0.2-1.2 - mg/dL * A LKALINE PHOSPHATASE 110 35-144 - U/L * A ST 28 10-35 - U/L * A LT 40 9-46 - U/L * E GFR 75 > OR = 60 - mL/min/1 .73m2 * Preethi Watkins 10/06/2024 09:58:44 AM EDT > Patient awareThis lab was reviewed by Preethi Watkins on 10/06/2024 at 09:58 AM EDT ?LAB: CBC (INCLUDES DIFF/PLT) (3077) (Collection Date & Time - 09/30/2024 02:27 PM)* Value Reference Range W ANTONIO BLOOD CELL COUNT 8.2 3.8-10.8 - Thousan d/uL * R ED BLOOD CELL COUNT 5.21 4.20-5.80 - Million/ uL * H EMOGLOBIN 16.2 13.2-17.1 - g/dL * H EMATOCRIT 49.4 38.5-50.0 - % * M CV 94.8 80.0-100.0 - fL * M CH 31.1 27.0-33.0 - pg * M CHC 32.8 32.0-36.0 - g/dL * R DW 13.4 11.0-15.0 - % * P LATELET COUNT 209 140-400 - Thousand/u L * N EUTROPHILS 73.5 - % * A BSOLUTE NEUTROPHILS 6027 [phone] - cells/uL * L YMPHOCYTES 16.7 - % * A BSOLUTE LYMPHOCYTES [phone] - cells/uL * M ONOCYTES 8.0 - % * A BSOLUTE MONOCYTES 656 200-950 - cells/uL * E OSINOPHILS 1.1 - % * A BSOLUTE EOSINOPHILS 90 15-500 - cells/uL * B ASOPHILS 0.7 - % * A BSOLUTE BASOPHILS 57 0-200 - cells/uL * M PV 11.4 7.5-12.5 - fL * Preethi Watkins 10/06/2024 09:58:44 AM EDT > Patient awareThis lab was reviewed by Preethi Watkins on 10/06/2024 at 09:58 AM EDT ?LAB: HEMOGLOBIN A1c (496) (Collection Date & Time - 09/30/2024 02:27 PM)* Value Reference Range H EMOGLOBIN A1c 6.4 H <5.7 - % * Preethi Watkins 10/06/2024 09:58:44 AM EDT > Patient awareThis lab was reviewed by Preethi Watkins on 10/06/2024 at 09:58 AM EDT Notes: Diabetic diet, weight loss??5.?Essential hypertension? Stop Metoprolol Succinate ER CAPSULE, EXTENDED RELEASE, 50 MG, 1 TAB, ORALLY, ONCE A DAY, 90 days, 90 TABLET, Notes to Pharmacist: *Please review and pick correct strength-formulation from [employer] options. If intended option is not shown, discontinue and re-order from Quick Search*;?Start Metoprolol Succinate ER Tablet Extended Release 24 Hour, 50 MG, 1 tablet, Orally, Once a day, 90 days, 90 Tablet, Refills 1.?LAB: LIPID PANEL, STANDARD (7600) (Collection Date & Time - 09/30/2024 02:27 PM)* Value Reference Range T RIGLYCERIDES 140 <150 - mg/dL * C HOLESTEROL, TOTAL 115 <200 - mg/dL * H DL CHOLESTEROL 43 > OR = 40 - mg/dL * L DL-CHOLESTEROL 50 - mg/dL (calc) * C HOL/HDLC RATIO 2.7 <5.0 - (calc) * N ON HDL CHOLESTEROL 72 <130 - mg/dL (calc) * Preethi Watkins 10/06/2024 09:58:44 AM EDT > Patient awareThis lab was reviewed by Preethi Watkins on 10/06/2024 at 09:58 AM EDT ?LAB: COMPREHENSIVE METABOLIC PANEL (45670) (Collection Date & Time - 09/30/2024 02:27 PM)* Value Reference Range G LUCOSE 72 65-99 - mg/dL * U BRUNO NITROGEN (BUN) 18 7-25 - mg/dL * C REATININE 1.04 0.70-1.28 - mg/dL * B UN/CREATININE RATIO SEE NOTE: 10-31 - (calc) * S ODIUM 142 135-146 - mmol/L * P OTASSIUM 4.4 3.5-5.3 - mmol/L * C HLORIDE 108 98-110 - mmol/L * C ARBON DIOXIDE 29 20-32 - mmol/L * C ALCIUM 9.2 8.6-10.3 - mg/dL * P ROTEIN, TOTAL 6.3 6.1-8.1 - g/dL * A LBUMIN 4.1 3.6-5.1 - g/dL * G LOBULIN 2.2 1.9-3.7 - g/dL (calc ) * A LBUMIN/GLOBULIN RATIO 1.9 1.0-2.5 - (calc) * B ILIRUBIN, TOTAL 1.6 H 0.2-1.2 - mg/dL * A LKALINE PHOSPHATASE 110 35-144 - U/L * A ST 28 10-35 - U/L * A LT 40 9-46 - U/L * E GFR 75 > OR = 60 - mL/min/1 .73m2 * Preethi Watkins 10/06/2024 09:58:44 AM EDT > Patient awareThis lab was reviewed by Preethi Watkins on 10/06/2024 at 09:58 AM EDT ?LAB: CBC (INCLUDES DIFF/PLT) (8888) (Collection Date & Time - 09/30/2024 02:27 PM)* Value Reference Range W ANTONIO BLOOD CELL COUNT 8.2 3.8-10.8 - Thousan d/uL * R ED BLOOD CELL COUNT 5.21 4.20-5.80 - Million/ uL * H EMOGLOBIN 16.2 13.2-17.1 - g/dL * H EMATOCRIT 49.4 38.5-50.0 - % * M CV 94.8 80.0-100.0 - fL * M CH 31.1 27.0-33.0 - pg * M CHC 32.8 32.0-36.0 - g/dL * R DW 13.4 11.0-15.0 - % * P LATELET COUNT 209 140-400 - Thousand/u L * N EUTROPHILS 73.5 - % * A BSOLUTE NEUTROPHILS 6027 [phone] - cells/uL * L YMPHOCYTES 16.7 - % * A BSOLUTE LYMPHOCYTES [phone] - cells/uL * M ONOCYTES 8.0 - % * A BSOLUTE MONOCYTES 656 200-950 - cells/uL * E OSINOPHILS 1.1 - % * A BSOLUTE EOSINOPHILS 90 15-500 - cells/uL * B ASOPHILS 0.7 - % * A [facility] BASOPHILS 57 0-200 - cells/uL * M PV 11.4 7.5-12.5 - fL * Preethi Watkins 10/06/2024 09:58:44 AM EDT > Patient awareThis lab was reviewed by Preethi Watkins on 10/06/2024 at 09:58 AM EDT ?LAB: HEMOGLOBIN A1c (496) (Collection Date & Time - 09/30/2024 02:27 PM)* Value Reference Range H EMOGLOBIN A1c 6.4 H <5.7 - % * Preethi Watkins 10/06/2024 09:58:44 AM EDT > Patient awareThis lab was reviewed by Preethi Watkins on 10/06/2024 at 09:58 AM EDT Notes: Blood pressure at goal??6.?Mixed hyperlipidemia?LAB: LIPID PANEL, STANDARD (7600) (Collection Date & Time - 09/30/2024 02:27 PM)* Value Reference Range T RIGLYCERIDES 140 <150 - mg/dL * C HOLESTEROL, TOTAL 115 <200 - mg/dL * H DL CHOLESTEROL 43 > OR = 40 - mg/dL * L DL-CHOLESTEROL 50 - mg/dL (calc) * C HOL/HDLC RATIO 2.7 <5.0 - (calc) * N ON HDL CHOLESTEROL 72 <130 - mg/dL (calc) * Preethi Watkins 10/06/2024 09:58:44 AM EDT > Patient awareThis lab was reviewed by Preethi Watkins on 10/06/2024 at 09:58 AM EDT ?LAB: COMPREHENSIVE METABOLIC PANEL (18470) (Collection Date & Time - 09/30/2024 02:27 PM)* Value Reference Range G LUCOSE 72 65-99 - mg/dL * U BRUNO NITROGEN (BUN) 18 7-25 - mg/dL * C REATININE 1.04 0.70-1.28 - mg/dL * B UN/CREATININE RATIO SEE NOTE: 6-22 - (calc) * S ODIUM 142 135-146 - mmol/L * P OTASSIUM 4.4 3.5-5.3 - mmol/L * C HLORIDE 108 98-110 - mmol/L * C ARBON DIOXIDE 29 20-32 - mmol/L * C ALCIUM 9.2 8.6-10.3 - mg/dL * P ROTEIN, TOTAL 6.3 6.1-8.1 - g/dL * A LBUMIN 4.1 3.6-5.1 - g/dL * G LOBULIN 2.2 1.9-3.7 - g/dL (calc ) * A LBUMIN/GLOBULIN RATIO 1.9 1.0-2.5 - (calc) * B ILIRUBIN, TOTAL 1.6 H 0.2-1.2 - mg/dL * A LKALINE PHOSPHATASE 110 35-144 - U/L * A ST 28 10-35 - U/L * A LT 40 9-46 - U/L * E GFR 75 > OR = 60 - mL/min/1 .73m2 * Preethi Watkins 10/06/2024 09:58:44 AM EDT > Patient awareThis lab was reviewed by Preethi Watkins on 10/06/2024 at 09:58 AM EDT ?LAB: CBC (INCLUDES DIFF/PLT) (6399) (Collection Date & Time - 09/30/2024 02:27 PM)* Value Reference Range W ANTONIO BLOOD CELL COUNT 8.2 3.8-10.8 - [place] d/uL * R ED BLOOD CELL COUNT 5.21 4.20-5.80 - Million/ uL * H EMOGLOBIN 16.2 13.2-17.1 - g/dL * H EMATOCRIT 49.4 38.5-50.0 - % * M CV 94.8 80.0-100.0 - fL * M CH 31.1 27.0-33.0 - pg * M CHC 32.8 32.0-36.0 - g/dL * R DW 13.4 11.0-15.0 - % * P LATELET COUNT 209 140-400 - Thousand/u L * N EUTROPHILS 73.5 - % * A BSOLUTE NEUTROPHILS 6027 8417-4630 - cells/uL * L YMPHOCYTES 16.7 - % * A BSOLUTE LYMPHOCYTES 6747 251-2797 - cells/uL * M ONOCYTES 8.0 - % * A BSOLUTE MONOCYTES 656 200-950 - cells/uL * E OSINOPHILS 1.1 - % * A BSOLUTE EOSINOPHILS 90 15-500 - cells/uL * B ASOPHILS 0.7 - % * A BSOLUTE BASOPHILS 57 0-200 - cells/uL * M PV 11.4 7.5-12.5 - fL * Preethi Watkins 10/06/2024 09:58:44 AM EDT > Patient awareThis lab was reviewed by Preethi Watkins on 10/06/2024 at 09:58 AM EDT ?LAB: HEMOGLOBIN A1c (496) (Collection Date & Time - 09/30/2024 02:27 PM)* Value Reference Range H EMOGLOBIN A1c 6.4 H <5.7 - % * Preethi Watkins 10/06/2024 09:58:44 AM EDT > Patient awareThis lab was reviewed by Preethi Watkins on 10/06/2024 at 09:58 AM EDT Notes: Tolerating statin well. LDL with good control??7.?Lymphedema? Notes: Continue lymphedema pumps at home.??8.?Degeneration of intervertebral disc of lumbar region with discogenic back pain? Notes: At baseline on [place]. Keep FU with pain management??9.?Iron deficiency anemia due to chronic blood loss?LAB: FERRITIN (457) (Collection Date & Time - 09/30/2024 02:27 PM)* Value Reference Range F ERRITIN 93 24-380 - ng/mL * Preethi Watkins 10/06/2024 09:58:44 AM EDT > Patient awareThis lab was reviewed by Preethi Watkins on 10/06/2024 at 09:58 AM EDT * Follow Up: 6 Months * * Sign off status: Completed true * Provider: TORITO Sorensen Date: 0 09/30/2024 Generated for Viridiana fox/Joey/Mikhailitting on: 0 11/15/2024 02:16 PM EDT History and Physical Notes * HPI (History of Present Illness) Category Sub-Category Detail Notes Category Not es gen 74-year-old male presents for follow-up on chronic conditions. Tolerating medications well. Reports blood pressure home log mostly 120-140/80's. Denies chest pain, shortness of breath or dizziness. Tolerating statin well with no myalgias. Lower extremity lymphedema continues to be improved with use of compression and intermittently with use of pumps at home. He have a small blister recently on the anterior aspect right lower leg, ruptued now, questioning how to try this... He also reports that he stopped xarelto due to cost - was taking this for PAD. Has routine FU with cardiology and plans to discuss this with them. Examination Category Sub-Category Detail Notes Category Not es General Examination Heart: Regular Rate and Rhyt hm, Lungs: clear to auscultatio n, Abdomen: Soft, NTND, BSNA, No organomegaly or peritoneal signs. Extremities: chronic discoloratio n of lower legs, 1+ BLE edema, left foot exam unremarkable Skin: without acute rashes but chronic erythema of his lower extremities with a denuded blister, serous drainage Chest: normal shape and exp ansion neck supple,, no thyromeg angel,, no lymphadenopathy, General Pleasant and [place] tive, NAD on RA, Psych Normal Mood/Affect
--- OUTSIDE RECORDS SUMMARY | 2024-11-15 14:17 | XMS_ITS | Clinical Summary ---
Author Organization [facility] Address [address] 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 Active atorvastatin (Lipitor) 40 MG tablet Take 1 tablet (40 mg) by mouth. 3 Active hydroCHLOROthia zide (HYDRODiuril) 25 MG tablet TAKE 1 TABLET BY MOUTH ONCE DAILY IN THE MORNING 2 Active losartan (Cozaar) 100 MG tablet Take 1 tablet (100 mg) by mouth. 2 Active metoprolol succinate XL (Toprol-XL) 25 MG 24 hr tablet Two times a day Active pantoprazole (Protonix) 40 MG EC tablet Take 1 tablet (40 mg) by mouth 1 (one) time each day. 3 Active Xarelto 2.5 MG tablet Take 1 tablet (2.5 mg) by mouth. 3 Active tamsulosin (Flomax) 0.4 MG 24 hr capsule TAKE 2 CAPSULES BY MOUTH ONCE DAILY AT BEDTIME FOR 90 DAYS 3 Active bacitracin 500 UNIT/GM ointment Apply topically 1 (one) time each day. Apply to affected area daily 14 g 3 Active mupirocin (Bactroban) 2 % ointment Apply topically 1 (one) time each day. 1-2 grams per application 22 g 2 3 Active Active Problems No known active problems Social History Tobacco Use Types Packs/Day Years Used Date Smoking Tobacco: Every Day Cigarettes 0.5 50 Smokeless Tobacco: Never Tobacco Cessation:Ready to Q uit: Not Asked; Counseling Given: Not Answered Alcohol Use Standard Drinks/Week Comments Never 0 (1 standard drink = 0.6 oz pur e alcohol) Sex and Gender Information Value Date Recorded Sex Assigned at Not on file Legal Sex Male 8:23 PM EDT Gender Identity Not on file Sexual Orientation Not on file Last Filed Vital Signs Vital Sign Reading Time Taken Comments Blood Pressure 124/73 04/17/2023 1:11 PM EST Pulse 83 04/17/2023 1:11 PM EST Temperature 36.3 C (97.4 F) 04/17/2023 1:11 PM EST Respiratory Rate - - Oxygen Saturation 97% 04/17/2023 1:11 PM EST Inhaled Oxygen Concentration - - Weight 105 kg (230 lb 6.4 oz) 04/17/2023 1:11 PM EST Height 185.4 cm (6' 1 ) 04/17/2023 1:11 PM EST Body Mass Index 30.4 04/17/2023 1:11 PM EST Plan of Treatment Health Maintenance Due Date Last Done Comments [facility]-Depression Screening 1949 [facility]-Hepatitis C Screening 1950 [facility]Medicare Annual Wellness (AWV) 1950 [facility]-Infant/Child/Adol SDOH Screenings 1950 [facility]- SDOH Screenings 1967 [facility]-Adult SDOH Screenings 1967 CT Colonography 1994 Colonoscopy 1994 FIT-DNA 1994 FIT 1994 FOBT 1994 Sigmoidoscopy 1994 [facility]-Colorectal Cancer Screening 1994 [facility]-Zoster Vaccines (1 of 2) 1999 [facility]-Pneumococcal Vaccine: 50+ Years (2 of 2 - PPSV23) 11/22/2023 11/21/2022, 10/16/2015 [id number] Vaccine (1 - season) 2024 [facility]-RSV Vaccine: 60+ Years or (1 - 1-dose 75+ series) 2024 [facility]-Influenza Vaccine (#1) 01/10/202504/09, 02/11/2020, 06/17/2019, Additional history exists [facility]-DTaP,Tdap,and Td Vaccines (2 - Td or Tdap) 02/18/2033 02/18/2023 [facility]-Obesity Intervention Completed 023, 03/20/2023, 03/06/2023, Additional history exists HPV Vaccines Aged Out No longer eligi ble based on patient's age to complete this topic [facility]-HIB Vaccines Aged Out No longer e ligible based on patient's age to complete this topic [facility]-Hepatitis A Vaccines Aged Out No longer eligible based on patient's age to complete this topic [facility]-IPV Vaccines Aged Out No longer e ligible based on patient's age to complete this topic [facility]-Rotavirus Vaccines Aged Out No lo nger eligible based on patient's age to complete this topic Insurance [facility] MEDICARE Care Teams Cloth Shearing Supervisor Relationship Specialty Start Date End Date Gibran Rob MD [address] [place], [place] [id number] PCP - General Internal Medicine 02/18/23
--- OUTSIDE RECORDS SUMMARY | 2024-11-15 14:17 | XMS_ITS | Patient Health Record ---
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 Kenny READ et al. ALEJANDRA. 2013;310(19): 4590-8117 (http://education.[employer].IntegralReach/faq/EUJ048) CHOL/HDLC RATIO 2.7 <5.0 (calc) NON HDL CHOLESTEROL 72 <130 mg/dL (calc) For patients with diabetes plus 1 major ASCVD risk factor, treating to a non-HDL-C goal of <100 mg/dL (LDL-C of <70 mg/dL) is considered a therapeutic option. COMPREHENSIVE METABOLIC PANDamien Orozco (97530) Reviewed date:10/06/2024 09:58:52 AM Interpretation: Performing Lab:SREE [facility] [id number] [facility], [facility] HospitalXkqnNT[address] Zachary Servin Notes/Report: NON-FASTING; NON-FASTING; NON-FASTING; NON-FASTING; [...] Reviewed date:10/06/2024 09:58:53 AM Interpretation: Performing Lab:SREE [facility] [employer] [facility] [id number] [address] [facility], [facility] HospitalRogpEK[address] Zachary Servin Notes/Report: NON-FASTING; NON-FASTING; NON-FASTING; NON-FASTING; [...] MPV 11.4 7.5-12.5 fL ABSOLUTE NEUTROPHILS 6027 1649-8954 cells/uL ABSOLUTE LYMPHOCYTES 3667 089-9046 cells/uL ABSOLUTE MONOCYTES 656 200-950 cells/uL ABSOLUTE EOSINOPHILS 90 15-500 cells/uL ABSOLUTE BASOPHILS 57 0-200 cells/uL NEUTROPHILS 73.5 LYMPHOCYTES 16.7 MONOCYTES 8.0 EOSINOPHILS 1.1 BASOPHILS 0.7 HEMOGLOBIN A1c (496) Reviewed date:10/06/2024 09:58:53 AM Interpretation: Performing Lab:SREE [facility] [facility] [id number] [facility] [place] Figueroa[address] Zachary Servin Notes/Report: NON-FASTING; NON-FASTING; NON-FASTING; NON-FASTING; [...] Reviewed date:10/06/2024 09:58:53 AM Interpretation: Performing Lab:SREE [facility] Rande1355 [facility] [place] FigueroaQntoZZ[address] Zachary Servin Notes/Report: NON-FASTING; NON-FASTING; NON-FASTING; NON-FASTING; NON-FAST FERRITIN 93 24-380 ng/mL PSA, TOTAL (5363) Reviewed date:12/05/2023 03:03:25 PM Interpretation: Performing Lab:SREE [facility] Rande1355 [employer] [facility], [place] AkpaND[address] Zachary Servin Notes/Report: NON-FASTING; NON-FASTING; NON-FASTING; NON-FASTING; NON-FAST FASTING:YES FASTING: YES PSA, TOTAL 3.09 < OR = 4.00 ng/mL The total PSA value from this assay system is standardized against the WHO standard. The test result will be approximately 20% lower when compared to the equimolar-standardized total PSA (Wally Dave). Comparison of serial PSA results should be interpreted with this fact in mind. This test was performed using the Siemens chemiluminescent method. Values obtained from different assay methods cannot be used interchangeably. PSA levels, regardless of value, should not be interpreted as absolute evidence of the presence or absence of disease. HEMOGLOBIN A1c (496) Reviewed date:12/05/2023 03:03:25 PM Interpretation: Performing Lab: [facility] [id number] [facility], [facility] HospitalCkzuLP[address] Zachary Servin Notes/Report: NON-FASTING; NON-FASTING; NON-FASTING; NON-FASTING; NON-FAST FASTING:YES FASTING: YES HEMOGLOBIN A1c 6.2 <5.7 % of total Hgb For someone without known diabetes, a hemoglobin [...] A1c for diagnosis of diabetes for children. This test was performed on the Mana davi c503 platform. Effective 07/16/23, a change in test platforms from the Small Assistant In Nursing to the Mana davi c503 may have shifted HbA1c results compared to historical results. Based on laboratory validation testing conducted at [facility], the Mana platform relative to the Small platform had an average increase in HbA1c value of < or = 0.3%. This difference is within accepted variability established by the National Glycohemoglobin Standardization Program. Note that not all individuals will have had a shift in their results and direct comparisons between historical and current results for testing conducted on different platforms is not recommended. CBC (INCLUDES DIFF/PLT) (369 9) Reviewed date:12/05/2023 03:03:25 PM Interpretation: Performing Lab:SREE, [facility]1355 [facility] HospitalQxbxNQ[address] Zachary Servin Notes/Report: NON-FASTING; NON-FASTING; NON-FASTING; NON-FASTING; NON-FAST FASTING:YES FASTING: YES WHITE BLOOD CELL COUNT 13.2 3.8-10.8 Thousand/ uL RED BLOOD CELL COUNT 5.07 4.20-5.80 Million/uL HEMOGLOBIN 16.3 13.2-17.1 g/dL HEMATOCRIT 48.6 38.5-50.0 % MCV 95.9 80.0-100.0 fL MCH 32.1 27.0-33.0 pg MCHC 33.5 32.0-36.0 g/dL RDW 12.6 11.0-15.0 % PLATELET COUNT 248 140-400 Thousand/uL MPV 10.8 7.5-12.5 fL ABSOLUTE NEUTROPHILS 59446 6393-2915 cells/uL ABSOLUTE LYMPHOCYTES [phone] cells/uL ABSOLUTE MONOCYTES 686 200-950 cells/uL ABSOLUTE EOSINOPHILS 40 15-500 cells/uL ABSOLUTE BASOPHILS 40 0-200 cells/uL NEUTROPHILS 82.6 LYMPHOCYTES 11.6 MONOCYTES 5.2 EOSINOPHILS 0.3 BASOPHILS 0.3 COMPREHENSIVE METABOLIC PANE L (55468) Reviewed date:12/05/2023 03:03:25 PM Interpretation: Performing Lab:SREE [facility] [facility] [id number] [address] [facility], [facility] HospitalSqagDT[address] Zachary Servin Notes/Report: NON-FASTING; NON-FASTING; NON-FASTING; NON-FASTING; NON-FAST FASTING:YES FASTING: YES GLUCOSE 150 65-99 mg/dL Fasting reference interval For someone without known diabetes, a glucose value >125 mg/dL indicates that they may have diabetes and this should be confirmed with a follow-up test. UREA NITROGEN (BUN) 33 7-25 mg/dL CREATININE 1.25 0.70-1.28 mg/dL EGFR 60 > OR = 60 mL/min/1.73m2 BUN/CREATININE RATIO 26 6-22 (calc) SODIUM 140 135-146 mmol/L POTASSIUM 4.1 3.5-5.3 mmol/L CHLORIDE 102 98-110 mmol/L CARBON DIOXIDE 26 20-32 mmol/L CALCIUM 9.9 8.6-10.3 mg/dL PROTEIN, TOTAL 6.7 6.1-8.1 g/dL ALBUMIN 4.3 3.6-5.1 g/dL GLOBULIN 2.4 1.9-3.7 g/dL (calc) ALBUMIN/GLOBULIN RATIO 1.8 1.0-2.5 (calc) BILIRUBIN, TOTAL 1.5 0.2-1.2 mg/dL ALKALINE PHOSPHATASE 84 35-144 U/L AST 18 10-35 U/L ALT 27 9-46 U/L LIPID PANEL, STANDARD (7600) Reviewed date:12/05/2023 03:03:25 PM Interpretation: Performing Lab:CB, [facility] [employer] [facility] Rande[address], [place] WhiteOymhDN[address] Zachary Servin Notes/Report: NON-FASTING; NON-FASTING; NON-FASTING; NON-FASTING; NON-FAST FASTING:YES FASTING: YES CHOLESTEROL, TOTAL 178 <200 mg/dL HDL CHOLESTEROL 62 > OR = 40 mg/dL TRIGLYCERIDES 125 <150 mg/dL LDL-CHOLESTEROL 93 Reference range: <100 Desirable range <100 mg/dL for primary prevention; <70 mg/dL for patients with CHD or diabetic patients with > or = 2 CHD risk factors. LDL-C is now calculated using the Kenny-Cecile calculation, which is a validated novel method providing better accuracy than the Friedewald equation in the estimation of LDL-C. Kenny READ et al. ALEJANDRA. 2013;310(19): 5200-9442 (http://education.Focal Energy.com/faq/GXF486) CHOL/HDLC RATIO 2.9 <5.0 (calc) NON HDL CHOLESTEROL 116 <130 mg/dL (calc) For patients with diabetes plus 1 major ASCVD risk factor, treating to a non-HDL-C goal of <100 mg/dL (LDL-C of <70 mg/dL) is considered a therapeutic option. CT Scan : Chest, Lung Cancer Screening Reviewed date:12/05/2023 03:03:25 PM Interpretation: Performing Lab: Notes/Report: Venous Doppler : Lower Extre mity Reviewed date:11/27/2023 09:25:15 AM Interpretation: Performing Lab: Notes/Report: LIPID PANEL, STANDARD (7600) Reviewed date:04/01/2024 11:53:02 AM Interpretation: Performing Lab:SREE, [facility] [id number] [address] [facility], [facility] HospitalBctlVF[address] Zachary Servin Notes/Report: NON-FASTING; NON-FASTING; NON-FASTING; NON-FASTING FASTING:YES FASTING: YES CHOLESTEROL, TOTAL 129 <200 mg/dL HDL CHOLESTEROL 50 > OR = 40 mg/dL TRIGLYCERIDES 103 <150 mg/dL LDL-CHOLESTEROL 60 Reference range: <100 Desirable range <100 mg/dL for primary prevention; <70 mg/dL for patients with CHD or diabetic patients with > or = 2 CHD risk factors. LDL-C is now calculated using the Kenny-Huber calculation, which is a validated novel method providing better accuracy than the Friedewald equation in the estimation of LDL-C. Kenny SS et al. ALEJANDRA. 2013;310(19): 2776-7056 (http://education.NG Advantage/faq/KDF207) CHOL/HDLC RATIO 2.6 <5.0 (calc) NON HDL CHOLESTEROL 79 <130 mg/dL (calc) For patients with diabetes plus 1 major ASCVD risk factor, treating to a non-HDL-C goal of <100 mg/dL (LDL-C of <70 mg/dL) is considered a therapeutic option. COMPREHENSIVE METABOLIC MELISSA Orozco (56926) Reviewed date:04/01/2024 11:53:02 AM Interpretation: Performing Lab:SREE Appriss [id number] [address] [facility], [facility] HospitalCagtRY[address] Zachary Servin Notes/Report: NON-FASTING; NON-FASTING; NON-FASTING; NON-FASTING FASTING:YES FASTING: YES GLUCOSE 102 65-99 mg/dL Fasting reference interval For someone without known diabetes, a glucose value between 100 and 125 mg/dL is consistent with prediabetes and should be confirmed with a follow-up test. UREA NITROGEN (BUN) 23 7-25 mg/dL CREATININE 1.12 0.70-1.28 mg/dL EGFR 69 > OR = 60 mL/min/1.73m2 BUN/CREATININE RATIO SEE NOTE: 6-22 (calc) Not Reported: BUN and Creatinine are within reference range. SODIUM 142 135-146 mmol/L POTASSIUM 4.4 3.5-5.3 mmol/L CHLORIDE 108 98-110 mmol/L CARBON DIOXIDE 25 20-32 mmol/L CALCIUM 9.2 8.6-10.3 mg/dL PROTEIN, TOTAL 6.6 6.1-8.1 g/dL ALBUMIN 4.2 3.6-5.1 g/dL GLOBULIN 2.4 1.9-3.7 g/dL (calc) ALBUMIN/GLOBULIN RATIO 1.8 1.0-2.5 (calc) BILIRUBIN, TOTAL 1.3 0.2-1.2 mg/dL ALKALINE PHOSPHATASE 89 35-144 U/L AST 20 10-35 U/L ALT 29 9-46 U/L CBC (INCLUDES DIFF/PLT) (639 9) Reviewed date:04/01/2024 11:53:02 AM Interpretation: Performing Lab:SREE, [facility] [facility]1355 [facility], [facility] CenterThtrEK[address] Zachary Servin Notes/Report: NON-FASTING; NON-FASTING; NON-FASTING; NON-FASTING FASTING:YES FASTING: YES WHITE BLOOD CELL COUNT 7.9 3.8-10.8 Thousand/ uL RED BLOOD CELL COUNT 5.06 4.20-5.80 Million/uL HEMOGLOBIN 15.1 13.2-17.1 g/dL HEMATOCRIT 46.9 38.5-50.0 % MCV 92.7 80.0-100.0 fL MCH 29.8 27.0-33.0 pg MCHC 32.2 32.0-36.0 g/dL For adults, a slight decrease in the calculated MCHC value (in the range of 30 to 32 g/dL) is most likely not clinically significant; however, it should be interpreted with caution in correlation with other red cell parameters and the patient's clinical condition. RDW 12.9 11.0-15.0 % PLATELET COUNT 236 140-400 Thousand/uL MPV 11.3 7.5-12.5 fL ABSOLUTE NEUTROPHILS 5696 0748-1835 cells/uL ABSOLUTE LYMPHOCYTES 2424 499-6317 cells/uL ABSOLUTE MONOCYTES 632 200-950 cells/uL ABSOLUTE EOSINOPHILS 190 15-500 cells/uL ABSOLUTE BASOPHILS 63 0-200 cells/uL NEUTROPHILS 72.1 LYMPHOCYTES 16.7 MONOCYTES 8.0 EOSINOPHILS 2.4 BASOPHILS 0.8 HEMOGLOBIN A1c (496) Reviewed date:04/01/2024 11:53:02 AM Interpretation: Performing Lab:CB, [employer] [id number], [place] HixfVL[address] Zachary Servin Notes/Report: NON-FASTING; NON-FASTING; NON-FASTING; NON-FASTING FASTING:YES FASTING: YES HEMOGLOBIN A1c 5.9 <5.7 % of total Hgb For someone without known diabetes, a hemoglobin [...] A1c for diagnosis of diabetes for children. CULTURE, AEROBIC AND ANAEROB IC W/GRAM STAIN (4446) Reviewed date:01/02/2024 11:52:33 AM Interpretation: Performing Lab:SREE [employer] [id number] [employer], YunaitJhczXJ[address] Zachary Servin Notes/Report: CULTURE, ANAEROBIC BACTERIA W/GRAM STAIN SEE NOTE CULTURE, ANAEROBIC BACTERIA W/GRAM STAIN Micro Number: [id number] Test Status: Final Specimen Source: Wound (site not specified) Specimen Quality: Adequate Gram Stain: Moderate Gram positive cocci Result: No anaerobes isolated. CULTURE, AEROBIC BACTERIA SEE NOTE CULTURE, AEROBIC BACTERIA Micro Number: [id number] Test Status: Final Specimen Source: Wound (site not specified) Specimen Quality: Adequate Result: Moderate growth of Group B Streptococcus isolated Beta-hemolytic streptococci are predictably susceptible to Penicillin and other beta-lactams. Susceptibility testing not routinely performed. Please contact the laboratory within 3 days if susceptibility testing is desired. COMMENT: Additional organisms of questionable significance were isolated that normally do not warrant identification and susceptibilities. Please contact the laboratory within three days if identification and susceptibilities are clinically indicated. COMPREHENSIVE METABOLIC PANE L ([id number]) Reviewed date:12/16/2023 10:20:25 AM Interpretation: Performing Lab:SREE [employer] [id number], [employer] ZojpXF[address] Zachary Servin Notes/Report: GLUCOSE 76 65-99 mg/dL Fasting reference interval UREA NITROGEN (BUN) 32 7-25 mg/dL CREATININE 1.17 0.70-1.28 mg/dL EGFR 65 > OR = 60 mL/min/1.73m2 BUN/CREATININE RATIO 27 6-22 (calc) SODIUM 141 135-146 mmol/L POTASSIUM 4.2 3.5-5.3 mmol/L CHLORIDE 105 98-110 mmol/L CARBON DIOXIDE 26 20-32 mmol/L CALCIUM 9.2 8.6-10.3 mg/dL PROTEIN, TOTAL 6.1 6.1-8.1 g/dL ALBUMIN 3.9 3.6-5.1 g/dL GLOBULIN 2.2 1.9-3.7 g/dL (calc) ALBUMIN/GLOBULIN RATIO 1.8 1.0-2.5 (calc) BILIRUBIN, TOTAL 1.3 0.2-1.2 mg/dL ALKALINE PHOSPHATASE 84 35-144 U/L AST 20 10-35 U/L ALT 45 9-46 U/L Reason For Referral Reason CT lung cancer scree jose armando Diagnosis 1 Tobacco use disorder (F17.200) Referral Organization [facility] Referring Provider First Name Elizabeth Referring Provider Last Name Rodolfo Referring Provider [facility] Sheldon ctice Referred Organization [facility] Referred Address [address] [facility] [address] [place], [place],[address], Referred Provider Specialty Diagnostic R adiology General Notes Vanessa Pina 2023 11:11:36 AM >Sent to [facility] to schedule- They will call patient, No Precert required Referral Priority Routine Reason Colonoscopy Dr. Sierra Diagnosis 1 Tubular adenoma of c olon (D12.6) Referral Organization [facility] Referring Provider First Name Elizabeth Referring Provider Last Name Rodolfo Referring Provider [facility]ld[facility] ctice Referred Provider Specialty Gastroentero logy General Notes Vanessa Pina 2023 02:31:41 PM > Sent to Dr. Sierra in [place] Referral Priority Routine Reason [facility] for wound care A [place] lymphedema treatment Diagnosis 1 Left leg cellulitis (L03.116) Diagnosis 2 Lymphedema (I89.0) Referral Organization [facility] Referring Provider First Name Shaunna Referring Provider Last Name Elina Referring Provider [facility] ctice Referred Organization [facility] Referred Address [address] [facility] [address] [place], [place],[address],[place] Referred Provider Specialty Physical Med icine and Rehabilitation General Notes Vanessa Pina 2023 03:13:26 PM > orders faxed to [facility] Referral Priority Routine Medications Medication SIG (Take, Route, Frequency, Duration) Notes Start Date End Date Status Aspirin 81 MG 1 tablet Orally Once a day Active Ferrous Sulfate ( ELEMENTAL IRON) 45 MG 1 TAB(S) ORALLY ONCE A DAY 65 mg *Please review and pick correct strength-formulatio n from Medispan options. If intended option is not shown, discontinue and re-order from Quick Search* Active Losartan Potassium 100 MG 1 tab(s) orally once a day; Duration: 90 days Active Tamsulosin HCl 0.4 MG 2 cap(s) orally once a day at bedtime; Duration: 90 days Active Metoprolol Succinate ER 50 MG 1 tablet Orally Once a day; Duration: 90 days 09/30/2024 Active HYDROcodone-Acetamino phen 5-325 MG 1 tab(s) orally twice a day per pain management Active Atorvastatin Calcium 40 MG 1 tab(s) orally once a day; Duration: 90 days Active Furosemide 20 MG 1 tab(s) orally once a day; Duration: 90 days 11/25/2023 Active Pantoprazole Sodium 40 MG 1 tab(s) orally once a day; Duration: 90 days 01/16/2023 Active Immunizations Vaccine Route Administration Date Status Comme nts PCV15- Vaxneuvance IM Intramuscular 11/21/2022 Administere d Boostrix IM Intramuscular 02/18/2023 Administered Social History Tobacco Use: Social History Observation [...] Problem Status W/U Status Risk Notes Problem Mixed hyperlipidemia (946040557) Mixed hyperlipidemia (E78.2) Active confirmed Problem Peripheral vascular disease (854302470) PVD (peripheral vascular disease) (I73.9) Active confirmed Problem Arthritis (3204373) Arthritis (M19.90) Active confirmed Problem Essential hypertension (91796298) Essential hypertension (I10) Active confirmed Problem Lymphedema (94009868) Lymphedema (I89.0) Active confirmed Problem Body mass index 30.00 to 34.99 (882001135452131) BMI 31.0-31.9,adult (Z68.31) Active confirmed Problem Obese class I (465499778254956) BMI 33.0-33.9,adult (Z68.33) Active confirmed Problem Body mass index 30+ - obesity (302920449) BMI 30.0-30.9,adult (Z68.30) Active confirmed Problem 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 (388828654417082) Coronary artery disease involving chitimacha coronary artery of chitimacha heart without angina pectoris (I25.10) Active confirmed Problem Iron deficiency anemia due to chronic blood loss (811408798) Iron deficiency anemia due to chronic blood loss (D50.0) Active confirmed Problem Degeneration of lumbar intervertebral disc (73418878) Lumbar degenerative disc disease (M51.36) Active confirmed Problem Laboratory test result abnormal (304263669) Abnormal laboratory test (R89.9) Active confirmed Problem Benign prostatic hypertrophy without outflow obstruction (876662921) Benign prostatic hyperplasia without lower urinary tract symptoms (N40.0) Active confirmed Problem Tobacco use (177388622) Tobacco use disorder (F17.200) Active confirmed Problem Chronic kidney disease stage 2 (870217068) Stage 2 chronic kidney disease (N18.2) Active confirmed Problem Arthritis of left knee (7046192395371624) Arthritis of left knee (M17.12) Active confirmed Vital Signs Heart Rate 80 /min 09/30/2024 Temperature 97.7 degrees Fahrenheit 09/30/2024 Blood pressure diastolic 78 mm Hg 09/30/2024 Height 6 ft 0 in in 09/30/2024 Blood pressure systolic 130 mm Hg 09/30/2024 Weight 244.4 lbs 09/30/2024 BMI 33.14 kg/m2 09/30/2024 Encounters Encounter Location Date Provider Diagnosis [facility] [address] [place], [place] [address] 12/03/2023 Elizabeth McNees [facility] [address] [place] [address] 12/11/2023 Elizabeth McNees [facility] [address] [facility] [address] [place], [place] [address] 03/31/2024 Elizabeth McNees [facility] [address] [facility] [address] [place] [address] 08/14/2024 Provider Migration Essential hypertension I10 [facility] [address] [facility] [address] [place] [address] 11/25/2023 Elizabeth McNees PVD (peripheral vascular disease) I73.9 ; Encounter for Medicare annual wellness exam Z00.00 ; Coronary artery disease involving chitimacha coronary artery of chitimacha heart without angina pectoris I25.10 ; Tobacco use disorder F17.200 ; Benign prostatic hyperplasia without lower urinary tract symptoms N40.0 ; Prediabetes R73.03 ; Essential hypertension I10 ; Arthritis of left knee M17.12 ; Lumbar degenerative disc disease M51.36 ; BMI 33.0-33.9,adult Z68.33 ; Right leg swelling M79.89 ; Right leg pain M79.604 ; Mixed hyperlipidemia E78.2 and Tubular adenoma of colon D12.6 [facility] [address] [place] [address] 12/09/2023 Elizabeth McNees Peripheral edema R60 .0 ; Essential hypertension I10 ; Stage 2 chronic kidney disease N18.2 ; Prediabetes R73.03 and Elevated bilirubin R17 [facility] [address] [facility] [address] [place] [address] 12/25/2023 Shaunna Antoine Left leg cellulitis L03.116 ; Mixed hyperlipidemia E78.2 and PVD (peripheral vascular disease) I73.9 [facility] [address] [facility] [address] [place] [address] 01/08/2024 Shaunna Antoine Left leg cellulitis L03.116 ; PVD (peripheral vascular disease) I73.9 and Lymphedema I89.0 [facility] [address] [facility] [address] [place] [address] 03/25/2024 Elizabeth McNees PVD (peripheral vascular disease) I73.9 ; Coronary artery disease involving chitimacha coronary artery of chitimacha heart without angina pectoris I25.10 ; Tobacco use disorder F17.200 ; Benign prostatic hyperplasia without lower urinary tract symptoms N40.0 ; Prediabetes R73.03 ; Essential hypertension I10 ; Mixed hyperlipidemia E78.2 and Lymphedema I89.0 [facility] [address] [facility] [address] [place] [address] 07/01/2024 Elizabeth NevilleKassandraes PVD (peripheral vascular disease) I73.9 ; Coronary artery disease involving chitimacha coronary artery of chitimacha heart without angina pectoris I25.10 ; Tobacco use disorder F17.200 ; Benign prostatic hyperplasia without lower urinary tract symptoms N40.0 ; Prediabetes R73.03 ; Essential hypertension I10 ; Mixed hyperlipidemia E78.2 ; Lymphedema I89.0 and Degeneration of intervertebral disc of lumbar region with discogenic back pain M51.360 [facility] [address] [facility] [address] [place] [address] 09/30/2024 Shaunna Antoine PVD (peripheral vascular disease) I73.9 ; Coronary artery disease involving chitimacha coronary artery of chitimacha heart without angina pectoris I25.10 ; Tobacco use disorder F17.200 ; Prediabetes R73.03 ; Essential hypertension I10 ; Mixed hyperlipidemia E78.2 ; Lymphedema I89.0 ; Degeneration of intervertebral disc of lumbar region with discogenic back pain M51.360 and Iron deficiency anemia due to chronic blood loss D50.0 [facility] [address] [facility] [address] [place] [address] 11/25/2023 Elizabeth McNees [facility] [address] [facility] [address] [place] [address] 11/25/2023 Elizabeth McNees [facility] [address] [facility] [address] [place] [address] 11/25/2023 Elizabeth McNees [facility] [address] [facility] [address] [place] [address] 11/27/2023 Elizabeth McNees [facility] [address] [facility] [address] [place] [address] 01/09/2024 Shaunna Antoine [facility] [address] [place] [address] 01/09/2024 Shaunna Antoine Lymphedema I89.0 and Left leg cellulitis L03.116 [facility] [address] [place] [address] 02/13/2024 Elizabeth McNees [facility] [address] [place] [address] 06/08/2024 Elizabeth McNees [facility] [address] [place] [address] 07/01/2024 Elizabeth McNees [facility] [address] [place] [address] 08/11/2024 Elizabeth McNees [facility] [address] [place] [address] 08/11/2024 Elizabeth McNees Assessments Encounter Date Diagnosis (ICD Code) Assessment Notes Treatment Notes Treatment Clinical Notes Section Notes 11/25/2023 PVD (peripheral vascular disease) (ICD-10 - I73.9) Stable. Risk factor modification- stop smoking. Maximize blood pressure, glucose and LDL control 11/25/2023 Encounter for Medicare annual wellness exam (ICD-10 - Z00.00) Colonoscopy past due, will refer to Dr. Sierra. Immunizations UTD Return to clinic in 2 weeks to re-evaluate edema, will obtain labs at that time 12/09/2023 Essential hypertension (ICD-10 - I10) 12/09/2023 Peripheral edema (ICD-10 - R60.0) Weight is down 8lbs with lasix. Stop HCTZ, continue lasix PRN. CMP to confirm stability and re-evaluate bilirubin. Avoid NSAIDs. Adequate fluid intake. Diabetic diet, exercise, weight loss. 12/25/2023 Mixed hyperlipidemia (ICD-10 - E78.2) refill atorvastatin as noted 12/25/2023 Left leg cellulitis (ICD-10 - L03.116) Start oral antibiotics, wait for culture results. Elevated as able and continue lasix orally. rec cleanse BID with warm soapy water, pat dry and apply betadine to air dry. Close FU in 2 weeks, sooner with any increasing concerns 01/08/2024 PVD (peripheral vascular disease) (ICD-10 - I73.9) continue xarelto and ASA 01/08/2024 Left leg cellulitis (ICD-10 - L03.116) Culture + strep species. Add PCN-based antibiotic. Continue to cleanse daily, apply betadine and will refer to wound care for wound management as well as lymphedema treatment 01/09/2024 Lymphedema (ICD-10 - I89.0) 03/25/2024 PVD (peripheral vascular disease) (ICD-10 - I73.9) Stable. Risk factor modification- stop smoking. Maximize blood pressure, glucose and LDL control 03/25/2024 Coronary artery disease involving chitimacha coronary artery of chitimacha heart without angina pectoris (ICD-10 - I25.10) Stable, no acute angina. Increase beta primo to optimize b/p control. Keep FU with Dr. Plunkett 07/01/2024 PVD (peripheral vascular disease) (ICD-10 - I73.9) Stable. Risk factor modification- stop smoking. Maximize blood pressure, glucose and LDL control 07/01/2024 Coronary artery disease involving chitimacha coronary artery of chitimacha heart without angina pectoris (ICD-10 - I25.10) Stable, no acute angina. Blood pressure at goal today. Keep FU with Dr. Plunkett 09/30/2024 PVD (peripheral vascular disease) (ICD-10 - I73.9) Stable. Risk factor modification- stop smoking. Maximize blood pressure, glucose and LDL control can use betadine topically for denuded blisters and aquaphor otherwise to help protect the skin 09/30/2024 Coronary artery disease involving chitimacha coronary artery of chitimacha heart without angina pectoris (ICD-10 - I25.10) Stable, no acute angina. Blood pressure at goal today. Keep FU with Dr. Plunkett 12/09/2023 Stage 2 chronic kidney disease (ICD-10 - N18.2) 07/01/2024 Tobacco use disorder (ICD-10 - F17.200) Smoking cessation counseling provided. 03/25/2024 Tobacco use disorder (ICD-10 - F17.200) Smoking cessation counseling provided. CT lung cancer screening UTD 09/30/2024 Tobacco use disorder (ICD-10 - F17.200) Smoking cessation counseling provided. 01/09/2024 Left leg cellulitis (ICD-10 - L03.116) 01/08/2024 Lymphedema (ICD-10 - I89.0) 12/25/2023 PVD (peripheral vascular disease) (ICD-10 - I73.9) continue xarelto 11/25/2023 Coronary artery disease involving chitimacha coronary artery of chitimacha heart without angina pectoris (ICD-10 - I25.10) Stable, no acute angina, see above. Keep FU with Dr. Plunkett 11/25/2023 Tobacco use disorder (ICD-10 - F17.200) Smoking cessation counseling provided. Due for CT lung cancer screening, will arrange 12/09/2023 Prediabetes (ICD-10 - R73.03) 03/25/2024 Benign prostatic hyperplasia without lower urinary tract symptoms (ICD-10 - N40.0) No acute urinary symptoms, continue flomax 07/01/2024 Benign prostatic hyperplasia without lower urinary tract symptoms (ICD-10 - N40.0) No acute urinary symptoms, continue flomax 09/30/2024 Prediabetes (ICD-10 - R73.03) Diabetic diet, weight loss 09/30/2024 Essential hypertension (ICD-10 - I10) Blood pressure at goal 07/01/2024 Prediabetes (ICD-10 - R73.03) Diabetic diet, weight loss 03/25/2024 Prediabetes (ICD-10 - R73.03) A1c elevated on previous labs. will repeat at FU. Diabetic diet, weight loss 12/09/2023 Elevated bilirubin (ICD-10 - R17) 11/25/2023 Benign prostatic hyperplasia without lower urinary tract symptoms (ICD-10 - N40.0) No acute urinary symptoms, continue flomax 11/25/2023 Prediabetes (ICD-10 - R73.03) A1c elevated on previous labs. will repeat at FU. Diabetic diet, weight loss 03/25/2024 Essential hypertension (ICD-10 - I10) Blood pressure above goal. Increase beta primo. Recommend monitoring at home, FU if consistently > 135/85 07/01/2024 Essential hypertension (ICD-10 - I10) Blood pressure at goal 08/14/2024 Essential hypertension (ICD-10 - I10) 09/30/2024 Mixed hyperlipidemia (ICD-10 - E78.2) Tolerating statin well. LDL with good control 09/30/2024 Lymphedema (ICD-10 - I89.0) Continue lymphedema pumps at home. 07/01/2024 Mixed hyperlipidemia (ICD-10 - E78.2) Tolerating statin well. LDL with good control 03/25/2024 Mixed hyperlipidemia (ICD-10 - E78.2) Tolerating statin well. Fasting lipid panel added to labs 11/25/2023 Essential hypertension (ICD-10 - I10) Blood pressure at goal. 03/25/2024 Lymphedema (ICD-10 - I89.0) Continue lymphedema pumps at home. 11/25/2023 Arthritis of left knee (ICD-10 - M17.12) At baseline. Keep FU with ortho and pain management 07/01/2024 Lymphedema (ICD-10 - I89.0) Continue lymphedema pumps at home. 09/30/2024 Degeneration of intervertebral disc of lumbar region with discogenic back pain (ICD-10 - M51.360) At baseline on [place]. Keep FU with pain management 07/01/2024 Degeneration of intervertebral disc of lumbar region with discogenic back pain (ICD-10 - M51.360) At baseline on [place]. Keep FU with pain management 09/30/2024 Iron deficiency anemia due to chronic blood loss (ICD-10 - D50.0) 11/25/2023 Lumbar degenerative disc disease (ICD-10 - M51.36) See above 11/25/2023 BMI 33.0-33.9,adult (ICD-10 - Z68.33) Recommend weight loss, complicates all aspects of care. Will recheck at FU in 2 weeks 11/25/2023 Right leg swelling (ICD-10 - M79.89) Venous doppler negative for DVT. Low dose lasix added prn, FU in 2 weeks. 11/25/2023 Right leg pain (ICD-10 - M79.604) 11/25/2023 Mixed hyperlipidemia (ICD-10 - E78.2) Tolerating statin well. Fasting lipid panel in 2 weeks 11/25/2023 Tubular adenoma of colon (ICD-10 - D12.6) 11/25/2023 Other 03/25/2024 Other Plan Of Treatment Pending Test Test Name Order Date Physical Therapy : Wound Care 01/08/2024 Physical Therapy : Wound Care 01/09/2024 Physical Therapy : Lymphedema 01/08/2024 Physical Therapy : Lymphedema 01/09/2024 Next Appt Details Provider Name:Shaunna Delarosa ce, 04/04/2025 02:00:00 PM, [address] [place] [facility] [address], [place], [address], Insurance Providers Payer Name Payer Address Payer Phone Subscriber Number Group Number Insured Name Patient Relationship to Insured Coverage Start Date Coverage End Date [employer] MEDICARE [address] [address] [place] [address] [id number] Giovanny Tovar Self - patient is the insured Medical (General) History Medical History History ICD Code HTN Hyperlipidemia Prostate issues PVD/PAD Tobacco use Lymphedema Iron Def. Anemia Surgical History Surgery Date(Month/Year) triple bypass surgery 2012 sinus surgery 1992 decompression on nerve in back 02/2023 Hospitalization History Reason Date(Month/Year) triple bypass surgery 2012
--- OUTSIDE RECORDS SUMMARY | 2024-11-15 14:17 | XMS_ITS | Data Portability ---
Author Organization [facility] Address [address] [place] [address] Assessment Encounter Date Assessment Date Assessment LastModified [...] recor ds No observ ation record ed. [facility] [address], [place], [address], 07/01/2016 15:36:33 07/01/19 17 07/01/2016 MRI, lumba r spine , w/o contr ast [facility] [facility] [address] [facility] [place] [address] Matt davis Name: SUDARSHAN davis : [address] [...] Uziel jack MD on 017 2:[address] Rad[address], [phone], 07/03/2016 13:37:08 07/01/19 17 07/01/2016 XR, lumbo sacra l spine , 2 or 3 view, bendi ng only [address] [address] Matt davis Name: SUDARSHAN davis : [address] [...] Watson MD on 017 2:41 PM [email or web address] Radiology [facility] [address] [place] [address], [phone], 07/01/2016 17:00:44 Result Notes Documentation Provider Name and Address Organization Details Recorded Time Mri, Lumbar Spine, W/o Contrast : [id number] [place] [address] Patient Name: GRANT TOVAR Patient : 1950 Patient Ordering Provider: BARBARA GONZALEZ EXAM DATE: 07/01/2016 EXAM: MR LUMBAR W/O CONTRAST HISTORY: 66-year-old male with low back pain radiating into the right hip and leg. COMPARISON: Radiograph of the same date FINDINGS: The lumbar spine is normal in alignment. There is no subluxation. There is no evidence of fracture. There is moderate anterior marginal osteophytic spurring. No pathologic lesion is identified in the lumbar spine. There are multiple small Schmorl's nodes. The conus medullaris is normal in appearance at the L1-L2 level. T10-T11 and T11-T12: There are minimal disc bulges. There is no central canal stenosis or neural foraminal stenosis. T12-L1: This intervertebral disc is essentially normal in appearance. L1-L2: There is a mild disc bulge. There is [no central canal stenosis. There is no neural foraminal stenosis. L2-L3: There is mild endplate spurring and prominence of the disc adjacent to the neural foramina. There is no central canal stenosis. There is mild left and minimal right neural foraminal stenosis. L3-L4: There is a broad-based disc protrusion extending into the right neural foramen, and mild endplate spurring. There is mild facet arthropathy. There is minimal central canal stenosis. There is mild to moderate right and mild left neural foraminal stenosis. L4-L5: There is a broad-based disc protrusion, mild endplate spurring, and mild facet arthropathy. There is no central canal stenosis. There is mild bilateral neural foraminal stenosis. L5-S1: There is a broad-based disc protrusion, mild endplate spurring, and mild facet arthropathy. There is no central canal stenosis. There is moderate left and mild right neural foraminal stenosis. IMPRESSION: 1. There are mild degenerative changes in the lumbar spine with moderate left and mild right neural foraminal narrowing at L5-S1, mild/moderate right and mild left neural foraminal narrowing at L3-L4, and mild neural foraminal narrowing at L2-L3 and L4-L5. Interpreted By: Harshad Glasgow MD [facility] 07/03/2016 13:37:08 Xr, Lumbosacral Spine, 2 Or 3 View, Bending Only : [address] [address] Patient Name: GRANT TOVAR Patient : 1950 Patient Ordering Provider: BARBARA GONZALEZ EXAM DATE: 07/01/2016 EXAM: XR LUMBAR SPINE FLEX/EXT ONLY CLINICAL INFORMATION: Back pain. IMAGES PROVIDED: Lateral views of the lumbar spine in flexion and extension. COMPARISON: None. FINDINGS: Vertebral body heights are normal. Multilevel disc space reduction is seen with anterior and lateral osteophytes. No abnormality of alignment is seen. No instability is seen on flexion or extension. Degenerative changes are seen in the facet joints. No radiographic evidence of injury is noted. IMPRESSION: Degenerative changes of the lumbar spine. No instability. Interpreted By: Moses Watson MD ARA GONZALEZ MD [address] [place] [address], [phone] 07/01/2016 17:00:44 Problems Name Problem SNOMED Code Status Onset Date Resolution Date Notes Provider Name and Address Organization Details Recorded Time Lumbosacr al radiculop athy 1093795 Active 2015 Provider: Rakesh Smyth: Active Not Available [facility] 6 09:05:47 Intervert ebral disc prolapse 92762588 Active 2015 From Automated Load;Provi barry: Susan Gonzalez atus: Active Not Available [facility] 6 09:05:47 Lumbar spondylos is 730986038 Active 2015 Provider: Rakesh Smyth: Active Not Available [facility] 6 09:05:47 Spinal stenosis of lumbosacr al region 957148565 Active 2015 From Automated Load;Provi barry: Sophia, Gibran;St atus: Active Not Available [facility] 7 02:34:38 Problem Notes None recorded. Procedures Surgical History Date Name Laterality Status Provider Name and Address Organization Details Recorded Time 07/25/19 17 Lumbar Transforaminal Epidural Steroid Injection completed MANUEL SMYTH MD [address] [place] [address], [phone], [facility] 07/24/2016 08:41:03 Imaging Results None recorded. Procedure Notes None recorded. Medical Equipment None [...] refills:0 Not Available Not Available Not Available Trinity 10 mg-325 mg tablet Take 1 tablet [...] Body weight Body mass index (BMI) Systolic And Diastolic Provider Name and Address Organization Details Last Updated DateTime 07/01/2016 182.88 cm 200009.21 g 31.9 kg/m2 132/80 mm[Hg] [facility] 07[facility] 10:01:01 Social History None recorded. Functional Status None recorded. Mental Status None recorded. Family History Nothing Reported. Medical History No medical history recorded. Past Encounters Encounter ID Performer Location Encounter Start Date Encounter Closed Date Diagnosis/Indication Diagnosis SNOMED-CT Code Diagnosis ICD10 Code Diagnosis Note [id number] BARBARA GONZALEZ MD [facility] [address] [place] [address] 07/01/2016 09:19:53 07/01/2016 10:33:13 Lumbar radiculopathy 146751862 M54.16 [id number] MANUEL SMYTH MD SURGERY SCHEDULE [address] [place] [address] 07/24/2016 07:31:26 07/24/2016 10:15:52 [id number] [facility] [place] [address] 08/15/2016 06:13:14 08/15/2016 06:13:14 Health Concerns Section Related Observation LastModified by Organization Detai ls LastModified Time None Recorded Concern Status LastModified by Organization Details LastModified Time None Recorded Advance Directives Directive None Recorded Payers Insurance Date Sequence Insurance Name Policy Number Policy Romeo Covered Member ID Romeo Member ID Guarantor Name 04/05/2020 1 [employer] (MEDICARE REPLACEMENT/A DVANTAGE - PPO) Grant Tovar [id number] Grant Tovar Notes Date Note Type Note Provider [...] or bladder control. BARBARA GONZALEZ MD [address] [facility] [place], [address], [facility] 07/01/2016 11:04:53
--- NOTE | 2024-11-15 14:38 | EXP.PAIN.SOA ---
[facility] Disclaimer: The information contained in this section may have been updated after the patient was seen, as this information can be updated by other users. Medical History Aortic insufficiency Hyperlipidemia Hypertension Diabetes Claudication Abnormal computed tomography angiography (CTA) of abdomen Tobacco dependence syndrome Back pain Left leg pain Abnormal electrocardiography CAD (coronary artery disease) Surgical History History of colonoscopy Hx of CABG Family History Other No significant family history Social History Smoking Status: Current every day smoker tobacco type: cigarettes packs per day: 1 second hand exposure: No alcohol intake: never counseling provided: none substance use type: denies use current occupational status: other Travel in the last 8 weeks?: None household members: other housing: house current occupational exposures/hazards: No caffeine: Yes Have you lived/traveled outside [place] in past 30 days?: No Contact w/someone who lives/traveled outside US past 30 days?: No Exposure to someone with infectious disease in past 14 days?: No Do you have a fever (greater than 100.4 F or 38 C)?: No Have you tested positive for COVID-19?: No Exposed to someone with COVID-19 in past 14 days?: No Do you have a sore throat?: No Do you have a cough?: No Do you have any weakness?: No Do you have any diarrhea?: No Are you experiencing any unusual bleeding?: No Do you have any muscle aches/pain?: No Do you have any abdominal pain?: No Are you experiencing loss of taste or smell?: No PM Subjective & Objective Subjective Subjective:: Patient is a pleasant 74-year-old male who presents today for 1 month medication refill and follow-up. Today he rates his pain a 2 out of 10. He denies any new falls or injuries. Patient is currently managed with Lucas 5 mg 3 times a day and was given a recent prescription of methocarbamol 750 mg 3 times a day. Patient does state that he did not notice a huge improvement with back and would like to try the Flexeril. Patient states he has had that in the past but does not remember whether or not if it was beneficial. His Kale has been reviewed and is appropriate. Review of Systems: General: No recent weight changes, no fever, no sleep disturbances Respiratory: No cough, no shortness of air, no recurring pulmonary infections Cardiovascular/peripheral vascular: No chest pain, no palpitations, no edema, no shortness of breath Gastrointestinal: No new onset incontinence, normal bowel movements reported Genitourinary: No new onset incontinence Musculoskeletal: Low back pain, left knee pain Psychiatric: [Normal mood/affect] Neurological: [Denies weakness in extremities], [denies balance issues] Pain at rest (0-10 scale): 2 Objective Objective:: Physical Exam: General: Alert and oriented x3, no acute distress, pleasant and cooperative Lungs: Respirations even and unlabored, symmetrical chest expansion Eyes: PERRL Musculoskeletal: Flexion and extension of lumbar [spine] somewhat guarded secondary to pain, [antalgic gait noted] Neurological: Speech clear, no gross sensory deficit Has patient had previous pain injection?: No Conservative treatment options previously tried: Prescription medications Length of treatment: Longer than 12 weeks Meds Home Medications and Allergies Home Medications ?Medication ?Instructions ?Recorded ?Confirmed ?Type atorvastatin 40 mg tablet 40 mg PO DAILY High cholesterol 08/15/17 11/03/24 History tamsulosin 0.4 mg capsule 0.4 mg PO DAILY URINATION ISSUES 08/15/17 11/03/24 History aspirin 81 mg chewable tablet 81 mg PO DAILY heart health 09/08/20 11/03/24 History ferric maltol 30 mg capsule 30 mg PO BID 03/18/23 11/03/24 History (Accrufer) losartan 100 mg tablet 100 mg PO DAILY 07/16/23 11/03/24 History pantoprazole 40 mg tablet,delayed 40 mg PO DAILY GERD #90 tabs 03/11/24 11/03/24 Rx release hydrocortisone acetate 25 mg 25 mg MS HS PRN hemorrhoids 1 06/08/24 11/03/24 Rx rectal suppository (Anusol-HC) month #12 ea methylcellulose (with sugar) oral 1 tbsp PO DAILY 06/08/24 11/03/24 History powder (Citrucel (sucrose) oral powder) metoprolol succinate 50 mg 50 mg PO ONCE 01/28/25 06/25/25 History tablet,extended release 24 hr methocarbamol 750 mg tablet 750 mg PO TID #42 tabs 10/12/24 11/03/24 Rx hydrocodone 5 mg-acetaminophen 325 1 tab PO TID #15 tabs 10/22/24 11/03/24 Rx mg tablet New Prescriptions to Start Prescriptions: Allergies Allergy/AdvReac Type Severity Reaction Status Date / Time No Known Allergies Allergy Verified 11/03/24 13:03 Assessment and Plan *Assessment and plan (1) Degenerative disc disease, lumbar: Status: Acute Category: Medical Code(s): M51.369 - Other intervertebral disc degeneration, lumbar region without mention of lumbar back pain or lower extremity pain (2) Lumbar radiculopathy: Status: Acute Category: Medical Code(s): M54.16 - Radiculopathy, lumbar region Plan I will refill the patient's Lucas and then send in a 1 month supply of Flexeril 10 mg 3 times daily. Patient will return to clinic in 1 month for reevaluation of symptoms and plan of care. Patient was counseled to discontinue the methocarbamol while he tries the Flexeril and to let us know if it was beneficial. He agrees with this option. Risks and benefits of the medication have been explained in detail to the patient. The patient does understand the risk of dependence on the medication when given over a prolonged period. Patient has been advised of risks of oversedation with the prescribed medication. Narcan has been offered to the paitent in the event of oversedation. Patient has been advised that a family member should also be educated regarding administration of Narcan. The patient has been advised to consult with his/her primary care provider and pharmacist regarding drug-drug interaction of medications currently prescribed. Patient has been prescribed a controlled substance after being counseled on the medication, medication safety, and possible side effects. Opioid contract was reviewed and signed by the patient, and that they have agreed to all of the terms set forth by our compliance program. A UDS is needed to verify patient's compliance with our office pain contract. This is ordered based off specific treatments related to chronic pain with the potential to abuse certain medications. Patient has been instructed to contact the clinic with any concerns before the next appointment. Dr. Smith has reviewed this note and agrees with this plan of care. This note was dictated using voice recognition software and make contain errors or omissions.
[2024-11-15 15:05] VITALS: BP 118/69; PULSE 65; RESP 12; O2SAT 94; BMI 29.8
== END 2024-11-15 23:59 | disposition home or self-care (01) ==
PROVIDERS: PCP Internal Medicine Adolescent Medicine; Visit Provider Nurse Practitioner Family
DX: M51.16 Intervertebral disc disorders with radiculopathy, lumbar region (principal); Z79.891 Long term (current) use of opiate analgesic; Z79.899 Other long term (current) drug therapy
CPT/HCPCS: 99212; G0463

== ENCOUNTER 2024-12-15 15:01 | Outpatient (POV) | payer MEDICARE, SELFPAY ==
--- OUTSIDE RECORDS SUMMARY | 2024-08-14 17:30 | XMS_ITS ---
Author Organization [facility] Address [address] [facility] [address] [facility] [address] [place] [address] Care Team Providers Care Sporting Goods Sales Associate Name Role Phone Angelita Reynolds Primary Care Provider ANGELITA Reynolds APRN Unavailable Unavailable Migration, Provider Unavailable Unavailable REASON FOR VISIT [facility] To [facility] Conversion Encounter Medications Medication SIG (Take, [...] review and pick correct strength-formulatio n from Eveo options. If intended option is not shown, discontinue and re-order from Quick Search* Active HYDROcodone-Acetamino phen 5-325 MG 1 tab(s) orally twice a day per pain management Active Metoprolol Succinate ER 50 MG 1 TAB ORALLY ONCE A DAY; Duration: 90 DAYS *Please review and pick correct strength-formulatio n from ZOZIan options. If intended option is not shown, discontinue and re-order from Quick Search* Active Tamsulosin HCl 0.4 MG 2 cap(s) orally once a day at bedtime; Duration: 90 days Active Encounters Encounter Location Date Provider Diagnosis [facility] [address] [place] [address] 08/14/2024 Provider Migration Essential hypertension I10 Assessments [...] Ernesto Delarosa , 04/04/2025 02:00:00 PM, [address], [address], [place], [address], Progress Notes * Giovanny TOVARDOB: 0 (74 yo M)Acc No.[id number]:08/14/2024 Patient: Giovanny WHEATLEY Provider: Leno Clark :1950 A ge:74 Y S ex:Male Date:08/14/2024 Address:[address] [place], [place] [id number] Pcp:Angelita Reynolds Subjective: * Chief Complaints: * [...] Electronic signature of Prov ider Migration on 12/15/2024 at 03:05 PM EDT Sign off status: Pending * Provider: Leno sprague Migration Date: 0 08/14/2024 Generated for Viridiana fox/Joey/Radha on: 0 12/15/2024 03:05 PM EDT
--- OUTSIDE RECORDS SUMMARY | 2024-12-15 15:05 | XMS_ITS | Clinical Summary ---
Author Organization [facility] Address [address] [place] [address] Care Team Providers Care Computer Engineering Technologist Name Role Phone Gibran Cerrato MD Primary Care Provider + Allergies No known active allergies Medications tamsulosin (FLOMAX) 0.4 MG capsule 24 hr capsule Take 1 capsule by mouth daily. Active metoprolol succinate XL (TOPROL-XL) 25 MG 24 hr tablet Take 25 mg by mouth 2 (two) times a day. Active atorvastatin (LIPITOR) 40 MG tablet Take 40 mg by mouth daily. Active losartan (COZAAR) 100 MG tablet Take 100 mg by mouth daily. Active aspirin 81 MG EC tablet Take 81 mg by mouth every night. Active bisacodyl (DULCOLAX) 5 MG EC tablet Take 5 mg by mouth as needed for constipation . Active docusate sodium (COLACE) 100 MG capsule Take 100 mg by mouth as needed for constipation . Active nabumetone (RELAFEN) 750 MG tabletIndications:H erniated lumbar intervertebral disc,Pinched nerve Take 1 tablet by mouth 2 (two) times a day. 60 tablet 6 Active oxyCODONE-acetamino phen (PERCOCET) 10-325 MG per tabletIndications:H erniated lumbar intervertebral disc Take 1 tablet by mouth every 6 (six) hours as needed for moderate pain (4-6). 60 tablet 6 Active oxyCODONE-acetamino phen (PERCOCET) 10-325 MG per tablet Take 1 tablet by mouth every 6 (six) hours as needed for moderate pain (4-6). 60 tablet 6 Active Active Problems Problem Noted Date Diagnosed Date Herniated lumbar intervertebral disc 09/28/2015 Overview (09/28/2015): L5-S1 Pinched nerve 09/28/2015 Family History Medical History Relation Name Comments Heart disease Father Yunior Mitral valve prolapse Father Yunior Relation Name Status Comments Father Yunior Social History Tobacco Use Types Packs/Day Years Used Date Smoking Tobacco: Every Day Cigarettes 1 30 Alcohol Use Standard Drinks/Week Comments No 0 (1 standard drink = 0.6 oz pur e alcohol) Abuse Screen Answer Date Recorded Unsafe at Home or Work/School Not on file Feels Threatened by Someone? Not on file 02/2023 Does Anyone Keep You from Co ntacting Others or Doint Things Outside the Home? Not on file 02/18/2023 Physical Sign of Abuse Present Not on file 1 Housing Stability Answer Date Recorded Current Living Arrangements Not on file 02/09 Potentially Unsafe Housing Conditions Not on gautam e 02/18/2023 Family and Community Support Answer Alec e Recorded Help with Day-to-Day Activities Not on file 02/18/2023 Lonely or Isolated Not on file 02/18/2023 Employment Answer Date Recorded Do you want help finding or keeping work or a naren b? Not on file 02/18/2023 Disabilities Answer Date Recorded Concentrating, Remembering, or Making Decisions Difficulty Not on file 02/18/2023 Doing Errands Independently Difficulty Not on fi le 02/18/2023 Education Answer Date Recorded Help with school or training? Not on file Preferred Language Not on file 02/18/2023 Sex and Gender Information Value Date Recorded Sex Assigned at Not on file Legal Sex Male 2:12 PM EDT Gender Identity Not on file Sexual Orientation Not on file Last Filed Vital Signs Vital Sign Reading Time Taken Comments Blood Pressure 148/82 09/28/2015 12:10 PM EDT Pulse - - Temperature 36.7 C (98.1 F) 09/28/2015 12:10 PM EDT Respiratory Rate - - Oxygen Saturation - - Inhaled Oxygen Concentration - - Weight 108 kg (238 lb) 09/28/2015 12:10 PM EDT Height 182.9 cm (6') 09/28/2015 12:10 PM EDT Body Mass Index 32.28 09/28/2015 12:10 PM EDT Plan of Treatment Health Maintenance Due Date Last Done Comments ANNUAL PHYSICAL 1950 HEPATITIS C SCREENING 1949 TDAP/TD VACCINES (1 - Tdap) 1968 COLOGUARD 1994 COLON CANCER SCREENING 5 YEAR SIGMOIDOSCOPY 1994 COLONOSCOPY 1994 [address] CANCER SCREENING 1994 CT COLONOGRAPHY 1994 FECAL OCCULT BLOOD TEST 1994 FIT Testing (1 year) 1994 Pneumococcal Vaccine 50+ (1 of 1 - PCV) 1999 ZOSTER VACCINE (1 of 2) 1999 AAA SCREEN ONCE 2014 COVID-19 Vaccine (1 - 2023- season) 2024 RSV Vaccine - Adults (1 - 1-dose 75+ series) INFLUENZA VACCINE 02/09/2025 Insurance [facility] MEDICARE ADVANTAGE Care Teams Computer Engineering Technologist Relationship Specialty Start Date End Date Gibran Cerrato MD PCP - General Family Medicine 11/17/15
--- OUTSIDE RECORDS SUMMARY | 2024-12-15 15:05 | XMS_ITS | Patient Health Record ---
Author Organization [facility] Address [address] [place] [address] Care Team Providers Care Dental Ceramist Helper Name Role Phone Elizabeth Reynolds Primary Care Provider ELIZABETH Reynolds APRN Unavailable Unavailable Shaunna Antoine Unavailable [phone] Migration, Provider Unavailable Unavailable Allergies No Known Allergies Results Component Value Reference Range Notes COMPREHENSIVE METABOLIC PANE L (02834) Reviewed date:10/06/2024 09:58:52 AM Interpretation: Performing Lab:CB, [facility] [address], [facility] HospitalRmxlWZ[address] Zachary Servin Notes/Report: NON-FASTING; NON-FASTING; NON-FASTING; NON-FASTING; NON-FAST GLUCOSE 72 65-99 mg/dL Fasting reference interval UREA NITROGEN (BUN) 18 7-25 mg/dL CREATININE 1.04 0.70-1.28 mg/dL EGFR 75 > OR = 60 mL/min/1.73m2 BUN/CREATININE RATIO SEE NOTE: 10-31 (calc) Not Reported: BUN and Creatinine are [...] 28 10-35 U/L ALT 40 9-46 U/L LIPID PANEL, STANDARD (7600) Reviewed date:10/06/2024 09:58:52 AM Interpretation: Performing Lab:S[facility], [facility] [place] [address] [place] SrimPP[address] Zachary Servin Notes/Report: NON-FASTING; NON-FASTING; NON-FASTING; NON-FASTING; [...] LDL-C. Kenny READ et al. ALEJANDRA. 2013;310(19): 5043-3821 (http://education.[employer]Verical/faq/LDC859) CHOL/HDLC RATIO 2.7 <5.0 (calc) NON HDL CHOLESTEROL 72 <130 mg/dL (calc) For patients with diabetes plus 1 major ASCVD risk factor, treating to a non-HDL-C goal of <100 mg/dL (LDL-C of <70 mg/dL) is considered a therapeutic option. LIPID PANEL, STANDARD (7600) Reviewed date:04/01/2024 11:53:02 AM Interpretation: Performing Lab:[facility], [email or web address] [address], [place] IqdaKW[address] Zachary Servin Notes/Report: NON-FASTING; NON-FASTING; NON-FASTING; NON-FASTING [...] of LDL-C. Kenny SS et al. ALEJANDRA. 2013;310(67): 4343-7107 (http://education.iCeutica/faq/CNQ903) CHOL/HDLC RATIO 2.6 <5.0 (calc) NON HDL CHOLESTEROL 79 <130 mg/dL (calc) For patients with diabetes plus 1 major ASCVD risk factor, treating to a non-HDL-C goal of <100 mg/dL (LDL-C of <70 mg/dL) is considered a therapeutic option. COMPREHENSIVE METABOLIC PANE Ernesto (50091) Reviewed date:04/01/2024 11:53:02 AM Interpretation: Performing Lab:[facility] [address] [facility] [place] PyloOK[address] Zachary Servin Notes/Report: NON-FASTING; NON-FASTING; NON-FASTING; NON-FASTING [...] 9) Reviewed date:04/01/2024 11:53:02 AM Interpretation: Performing Lab:[email or web address] [id number], [facility] HospitalNclmDY[address] Zachary Servin Notes/Report: NON-FASTING; NON-FASTING; NON-FASTING; NON-FASTING [...] MPV 11.3 7.5-12.5 fL ABSOLUTE NEUTROPHILS 5696 [phone] cells/uL ABSOLUTE LYMPHOCYTES 5865 444-7219 cells/uL ABSOLUTE MONOCYTES 632 200-950 cells/uL ABSOLUTE EOSINOPHILS 190 15-500 cells/uL ABSOLUTE BASOPHILS 63 0-200 cells/uL NEUTROPHILS 72.1 LYMPHOCYTES 16.7 MONOCYTES 8.0 EOSINOPHILS 2.4 BASOPHILS 0.8 CBC (INCLUDES DIFF/PLT) (639 9) Reviewed date:10/06/2024 09:58:53 AM Interpretation: Performing Lab:SREE [email or web address] [id number] [facility], [facility] HospitalOltjZZ[address] Zachary Servin Notes/Report: NON-FASTING; NON-FASTING; NON-FASTING; NON-FASTING; [...] MPV 11.4 7.5-12.5 fL ABSOLUTE NEUTROPHILS 6027 6096-4539 cells/uL ABSOLUTE LYMPHOCYTES [phone] cells/uL ABSOLUTE MONOCYTES 656 200-950 cells/uL ABSOLUTE EOSINOPHILS 90 15-500 cells/uL ABSOLUTE BASOPHILS 57 0-200 cells/uL NEUTROPHILS 73.5 LYMPHOCYTES 16.7 MONOCYTES 8.0 EOSINOPHILS 1.1 BASOPHILS 0.7 HEMOGLOBIN A1c (496) Reviewed date:10/06/2024 09:58:53 AM Interpretation: Performing Lab:SREE [facility], [address] HeroLkqeNT[address] Zachary Servin Notes/Report: NON-FASTING; NON-FASTING; NON-FASTING; NON-FASTING; [...] A1c for diagnosis of diabetes for children. HEMOGLOBIN A1c (496) Reviewed date:04/01/2024 11:53:02 AM Interpretation: Performing Lab:[email or web address] [id number] [facility], Course HeroKcjfTD[address] Zachary Servin Notes/Report: NON-FASTING; NON-FASTING; NON-FASTING; NON-FASTING [...] Reviewed date:10/06/2024 09:58:53 AM Interpretation: Performing Lab:[email or web address] [address], Course HeroTpdcFH[address] Zachary Servin Notes/Report: NON-FASTING; NON-FASTING; NON-FASTING; NON-FASTING; NON-FAST FERRITIN 93 24-380 ng/mL CULTURE, AEROBIC AND ANAEROB IC W/GRAM STAIN (4446) Reviewed date:01/02/2024 11:52:33 AM Interpretation: Performing Lab:[facility] [address], Course HeroZxsvLO[address] Zachary Servin Notes/Report: CULTURE, ANAEROBIC BACTERIA W/GRAM STAIN SEE NOTE CULTURE, ANAEROBIC BACTERIA W/GRAM STAIN Micro Number: [id number] Test Status: Final Specimen Source: Wound (site not specified) Specimen Quality: Adequate Gram Stain: Moderate Gram positive cocci Result: No anaerobes isolated. CULTURE, AEROBIC BACTERIA SEE NOTE CULTURE, AEROBIC BACTERIA Micro Number: [id number] Test Status: Final Specimen Source: Wound (site [...] if identification and susceptibilities are clinically indicated. Reason For Referral Reason [facility] for wound care A ND lymphedema treatment Diagnosis 1 Left leg cellulitis (L03.116) Diagnosis 2 Lymphedema (I89.0) Referral Organization [facility] Referring Provider First Name Shaunna Referring Provider Last Name Elina Referring Provider Speciality [facility] Referred Organization [facility] Referred Address [address], [place], [place],[address], Referred Provider Specialty Physical Med icine and Rehabilitation General Notes Vanessa Pina 2023 03:13:26 PM > orders faxed to [facility] Referral Priority Routine Medications Medication SIG (Take, Route, Frequency, Duration) Notes Start Date End Date Status Aspirin 81 MG 1 tablet Orally Once a day Active Ferrous Sulfate ( ELEMENTAL IRON) 45 MG 1 TAB(S) ORALLY ONCE A DAY 65 mg *Please review and pick correct strength-formulatio n from Driverdospan options. If intended option is not shown, discontinue and re-order from Quick Search* Active Losartan Potassium 100 MG 1 tab(s) orally once a day; Duration: 90 days Active Tamsulosin HCl 0.4 MG 2 cap(s) orally once a day at bedtime; Duration: 90 days Active Metoprolol Succinate ER 50 MG 1 tablet Orally Once a day; Duration: 90 days 09/30/2024 Active Atorvastatin Calcium 40 MG 1 tab(s) orally once a day; Duration: 90 days Active HYDROcodone-Acetamino phen 5-325 MG 1 tab(s) orally twice a day per pain management Active Pantoprazole Sodium 40 MG 1 tab(s) orally once a day; Duration: 90 days 01/16/2023 Active Furosemide 20 MG 1 tab(s) orally once a day; Duration: 90 days 11/25/2023 Active Immunizations Vaccine Route Administration Date Status [...] W/U Status Risk Notes Problem Mixed hyperlipidemia (357543212) Mixed hyperlipidemia (E78.2) Active confirmed Problem Peripheral vascular disease (386645674) PVD (peripheral vascular disease) (I73.9) Active confirmed Problem Arthritis (5000495) Arthritis (M19.90) Active confirmed Problem Essential hypertension (01441148) Essential hypertension (I10) Active confirmed Problem Lymphedema (50624780) Lymphedema (I89.0) Active confirmed Problem Body mass index 30.00 to 34.99 (419128300581944) BMI 31.0-31.9,adult (Z68.31) Active confirmed Problem Obese class I (429263808685013) BMI 33.0-33.9,adult (Z68.33) Active confirmed Problem Body mass index 30+ - obesity (040232675) BMI 30.0-30.9,adult (Z68.30) Active confirmed Problem Atherosclerotic heart disease of [place] coronary artery without angina pectoris (807373318901260) Coronary artery disease involving [place] coronary artery of [place] heart without angina pectoris (I25.10) Active confirmed Problem Iron deficiency anemia due to chronic blood loss (011721537) Iron deficiency anemia due to chronic blood loss (D50.0) Active confirmed Problem Degeneration of lumbar intervertebral disc (38382504) Lumbar degenerative disc disease (M51.36) Active confirmed Problem Laboratory test result abnormal (375595755) Abnormal laboratory test (R89.9) Active confirmed Problem Benign prostatic hypertrophy without outflow obstruction (093284523) Benign prostatic hyperplasia without lower urinary tract symptoms (N40.0) Active confirmed Problem Tobacco use (779726451) Tobacco use disorder (F17.200) Active confirmed Problem Chronic kidney disease stage 2 (286469232) Stage 2 chronic kidney disease (N18.2) Active confirmed Problem Arthritis of left knee (5154006623642972) Arthritis of left knee (M17.12) Active confirmed Vital Signs Heart Rate 80 /min 09/30/2024 Temperature 97.7 degrees Fahrenheit 09/30/2024 Blood pressure diastolic 78 mm Hg 09/30/2024 Height 6 ft 0 in in 09/30/2024 Blood pressure systolic 130 mm Hg 09/30/2024 Weight 244.4 lbs 09/30/2024 BMI 33.14 kg/m2 09/30/2024 Encounters Encounter Location Date Provider Diagnosis [facility] [address] [place] [address] 03/31/2024 Elizabeth McNees [facility] [address] [place] [address] 08/14/2024 Provider Migration Essential hypertension I10 [facility] [address] [facility] [address] [place] [address] 12/25/2023 Shaunna Antoine Left leg cellulitis L03.116 ; Mixed hyperlipidemia E78.2 and PVD (peripheral vascular disease) I73.9 [facility] [address] [facility] [address] [place] [address] 01/08/2024 Shaunna Antoine Left leg cellulitis L03.116 ; PVD (peripheral vascular disease) I73.9 and Lymphedema I89.0 [facility] [address] [facility] [address] [place], [place] [address] 03/25/2024 Elizabeth McNees PVD (peripheral vascular disease) I73.9 ; Coronary artery disease involving [place] coronary artery of [place] heart without angina pectoris I25.10 ; Tobacco use disorder F17.200 ; Benign prostatic hyperplasia without lower urinary tract symptoms N40.0 ; Prediabetes R73.03 ; Essential hypertension I10 ; Mixed hyperlipidemia E78.2 and Lymphedema I89.0 [facility] [address] [facility] [address] [place] [address] 07/01/2024 Elizabeth McNees PVD (peripheral vascular disease) I73.9 ; Coronary artery disease involving [place] coronary artery of [place] heart without angina pectoris I25.10 ; Tobacco use disorder F17.200 ; Benign prostatic hyperplasia without lower urinary tract symptoms N40.0 ; Prediabetes R73.03 ; Essential hypertension I10 ; Mixed hyperlipidemia E78.2 ; Lymphedema I89.0 and Degeneration of intervertebral disc of lumbar region with discogenic back pain M51.360 [facility] [address] [facility] [address] [place] [address] 09/30/2024 Shaunna Antoine PVD (peripheral vascular disease) I73.9 ; Coronary artery disease involving [place] coronary artery of [place] heart without angina pectoris I25.10 ; Tobacco use disorder F17.200 ; Prediabetes R73.03 ; Essential hypertension I10 ; Mixed hyperlipidemia E78.2 ; Lymphedema I89.0 ; Degeneration of intervertebral disc of lumbar region with discogenic back pain M51.360 and Iron deficiency anemia due to chronic blood loss D50.0 [facility] [address] [place] [address] 01/09/2024 Shaunna Antoine [facility] [address] [place] [address] 01/09/2024 Shaunna Antoine Lymphedema I89.0 and Left leg cellulitis L03.116 [facility] [address] [place] [address] 02/13/2024 Elizabeth McNees [facility] [address] [place] [address] 06/08/2024 Elizabeth McNees [facility] [address] [place] [address] 07/01/2024 Elizabeth McNees [facility] [address] [place] [address] 08/11/2024 Elizabeth McNees [facility] [address] [place] [address] 08/11/2024 Elizabeth McNees [facility] [address] [place] [address] 11/30/2024 Elizabeth McNees Assessments Encounter Date Diagnosis (ICD Code) Assessment Notes Treatment Notes Treatment Clinical Notes Section Notes 12/25/2023 Mixed hyperlipidemia (ICD-10 - E78.2) refill [...] LDL control 03/25/2024 Coronary artery disease involving [place] coronary artery of [place] heart without angina pectoris (ICD-10 - I25.10) Stable, no acute angina. Increase beta primo to optimize b/p control. Keep FU with Dr. Plunkett 07/01/2024 PVD (peripheral vascular disease) (ICD-10 - I73.9) Stable. Risk factor modification- stop smoking. Maximize blood pressure, glucose and LDL control 07/01/2024 Coronary artery disease involving [place] coronary artery of [place] heart without angina pectoris (ICD-10 - I25.10) Stable, no acute angina. Blood pressure at goal today. Keep FU with Dr. Plunkett 09/30/2024 PVD (peripheral vascular disease) (ICD-10 - I73.9) Stable. Risk factor modification- stop smoking. Maximize blood pressure, glucose and LDL control can use betadine topically for denuded blisters and aquaphor otherwise to help protect the skin 09/30/2024 Coronary artery disease involving [place] coronary artery of [place] heart without angina pectoris (ICD-10 - I25.10) Stable, no acute angina. Blood pressure at goal today. Keep FU with Dr. Plunkett 07/01/2024 Tobacco use disorder (ICD-10 - F17.200) Smoking cessation counseling provided. 03/25/2024 Tobacco use disorder (ICD-10 - F17.200) Smoking cessation counseling provided. CT lung cancer screening UTD 09/30/2024 Tobacco use disorder (ICD-10 - F17.200) Smoking cessation counseling provided. 01/09/2024 Left leg cellulitis (ICD-10 - L03.116) 01/08/2024 Lymphedema (ICD-10 - I89.0) 12/25/2023 PVD (peripheral vascular disease) (ICD-10 - I73.9) continue xarelto 03/25/2024 Benign prostatic hyperplasia without lower urinary [...] well. Fasting lipid panel added to labs 03/25/2024 Lymphedema (ICD-10 - I89.0) Continue lymphedema pumps at home. 07/01/2024 Lymphedema (ICD-10 - I89.0) Continue lymphedema pumps at home. 09/30/2024 Degeneration of intervertebral disc of lumbar region with discogenic back pain (ICD-10 - M51.360) At baseline on Stout. Keep FU with pain management 07/01/2024 Degeneration of intervertebral disc of lumbar region with discogenic back pain (ICD-10 - M51.360) At baseline on Stout. Keep FU with pain management 09/30/2024 Iron deficiency anemia due to chronic blood loss (ICD-10 - D50.0) 03/25/2024 Other Plan Of Treatment Pending Test Test Name Order Date Physical Therapy : Wound Care 01/08/2024 Physical Therapy : Wound Care 01/09/2024 Physical Therapy : Lymphedema 01/08/2024 Physical Therapy : Lymphedema 01/09/2024 Next Appt Details Provider Name:Shaunna Delarosa ce, 04/04/2025 02:00:00 PM, [address], [place], [address], Insurance Providers Payer Name Payer Address Payer Phone Subscriber Number Group Number Insured Name Patient Relationship to Insured Coverage Start Date Coverage End Date [employer] MEDICARE [address] [address] [place] [address] [id number] Giovanny Tovar Self - patient is the insured Medical (General) History Medical History History ICD Code HTN Hyperlipidemia Prostate issues PVD/PAD Tobacco use Lymphedema Iron Def. Anemia Surgical History Surgery Date(Month/Year) triple bypass surgery 2012 sinus surgery 1992 decompression on nerve in back 02/2023 Hospitalization History Reason Date(Month/Year) triple bypass surgery 2012
[2024-12-15 15:09] VITALS: BP 134/80; PULSE 89; RESP 14; O2SAT 96; BMI 29.8
--- NOTE | 2024-12-15 15:34 | EXP.PAIN.SOA ---
[facility] Disclaimer: The information contained in this section may have been updated after the patient was seen, as this information can be updated by other users. Medical History Aortic insufficiency Hyperlipidemia Hypertension Diabetes Claudication Abnormal computed tomography angiography (CTA) of abdomen Tobacco dependence syndrome Back pain Left leg pain Abnormal electrocardiography CAD (coronary artery disease) Surgical History History of colonoscopy Hx of CABG Family History Other No significant family history Social History Smoking Status: Current every day smoker tobacco type: cigarettes packs per day: 1 second hand exposure: No alcohol intake: never counseling provided: none substance use type: denies use current occupational status: other Travel in the last 8 weeks?: None household members: other housing: house current occupational exposures/hazards: No caffeine: Yes PM Subjective & Objective Subjective Subjective:: Patient is a pleasant 74-year-old male who presents today for medication refill and follow-up. He does rate his pain a 2 out of 10. He does state that the Flexeril did help and he would like a refill. Patient is currently managed with Elmont 5 mg 3 times a day and Flexeril 10 mg 3 times a day. He denies any side effects or changes to his pharmacy. His Kale has been reviewed and is appropriate. Review of Systems: General: No recent weight changes, no fever, no sleep disturbances Respiratory: No cough, no shortness of air, no recurring pulmonary infections Cardiovascular/peripheral vascular: No chest pain, no palpitations, no edema, no shortness of breath Gastrointestinal: No new onset incontinence, normal bowel movements reported Genitourinary: No new onset incontinence Musculoskeletal: Low back pain Psychiatric: [Normal mood/affect] Neurological: [Denies weakness in extremities], [denies balance issues] Pain at rest (0-10 scale): 2 Objective Objective:: Physical Exam: General: Alert and oriented x3, no acute distress, pleasant and cooperative Lungs: Respirations even and unlabored, symmetrical chest expansion Eyes: PERRL Musculoskeletal: Flexion and extension of lumbar [spine] somewhat guarded secondary to pain, [antalgic gait noted] Neurological: Speech clear, no gross sensory deficit Has patient had previous pain injection?: No Conservative treatment options previously tried: Home exercise plan Length of treatment: Longer than 12 weeks Meds Home Medications and Allergies Home Medications ?Medication ?Instructions ?Recorded ?Confirmed ?Type atorvastatin 40 mg tablet 40 mg PO DAILY High cholesterol 08/15/17 12/15/24 History tamsulosin 0.4 mg capsule 0.4 mg PO DAILY URINATION ISSUES 08/15/17 12/15/24 History aspirin 81 mg chewable tablet 81 mg PO DAILY heart health 09/08/20 12/15/24 History ferric maltol 30 mg capsule 30 mg PO BID 03/18/23 12/15/24 History (Accrufer) losartan 100 mg tablet 100 mg PO DAILY 07/16/23 12/15/24 History pantoprazole 40 mg tablet,delayed 40 mg PO DAILY GERD #90 tabs 03/11/24 12/15/24 Rx release hydrocortisone acetate 25 mg 25 mg PA HS PRN hemorrhoids 1 06/08/24 12/15/24 Rx rectal suppository (Anusol-HC) month #12 ea methylcellulose (with sugar) oral 1 tbsp PO DAILY 06/08/24 12/15/24 History powder (Citrucel (sucrose) oral powder) metoprolol succinate 50 mg 50 mg PO ONCE 06/08/24 12/15/24 History tablet,extended release 24 hr methocarbamol 750 mg tablet 750 mg PO TID #42 tabs 10/12/24 12/15/24 Rx cyclobenzaprine 10 mg tablet 10 mg PO TID #90 tabs 12/15/24 Rx hydrocodone 5 mg-acetaminophen 325 1 tab PO TID #90 tabs 12/15/24 Rx mg tablet New Prescriptions to Start Prescriptions: cyclobenzaprine Jason,Fabiola A hydrocodone-acetaminophen Gomez,Fabiola A Allergies Allergy/AdvReac Type Severity Reaction Status Date / Time No Known Allergies Allergy Verified 11/03/24 13:03 Assessment and Plan *Assessment and plan (1) Degenerative disc disease, lumbar: Status: Acute Category: Medical Code(s): M51.369 - Other intervertebral disc degeneration, lumbar region without mention of lumbar back pain or lower extremity pain (2) Lumbar radiculopathy: Status: Acute Category: Medical Code(s): M54.16 - Radiculopathy, lumbar region Plan I will refill the patient's Elmont and Flexeril and provide a 1 month supply of this medication. Patient will return to clinic in 1 month for reevaluation of symptoms and plan of care. Risks and benefits of the medication have been explained in detail to the patient. The patient does understand the risk of dependence on the medication when given over a prolonged period. Patient has been advised of risks of oversedation with the prescribed medication. Narcan has been offered to the paitent in the event of oversedation. Patient has been advised that a family member should also be educated regarding administration of Narcan. The patient has been advised to consult with his/her primary care provider and pharmacist regarding drug-drug interaction of medications currently prescribed. Patient has been prescribed a controlled substance after being counseled on the medication, medication safety, and possible side effects. Opioid contract was reviewed and signed by the patient, and that they have agreed to all of the terms set forth by our compliance program. A UDS is needed to verify patient's compliance with our office pain contract. This is ordered based off specific treatments related to chronic pain with the potential to abuse certain medications. Patient has been instructed to contact the clinic with any concerns before the next appointment. Dr. Smith has reviewed this note and agrees with this plan of care. This note was dictated using voice recognition software and make contain errors or omissions.
== END 2024-12-15 23:59 | disposition home or self-care (01) ==
PROVIDERS: PCP Internal Medicine Adolescent Medicine; Visit Provider Nurse Practitioner Family
DX: M51.16 Intervertebral disc disorders with radiculopathy, lumbar region (principal); Z79.891 Long term (current) use of opiate analgesic; Z79.899 Other long term (current) drug therapy
CPT/HCPCS: 99212; G0463

== ENCOUNTER 2025-03-03 16:11 | Outpatient (CLI) | payer MEDICARE, SELFPAY ==
--- OUTSIDE RECORDS SUMMARY | 2024-03-31 05:30 | XMS_ITS ---
Author Organization [facility] Address [address] [facility] [address] [facility] [address] [place] [address] Care Team Providers Care Customer Account Executive Name Role Phone Angelita Reynolds Primary Care Provider ANGELITA Reynolds APRN Unavailable Unavailable REASON FOR VISIT blood draw Encounters Encounter Location Date Provider Diagnosis [facility] [address] [facility] [address] [facility] [address] [place] [address] 03/31/2024 Angelita Reynolds Plan Of Treatment Next Appt Details Provider Name:Shaunna L Isaura ce, 04/04/2025 02:00:00 PM, [address] [facility] [address] [facility], [address], [place], [address], Progress Notes * Giovanny TOVARDOB: 0 (74 yo M)Acc No.[id number]:03/31/2024 LABS Patient: Serjio Giovanny MORALES Provider: Luke Reynolds APRN :1950 A ge:73 Y S ex:Male Date:03/31/2024 Address:[address] [place] [address], [facility] [id number] Subjective: * Chief Complaints: * 1 . Blood draw. * Medical History: Objective: * Vitals: Assessment: Plan: * Treatment: * * Electronic signature of Ya Reynolds APRN on 03/03/2025 at 04:13 PM EDT Sign off status: Pending * Provider: Luke Reynolds APRN Date: 1 05/31/2023 Generated for Viridiana fox/Joey/Radha on: 04:13 PM EDT
--- OUTSIDE RECORDS SUMMARY | 2024-08-14 17:30 | XMS_ITS ---
Author Organization [facility] Address [address] [facility] [address] [facility] [address] [place] [address] Care Team Providers Care Tripoler Name Role Phone Angelita Reynolds Primary Care Provider [phone] ANGELITA Reynolds APRN Unavailable Unavailable Migration, Provider Unavailable Unavailable REASON FOR VISIT [facility] Conversion Encounter Medications Medication SIG (Take, Route, [...] review and pick correct strength-formulatio n from Whistlestop options. If intended option is not shown, discontinue and re-order from Quick Search* Active HYDROcodone-Acetamino phen 5-325 MG 1 tab(s) orally twice a day per pain management Active Metoprolol Succinate ER 50 MG 1 TAB ORALLY ONCE A DAY; Duration: 90 DAYS *Please review and pick correct strength-formulatio n from Ubiquity Hostingan options. If intended option is not shown, discontinue and re-order from Quick Search* Active Tamsulosin HCl 0.4 MG 2 cap(s) orally once a day at bedtime; Duration: 90 days Active Encounters Encounter Location Date Provider Diagnosis [facility] [address] [place] [address] 08/14/2024 Provider Migration Essential hypertension I10 Assessments [...] Ernesto Delarosa , 04/04/2025 02:00:00 PM, [address], [address], [place], [address], Progress Notes * Giovanny EASLEYDOB: 0 (74 yo M)Acc No.[id number]:08/14/2024 Patient: Giovanny WHEATLEY Provider: Leno Clark :1950 A ge:74 Y S ex:Male Date:08/14/2024 Address:[address] [place], [place] [id number] Pcp:Angelita Reynolds Subjective: * Chief Complaints: * [...] Electronic signature of Prov ider Migration on 03/03/2025 at 04:13 PM EDT Sign off status: Pending * Provider: Leno sprague Migration Date: 0 08/14/2024 Generated for Viridiana fox/Joey/Radha on: 1 04:13 PM EDT
--- OUTSIDE RECORDS SUMMARY | 2025-03-03 16:13 | XMS_ITS | Clinical Summary ---
Author Organization [facility] Address [address] [place] [address] Care Team Providers Care Data Management Name Role Phone Gibran Cerrato MD Primary [...] of 2) 1999 AAA SCREEN ONCE 2014 RSV Vaccine - Adults (1 - 1-dose 75+ series) INFLUENZA VACCINE 12/10/2024 COVID-19 Vaccine (1 - season) 2025 Insurance [facility] MEDICARE ADVANTAGE Care Teams Data Management Relationship Specialty Start Date End Date Gibran Cerrato MD PCP - General Family Medicine 11/17/15
--- OUTSIDE RECORDS SUMMARY | 2025-03-03 16:13 | XMS_ITS | Clinical Summary ---
Author Organization [facility] Address [address] [place] [address] Care Team Providers Care Commodity Manager Name Role Phone Gibran Rob MD Primary Care Provider [phone] Allergies No known active allergies Medications aspirin [...] Screening 1949 UK-Medicare Annual Wellness (AWV) 1949 [facility]Y-/Child/Adol SDOH Screenings 1949 UKY- SDOH Screenings 1967 UK-Adult SDOH Screenings 1967 CT Colonography 1994 Colonoscopy 1994 FIT-DNA 1994 FIT 1994 FOBT 1994 Sigmoidoscopy 1994 UKY-Colorectal Cancer Screening 1994 UKY-Zoster Vaccines (1 of 2) 1999 UKY-Pneumococcal Vaccine: 50+ Years (2 of 2 - PPSV23) 11/22/2023 11/21/2022, 10/16/2015 UKY-RSV Vaccine: 60+ Years or (1 - 1-dose 75+ series) 2024 [id number] Vaccine (1 - season) 2025 UKY-Influenza Vaccine (#1) 01/10/202504/09, 02/11/2020, 06/17/2019, Additional [...] patient's age to complete this topic Insurance [facility] MEDICARE Care Teams Commodity Manager Relationship Specialty Start Date End Date Gibran Rbo MD [address] [place], [place] [address] PCP - General Internal Medicine 02/18/23
--- OUTSIDE RECORDS SUMMARY | 2025-03-03 16:14 | XMS_ITS | Patient Health Record ---
Author Organization [facility] Address [address] [place] [address] Care Team Providers Care Auto Mechanics Instructor Name Role Phone Elizabeth Reynolds Primary Care Provider [phone] ELIZABETH Reynolds APRN Unavailable Unavailable Shaunna Antoine Unavailable [phone] Migration, Provider Unavailable Unavailable Allergies No Known Allergies Results Component Value Reference Range Notes FERRITIN (457) Reviewed date:10/06/2024 09:58:53 AM Interpretation: Performing Lab:[facility] [address], BilltrustOfzoJF[address] Zachary Servin Notes/Report: NON-FASTING; NON-FASTING; NON-FASTING; NON-FASTING; NON-FAST FERRITIN 93 24-380 ng/mL HEMOGLOBIN A1c (496) Reviewed date:10/06/2024 09:58:53 AM Interpretation: Performing Lab:[facility] [address], DoctorAtWork.comHqomQZ[address] Zachary Servin Notes/Report: NON-FASTING; NON-FASTING; NON-FASTING; NON-FASTING; [...] A1c for diagnosis of diabetes for children. CBC (INCLUDES DIFF/PLT) (639 9) Reviewed date:10/06/2024 09:58:53 AM Interpretation: Performing Lab:[facility] [address] [facility], [facility] HospitalAkrrZV[address] Zachary Servin Notes/Report: NON-FASTING; NON-FASTING; NON-FASTING; NON-FASTING; [...] MPV 11.4 7.5-12.5 fL ABSOLUTE NEUTROPHILS 6027 8001-3216 cells/uL ABSOLUTE LYMPHOCYTES 5566 753-3951 cells/uL ABSOLUTE MONOCYTES 656 200-950 cells/uL ABSOLUTE EOSINOPHILS 90 15-500 cells/uL ABSOLUTE BASOPHILS 57 0-200 cells/uL NEUTROPHILS 73.5 LYMPHOCYTES 16.7 MONOCYTES 8.0 EOSINOPHILS 1.1 BASOPHILS 0.7 COMPREHENSIVE METABOLIC PANE L (08139) Reviewed date:10/06/2024 09:58:52 AM Interpretation: Performing Lab:[facility] [address] [facility], [facility] HospitalJorzYF[address] Zachary Servin Notes/Report: NON-FASTING; NON-FASTING; NON-FASTING; NON-FASTING; [...] (7600) Reviewed date:10/06/2024 09:58:52 AM Interpretation: Performing Lab:[facility] [id number] [facility] Zachary Servin Notes/Report: NON-FASTING; NON-FASTING; NON-FASTING; NON-FASTING; [...] LDL-C. Kenny READ et al. ALEJANDRA. 2013;310(19): 3663-8257 (http://education.Free & Clear.com/faq/RWL851) CHOL/HDLC RATIO 2.7 <5.0 (calc) NON HDL CHOLESTEROL 72 <130 mg/dL (calc) For patients with diabetes plus 1 major ASCVD risk factor, treating to a non-HDL-C goal of <100 mg/dL (LDL-C of <70 mg/dL) is considered a therapeutic option. HEMOGLOBIN A1c (496) Reviewed date:04/01/2024 11:53:02 AM Interpretation: Performing Lab:[facility] [address], [facility] HospitalOxbfJV[address] Zachary Servin Notes/Report: NON-FASTING; NON-FASTING; NON-FASTING; NON-FASTING [...] A1c for diagnosis of diabetes for children. CBC (INCLUDES DIFF/PLT) (639 9) Reviewed date:04/01/2024 11:53:02 AM Interpretation: Performing Lab: [facility] [address], [facility] HospitalVbymCD[address] Zachary Servin Notes/Report: NON-FASTING; NON-FASTING; NON-FASTING; NON-FASTING [...] MPV 11.3 7.5-12.5 fL ABSOLUTE NEUTROPHILS 5696 1691-1770 cells/uL ABSOLUTE LYMPHOCYTES 3829 265-2262 cells/uL ABSOLUTE MONOCYTES 632 200-950 cells/uL ABSOLUTE EOSINOPHILS 190 15-500 cells/uL ABSOLUTE BASOPHILS 63 0-200 cells/uL NEUTROPHILS 72.1 LYMPHOCYTES 16.7 MONOCYTES 8.0 EOSINOPHILS 2.4 BASOPHILS 0.8 COMPREHENSIVE METABOLIC PANE L (65992) Reviewed date:04/01/2024 11:53:02 AM Interpretation: Performing Lab:[facility] [address], [facility] HospitalAysgFF[address] Zachary Serivn Notes/Report: NON-FASTING; NON-FASTING; NON-FASTING; NON-FASTING FASTING:YES FASTING: [...] 20 10-35 U/L ALT 29 9-46 U/L LIPID PANEL, STANDARD (7600) Reviewed date:04/01/2024 11:53:02 AM Interpretation: Performing Lab:[facility] [address] [facility], [facility] HospitalPdgzMP[address] Zachary Servin Notes/Report: NON-FASTING; NON-FASTING; NON-FASTING; NON-FASTING [...] LDL-C. Kenny READ et al. ALEJANDRA. 2013;310(19): 6591-5056 (http://education.Hiphunters/faq/TJT127) CHOL/HDLC RATIO 2.6 <5.0 (calc) NON HDL CHOLESTEROL 79 <130 mg/dL (calc) For patients with diabetes plus 1 major ASCVD risk factor, treating to a non-HDL-C goal of <100 mg/dL (LDL-C of <70 mg/dL) is considered a therapeutic option. Reason For Referral No Information Medications Medication SIG (Take, Route, Frequency, Duration) Notes Start Date End Date Status Aspirin 81 MG 1 tablet Orally Once a day Active Ferrous Sulfate ( ELEMENTAL IRON) 45 MG 1 TAB(S) ORALLY ONCE A DAY 65 mg *Please review and pick correct strength-formulatio n from [employer] options. If intended option is not shown, discontinue and re-order from Quick Search* Active Pantoprazole Sodium 40 MG 1 tab(s) orally once a day; Duration: 90 days 01/16/2023 Active Losartan Potassium 100 MG 1 tab(s) orally once a day; Duration: 90 days Active Tamsulosin HCl 0.4 MG 2 cap(s) orally once a day at bedtime; Duration: 90 days Active HYDROcodone-Acetamino phen 5-325 MG 1 tab(s) orally twice a day per pain management Active Furosemide 20 MG 1 tab(s) orally once a day; Duration: 90 days 11/25/2023 Active Metoprolol Succinate ER 50 MG 1 tablet Orally Once a day; Duration: 90 days 09/30/2024 Active Atorvastatin Calcium 40 MG 1 tab(s) orally once a day; Duration: 90 days Active Immunizations Vaccine Route Administration Date Status Comme nts Boostrix IM Intramuscular 02/18/2023 Administered PCV15- Vaxneuvance IM Intramuscular 11/21/2022 Administere d Social History Tobacco Use: Social History Observation [...] W/U Status Risk Notes Problem Mixed hyperlipidemia (431118339) Mixed hyperlipidemia (E78.2) Active confirmed Problem Peripheral vascular disease (189135055) PVD (peripheral vascular disease) (I73.9) Active confirmed Problem Arthritis (3245710) Arthritis (M19.90) Active confirmed Problem Essential hypertension (35768886) Essential hypertension (I10) Active confirmed Problem Lymphedema (35122324) Lymphedema (I89.0) Active confirmed Problem Body mass index 30.00 to 34.99 (893509023991184) BMI 31.0-31.9,adult (Z68.31) Active confirmed Problem Obese class I (203628483771518) BMI 33.0-33.9,adult (Z68.33) Active confirmed Problem Body mass index 30+ - obesity (015592659) BMI 30.0-30.9,adult (Z68.30) Active confirmed Problem Atherosclerotic heart disease of lime coronary artery without angina pectoris (885784849464515) Coronary artery disease involving lime coronary artery of lime heart without angina pectoris (I25.10) Active confirmed Problem Iron deficiency anemia due to chronic blood loss (174585551) Iron deficiency anemia due to chronic blood loss (D50.0) Active confirmed Problem Degeneration of lumbar intervertebral disc (25553752) Lumbar degenerative disc disease (M51.36) Active confirmed Problem Laboratory test result abnormal (324736069) Abnormal laboratory test (R89.9) Active confirmed Problem Benign prostatic hypertrophy without outflow obstruction (408195553) Benign prostatic hyperplasia without lower urinary tract symptoms (N40.0) Active confirmed Problem Tobacco use (828970806) Tobacco use disorder (F17.200) Active confirmed Problem Chronic kidney disease stage 2 (958600260) Stage 2 chronic kidney disease (N18.2) Active confirmed Problem Arthritis of left knee (5100759168678763) Arthritis of left knee (M17.12) Active confirmed Problem AV block (475237536) AV block (I44.30) Active confirmed Vital Signs Heart Rate 82 /min 03/03/2025 Temperature 97.7 degrees Fahrenheit 03/03/2025 Blood pressure diastolic 78 mm Hg 03/03/2025 Height 6 ft 0 in in 03/03/2025 Blood pressure systolic 136 mm Hg 03/03/2025 Weight 240.8 lbs 03/03/2025 BMI 32.65 kg/m2 03/03/2025 Encounters Encounter Location Date Provider Diagnosis [facility] [address] [facility] [address] [place] [address] 03/31/2024 Elizabeth McNees [facility] [address] [facility] [address] [place] [address] 08/14/2024 Provider Migration Essential hypertension I10 [facility] [address] [facility] [address] [place] [address] 03/03/2025 Shaunna Antoine AV block I44.30 [facility] [address] [place], [place] [address] 03/25/2024 lEizabeth Reynolds PVD (peripheral vascular disease) I73.9 ; Coronary artery disease involving lime coronary artery of lime heart without angina pectoris I25.10 ; Tobacco use disorder F17.200 ; Benign prostatic hyperplasia without lower urinary tract symptoms N40.0 ; Prediabetes R73.03 ; Essential hypertension I10 ; Mixed hyperlipidemia E78.2 and Lymphedema I89.0 [facility] [address] [facility] [address] [place] [address] 07/01/2024 Elizabeth Reynolds PVD (peripheral vascular disease) I73.9 ; Coronary artery disease involving lime coronary artery of lime heart without angina pectoris I25.10 ; Tobacco use disorder F17.200 ; Benign prostatic hyperplasia without lower urinary tract symptoms N40.0 ; Prediabetes R73.03 ; Essential hypertension I10 ; Mixed hyperlipidemia E78.2 ; Lymphedema I89.0 and Degeneration of intervertebral disc of lumbar region with discogenic back pain M51.360 [facility] [address] [facility] [address] [place] [address] 09/30/2024 Shaunna Antoine PVD (peripheral vascular disease) I73.9 ; Coronary artery disease involving lime coronary artery of lime heart without angina pectoris I25.10 ; Tobacco use disorder F17.200 ; Prediabetes R73.03 ; Essential hypertension I10 ; Mixed hyperlipidemia E78.2 ; Lymphedema I89.0 ; Degeneration of intervertebral disc of lumbar region with discogenic back pain M51.360 and Iron deficiency anemia due to chronic blood loss D50.0 [facility] [address] [place] [address] 06/08/2024 Elizabeth McNees [facility] [address] [place] [address] 07/01/2024 Elizabeth McNees [facility] [address] [place] [address] 08/11/2024 Elizabeth McNees [facility] [address] [place] [address] 08/11/2024 Elizabeth McNees [facility] [address] [address] 11/30/2024 Elizabeth McNees [facility] [address] [facility] [address] [place] [address] 01/03/2025 Elizabeth McNees [facility] [address] [address] 02/18/2025 Elizabeth McNees Assessments Encounter Date Diagnosis (ICD Code) Assessment Notes Treatment Notes Treatment Clinical Notes Section Notes 03/25/2024 PVD (peripheral vascular disease) (ICD-10 - I73.9) Stable. Risk factor modification- stop smoking. Maximize blood pressure, glucose and LDL control 03/25/2024 Coronary artery disease involving lime coronary artery of lime heart without angina pectoris (ICD-10 - I25.10) Stable, no acute angina. Increase beta primo to optimize b/p control. Keep FU with Dr. Plunkett 07/01/2024 PVD (peripheral vascular disease) (ICD-10 - I73.9) Stable. Risk factor modification- stop smoking. Maximize blood pressure, glucose and LDL control 07/01/2024 Coronary artery disease involving lime coronary artery of lime heart without angina pectoris (ICD-10 - I25.10) Stable, no acute angina. Blood pressure at goal today. Keep FU with Dr. Plunkett 09/30/2024 PVD (peripheral vascular disease) (ICD-10 - I73.9) Stable. Risk factor modification- stop smoking. Maximize blood pressure, glucose and LDL control can use betadine topically for denuded blisters and aquaphor otherwise to help protect the skin 09/30/2024 Coronary artery disease involving lime coronary artery of lime heart without angina pectoris (ICD-10 - I25.10) Stable, no acute angina. Blood pressure at goal today. Keep FU with Dr. Plunkett 03/03/2025 AV block (ICD-10 - I44.30) 09/30/2024 Tobacco use disorder (ICD-10 - F17.200) Smoking cessation counseling provided. 07/01/2024 Tobacco use disorder (ICD-10 - F17.200) Smoking cessation counseling provided. 03/25/2024 Tobacco use disorder (ICD-10 - F17.200) Smoking cessation counseling provided. CT lung cancer screening UTD 03/25/2024 Benign prostatic hyperplasia without lower urinary [...] pain (ICD-10 - M51.360) At baseline on [place]. Keep FU with pain management 07/01/2024 Degeneration of intervertebral disc of lumbar region with discogenic back pain (ICD-10 - M51.360) At baseline on [place]. Keep FU with pain management 09/30/2024 Iron deficiency anemia due to chronic blood loss (ICD-10 - D50.0) 03/25/2024 Other Plan Of Treatment Pending Test Test Name Order Date Holter Monitor, 48 hour 03/03/2025 Physical Therapy : Wound Care 01/08/2024 Physical Therapy : Wound Care 01/09/2024 Physical Therapy : Lymphedema 01/09/2024 Physical Therapy : Lymphedema 01/08/2024 Next Appt Details Provider Name:Shaunna Delarosa ce, 04/04/2025 02:00:00 PM, [address] [facility] [address] [facility], [address], [place], [address], Insurance Providers Payer Name Payer Address Payer Phone Subscriber Number Group Number Insured Name Patient Relationship to Insured Coverage Start Date Coverage End Date [facility] MEDICARE [address] [address] [place] [address] [id number] Giovanny Tovar Self - patient is the insured Medical (General) History Medical History History ICD Code HTN Hyperlipidemia Prostate issues PVD/PAD Tobacco use Lymphedema Iron Def. Anemia Surgical History Surgery Date(Month/Year) triple bypass surgery 2012 sinus surgery 1992 decompression on nerve in back 02/2023 Hospitalization History Reason Date(Month/Year) triple bypass surgery 2012
== END 2025-03-03 23:59 | disposition home or self-care (01) ==
LOC: RT 16:12
PROVIDERS: PCP Internal Medicine Adolescent Medicine; Visit Provider Nurse Practitioner Family
DX: I44.1 Atrioventricular block, second degree (principal); R94.31 Abnormal electrocardiogram [ECG] [EKG]
CPT/HCPCS: 93225; 93226

== ENCOUNTER 2025-03-07 14:11 | Outpatient (CLI) | payer MEDICARE, SELFPAY ==
--- OUTSIDE RECORDS SUMMARY | 2025-03-07 14:57 | XMS_ITS | Clinical Summary ---
Author Organization [facility] Address [address] [place] [address] Care Team Providers Care Customs Officer Name Role Phone Gibran Rob MD Primary Care Provider [phone] Allergies No known active allergies Medications aspirin [...] or (1 - 1-dose 75+ series) 2024 [id number] Vaccine (1 - season) 2025 UKY-Influenza Vaccine [...] to complete this topic Insurance [facility] MEDICARE Care Teams Customs Officer Relationship Specialty Start Date End Date Gibran Rob MD [address] [place], [place] [address] PCP - General Internal Medicine 02/18/23
--- OUTSIDE RECORDS SUMMARY | 2025-03-07 14:57 | XMS_ITS | Data Portability ---
Author Organization [place] [facility]ONATH[facility] [place] [facility]OS[facility] Address [address] [facility] [address] [place] [address] Assessment Encounter Date Assessment Date Assessment LastModified [...] recor ds No observ ation record ed. [facility] ([facility]) [address], [place], [address], 07/01/2016 15:36:33 07/01/19 17 07/01/2016 MRI, lumba r spine , w/o contr ast [place] [facility] [address] [facility] [place] [address] Matt davis Name: SUDARSHAN davis : 950 [...] jack MD on 017 2:[address] Rad[address], [address], 07/03/2016 13:37:08 07/01/19 17 07/01/2016 XR, lumbo sacra l spine , 2 or 3 view, bendi ng only [address] [address] Matt davis Name: SUDARSHAN davis : 950 [...] Watson MD on 017 2:41 PM [email or web address] [facility] Radiology [facility] [address] [place] [address], [phone], 07/01/2016 17:00:44 Result Notes Documentation Provider Name and Address Organization Details Recorded Time Mri, Lumbar Spine, W/o Contrast : [address] [place] [address] Patient Name: GRANT TOVAR Patient : 1950 [...] 2 Or 3 View, Bending Only : [address] [address] Patient Name: GRANT TOVAR Patient : 1950 [...] By: Moses Watson MD ARA GONZALEZ MD [address] [place] [address], [phone] 07/01/2016 17:00:44 Problems Name Problem SNOMED Code Status Onset Date Resolution Date Notes Provider Name and Address Organization Details Recorded Time Intervert ebral disc prolapse 22192501 Active 2015 From Automated Load;Provi barry: Susan Gonzalez atus: Active Not Available [facility] 6 09:05:47 Lumbosacr al radiculop athy 5033811 Active 2015 Provider: Rakesh Smyth: Active Not Available [facility] 6 09:05:47 Lumbar spondylos is 241155638 Active 2015 Provider: Rakesh Smyth: Active Not Available [facility] 6 09:05:47 Spinal stenosis of lumbosacr al region 440368230 Active 2015 From Automated Load;Provi barry: Sophia, Gibran;St atus: Active Not Available [facility] 7 02:34:38 Problem Notes None recorded. Procedures Surgical History Date Name Laterality Status Provider Name and Address Organization Details Recorded Time 07/25/19 17 Lumbar Transforaminal Epidural Steroid Injection completed MANUEL SMYTH MD [address] [place] [address], [phone], [facility] 07/24/2016 08:41:03 Imaging Results None recorded. Procedure [...] refills:0 Not Available Not Available Not Available [place] 10 mg-325 mg tablet Take 1 tablet [...] Details Last Updated DateTime 07/01/2016 182.88 cm 897232.21 g 31.9 kg/m2 132/80 mm[Hg] [facility] 10:01:01 Social History None recorded. Functional Status None recorded. Mental Status None recorded. Family History Nothing Reported. Medical History No medical history recorded. Past Encounters Encounter ID Performer Location Encounter Start Date Encounter Closed Date Diagnosis/Indication Diagnosis SNOMED-CT Code Diagnosis ICD10 Code Diagnosis IMO Codes Diagnosis Note [id number] BARBARA GONZALEZ MD NEUROS[facility]G [facility] [address] [place] [address] 07/01/2016 09:19:53 07/01/2016 10:33:13 Lumbar radiculopathy 603058958 M54.16 [id number] MANUEL SMYTH MD SURGERY SCHEDULE [address] [place] [address] 07/24/2016 07:31:26 07/24/2016 10:15:52 [id number] [facility] [place] [address] 08/15/2016 06:13:14 08/15/2016 06:13:14 Health Concerns Section Related Observation LastModified by Organization Detai ls LastModified Time None Recorded Concern Status LastModified by Organization Details LastModified Time None Recorded Advance Directives Directive None Recorded Payers Insurance Date Sequence Insurance Name Policy Number Policy Romeo Covered Member ID Romeo Member ID Guarantor Name 04/05/2020 1 [id number] (MEDICARE REPLACEMENT/A DVANTAGE - PPO) Grant Tovar [id number] Grant Tovar Notes Date Note Type Note Provider Name and Address Organization Details Recorded Time 07/01/2016 text/html ROS as noted in the HPI Mr. Tovar was seen in the past for a left L5 [...] bowel or bladder control. BARBARA GONZALEZ MD [facility] [place], [address], [facility] 07/01/2016 11:04:53
--- OUTSIDE RECORDS SUMMARY | 2025-03-07 14:57 | XMS_ITS | Clinical Summary ---
Author Organization [facility] Address [address] [place] [address] Care Team Providers Care Scale Clerk Name Role Phone Gibran Cerrato MD Primary [...] COVID-19 Vaccine (1 - season) 2025 Insurance [facility] MEDICARE ADVANTAGE Care Teams Scale Clerk Relationship Specialty Start Date End Date Gibran Cerrato MD PCP - General Family Medicine 11/17/15
[2025-03-07 16:07] LABS: Chloride 98 mmol/L (98-107); Potassium 3.9 mmoL/L (3.5-5.1); Sodium 135 mmol/L (136-145)
[2025-03-07 16:10] LABS: Anion Gap 11.9 mEq/L (5-15); Blood Urea Nitrogen 19 mg/dl (9-20); Carbon Dioxide 29 mmol/L (22.0-30.0); Creatinine,Serum 1.10 mg/dl (0.66-1.25); Estimated Glomerular Filt Rate 65 ml/min (>60); GFR (African American) 79 ML/MIN (>60)
[2025-03-07 16:11] LABS: Calcium 9.5 mg/dl (8.4-10.2); Glucose 100 mg/dl (74-100)
== END 2025-03-07 23:59 | disposition home or self-care (01) ==
LOC: LAB 14:12
PROVIDERS: PCP Internal Medicine Adolescent Medicine; Visit Provider Internal Medicine
DX: I25.10 Atherosclerotic heart disease of native coronary artery without angina pectoris (principal)
CPT/HCPCS: 36415; 80048

== ENCOUNTER 2025-04-11 13:52 | Outpatient (CLI) | payer MEDICARE, SELFPAY ==
--- NOTE | 2025-04-11 13:56 | XR_ITS ---
FINAL REPORT CLINICAL HISTORY: left knee pain COMPARISON: None FINDINGS: AP, lateral and oblique views of the left knee were obtained. There is no prior exam for comparison. There is no acute osseous abnormality of the left knee. Degenerative joint disease is present, most pronounced in the medial compartment. Prominent vascular calcifications are noted. A small joint effusion is present. IMPRESSION: Degenerative joint disease, particularly in the medial compartment, with no acute osseous abnormality of the left knee. Reviewed, Interpreted and Dictated by Vani Magallon MD Transcribed by Jenny Arnett Authenticated and [facility]
--- OUTSIDE RECORDS SUMMARY | 2025-04-11 13:57 | XMS_ITS | Clinical Summary ---
Author Organization [facility] Address [address] [place] [address] Care Team Providers Care Intensive Care Ambulance Paramedic Name Role Phone Gibran Rob MD Primary Care Provider [phone] Allergies No known active allergies Medications aspirin [...] Screening 1950 [place]-Medic[facility] Annual Wellness (AWV) 1950 [facility]-/Child/Adol SDOH Screenings 1950 [facility]- SDOH Screenings 1967 [facility]-Adult SDOH Screenings 1967 CT Colonography 1994 Colonoscopy 1994 FIT-DNA 1994 FIT 1994 FOBT 1994 Sigmoidoscopy 1994 [facility]-Colorectal Cancer Screening 1994 [facility]-Zoster Vaccines (1 of 2) 1999 [facility]-Pneumococcal Vaccine: 50+ Years (2 of 2 - PPSV23) 11/22/2023 11/21/2022, 10/16/2015 [facility]-RSV Vaccine: 60+ Years or (1 - 1-dose 75+ series) 2024 [id number] Vaccine (1 - 2024- season) 2025 [facility]-Influenza Vaccine (#1) 01/10/202504/09, 02/11/2020, [...] patient's age to complete this topic Insurance [facility] MEDICARE Care Teams Intensive Care Ambulance Paramedic Relationship Specialty Start Date End Date Gibran Rob MD [address] [place], [place] [address] PCP - General Internal Medicine 02/18/23
--- OUTSIDE RECORDS SUMMARY | 2025-04-11 13:57 | XMS_ITS | Clinical Summary ---
Author Organization [facility] Address [address] [place] [address] Care Team Providers Care Furnishings Conservator Name Role Phone Gibran Cerrato MD Primary [...] COVID-19 Vaccine (1 - season) 2025 Insurance [facility] MEDICARE ADVANTAGE Care Teams Furnishings Conservator Relationship Specialty Start Date End Date Gibran Cerrato MD PCP - General Family Medicine 11/17/15
== END 2025-04-11 23:59 | disposition home or self-care (01) ==
LOC: RAD 13:55
PROVIDERS: PCP Internal Medicine Adolescent Medicine; Visit Provider Physician Assistant
DX: M17.12 Unilateral primary osteoarthritis, left knee (principal)
CPT/HCPCS: 73562

== ENCOUNTER 2025-04-14 15:09 | Outpatient (CLI) | payer MEDICARE, SELFPAY ==
--- NOTE | 2025-04-14 15:10 | CT_ITS ---
FINAL REPORT TECHNIQUE: Thin section axial images were obtained through the lungs using a low-dose technique per lung cancer screening protocol. Reconstruction images were obtained using the axial data. Exam was performed using dose reduction technique. CLINICAL HISTORY: HX OF TOBACCO SMOKER 49 YEARS, LESS THAN 1 PPD COMPARISON: 12/03/2023 FINDINGS: CTDI: 2.90 DLP: 104.73 Current smoker 50 pack year history Lungs: No acute pulmonary abnormality. There is a tiny left lower lobe nodule best seen on image #55 of series 4, which is stable. No new nodules are identified. Lymph nodes: No thoracic lymphadenopathy. Mediastinum: Heart size is normal. Prominent coronary artery calcifications are present. The left thyroid nodule noted on the prior LDCT is stable in appearance. Pleura/pericardium: No pleural or pericardial effusion. Other: No acute abnormality in the upper abdomen. IMPRESSION: Stable tiny 2 mm left lower lobe nodule as described. No new nodules are identified. Lung RADS: 2S, the S designation for prominent coronary artery calcifications. Recommendation: 12-month follow-up LDCT Reviewed, Interpreted and Dictated by Vani Magallon MD Transcribed by Jenny Arnett Authenticated and [facility]
== END 2025-04-14 23:59 | disposition home or self-care (01) ==
LOC: RAD 15:09
PROVIDERS: PCP Internal Medicine Adolescent Medicine; Visit Provider Nurse Practitioner Family
DX: Z12.2 Encounter for screening for malignant neoplasm of respiratory organs (principal); F17.210 Nicotine dependence, cigarettes, uncomplicated; R91.1 Solitary pulmonary nodule; E04.1 Nontoxic single thyroid nodule
CPT/HCPCS: 71271